=== PATIENT | male | born 1955 | race Caucasian/White ===

== ENCOUNTER 2020-03-01 23:56 | Inpatient (IN) | payer OTHER, SELFPAY ==
[2020-03-02] VITALS (9 sets, daily range): BP systolic 125–138; BP diastolic 86–91; PULSE 80–114; RESP 18–20; TEMP 36.4–36.9; O2SAT 95–97; BMI 25.9
--- NOTE | 2020-03-02 00:17 | ED.PSYCH ---
HPI - Psych General Chief Complaint: Psychiatric Symptoms <Kade Shultz MD - Last Filed: 03/02/20 01:37> Stated Complaint: HALLUCINATIONS <Kade Shultz MD - Last Filed: 03/02/20 01:37> Time Seen by Provider: 03/02/20 00:17 <Kade Shultz MD - Last Filed: 03/02/20 01:37> Source: patient <Kade Shultz MD - Last Filed: 03/02/20 01:37> Mode of arrival: other (Brought in by INSURANCE LOSS ASSESSOR) <Kade Shultz MD - Last Filed: 03/02/20 01:37> Limitations: no limitations <Kade Shultz MD - Last Filed: 03/02/20 01:37> History of Present Illness HPI Narrative: Patient has been reporting to the INSURANCE LOSS ASSESSOR that he feels he is being followed. Some times he sees the person. Worsening memory. He feels that his hallucinations are getting worse. <Kade Shultz MD - Last Filed: 03/02/20 01:37> MD complaint: altered mental status and hallucinations <Kade Shultz MD - Last Filed: 03/02/20 01:37> Onset (ago): week(s) <Kade Shultz MD - Last Filed: 03/02/20 01:37> Duration: constant <Kade Shultz MD - Last Filed: 03/02/20 01:37> Associated psychiatric symptoms: visual hallucinations <Kade Shultz MD - Last Filed: 03/02/20 01:37> Related Data Home Medications: Home Medications Medication Instructions Recorded Confirmed atorvastatin 1 tab PO BEDTIME 03/02/20 03/02/20 carbidopa-levodopa 1 tab PO QID 03/02/20 03/02/20 cholecalciferol (vitamin D3) 1 tab PO QAM 03/02/20 03/02/20 cyanocobalamin (vitamin B-12) 1 tab PO QAM 03/02/20 03/02/20 docusate sodium [DOK] 100 mg PO BID 03/02/20 03/02/20 mirtazapine 1 tab PO BEDTIME 03/02/20 03/02/20 khemqxjlartf-nhcc-lfppd acid 1 tab PO QNOON 03/02/20 03/02/20 [Certavite-Antioxidant] pantoprazole 1 tab PO QAM 03/02/20 03/02/20 quetiapine 25 mg PO BID@0630,1630 03/02/20 03/02/20 quetiapine 75 mg PO BEDTIME 03/02/20 03/02/20 sertraline 2 tab PO QAM 03/02/20 03/02/20 <Kade Shultz MD - Last Filed: 03/02/20 01:37> Allergies/Adverse Reactions: Allergies Allergy/AdvReac Type Severity Reaction Status Date / Time No Known Allergies Allergy Unverified 10/27/19 16:18 [No Known Allergies*] <Kade Shultz MD - Last Filed: 03/02/20 01:37> Review of Systems Constitutional: Constitutional: Reports no additional constitutional complaints <Kade Shultz MD - Last Filed: 03/02/20 01:37> Eyes: Eyes: Reports no additional eye complaints <Kade Shultz MD - Last Filed: 03/02/20 01:37> ENT: Denies dizziness <Kade Shultz MD - Last Filed: 03/02/20 01:37> Cardiovascular: Cardiovascular: Reports no additional cardiovascular complaints <Kade Shultz MD - Last Filed: 03/02/20 01:37> Respiratory: Respiratory: Reports as per HPI <Kade Shultz MD - Last Filed: 03/02/20 01:37> Gastrointestinal: Gastrointestinal: Reports no additional gastrointestinal complaints <Kade Shultz MD - Last Filed: 03/02/20 01:37> Musculoskeletal: Musculoskeletal: Reports no additional musculoskeletal complaints <Kade Shultz MD - Last Filed: 03/02/20 01:37> Integumentary/Breasts: Skin/Breast: Denies rash <Kade Shultz MD - Last Filed: 03/02/20 01:37> Neurologic: Reports system reviewed and no additional complaints, except as documented, Denies dizziness and Denies Sensory deficit (Neuro) <Kade Shultz MD - Last Filed: 03/02/20 01:37> Psychiatric: Psychiatric: Denies anxiety <Kade Shultz MD - Last Filed: 03/02/20 01:37> [facility] Social History Social History: Social History Advance Directives: No Advance Directives Information Provided: No <Kade Shultz MD - Last Filed: 03/02/20 01:37> Physical Exam Vital Signs: Vital Signs: Last Vital Signs Temp 98.5 F 03/02/20 00:48 Pulse 114 H 03/02/20 00:48 Resp 18 03/02/20 08:00 BP 125/88 03/02/20 00:48 Pulse Ox 96 03/02/20 00:48 Body Mass Index 25.9 <Kade Shultz MD - Last Filed: 03/02/20 01:37> Vital Signs: Last Vital Signs Temp 98.5 F 03/02/20 00:48 Pulse 114 H 03/02/20 00:48 Resp 18 03/02/20 08:00 BP 125/88 03/02/20 00:48 Pulse Ox 96 03/02/20 00:48 Body Mass Index 25.9 <JOHN Nieves - Last Filed: 03/02/20 08:58> Const: Other: Male looking older than stated age, tremulous <Kade Shultz MD - Last Filed: 03/02/20 01:37> Nutritional Appearance: average body habitus <Kade Shultz MD - Last Filed: 03/02/20 01:37> Limitations: no limitations <Kade Shultz MD - Last Filed: 03/02/20 01:37> HENMT: Head: Yes normal to inspection <Kade Shultz MD - Last Filed: 03/02/20 01:37> Ears: external ears normal <Kade Shultz MD - Last Filed: 03/02/20 01:37> General nose exam: Normal external nose present <Kade Shultz MD - Last Filed: 03/02/20 01:37> Mouth: Normal oral and palatal mucosa present and oropharynx normal <Kade Shultz MD - Last Filed: 03/02/20 01:37> Throat: Yes posterior oropharynx normal <Kade Shultz MD - Last Filed: 03/02/20 01:37> Eyes: General: appearance normal, both eyes and all related structures <Kade Shultz MD - Last Filed: 03/02/20 01:37> Neck: Other: supple <Kade Shultz MD - Last Filed: 03/02/20 01:37> Neck: Yes normal visual inspection <Kade Shultz MD - Last Filed: 03/02/20 01:37> Chest: Chest palpation & inspection: normal inspection of the chest <Kade Shultz MD - Last Filed: 03/02/20 01:37> Resp: Auscultation: clear to auscultation bilaterally <Kade Shultz MD - Last Filed: 03/02/20 01:37> Cardio: Jugular venous distension: no JVD <Kade Shultz MD - Last Filed: 03/02/20 01:37> Rate: regular rate <Kade Shultz MD - Last Filed: 03/02/20 01:37> Rhythm: regular rhythm <Kade Shultz MD - Last Filed: 03/02/20 01:37> Heart sounds: S1 normal heart sound present and S2 normal heart sound present <Kade Shultz MD - Last Filed: 03/02/20 01:37> GI: Inspection: Yes normal to inspection <Kade Shultz MD - Last Filed: 03/02/20 01:37> Palpation (GI): Soft to palpation, nontender and No hepatosplenomegaly present <Kade Shultz MD - Last Filed: 03/02/20 01:37> Auscultation: normal bowel sounds <Kade Shultz MD - Last Filed: 03/02/20 01:37> : General: Yes no CVA tenderness <Kade Shultz MD - Last Filed: 03/02/20 01:37> Back/Spine/Pelvis: Back: no CVA tenderness <Kade Shultz MD - Last Filed: 03/02/20 01:37> Skin: General skin exam: no rashes or lesions noted <Kade Shultz MD - Last Filed: 03/02/20 01:37> Neuro: Other: parkinsonian tremor <Kade Shultz MD - Last Filed: 03/02/20 01:37> Cranial nerves: Yes CN's II-XII intact bilaterally <Kade Shultz MD - Last Filed: 03/02/20 01:37> Motor exam (neuro): 5/5 motor strength present throughout <Kade Shultz MD - Last Filed: 03/02/20 01:37> Sensory Exam: No Sensory deficit (Neuro) <Kade Shultz MD - Last Filed: 03/02/20 01:37> Extrem: General: Yes normal to inspection <Kade Shultz MD - Last Filed: 03/02/20 01:37> Psych: Appearance: grossly normal <Kade Shultz MD - Last Filed: 03/02/20 01:37> Course Course Course Narrative: patient with increasing forgetfulness with hallucinations, work up in progress, signed out to Dr. Calvert <Kade Shultz MD - Last Filed: 03/02/20 01:37> 03/02/20 08:56--patient was tachycardic last night. Lab/imaging reviewed. Is pending evaluation by N. No complaints overnight <JOHN Nieves - Last Filed: 03/02/20 08:58> MDM - Psych Restraints Face to Face Assessment: Face to Face Assessment: Current Situation: After assessment of the patient, a review of the pertinent medical record and a discussion with nursing staff, I feel the patient requires a restrain intervention. Reaction To: [] Medical Condition: [] Behavioral State: [] Continued Need: [] <Kade Shultz MD - Last Filed: 03/02/20 01:37> Lab Data Result diagrams: : 03/02/20 01:26 03/02/20 01:26 <Kade Shultz MD - Last Filed: 03/02/20 01:37> Labs: Lab Results 03/02/20 03/02/20 03/02/20 Range/Units 00:59 01:26 01:26 WBC 10.0 (4.8-10.8) X10*3/uL RBC 4.58 L (4.60-5.80) X10*6/uL Hgb 13.3 L (14.0-18.0) g/dl Hct 40.9 L (42-52) % MCV 89.3 (80-98) fL MCH 29.0 (27.0-33.0) pg MCHC 32.5 (31.0-36.0) g/dl RDW 13.7 (11.0-16.0) % Plt Count 287 (160-400) X10*3/uL MPV 9.9 (9.4-12.4) fL Immature Gran % (Auto) 0.2 (0.0-0.4) % Neut % (Auto) 77.6 H (45-73) % Lymph % (Auto) 16.6 L (20-40) % [place] % (Auto) 4.9 (2-11) % Eos % (Auto) 0.3 (0-4) % Baso % (Auto) 0.4 (0-2) % Lymph # (Auto) 1.7 (1.2-4.9) X10*3/uL [place] # (Auto) 0.5 (0.1-1.2) X10*3/uL Eos # (Auto) 0.0 (0.0-0.4) X10*3/uL Baso # (Auto) 0.0 (0.0-0.2) X10*3/uL Abs Immat Gran (auto) 0.02 (0.00-0.03) X10*3/uL Absolute Neuts (auto) 7.8 (2.0-8.3) X10*3/uL Absolute Nucleated RBC 0.000 (0.0-0.012) X10*3/uL Nucleated RBC % (auto) 0.0 (0.0-0.2) /100WBC Sodium 138 (135-145) mmol/L Potassium 4.0 (3.3-5.1) mmol/l Chloride 103 (96-108) mmol/L Carbon Dioxide 24 (22-29) mmol/L Anion Gap 15 (12-20) BUN 18 H (9-16) mg/dL Creatinine 0.82 (0.5-1.4) mg/dL Estim Creat Clear Calc 79.1 Estimated GFR > 60 Random Glucose 106 (60-115) mg/dL Calcium 9.5 (8.4-10.2) mg/dL Total Bilirubin 0.5 (0.0-1.0) mg/dL Direct Bilirubin 0.3 (0.0-0.5) mg/dL AST 18 (5-37) U/L ALT < 6 (0-40) U/L Alkaline Phosphatase 75 (39-117) U/L Total Protein 7.8 (6.5-8.0) g/dL Albumin 4.8 (3.5-5.0) g/dL Specimen Comment Urine Color Urine Appearance Urine pH (5.0-8.0) Ur Specific [place] (1.005-1.025) Urine Protein (NEG-TRACE) MG/DL Urine Glucose (UA) (NEG) MG/DL Urine Ketones (NEG) MG/DL Urine Blood (NEG) Urine Nitrite (NEG) Ur Leukocyte Esterase (NEG) Salicylates (15-30) mg/dL Urine Opiates Screen (Not Detect) Acetaminophen (<30) mcg/mL Ur Barbiturates Screen (Not Detect) Ur Phencyclidine Scrn (Not Detect) Ur Amphetamines Screen (Not Detect) U Benzodiazepines Scrn (Not Detect) Urine Cocaine Screen (Not Detect) U Marijuana (THC) Screen (Not Detect) Ethyl Alcohol mg/dL COVID-19 ([facility]) Negative (Negative) COVID-19 Clin Com See Note 03/02/20 03/02/20 03/02/20 Range/Units 01:26 01:26 01:36 WBC (4.8-10.8) X10*3/uL RBC (4.60-5.80) X10*6/uL Hgb (14.0-18.0) g/dl Hct (42-52) % MCV (80-98) fL MCH (27.0-33.0) pg MCHC (31.0-36.0) g/dl RDW (11.0-16.0) % Plt Count (160-400) X10*3/uL MPV (9.4-12.4) fL Immature Gran % (Auto) (0.0-0.4) % Neut % (Auto) (45-73) % Lymph % (Auto) (20-40) % [place] % (Auto) (2-11) % Eos % (Auto) (0-4) % Baso % (Auto) (0-2) % Lymph # (Auto) (1.2-4.9) X10*3/uL [place] # (Auto) (0.1-1.2) X10*3/uL Eos # (Auto) (0.0-0.4) X10*3/uL Baso # (Auto) (0.0-0.2) X10*3/uL Abs Immat Gran (auto) (0.00-0.03) X10*3/uL Absolute Neuts (auto) (2.0-8.3) X10*3/uL Absolute Nucleated RBC (0.0-0.012) X10*3/uL Nucleated RBC % (auto) (0.0-0.2) /100WBC Sodium (135-145) mmol/L Potassium (3.3-5.1) mmol/l Chloride (96-108) mmol/L Carbon Dioxide (22-29) mmol/L Anion Gap (12-20) BUN (9-16) mg/dL Creatinine (0.5-1.4) mg/dL Estim Creat Clear Calc Estimated GFR Random Glucose (60-115) mg/dL Calcium (8.4-10.2) mg/dL Total Bilirubin (0.0-1.0) mg/dL Direct Bilirubin (0.0-0.5) mg/dL AST (5-37) U/L ALT (0-40) U/L Alkaline Phosphatase (39-117) U/L Total Protein (6.5-8.0) g/dL Albumin (3.5-5.0) g/dL Specimen Comment Urine Color Urine Appearance Urine pH (5.0-8.0) Ur Specific [place] (1.005-1.025) Urine Protein (NEG-TRACE) MG/DL Urine Glucose (UA) (NEG) MG/DL Urine Ketones (NEG) MG/DL Urine Blood (NEG) Urine Nitrite (NEG) Ur Leukocyte Esterase (NEG) Salicylates < 5.0 L (15-30) mg/dL Urine Opiates Screen Not Detected (Not Detect) Acetaminophen < 1 (<30) mcg/mL Ur Barbiturates Screen Not Detected (Not Detect) Ur Phencyclidine Scrn Not Detected (Not Detect) Ur Amphetamines Screen Not Detected (Not Detect) U Benzodiazepines Scrn Not Detected (Not Detect) Urine Cocaine Screen Not Detected (Not Detect) U Marijuana (THC) Screen Not Detected (Not Detect) Ethyl Alcohol < 10 mg/dL COVID-19 ([facility]) (Negative) COVID-19 Clin Com 03/02/20 03/02/20 Range/Units 01:36 01:57 WBC (4.8-10.8) X10*3/uL RBC (4.60-5.80) X10*6/uL Hgb (14.0-18.0) g/dl Hct (42-52) % MCV (80-98) fL MCH (27.0-33.0) pg MCHC (31.0-36.0) g/dl RDW (11.0-16.0) % Plt Count (160-400) X10*3/uL MPV (9.4-12.4) fL Immature Gran % (Auto) (0.0-0.4) % Neut % (Auto) (45-73) % Lymph % (Auto) (20-40) % [place] % (Auto) (2-11) % Eos % (Auto) (0-4) % Baso % (Auto) (0-2) % Lymph # (Auto) (1.2-4.9) X10*3/uL [place] # (Auto) (0.1-1.2) X10*3/uL Eos # (Auto) (0.0-0.4) X10*3/uL Baso # (Auto) (0.0-0.2) X10*3/uL Abs Immat Gran (auto) (0.00-0.03) X10*3/uL Absolute Neuts (auto) (2.0-8.3) X10*3/uL Absolute Nucleated RBC (0.0-0.012) X10*3/uL Nucleated RBC % (auto) (0.0-0.2) /100WBC Sodium (135-145) mmol/L Potassium (3.3-5.1) mmol/l Chloride (96-108) mmol/L Carbon Dioxide (22-29) mmol/L Anion Gap (12-20) BUN (9-16) mg/dL Creatinine (0.5-1.4) mg/dL Estim Creat Clear Calc Estimated GFR Random Glucose (60-115) mg/dL Calcium (8.4-10.2) mg/dL Total Bilirubin (0.0-1.0) mg/dL Direct Bilirubin (0.0-0.5) mg/dL AST (5-37) U/L ALT (0-40) U/L Alkaline Phosphatase (39-117) U/L Total Protein (6.5-8.0) g/dL Albumin (3.5-5.0) g/dL Specimen Comment DELAY Urine Color YELLOW Urine Appearance CLEAR Urine pH 6.0 (5.0-8.0) Ur Specific [place] >= 1.030 H (1.005-1.025) Urine Protein NEG (NEG-TRACE) MG/DL Urine Glucose (UA) NEG (NEG) MG/DL Urine Ketones NEG (NEG) MG/DL Urine Blood NEG (NEG) Urine Nitrite NEG (NEG) Ur Leukocyte Esterase NEG (NEG) Salicylates (15-30) mg/dL Urine Opiates Screen (Not Detect) Acetaminophen (<30) mcg/mL Ur Barbiturates Screen (Not Detect) Ur Phencyclidine Scrn (Not Detect) Ur Amphetamines Screen (Not Detect) U Benzodiazepines Scrn (Not Detect) Urine Cocaine Screen (Not Detect) U Marijuana (THC) Screen (Not Detect) Ethyl Alcohol mg/dL COVID-19 ([facility]) (Negative) COVID-19 Clin Com <Kade Shultz MD - Last Filed: 03/02/20 01:37> Lab Results 03/02/20 03/02/20 03/02/20 Range/Units 00:59 01:26 01:26 WBC 10.0 (4.8-10.8) X10*3/uL RBC 4.58 L (4.60-5.80) X10*6/uL Hgb 13.3 L (14.0-18.0) g/dl Hct 40.9 L (42-52) % MCV 89.3 (80-98) fL MCH 29.0 (27.0-33.0) pg MCHC 32.5 (31.0-36.0) g/dl RDW 13.7 (11.0-16.0) % Plt Count 287 (160-400) X10*3/uL MPV 9.9 (9.4-12.4) fL Immature Gran % (Auto) 0.2 (0.0-0.4) % Neut % (Auto) 77.6 H (45-73) % Lymph % (Auto) 16.6 L (20-40) % [place] % (Auto) 4.9 (2-11) % Eos % (Auto) 0.3 (0-4) % Baso % (Auto) 0.4 (0-2) % Lymph # (Auto) 1.7 (1.2-4.9) X10*3/uL [place] # (Auto) 0.5 (0.1-1.2) X10*3/uL Eos # (Auto) 0.0 (0.0-0.4) X10*3/uL Baso # (Auto) 0.0 (0.0-0.2) X10*3/uL Abs Immat Gran (auto) 0.02 (0.00-0.03) X10*3/uL Absolute Neuts (auto) 7.8 (2.0-8.3) X10*3/uL Absolute Nucleated RBC 0.000 (0.0-0.012) X10*3/uL Nucleated RBC % (auto) 0.0 (0.0-0.2) /100WBC Sodium 138 (135-145) mmol/L Potassium 4.0 (3.3-5.1) mmol/l Chloride 103 (96-108) mmol/L Carbon Dioxide 24 (22-29) mmol/L Anion Gap 15 (12-20) BUN 18 H (9-16) mg/dL Creatinine 0.82 (0.5-1.4) mg/dL Estim Creat Clear Calc 79.1 Estimated GFR > 60 Random Glucose 106 (60-115) mg/dL Calcium 9.5 (8.4-10.2) mg/dL Total Bilirubin 0.5 (0.0-1.0) mg/dL Direct Bilirubin 0.3 (0.0-0.5) mg/dL AST 18 (5-37) U/L ALT < 6 (0-40) U/L Alkaline Phosphatase 75 (39-117) U/L Total Protein 7.8 (6.5-8.0) g/dL Albumin 4.8 (3.5-5.0) g/dL Specimen Comment Urine Color Urine Appearance Urine pH (5.0-8.0) Ur Specific [place] (1.005-1.025) Urine Protein (NEG-TRACE) MG/DL Urine Glucose (UA) (NEG) MG/DL Urine Ketones (NEG) MG/DL Urine Blood (NEG) Urine Nitrite (NEG) Ur Leukocyte Esterase (NEG) Salicylates (15-30) mg/dL Urine Opiates Screen (Not Detect) Acetaminophen (<30) mcg/mL Ur Barbiturates Screen (Not Detect) Ur Phencyclidine Scrn (Not Detect) Ur Amphetamines Screen (Not Detect) U Benzodiazepines Scrn (Not Detect) Urine Cocaine Screen (Not Detect) U Marijuana (THC) Screen (Not Detect) Ethyl Alcohol mg/dL COVID-19 ([facility]) Negative (Negative) COVID-19 Clin Com See Note 03/02/20 03/02/20 03/02/20 Range/Units 01:26 01:26 01:36 WBC (4.8-10.8) X10*3/uL RBC (4.60-5.80) X10*6/uL Hgb (14.0-18.0) g/dl Hct (42-52) % MCV (80-98) fL MCH (27.0-33.0) pg MCHC (31.0-36.0) g/dl RDW (11.0-16.0) % Plt Count (160-400) X10*3/uL MPV (9.4-12.4) fL Immature Gran % (Auto) (0.0-0.4) % Neut % (Auto) (45-73) % Lymph % (Auto) (20-40) % [place] % (Auto) (2-11) % Eos % (Auto) (0-4) % Baso % (Auto) (0-2) % Lymph # (Auto) (1.2-4.9) X10*3/uL [place] # (Auto) (0.1-1.2) X10*3/uL Eos # (Auto) (0.0-0.4) X10*3/uL Baso # (Auto) (0.0-0.2) X10*3/uL Abs Immat Gran (auto) (0.00-0.03) X10*3/uL Absolute Neuts (auto) (2.0-8.3) X10*3/uL Absolute Nucleated RBC (0.0-0.012) X10*3/uL Nucleated RBC % (auto) (0.0-0.2) /100WBC Sodium (135-145) mmol/L Potassium (3.3-5.1) mmol/l Chloride (96-108) mmol/L Carbon Dioxide (22-29) mmol/L Anion Gap (12-20) BUN (9-16) mg/dL Creatinine (0.5-1.4) mg/dL Estim Creat Clear Calc Estimated GFR Random Glucose (60-115) mg/dL Calcium (8.4-10.2) mg/dL Total Bilirubin (0.0-1.0) mg/dL Direct Bilirubin (0.0-0.5) mg/dL AST (5-37) U/L ALT (0-40) U/L Alkaline Phosphatase (39-117) U/L Total Protein (6.5-8.0) g/dL Albumin (3.5-5.0) g/dL Specimen Comment Urine Color Urine Appearance Urine pH (5.0-8.0) Ur Specific [place] (1.005-1.025) Urine Protein (NEG-TRACE) MG/DL Urine Glucose (UA) (NEG) MG/DL Urine Ketones (NEG) MG/DL Urine Blood (NEG) Urine Nitrite (NEG) Ur Leukocyte Esterase (NEG) Salicylates < 5.0 L (15-30) mg/dL Urine Opiates Screen Not Detected (Not Detect) Acetaminophen < 1 (<30) mcg/mL Ur Barbiturates Screen Not Detected (Not Detect) Ur Phencyclidine Scrn Not Detected (Not Detect) Ur Amphetamines Screen Not Detected (Not Detect) U Benzodiazepines Scrn Not Detected (Not Detect) Urine Cocaine Screen Not Detected (Not Detect) U Marijuana (THC) Screen Not Detected (Not Detect) Ethyl Alcohol < 10 mg/dL COVID-19 ([facility]) (Negative) COVID-19 Clin Com 03/02/20 03/02/20 Range/Units 01:36 01:57 WBC (4.8-10.8) X10*3/uL RBC (4.60-5.80) X10*6/uL Hgb (14.0-18.0) g/dl Hct (42-52) % MCV (80-98) fL MCH (27.0-33.0) pg MCHC (31.0-36.0) g/dl RDW (11.0-16.0) % Plt Count (160-400) X10*3/uL MPV (9.4-12.4) fL Immature Gran % (Auto) (0.0-0.4) % Neut % (Auto) (45-73) % Lymph % (Auto) (20-40) % [place] % (Auto) (2-11) % Eos % (Auto) (0-4) % Baso % (Auto) (0-2) % Lymph # (Auto) (1.2-4.9) X10*3/uL [place] # (Auto) (0.1-1.2) X10*3/uL Eos # (Auto) (0.0-0.4) X10*3/uL Baso # (Auto) (0.0-0.2) X10*3/uL Abs Immat Gran (auto) (0.00-0.03) X10*3/uL Absolute Neuts (auto) (2.0-8.3) X10*3/uL Absolute Nucleated RBC (0.0-0.012) X10*3/uL Nucleated RBC % (auto) (0.0-0.2) /100WBC Sodium (135-145) mmol/L Potassium (3.3-5.1) mmol/l Chloride (96-108) mmol/L Carbon Dioxide (22-29) mmol/L Anion Gap (12-20) BUN (9-16) mg/dL Creatinine (0.5-1.4) mg/dL Estim Creat Clear Calc Estimated GFR Random Glucose (60-115) mg/dL Calcium (8.4-10.2) mg/dL Total Bilirubin (0.0-1.0) mg/dL Direct Bilirubin (0.0-0.5) mg/dL AST (5-37) U/L ALT (0-40) U/L Alkaline Phosphatase (39-117) U/L Total Protein (6.5-8.0) g/dL Albumin (3.5-5.0) g/dL Specimen Comment DELAY Urine Color YELLOW Urine Appearance CLEAR Urine pH 6.0 (5.0-8.0) Ur Specific [place] >= 1.030 H (1.005-1.025) Urine Protein NEG (NEG-TRACE) MG/DL Urine Glucose (UA) NEG (NEG) MG/DL Urine Ketones NEG (NEG) MG/DL Urine Blood NEG (NEG) Urine Nitrite NEG (NEG) Ur Leukocyte Esterase NEG (NEG) Salicylates (15-30) mg/dL Urine Opiates Screen (Not Detect) Acetaminophen (<30) mcg/mL Ur Barbiturates Screen (Not Detect) Ur Phencyclidine Scrn (Not Detect) Ur Amphetamines Screen (Not Detect) U Benzodiazepines Scrn (Not Detect) Urine Cocaine Screen (Not Detect) U Marijuana (THC) Screen (Not Detect) Ethyl Alcohol mg/dL COVID-19 ([facility]) (Negative) COVID-19 Clin Com <JOHN Nieves - Last Filed: 03/02/20 08:58> Discharge Plan Discharge Prescriptions: No Action quetiapine 25 mg tablet 25 mg PO BID@0630,1630 RF: 0 atorvastatin 10 mg tablet 1 tab PO BEDTIME RF: 0 sertraline 100 mg tablet 2 tab PO QAM RF: 0 cyanocobalamin (vitamin B-12) 1,000 mcg tablet 1 tab PO QAM RF: 0 pantoprazole 40 mg tablet,delayed release (DR/EC) 1 tab PO QAM RF: 0 carbidopa-levodopa 25-100 mg tablet 1 tab PO QID RF: 0 mirtazapine 7.5 mg tablet 1 tab PO BEDTIME RF: 0 cholecalciferol (vitamin D3) 25 mcg (1,000 unit) tablet 1 tab PO QAM RF: 0 Certavite-Antioxidant 18-400 mg-mcg tablet 1 tab PO QNOON RF: 0 quetiapine 25 mg Tablet 75 mg PO BEDTIME RF: 0 docusate sodium [DOK] 100 mg Tablet 100 mg PO BID RF: 0 <Kade Shultz MD - Last Filed: 03/02/20 01:37>
--- NOTE | 2020-03-02 00:28 | CT_ITS ---
EXAMINATION: CT HEAD WITHOUT CONTRAST CLINICAL INFORMATION: Hallucinations COMPARISON: 01/11/2017 TECHNIQUE: Contiguous axial imaging was performed from the skull base to vertex without intravenous administration of contrast. This CT examination was performed using dose optimization techniques as appropriate, variously including the following: *Automated exposure control *Adjustment of mA and/or kV according to patient size (this includes techniques or standardized protocols for targeted exams where dose is matched to indication/reason for exam; i.e. extremities or head) *Use of iterative reconstruction technique DLP: 723 mGy-cm FINDINGS: There is no evidence of acute intracranial hemorrhage or territorial infarction. No abnormal mass effect or midline shift is seen. Broussard to white matter differentiation is well preserved. No extra-axial fluid collections are identified. The ventricles are normal in size. There is no abnormal attenuation within the brain parenchyma. The osseous structures and soft tissues are normal. The mastoid air cells and visualized portions of the paranasal sinuses are well aerated. CT/CT head/brain wo con IMPRESSION: No acute intracranial pathology.
[2020-03-02 01:32] LABS: Basophils Percent Auto 0.4 % (0-2); Eosinophils Percent Auto 0.3 % (0-4); Hematocrit 40.9 % (42-52); Hemoglobin 13.3 g/dl (14.0-18.0); Imm Gran Abs Auto 0.02 X10*3/uL (0.00-0.03); Imm Gran Pct Auto 0.2 % (0.0-0.4); Lymphocytes Absolute Auto 1.7 X10*3/uL (1.2-4.9); Lymphocytes Percent Auto 16.6 % (20-40); MANUAL DIFF FLAG NO; Mean Corpuscular HGB Conc 32.5 g/dl (31.0-36.0); Mean Corpuscular Volume 89.3 fL (80-98); Mean Platelet Volume 9.9 fL (9.4-12.4); Monocytes Absolute Auto 0.5 X10*3/uL (0.1-1.2); Monocytes Percent Auto 4.9 % (2-11); Neutrophils Absolute Auto 7.8 X10*3/uL (2.0-8.3); Neutrophils Percent Auto 77.6 % (45-73); Platelet Count 287 X10*3/uL (160-400); Red Blood Count 4.58 X10*6/uL (4.60-5.80); Red Cell Distribution Width 13.7 % (11.0-16.0)
[2020-03-02 01:32] LABS: COVID-19 Test Negative (Negative); IDNOW Serial# 9DD0AD1C
[2020-03-02 01:46] LABS: Glucose Urine UA NEG (NEG); Leukocyte Esterase Urine NEG (NEG); Nitrite Urine NEG (NEG); Specific Gravity - Urine >= 1.030 (1.005-1.025); Urine Blood NEG (NEG); Urine Ketones NEG (NEG); Urine Protein NEG (NEG-TRACE)
[2020-03-02 01:50] LABS: Appearance Urine CLEAR; Color Urine YELLOW
[2020-03-02 01:59] LABS: Delay - Chemistry DELAY
[2020-03-02 02:06] LABS: Ethanol < 10 mg/dL
[2020-03-02 02:12] LABS: Alanine Aminotransferase < 6 U/L (0-40); Albumin Level 4.8 g/dL (3.5-5.0); Alkaline Phosphatase 75 U/L (39-117); Anion Gap 15 (12-20); Aspartate Amino Transferase 18 U/L (5-37); Bilirubin Direct 0.3 mg/dL (0.0-0.5); Bilirubin Total 0.5 mg/dL (0.0-1.0); Blood Urea Nitrogen 18 mg/dL (9-16); Calcium 9.5 mg/dL (8.4-10.2); Carbon Dioxide 24 mmol/L (22-29); Chloride 103 mmol/L (96-108); Creatinine Clr Calc Pharmacy 79.1; Estimated Glomerular Filt Rate > 60; Glucose Random 106 mg/dL (60-115); Sodium 138 mmol/L (135-145); Total Protein 7.8 g/dL (6.5-8.0)
[2020-03-02 02:24] LABS: Amphetamine Screen Urine Not Detected (Not Detect); Barbiturates, Urine Not Detected (Not Detect); Benzodiazepines Screen Urine Not Detected (Not Detect); Cannabinoid Screen Urine Not Detected (Not Detect); Cocaine Screen Urine Not Detected (Not Detect); Opiate Screen Urine Not Detected (Not Detect); Phencyclidine Screen Urine Not Detected (Not Detect)
--- NOTE | 2020-03-02 03:06 | PC.NURSE ---
LEONELA faxed/called/spoke with Bhargavi/confirmed receipt of referral, patient in bed appears sleeping, no distress reported, will continue to monitor.
[2020-03-02 04:12] LABS: Acetaminophen LAB < 1 mcg/mL (<30); Salicylate < 5.0 mg/dL (15-30)
--- NOTE | 2020-03-02 07:10 | PC.NURSE ---
Report received from FANNIE Barajas. Pt resting, resp unlabored.
--- NOTE | 2020-03-02 10:51 | PC.NURSE ---
[facility] in to evaluate felt cutter called.
--- NOTE | 2020-03-02 11:11 | PC.NURSE ---
Pt evaluated w/ money room supervisor present. Pt alert, oriented to person but not year. Aware that he is 'in the hospital.' States that emotionally he is not doing so well but denies SI. Pt denies AH/VH at this time. Pt reports some left flank pain that began yesterday. Jonathan Chandra notified.
[2020-03-02] MEDS: Lidocaine 4 % Patch ADH..PATCH 1 PATCH TRANSDERMA (11:25)
[2020-03-02] MEDS: Ibuprofen 400 MG TABLET PO (11:26)
--- NOTE | 2020-03-02 11:52 | PC.NURSE ---
Pt awake, affect even, awaiting dispo.
[2020-03-02] MEDS: Cyanocobalamin (Vitamin B-12) 1,000 MCG TABLET 1000 MCG PO (12:43)
[2020-03-02] MEDS: Carbidopa/Levodopa 25/100 TABLET 1 TAB PO ×3 (12:43→21:52)
[2020-03-02] MEDS: Cholecalciferol (Vitamin D3) 25 MCG TABLET PO (12:43)
[2020-03-02] MEDS: Sertraline HCL 100 MG TABLET 200 MG PO (12:46)
[2020-03-02] MEDS: Omeprazole 20 MG CAPSULE.DR PO (12:46)
--- NOTE | 2020-03-02 13:29 | PC.NURSE ---
Pt resting, resp unlabored
--- NOTE | 2020-03-02 14:30 | PC.NURSE ---
Pt assessed w/ hand grinder present. Pt aware that he will be remaining in the hospital to wait for inpatient bed. States that pain left flank is a little better. Denies any other concerns at this time.
[2020-03-02] MEDS: QUEtiapine Fumarate 25 MG TABLET PO (15:57)
--- NOTE | 2020-03-02 16:05 | PC.NURSE ---
Pt pleasant, cooperative w/ care, no concerns reported at this time.
--- NOTE | 2020-03-02 18:58 | ECG_ITS ---
Test Reason : baseline Blood Pressure : / mmHG Vent. Rate : 079 BPM Atrial Rate : 079 BPM P-R Int : 154 ms QRS Dur : 078 ms QT Int : 374 ms P-R-T Axes : 056 -04 033 degrees QTc Int : 428 ms Artifact in tracing Normal sinus rhythm Cannot exclude old Inferior infarct , age undetermined Abnormal ECG No significant changes when compared with the previous EKG of jan 10 2017 Referred By: Mildred Galarza Electronically Signed By:IGNACIO SALDAÑA
--- NOTE | 2020-03-02 19:16 | PC.NURSE ---
Report received. PT is laying in bed quietly. Calm and cooperative. Waiting to be transferred to .
[2020-03-02] MEDS: QUEtiapine Fumarate 25 MG TABLET 75 MG PO (21:52)
[2020-03-02] MEDS: Docusate Sodium 100 MG CAPSULE PO (21:52)
[2020-03-02] MEDS: Mirtazapine 7.5 MG TABLET PO (21:52)
[2020-03-02] MEDS: Atorvastatin Calcium 10 MG TABLET PO (21:52)
--- NOTE | 2020-03-02 22:05 | PC.NURSE ---
Nurse to nurse completed with Dominic on M5.
[2020-03-02] MEDS: Acetaminophen 325 MG TABLET 650 MG PO (23:26)
[2020-03-03] MEDS: traZODone HCL 50 MG TABLET PO ×2 (00:17→02:11)
[2020-03-03] MEDS: hydrOXYzine HCL 25 MG TABLET PO (02:12)
--- NOTE | 2020-03-03 03:39 | PC.ADMIT ---
Patient is a 64 yo Indonesian speaking only male admitted on a CV at 22:30 on 03/02/20 to [facility]. Pt initially presented to ED after being transported by his HSPT TUTOR to [facility] due to worsening memory loss and audio/visual hallucination. Per crisis assessment, pt believes he is seeing his . Pt endorsed vague SI and was referred to IPLOC. architecture department chair assisted with admission assessment and frequently stated that pt was illogical and not responding appropriately to questions. Pt disoriented to time, date, location, and reason for admission. Endorsed vague SI with no plan and intends to seek out staff if thoughts arise. Denied HI. When asked about plan for SI pt stated three voices are telling me to make holes. Stated that when supine the wooden knots of the door approach him and that under the door, shadows walk around. Per [facility] assessment, pt has PMH of dementia, parkinson's disease, chronic pain, and arthritis. Pt ambulates with a cane. Had difficulty signing admission forms due to tremor. Has prior [facility] for AUD but has not drank in 15 years. Reported pain in right shoulder and back and received medication. VSS upon admission with exception of elevated heart rate. Received medication for sleep upon completion of admission. Medications to be confirmed during business hours. On-call provider notified and orders submitted. Placed on 15 min safety checks.
[2020-03-03 06:25] VITALS: BP 153/93; PULSE 76; RESP 16; TEMP 36.6; O2SAT 98
[2020-03-03 08:02] LABS: Cholesterol 138 mg/dL; HDL Cholesterol 48 mg/dL; LDL Cholesterol Calculated 71 mg/dl; Triglycerides 96 mg/dL
[2020-03-03 08:23] LABS: Thyroid Stimulating Hormone 3.01 uIU/mL (0.32-4.0)
[2020-03-03] MEDS: Omeprazole 20 MG CAPSULE.DR PO (08:30)
[2020-03-03] MEDS: QUEtiapine Fumarate 25 MG TABLET PO (08:30)
[2020-03-03] MEDS: Cholecalciferol (Vitamin D3) 25 MCG TABLET PO (08:30)
[2020-03-03] MEDS: Docusate Sodium 100 MG CAPSULE PO ×2 (08:30→20:10)
[2020-03-03] MEDS: Sertraline HCL 100 MG TABLET PO (08:30)
[2020-03-03] MEDS: Carbidopa/Levodopa 25/100 TABLET 1 TAB PO ×4 (08:30→20:10)
[2020-03-03 08:52] LABS: Estimated Average Glucose 111 mg/dL; Hemoglobin A1C 135.5828 umol/L; Hemoglobin A1c % 5.5 %
--- NOTE | 2020-03-03 14:11 | HO.PSYADMNOT ---
HPI Chief Complaint: Paranoia/ Hallucinations Sources of Information: patient interviewed, chart reviewed and crisis/core team assessment reviewed HPI Narrative: Mr. Nicole is a 64 year-old male with hx of Parkinson's and secondary psychosis and memory/cognitive impairment. He was brought by his JAPANESE TUTOR Evita Moralez ([phone]) due to concerns of persecutory delusions (thinking someone had dig a hole and planning to burry him alive), hallucinations (mostly visual of bugs), trying to leave the house late at night. Most information is gathered from his PCP and step daughter as patient's cognition/memory is significantly impaired. On the unit, pt presents as pleasant. He denies suicidal or homicidal ideation. He does report seeing bugs and points to the wall where he states he sees multiple bugs crawling. He does not report any paranoid delusions. He is aware this is a hospital but he states he is here because he had surgery. He also reports that at times he sees his but not recently (he is aware she is ). Overall he describes his mood as good, does complaint on some back pain, but thinks this is due to surgery he just had here in hospital. He does not know the year or month. Collateral information from JONATHAN Jama, who has been working with [facility] for past 4 years, reports that on the day she brought him to the ED, he went to his house at around 11pm, during her regular scheduled to check on him and he was getting ready to get out of his apartment, stating he was leaving as someone had dig a hole with a plan to burry him alive. JAPANESE TUTOR was concern about his safety. She reports that he did not report suicidal ideation but she worried that psychosis have increased and he can't care for himself. Past Psychiatric History: Inpatient admission: [facility] 2017 psychosis in setting of Parkinson's OP: Dr. Ban Spencer ([phone]) @ [facility]. Therapist Roseline ([phone]) Suicide attempts: none per family and pt. Past medication trials: clozaril (no improvement, plus difficult to get weekly labs), seroquel (partial response), Nuplazid (hallucinations worsen) Medical Evaluation Reviewed: Yes [facility] Medical History (Updated 03/04/20 @ 12:29 by Regina La) Arthritis Chronic pain Dementia Parkinson disease Family History: none Social History: Pt . He has a step daughter. Originally from [place]. Substance History: Alcohol: hx of alcohol, no current use for several years. Trauma History: Pt denies. Diagnostics Vital Signs (24Hr): Vital Signs - 24 hr 03/02/20 16:00 03/02/20 18:00 03/02/20 22:08 Temperature 98.4 F Pulse Rate 83 Respiratory Rate 18 18 18 Blood Pressure 137/91 H Pulse Oximetry 95 03/03/20 06:25 Temperature 97.9 F Pulse Rate 76 Respiratory Rate 16 Blood Pressure 153/93 H Pulse Oximetry 98 Body Mass Index 25.9 Labs Results: 03/02/20 01:26 03/02/20 01:26 Labs: Laboratory Results - last 48 hr 03/02/20 03/02/20 03/02/20 00:59 01:26 01:26 WBC 10.0 RBC 4.58 L Hgb 13.3 L Hct 40.9 L MCV 89.3 MCH 29.0 MCHC 32.5 RDW 13.7 Plt Count 287 MPV 9.9 Immature Gran % (Auto) 0.2 Neut % (Auto) 77.6 H Lymph % (Auto) 16.6 L [facility] % (Auto) 4.9 Eos % (Auto) 0.3 Baso % (Auto) 0.4 Lymph # (Auto) 1.7 [facility] # (Auto) 0.5 Eos # (Auto) 0.0 Baso # (Auto) 0.0 Abs Immat Gran (auto) 0.02 Absolute Neuts (auto) 7.8 Absolute Nucleated RBC 0.000 Nucleated RBC % (auto) 0.0 Sodium 138 Potassium 4.0 Chloride 103 Carbon Dioxide 24 Anion Gap 15 BUN 18 H Creatinine 0.82 Estim Creat Clear Calc 79.1 Estimated GFR > 60 Random Glucose 106 Estimat Average Glucose Hemoglobin A1c % Calcium 9.5 Total Bilirubin 0.5 Direct Bilirubin 0.3 AST 18 ALT < 6 Alkaline Phosphatase 75 Total Protein 7.8 Albumin 4.8 Triglycerides Cholesterol LDL Cholesterol, Calc HDL Cholesterol TSH Specimen Comment Urine Color Urine Appearance Urine pH Ur Specific [place] Urine Protein Urine Glucose (UA) Urine Ketones Urine Blood Urine Nitrite Ur Leukocyte Esterase Salicylates Urine Opiates Screen Acetaminophen Ur Barbiturates Screen Ur Phencyclidine Scrn Ur Amphetamines Screen U Benzodiazepines Scrn Urine Cocaine Screen U Marijuana (THC) Screen Ethyl Alcohol COVID-19 ([facility]) Negative COVID-19 CMP.LY Com See Note 03/02/20 03/02/20 03/02/20 01:26 01:26 01:36 WBC RBC Hgb Hct MCV MCH MCHC RDW Plt Count MPV Immature Gran % (Auto) Neut % (Auto) Lymph % (Auto) [facility] % (Auto) Eos % (Auto) Baso % (Auto) Lymph # (Auto) [facility] # (Auto) Eos # (Auto) Baso # (Auto) Abs Immat Gran (auto) Absolute Neuts (auto) Absolute Nucleated RBC Nucleated RBC % (auto) Sodium Potassium Chloride Carbon Dioxide Anion Gap BUN Creatinine Estim Creat Clear Calc Estimated GFR Random Glucose Estimat Average Glucose Hemoglobin A1c % Calcium Total Bilirubin Direct Bilirubin AST ALT Alkaline Phosphatase Total Protein Albumin Triglycerides Cholesterol LDL Cholesterol, Calc HDL Cholesterol TSH Specimen Comment Urine Color Urine Appearance Urine pH Ur Specific Ten[place] Urine Protein Urine Glucose (UA) Urine Ketones Urine Blood Urine Nitrite Ur Leukocyte Esterase Salicylates < 5.0 L Urine Opiates Screen Not Detected Acetaminophen < 1 Ur Barbiturates Screen Not Detected Ur Phencyclidine Scrn Not Detected Ur Amphetamines Screen Not Detected U Benzodiazepines Scrn Not Detected Urine Cocaine Screen Not Detected U Marijuana (THC) Screen Not Detected Ethyl Alcohol < 10 COVID-19 ([facility]) COVID-[address] 03/02/20 03/02/20 03/03/20 01:36 01:57 07:29 WBC RBC Hgb Hct MCV MCH MCHC RDW Plt Count MPV Immature Gran % (Auto) Neut % (Auto) Lymph % (Auto) [facility] % (Auto) Eos % (Auto) Baso % (Auto) Lymph # (Auto) [facility] # (Auto) Eos # (Auto) Baso # (Auto) Abs Immat Gran (auto) Absolute Neuts (auto) Absolute Nucleated RBC Nucleated RBC % (auto) Sodium Potassium Chloride Carbon Dioxide Anion Gap BUN Creatinine Estim Creat Clear Calc Estimated GFR Random Glucose Estimat Average Glucose 111 Hemoglobin A1c % 5.5 Calcium Total Bilirubin Direct Bilirubin AST ALT Alkaline Phosphatase Total Protein Albumin Triglycerides Cholesterol LDL Cholesterol, Calc HDL Cholesterol TSH Specimen Comment DELAY Urine Color YELLOW Urine Appearance CLEAR Urine pH 6.0 Ur Specific Ten[place] >= 1.030 H Urine Protein NEG Urine Glucose (UA) NEG Urine Ketones NEG Urine Blood NEG Urine Nitrite NEG Ur Leukocyte Esterase NEG Salicylates Urine Opiates Screen Acetaminophen Ur Barbiturates Screen Ur Phencyclidine Scrn Ur Amphetamines Screen U Benzodiazepines Scrn Urine Cocaine Screen U Marijuana (THC) Screen Ethyl Alcohol COVID-19 ([facility]) COVID-19 Clin Com 03/03/20 07:29 WBC RBC Hgb Hct MCV MCH MCHC RDW Plt Count MPV Immature Gran % (Auto) Neut % (Auto) Lymph % (Auto) [facility] % (Auto) Eos % (Auto) Baso % (Auto) Lymph # (Auto) [facility] # (Auto) Eos # (Auto) Baso # (Auto) Abs Immat Gran (auto) Absolute Neuts (auto) Absolute Nucleated RBC Nucleated RBC % (auto) Sodium Potassium Chloride Carbon Dioxide Anion Gap BUN Creatinine Estim Creat Clear Calc Estimated GFR Random Glucose Estimat Average Glucose Hemoglobin A1c % Calcium Total Bilirubin Direct Bilirubin AST ALT Alkaline Phosphatase Total Protein Albumin Triglycerides 96 Cholesterol 138 LDL Cholesterol, Calc 71 HDL Cholesterol 48 TSH 3.01 Specimen Comment Urine Color Urine Appearance Urine pH Ur Specific Ten[place] Urine Protein Urine Glucose (UA) Urine Ketones Urine Blood Urine Nitrite Ur Leukocyte Esterase Salicylates Urine Opiates Screen Acetaminophen Ur Barbiturates Screen Ur Phencyclidine Scrn Ur Amphetamines Screen U Benzodiazepines Scrn Urine Cocaine Screen U Marijuana (THC) Screen Ethyl Alcohol COVID-19 ([facility]) COVID-19 Clin Com Imaging Radiology Impressions: ITS Impressions Head CT 03/02/20 00:28 IMPRESSION: No acute intracranial pathology. Meds/Allergies Meds Home Medications Acetaminophen (Acetaminophen 325 Mg Tablet) 650 mg PO Q6H PRN PRN Reason: Headache/Pain Mild Scale (1-3) Last Admin: 03/04/20 08:43 Dose: 650 mg Documented by: Al Hydroxide/Mg Hydroxide (Magnesium Hydrox/Alum Hydrox 30 Ml Oral.Susp) 30 ml PO Q6H PRN PRN Reason: Heartburn/Nausea Atorvastatin Calcium (Atorvastatin Calcium 10 Mg Tablet) 10 mg PO BEDTIME [facility] Last Admin: 03/03/20 20:10 Dose: 10 mg Documented by: Carbidopa/Levodopa (Carbidopa/Levodopa 25/100 Tablet) 1 tab PO QID [facility] Last Admin: 03/04/20 08:41 Dose: 1 tab Documented by: Docusate Sodium (Docusate Sodium 100 Mg Capsule) 100 mg PO BID [facility] Last Admin: 03/04/20 08:41 Dose: 100 mg Documented by: Hydroxyzine HCl (Hydroxyzine Hcl 25 Mg Tablet) 25 mg PO Q6H PRN PRN Reason: Anxiety Last Admin: 03/04/20 02:03 Dose: 25 mg Documented by: Magnesium Hydroxide (Milk Of Magnesia 30 Ml Oral.Susp) 30 ml PO DAILY PRN PRN Reason: Constipation Mirtazapine (Mirtazapine 7.5 Mg Tablet) 7.5 mg PO BEDTIME [facility] Last Admin: 03/03/20 20:10 Dose: 7.5 mg Documented by: Multivitamins/Minerals (Multivitamin With Minerals Tablet) 1 tab PO DAILY@1200 [facility] Last Admin: 03/03/20 12:07 Dose: 1 tab Documented by: Olanzapine (Olanzapine 2.5 Mg Tablet) 2.5 mg PO BID [facility] Last Admin: 03/04/20 08:41 Dose: 2.5 mg Documented by: Omeprazole (Omeprazole 20 Mg Capsule.Dr) 20 mg PO DAILY [facility] Last Admin: 03/04/20 08:41 Dose: 20 mg Documented by: Trazodone HCl (Trazodone Hcl 50 Mg Tablet) 50 mg PO BEDTIME PRN PRN Reason: Insomnia Last Admin: 03/04/20 02:02 Dose: 50 mg Documented by: Vitamin D (Cholecalciferol (Vitamin D3) 25 Mcg Tablet) 25 mcg PO DAILY [facility] Last Admin: 03/04/20 08:41 Dose: 25 mcg Documented by: Allergies Allergies Allergy/AdvReac Type Severity Reaction Status Date / Time No Known Allergies Allergy Unverified 10/27/19 16:18 [No Known Allergies*] Mental Status Exam Mental Status Exam Narrative: Appearance: casually groomed, fair hygiene, in NAD Behavior: cooperative, friendly. Psychomotor: no agitation or retardation noted Speech: clear, normal rate/rhythm/volume, spontaneous TP: linear TC: visual hallucinations, not overly distress by paranoid delusions Mood: good Affect: bright, congruent, non labile AH/VH: AH of bugs, Delusions: persecutory delusions Insight/judgment: impaired x 2. Memory/cog: alert, not oriented to situation, year, month. impaired. Assessment & Plan Assessment & Plan (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 Will taper seroquel and try low dose of olanzapine. 2. Lower and taper off Sertraline as it may be worsening psychosis (2) Parkinson's disease dementia: Status: Acute Code(s): G20 - Parkinson's disease; F02.80 - Dementia in other diseases classified elsewhere without behavioral disturbance Assessment and Plan: 1. safety assessment post discharge 2. OT eval to assess ability to live independently
[2020-03-03 18:00] VITALS: BP 132/83; PULSE 95; TEMP 36.6
[2020-03-03] MEDS: Atorvastatin Calcium 10 MG TABLET PO (20:10)
[2020-03-03] MEDS: OLANZapine 2.5 MG TABLET PO (20:10)
[2020-03-03] MEDS: Mirtazapine 7.5 MG TABLET PO (20:10)
[2020-03-04 00:05] VITALS: BP 117/68; PULSE 93; RESP 16
[2020-03-04] MEDS: traZODone HCL 50 MG TABLET PO ×2 (02:02→23:57)
[2020-03-04] MEDS: hydrOXYzine HCL 25 MG TABLET PO ×2 (02:03→23:57)
[2020-03-04 06:30] VITALS: BP 131/79; PULSE 78; RESP 16; TEMP 35.9; O2SAT 96
[2020-03-04] MEDS: Docusate Sodium 100 MG CAPSULE PO ×2 (08:41→20:23)
[2020-03-04] MEDS: Cholecalciferol (Vitamin D3) 25 MCG TABLET PO (08:41)
[2020-03-04] MEDS: OLANZapine 2.5 MG TABLET PO ×2 (08:41→20:23)
[2020-03-04] MEDS: Omeprazole 20 MG CAPSULE.DR PO (08:41)
[2020-03-04] MEDS: Carbidopa/Levodopa 25/100 TABLET 1 TAB PO ×4 (08:41→20:23)
[2020-03-04] MEDS: Acetaminophen 325 MG TABLET 650 MG PO (08:43)
--- NOTE | 2020-03-04 13:53 | P.PNPSI_ITS ---
Subjective Subjective Date of Service: 03/04/20 Reason For Visit: Paranoia/ Hallucinations Subjective Notes: Conditional Voluntary Interim History: Pt pleasant on approach. He reports sleeping and eating well. He continues to report that he thinks he is here because he had surgery. He is disoriented to year, month and situation. He continues to report AH of bugs c rawling on wall, on his food at times. No paranoid delusions as he was reporting prior to coming to the hospital. No SI/HI. No behavioral concerns. Medication Compliance: Yes Side effects from medications: No Attending Groups: Intermittent Review of Systems Constitutional: Reports no additional constitutional complaints Eyes: Reports no additional eye complaints Denies dizziness Cardiovascular: Reports no additional cardiovascular complaints Respiratory: Reports as per HPI Gastrointestinal: Reports no additional gastrointestinal complaints Musculoskeletal: Reports no additional musculoskeletal complaints Skin/Breast: Denies rash Reports system reviewed and no additional complaints, except as documented, Denies dizziness and Denies Sensory deficit (Neuro) Psychiatric: Denies anxiety Mental Status Exam Mental Status Exam Narrative: Appearance: casually groomed, fair hygiene, in NAD Behavior: cooperative, friendly. Psychomotor: no agitation or retardation noted Speech: clear, normal rate/rhythm/volume, spontaneous TP: linear TC: visual hallucinations, not overly distress by paranoid delusions Mood: good Affect: bright, congruent, non labile AH/VH: AH of bugs, Delusions: persecutory delusions Insight/judgment: impaired x 2. Memory/cog: alert, not oriented to situation, year, month. impaired. Diagnostics Vital Signs (24Hr): Vital Signs - 24 hr 03/03/20 18:00 03/04/20 06:30 Temperature 98 F 96.7 F L Pulse Rate 95 78 Respiratory Rate 16 Blood Pressure 132/83 131/79 Pulse Oximetry 96 Body Mass Index 25.9 Labs Results: 03/02/20 01:26 03/02/20 01:26 Labs: Laboratory Results - last 48 hr 03/03/20 03/03/20 07:29 07:29 Estimat Average Glucose 111 Hemoglobin A1c % 5.5 Triglycerides 96 Cholesterol 138 LDL Cholesterol, Calc 71 HDL Cholesterol 48 TSH 3.01 Imaging Radiology Impressions: ITS Impressions Head CT 03/02/20 00:28 IMPRESSION: No acute intracranial pathology. Medications Medications Current Medications Generic Name Dose Route Start Last Admin Trade Name Freq PRN Reason Stop Dose Admin Acetaminophen 650 mg 03/02/20 21:39 03/04/20 08:43 Acetaminophen 325 Mg Tablet PO 650 mg Q6H PRN Administration Headache/Pain Mild Scale (1-3) Al Hydroxide/Mg Hydroxide 30 ml 03/02/20 21:39 Magnesium Hydrox/Alum Hydrox 30 Ml Oral.Susp PO Q6H PRN Heartburn/Nausea Atorvastatin Calcium 10 mg 03/02/20 21:00 03/03/20 20:10 Atorvastatin Calcium 10 Mg Tablet PO 10 mg BEDTIME [facility] Administration Carbidopa/Levodopa 1 tab 03/02/20 13:00 03/04/20 13:18 Carbidopa/Levodopa 25/100 Tablet PO 1 tab QID [facility] Administration Docusate Sodium 100 mg 03/02/20 21:00 03/04/20 08:41 Docusate Sodium 100 Mg Capsule PO 100 mg BID [facility] Administration Hydroxyzine HCl 25 mg 03/02/20 21:39 03/04/20 02:03 Hydroxyzine Hcl 25 Mg Tablet PO 25 mg Q6H PRN Administration Anxiety Magnesium Hydroxide 30 ml 03/02/20 21:39 Milk Of Magnesia 30 Ml Oral.Susp PO DAILY PRN Constipation Mirtazapine 7.5 mg 03/02/20 21:00 03/03/20 20:10 Mirtazapine 7.5 Mg Tablet PO 7.5 mg BEDTIME [facility] Administration Multivitamins/Minerals 1 tab 03/02/20 12:30 03/04/20 13:18 Multivitamin With Minerals Tablet PO 1 tab DAILY@1200 [facility] Administration Olanzapine 2.5 mg 03/03/20 21:00 03/04/20 08:41 Olanzapine 2.5 Mg Tablet PO 2.5 mg BID [facility] Administration Omeprazole 20 mg 03/02/20 12:30 03/04/20 08:41 Omeprazole 20 Mg Capsule.Dr PO 20 mg DAILY [facility] Administration Trazodone HCl 50 mg 03/02/20 21:39 03/04/20 02:02 Trazodone Hcl 50 Mg Tablet PO 50 mg BEDTIME PRN Administration Insomnia Vitamin D 25 mcg 03/02/20 12:30 03/04/20 08:41 Cholecalciferol (Vitamin D3) 25 Mcg Tablet PO 25 mcg DAILY [facility] Administration Allergies Allergies Allergy/AdvReac Type Severity Reaction Status Date / Time No Known Allergies Allergy Unverified 10/27/19 16:18 [No Known Allergies*] Assessment & Plan Assessment & Plan (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 Will taper seroquel and try low dose of olanzapine. 2. Lower and taper off Sertraline as it may be worsening psychosis (2) Parkinson's disease dementia: Status: Acute Code(s): G20 - Parkinson's disease; F02.80 - Dementia in other diseases classified elsewhere without behavioral disturbance Assessment and Plan: 1. safety assessment post discharge 2. OT eval to assess ability to live independently Greater than 50% of the session was spent on counseling and/or coordination of care
[2020-03-04 18:00] VITALS: BP 160/94; PULSE 79; TEMP 36.8
[2020-03-04] MEDS: Atorvastatin Calcium 10 MG TABLET PO (20:23)
[2020-03-04] MEDS: Mirtazapine 7.5 MG TABLET PO (20:23)
[2020-03-05 04:42] LABS: Folate > 20.0 ng/mL (> or = 4.0); Vitamin B12 1597 pg/mL (200-900)
[2020-03-05 06:00] VITALS: BP 141/88; PULSE 78; RESP 16; TEMP 36.3; O2SAT 98
[2020-03-05 08:31] VITALS: BP 141/88; PULSE 78; RESP 16; TEMP 36.3; O2SAT 98
[2020-03-05] MEDS: Docusate Sodium 100 MG CAPSULE PO ×2 (09:01→20:19)
[2020-03-05] MEDS: Carbidopa/Levodopa 25/100 TABLET 1 TAB PO ×4 (09:01→20:19)
[2020-03-05] MEDS: Cholecalciferol (Vitamin D3) 25 MCG TABLET PO (09:02)
[2020-03-05] MEDS: Omeprazole 20 MG CAPSULE.DR PO (09:02)
[2020-03-05] MEDS: OLANZapine 2.5 MG TABLET PO ×2 (09:02→20:19)
--- NOTE | 2020-03-05 10:55 | PC.NURSE ---
PT REPORTS THAT HE IS NOT A SMOKER. 03/05/2020
--- NOTE | 2020-03-05 14:23 | P.PNPSI_ITS ---
Subjective Subjective Date of Service: 03/05/20 Reason For Visit: Paranoia/ Hallucinations Interim History: Pt pleasant on approach. Pt seen with clinician Lluvia. Pt reports that he is doing okay. Pt reports that he is getting ready to go to [place] as he goes often to visit family. Pt reports that hospital is in fact an apartment complex where he used to live a long time ago. He states that he has been waiting for ER MEDICAL TECHNICIAN to come but does not understand why she is not here as he states she told him she was coming, which is not the case. He reports it is April. Pt continues to report seeing animals, some suspiciousness towards some people in unit, but he states he is safer here than at his house. Review of Systems Constitutional: Reports no additional constitutional complaints Eyes: Reports no additional eye complaints Denies dizziness Cardiovascular: Reports no additional cardiovascular complaints Respiratory: Reports as per HPI Gastrointestinal: Reports no additional gastrointestinal complaints Musculoskeletal: Reports no additional musculoskeletal complaints Skin/Breast: Denies rash Reports system reviewed and no additional complaints, except as documented, Denies dizziness and Denies Sensory deficit (Neuro) Psychiatric: Denies anxiety Mental Status Exam Mental Status Exam Narrative: Appearance: casually groomed, fair hygiene, in NAD Behavior: cooperative, friendly. Psychomotor: no agitation or retardation noted Speech: clear, normal rate/rhythm/volume, spontaneous TP: linear TC: visual hallucinations, not overly distress by paranoid delusions Mood: good Affect: bright, congruent, non labile AH/VH: AH of bugs, Delusions: persecutory delusions Insight/judgment: impaired x 2. Memory/cog: alert, not oriented to situation, year, month. impaired. Diagnostics Vital Signs (24Hr): Vital Signs - 24 hr 03/04/20 18:00 03/05/20 06:00 03/05/20 08:31 Temperature 98.2 F 97.4 F 97.4 F Pulse Rate 79 78 78 Respiratory Rate 16 16 Blood Pressure 160/94 H 141/88 H 141/88 H Pulse Oximetry 98 98 Body Mass Index 25.9 Labs Results: 03/02/20 01:26 03/02/20 01:26 Labs: Laboratory Results - last 48 hr 03/03/20 07:29 Vitamin B12 1597 H Folate > 20.0 Imaging Radiology Impressions: ITS Impressions Head CT 03/02/20 00:28 IMPRESSION: No acute intracranial pathology. Medications Medications Current Medications Generic Name Dose Route Start Last Admin Trade Name Freq PRN Reason Stop Dose Admin Acetaminophen 650 mg 03/02/20 21:39 03/04/20 08:43 Acetaminophen 325 Mg Tablet PO 650 mg Q6H PRN Administration Headache/Pain Mild Scale (1-3) Al Hydroxide/Mg Hydroxide 30 ml 03/02/20 21:39 Magnesium Hydrox/Alum Hydrox 30 Ml Oral.Susp PO Q6H PRN Heartburn/Nausea Atorvastatin Calcium 10 mg 03/02/20 21:00 03/04/20 20:23 Atorvastatin Calcium 10 Mg Tablet PO 10 mg BEDTIME [facility] Administration Carbidopa/Levodopa 1 tab 03/02/20 13:00 03/05/20 12:39 Carbidopa/Levodopa 25/100 Tablet PO 1 tab QID [facility] Administration Docusate Sodium 100 mg 03/02/20 21:00 03/05/20 09:01 Docusate Sodium 100 Mg Capsule PO 100 mg BID [facility] Administration Donepezil HCl 5 mg 03/05/20 21:00 Donepezil Hcl 5 Mg Tablet PO BEDTIME [facility] Magnesium Hydroxide 30 ml 03/02/20 21:39 Milk Of Magnesia 30 Ml Oral.Susp PO DAILY PRN Constipation Mirtazapine 7.5 mg 03/02/20 21:00 03/04/20 20:23 Mirtazapine 7.5 Mg Tablet PO 7.5 mg BEDTIME [facility] Administration Multivitamins/Minerals 1 tab 03/02/20 12:30 03/05/20 12:39 Multivitamin With Minerals Tablet PO 1 tab DAILY@1200 [facility] Administration Olanzapine 2.5 mg 03/03/20 21:00 03/05/20 09:02 Olanzapine 2.5 Mg Tablet PO 2.5 mg BID [facility] Administration Omeprazole 20 mg 03/02/20 12:30 03/05/20 09:02 Omeprazole 20 Mg Capsule.Dr PO 20 mg DAILY [facility] Administration Trazodone HCl 50 mg 03/02/20 21:39 03/04/20 23:57 Trazodone Hcl 50 Mg Tablet PO 50 mg BEDTIME PRN Administration Insomnia Vitamin D 25 mcg 03/02/20 12:30 03/05/20 09:02 Cholecalciferol (Vitamin D3) 25 Mcg Tablet PO 25 mcg DAILY [facility] Administration Allergies Allergies Allergy/AdvReac Type Severity Reaction Status Date / Time No Known Allergies Allergy Unverified 10/27/19 16:18 [No Known Allergies*] Assessment & Plan Assessment & Plan (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 Continue olanzapine 2.5mg po BID. 2. Start aricept as it may have benefit in Parkinson's dementia and psychosis. Also ? of LBD per new neurologist. (2) Parkinson's disease dementia: Status: Acute Code(s): G20 - Parkinson's disease; F02.80 - Dementia in other diseases classified elsewhere without behavioral disturbance Assessment and Plan: 1. safety assessment post discharge 2. OT eval to assess ability to live independently Greater than 50% of the session was spent on counseling and/or coordination of care
--- NOTE | 2020-03-05 14:30 | PC.NURSE ---
Pt participated in [facility] screen 8.1 bel[place]ian version, scored 6/30, indicating cognition is way below normal limits. One (+1) point was added to final score as pt did not finish high school. GLASS BELT SANDER aware of results.
[2020-03-05] MEDS: Acetaminophen 325 MG TABLET 650 MG PO (15:56)
[2020-03-05 18:00] VITALS: BP 132/79; PULSE 87; TEMP 36.5
[2020-03-05] MEDS: Mirtazapine 7.5 MG TABLET PO (20:19)
[2020-03-05] MEDS: Donepezil HCl 5 MG TABLET PO (20:19)
[2020-03-05] MEDS: Atorvastatin Calcium 10 MG TABLET PO (20:19)
[2020-03-06] MEDS: traZODone HCL 50 MG TABLET PO (01:35)
[2020-03-06 06:00] VITALS: BP 131/79; PULSE 62; RESP 16; TEMP 36.1; O2SAT 98
[2020-03-06] MEDS: Omeprazole 20 MG CAPSULE.DR PO (08:47)
[2020-03-06] MEDS: Docusate Sodium 100 MG CAPSULE PO ×2 (08:47→20:25)
[2020-03-06] MEDS: Cholecalciferol (Vitamin D3) 25 MCG TABLET PO (08:47)
[2020-03-06] MEDS: Carbidopa/Levodopa 25/100 TABLET 1 TAB PO ×4 (08:47→20:25)
[2020-03-06] MEDS: OLANZapine 2.5 MG TABLET PO (08:47)
--- NOTE | 2020-03-06 16:31 | HO.PSYCHPN ---
Subjective Subjective Date of Service: 03/08/20 Reason For Visit: Paranoia/ Hallucinations Interim History: Pt pleasant on approach. Pt visible in the unit. He continues to present as confused, thinking he is here because this is an apartment complex. He reports sleeping and eating well. He continues to see bugs and other animals in the unit. He at times appears gets very fearful of VH. He reports less paranoid delusions related to thinking that someone is trying to bury him alive. He denies SI/HI. No aggression towards self or others. Review of Systems Constitutional: Reports no additional constitutional complaints Eyes: Reports no additional eye complaints Denies dizziness Cardiovascular: Reports no additional cardiovascular complaints Respiratory: Reports as per HPI Gastrointestinal: Reports no additional gastrointestinal complaints Musculoskeletal: Reports no additional musculoskeletal complaints Skin/Breast: Denies rash Reports system reviewed and no additional complaints, except as documented, Denies dizziness and Denies Sensory deficit (Neuro) Psychiatric: Denies anxiety Mental Status Exam Mental Status Exam Narrative: Appearance: casually groomed, fair hygiene, in NAD Behavior: cooperative, friendly. Psychomotor: no agitation or retardation noted Speech: clear, normal rate/rhythm/volume, spontaneous TP: linear TC: visual hallucinations, not overly distress by paranoid delusions Mood: good Affect: bright, congruent, non labile AH/VH: AH of bugs, Delusions: persecutory delusions Insight/judgment: impaired x 2. Memory/cog: alert, not oriented to situation, year, month. impaired. Diagnostics Vital Signs (24Hr): Vital Signs - 24 hr 03/05/20 18:00 03/06/20 06:00 Temperature 97.7 F 97.0 F Pulse Rate 87 62 Respiratory Rate 16 Blood Pressure 132/79 131/79 Pulse Oximetry 98 Body Mass Index 25.9 Labs Results: 03/02/20 01:26 03/02/20 01:26 Labs: Laboratory Results - last 48 hr 03/03/20 07:29 Vitamin B12 1597 H Folate > 20.0 Imaging Radiology Impressions: ITS Impressions Head CT 03/02/20 00:28 IMPRESSION: No acute intracranial pathology. Medications Medications Current Medications Generic Name Dose Route Start Last Admin Trade Name Freq PRN Reason Stop Dose Admin Acetaminophen 650 mg 03/02/20 21:39 03/05/20 15:56 Acetaminophen 325 Mg Tablet PO 650 mg Q6H PRN Administration Headache/Pain Mild Scale (1-3) Al Hydroxide/Mg Hydroxide 30 ml 03/02/20 21:39 Magnesium Hydrox/Alum Hydrox 30 Ml Oral.Susp PO Q6H PRN Heartburn/Nausea Atorvastatin Calcium 10 mg 03/02/20 21:00 03/05/20 20:19 Atorvastatin Calcium 10 Mg Tablet PO 10 mg BEDTIME ILDEFONSO Administration Carbidopa/Levodopa 1 tab 03/02/20 13:00 03/06/20 16:00 Carbidopa/Levodopa 25/100 Tablet PO 1 tab QID ILDEFONSO Administration Docusate Sodium 100 mg 03/02/20 21:00 03/06/20 08:47 Docusate Sodium 100 Mg Capsule PO 100 mg BID ILDEFONSO Administration Donepezil HCl 5 mg 03/05/20 21:00 03/05/20 20:19 Donepezil Hcl 5 Mg Tablet PO 5 mg BEDTIME ILDEFONSO Administration Magnesium Hydroxide 30 ml 03/02/20 21:39 Milk Of Magnesia 30 Ml Oral.Susp PO DAILY PRN Constipation Mirtazapine 7.5 mg 03/02/20 21:00 03/05/20 20:19 Mirtazapine 7.5 Mg Tablet PO 7.5 mg BEDTIME ILDEFONSO Administration Multivitamins/Minerals 1 tab 03/02/20 12:30 03/06/20 12:37 Multivitamin With Minerals Tablet PO 1 tab DAILY@1200 ILDEFONSO Administration Olanzapine 2.5 mg 03/03/20 21:00 03/06/20 08:47 Olanzapine 2.5 Mg Tablet PO 2.5 mg BID ILDEFONSO Administration Omeprazole 20 mg 03/02/20 12:30 03/06/20 08:47 Omeprazole 20 Mg Capsule.Dr PO 20 mg DAILY ILDEFONSO Administration Trazodone HCl 50 mg 03/02/20 21:39 03/06/20 01:35 Trazodone Hcl 50 Mg Tablet PO 50 mg BEDTIME PRN Administration Insomnia Vitamin D 25 mcg 03/02/20 12:30 03/06/20 08:47 Cholecalciferol (Vitamin D3) 25 Mcg Tablet PO 25 mcg DAILY ILDEFONSO Administration Allergies Allergies Allergy/AdvReac Type Severity Reaction Status Date / Time No Known Allergies Allergy Unverified 10/27/19 16:18 [No Known Allergies*] Assessment & Plan Assessment & Plan (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 Continue olanzapine 2.5mg po BID. 2. Start aricept as it may have benefit in Parkinson's dementia and psychosis. Also ? of LBD per new neurologist. (2) Parkinson's disease dementia: Status: Acute Code(s): G20 - Parkinson's disease; F02.80 - Dementia in other diseases classified elsewhere without behavioral disturbance Assessment and Plan: 1. safety assessment post discharge 2. OT eval to assess ability to live independently Greater than 50% of the session was spent on counseling and/or coordination of care
[2020-03-06 18:00] VITALS: BP 143/85; PULSE 110; TEMP 36.6
[2020-03-06] MEDS: Atorvastatin Calcium 10 MG TABLET PO (20:25)
[2020-03-06] MEDS: Donepezil HCl 5 MG TABLET PO (20:25)
[2020-03-06] MEDS: Mirtazapine 7.5 MG TABLET PO (20:26)
[2020-03-07] MEDS: traZODone HCL 50 MG TABLET PO (01:38)
[2020-03-07] MEDS: Acetaminophen 325 MG TABLET 650 MG PO (01:38)
[2020-03-07 06:35] VITALS: BP 138/85; PULSE 88; RESP 16; TEMP 36.1; O2SAT 96
[2020-03-07] MEDS: Docusate Sodium 100 MG CAPSULE PO ×2 (08:35→21:11)
[2020-03-07] MEDS: Carbidopa/Levodopa 25/100 TABLET 1 TAB PO ×4 (08:35→21:11)
[2020-03-07] MEDS: Cholecalciferol (Vitamin D3) 25 MCG TABLET PO (08:35)
[2020-03-07] MEDS: Omeprazole 20 MG CAPSULE.DR PO (08:35)
[2020-03-07 18:00] VITALS: BP 139/91; PULSE 97; TEMP 36.5
[2020-03-07] MEDS: Mirtazapine 7.5 MG TABLET PO (21:11)
[2020-03-07] MEDS: Donepezil HCl 5 MG TABLET PO (21:11)
[2020-03-07] MEDS: Atorvastatin Calcium 10 MG TABLET PO (21:11)
[2020-03-08 06:15] VITALS: BP 131/77; PULSE 19; RESP 16; TEMP 36.1; O2SAT 96
[2020-03-08 07:00] VITALS: BMI 30.3
[2020-03-08] MEDS: Docusate Sodium 100 MG CAPSULE PO ×2 (08:41→20:27)
[2020-03-08] MEDS: Carbidopa/Levodopa 25/100 TABLET 1 TAB PO ×4 (08:41→20:27)
[2020-03-08] MEDS: Cholecalciferol (Vitamin D3) 25 MCG TABLET PO (08:41)
[2020-03-08] MEDS: Omeprazole 20 MG CAPSULE.DR PO (08:41)
--- NOTE | 2020-03-08 09:45 | HO.PSYCHPN ---
Subjective Subjective Date of Service: 03/07/20 Reason For Visit: Paranoia/ Hallucinations Subjective Notes: Conditional Voluntary Interim History: Pt continues to see VH. He continues to see animals and bugs, at times trying to take them off his clothes. He is sleeping and eating well. He continues to present as confused about where he is and why- but this is signs of his dementia. He denies SI/HI. At times coming, out of his room, fearful of VH. Medication Compliance: Yes Side effects from medications: No Attending Groups: No Review of Systems Constitutional: Reports no additional constitutional complaints Eyes: Reports no additional eye complaints Denies dizziness Cardiovascular: Reports no additional cardiovascular complaints Respiratory: Reports as per HPI Gastrointestinal: Reports no additional gastrointestinal complaints Musculoskeletal: Reports no additional musculoskeletal complaints Skin/Breast: Denies rash Reports system reviewed and no additional complaints, except as documented, Denies dizziness and Denies Sensory deficit (Neuro) Psychiatric: Denies anxiety Mental Status Exam Mental Status Exam Narrative: Appearance: casually groomed, fair hygiene, in NAD Behavior: cooperative, friendly. Psychomotor: no agitation or retardation noted Speech: clear, normal rate/rhythm/volume, spontaneous TP: linear TC: visual hallucinations, not overly distress by paranoid delusions Mood: good Affect: bright, congruent, non labile AH/VH: AH of bugs, Delusions: persecutory delusions Insight/judgment: impaired x 2. Memory/cog: alert, not oriented to situation, year, month. impaired. Diagnostics Vital Signs (24Hr): Vital Signs - 24 hr 03/07/20 18:00 03/08/20 06:15 Temperature 97.7 F 97 F Pulse Rate 97 19 L Respiratory Rate 16 Blood Pressure 139/91 H 131/77 Pulse Oximetry 96 Body Mass Index 25.9 Labs Results: 03/02/20 01:26 03/02/20 01:26 Imaging Radiology Impressions: ITS Impressions Head CT 03/02/20 00:28 IMPRESSION: No acute intracranial pathology. Medications Medications Current Medications Generic Name Dose Route Start Last Admin Trade Name Freq PRN Reason Stop Dose Admin Acetaminophen 650 mg 03/02/20 21:39 03/07/20 01:38 Acetaminophen 325 Mg Tablet PO 650 mg Q6H PRN Administration Headache/Pain Mild Scale (1-3) Al Hydroxide/Mg Hydroxide 30 ml 03/02/20 21:39 Magnesium Hydrox/Alum Hydrox 30 Ml Oral.Susp PO Q6H PRN Heartburn/Nausea Atorvastatin Calcium 10 mg 03/02/20 21:00 03/07/20 21:11 Atorvastatin Calcium 10 Mg Tablet PO 10 mg BEDTIME ILDEFONSO Administration Carbidopa/Levodopa 1 tab 03/02/20 13:00 03/08/20 08:41 Carbidopa/Levodopa 25/100 Tablet PO 1 tab QID ILDEFONSO Administration Docusate Sodium 100 mg 03/02/20 21:00 03/08/20 08:41 Docusate Sodium 100 Mg Capsule PO 100 mg BID ILDEFONSO Administration Donepezil HCl 5 mg 03/05/20 21:00 03/07/20 21:11 Donepezil Hcl 5 Mg Tablet PO 5 mg BEDTIME ILDEFONSO Administration Magnesium Hydroxide 30 ml 03/02/20 21:39 Milk Of Magnesia 30 Ml Oral.Susp PO DAILY PRN Constipation Mirtazapine 7.5 mg 03/02/20 21:00 03/07/20 21:11 Mirtazapine 7.5 Mg Tablet PO 7.5 mg BEDTIME ILDEFONSO Administration Multivitamins/Minerals 1 tab 03/02/20 12:30 03/07/20 13:34 Multivitamin With Minerals Tablet PO 1 tab DAILY@1200 ILDEFONSO Administration Omeprazole 20 mg 03/02/20 12:30 03/08/20 08:41 Omeprazole 20 Mg Capsule.Dr PO 20 mg DAILY ILDEFONSO Administration Trazodone HCl 50 mg 03/02/20 21:39 03/07/20 01:38 Trazodone Hcl 50 Mg Tablet PO 50 mg BEDTIME PRN Administration Insomnia Vitamin D 25 mcg 03/02/20 12:30 03/08/20 08:41 Cholecalciferol (Vitamin D3) 25 Mcg Tablet PO 25 mcg DAILY ILDEFONSO Administration Allergies Allergies Allergy/AdvReac Type Severity Reaction Status Date / Time No Known Allergies Allergy Unverified 10/27/19 16:18 [No Known Allergies*] Assessment & Plan Assessment & Plan (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 hold olanzapine 2.5mg po BID- question if worsening VH 2. Continue Aricept as it may have benefit in Parkinson's dementia and psychosis. Also ? of LBD per new neurologist. (2) Parkinson's disease dementia: Status: Acute Code(s): G20 - Parkinson's disease; F02.80 - Dementia in other diseases classified elsewhere without behavioral disturbance Assessment and Plan: 1. safety assessment post discharge 2. OT eval to assess ability to live independently Greater than 50% of the session was spent on counseling and/or coordination of care Guardian/Caregiver educated on: diagnosis and medication risk/benefits Informed Consent: does not understand
--- NOTE | 2020-03-08 13:11 | HO.PSYCHPN ---
Subjective Subjective Date of Service: 03/08/20 Reason For Visit: Paranoia/ Hallucinations Interim History: Pt continues to see VH. He continues to see animals and bugs, at times trying to take them off his clothes. He is sleeping and eating well. He continues to present as confused about where he is and why- but this is signs of his dementia. He denies SI/HI. At times coming, out of his room, fearful of VH. Left VM to neurologist to discuss possibly lowering levodopa as it may increase psychosis. Review of Systems Constitutional: Reports no additional constitutional complaints Eyes: Reports no additional eye complaints Denies dizziness Cardiovascular: Reports no additional cardiovascular complaints Respiratory: Reports as per HPI Gastrointestinal: Reports no additional gastrointestinal complaints Musculoskeletal: Reports no additional musculoskeletal complaints Skin/Breast: Denies rash Reports system reviewed and no additional complaints, except as documented, Denies dizziness and Denies Sensory deficit (Neuro) Psychiatric: Denies anxiety Mental Status Exam Mental Status Exam Narrative: Appearance: casually groomed, fair hygiene, in NAD Behavior: cooperative, friendly. Psychomotor: no agitation or retardation noted Speech: clear, normal rate/rhythm/volume, spontaneous TP: linear TC: visual hallucinations, not overly distress by paranoid delusions Mood: good Affect: bright, congruent, non labile AH/VH: AH of bugs, Delusions: persecutory delusions Insight/judgment: impaired x 2. Memory/cog: alert, not oriented to situation, year, month. impaired. Diagnostics Vital Signs (24Hr): Vital Signs - 24 hr 03/07/20 18:00 03/08/20 06:15 Temperature 97.7 F 97 F Pulse Rate 97 19 L Respiratory Rate 16 Blood Pressure 139/91 H 131/77 Pulse Oximetry 96 Body Mass Index 30.3 Labs Results: 03/02/20 01:26 03/02/20 01:26 Imaging Radiology Impressions: ITS Impressions Head CT 03/02/20 00:28 IMPRESSION: No acute intracranial pathology. Medications Medications Current Medications Generic Name Dose Route Start Last Admin Trade Name Freq PRN Reason Stop Dose Admin Acetaminophen 650 mg 03/02/20 21:39 03/07/20 01:38 Acetaminophen 325 Mg Tablet PO 650 mg Q6H PRN Administration Headache/Pain Mild Scale (1-3) Al Hydroxide/Mg Hydroxide 30 ml 03/02/20 21:39 Magnesium Hydrox/Alum Hydrox 30 Ml Oral.Susp PO Q6H PRN Heartburn/Nausea Atorvastatin Calcium 10 mg 03/02/20 21:00 03/07/20 21:11 Atorvastatin Calcium 10 Mg Tablet PO 10 mg BEDTIME ILDEFONSO Administration Carbidopa/Levodopa 1 tab 03/02/20 13:00 03/08/20 08:41 Carbidopa/Levodopa 25/100 Tablet PO 1 tab QID ILDEFONSO Administration Docusate Sodium 100 mg 03/02/20 21:00 03/08/20 08:41 Docusate Sodium 100 Mg Capsule PO 100 mg BID ILDEFONSO Administration Donepezil HCl 5 mg 03/05/20 21:00 03/07/20 21:11 Donepezil Hcl 5 Mg Tablet PO 5 mg BEDTIME ILDEFONSO Administration Magnesium Hydroxide 30 ml 03/02/20 21:39 Milk Of Magnesia 30 Ml Oral.Susp PO DAILY PRN Constipation Mirtazapine 7.5 mg 03/02/20 21:00 03/07/20 21:11 Mirtazapine 7.5 Mg Tablet PO 7.5 mg BEDTIME ILDEFONSO Administration Multivitamins/Minerals 1 tab 03/02/20 12:30 03/07/20 13:34 Multivitamin With Minerals Tablet PO 1 tab DAILY@1200 ILDEFONSO Administration Omeprazole 20 mg 03/02/20 12:30 03/08/20 08:41 Omeprazole 20 Mg Capsule.Dr PO 20 mg DAILY ILDEFONSO Administration Trazodone HCl 50 mg 03/02/20 21:39 03/07/20 01:38 Trazodone Hcl 50 Mg Tablet PO 50 mg BEDTIME PRN Administration Insomnia Vitamin D 25 mcg 03/02/20 12:30 03/08/20 08:41 Cholecalciferol (Vitamin D3) 25 Mcg Tablet PO 25 mcg DAILY ILDEFONSO Administration Allergies Allergies Allergy/AdvReac Type Severity Reaction Status Date / Time No Known Allergies Allergy Unverified 10/27/19 16:18 [No Known Allergies*] Assessment & Plan Assessment & Plan (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 hold olanzapine 2.5mg po BID- question if worsening VH 2. Continue Aricept as it may have benefit in Parkinson's dementia and psychosis. Also ? of LBD per new neurologist. (2) Parkinson's disease dementia: Status: Acute Code(s): G20 - Parkinson's disease; F02.80 - Dementia in other diseases classified elsewhere without behavioral disturbance Assessment and Plan: 1. safety assessment post discharge 2. OT eval to assess ability to live independently Greater than 50% of the session was spent on counseling and/or coordination of care
[2020-03-08] MEDS: Acetaminophen 325 MG TABLET 650 MG PO (13:45)
[2020-03-08 18:00] VITALS: BP 141/88; PULSE 126; TEMP 35.3
[2020-03-08] MEDS: Mirtazapine 7.5 MG TABLET PO (20:27)
[2020-03-08] MEDS: Atorvastatin Calcium 10 MG TABLET PO (20:27)
[2020-03-08] MEDS: Donepezil HCl 5 MG TABLET PO (20:27)
[2020-03-09] MEDS: Acetaminophen 325 MG TABLET 650 MG PO (02:06)
[2020-03-09] MEDS: traZODone HCL 50 MG TABLET PO (02:06)
[2020-03-09 06:30] VITALS: BP 127/69; PULSE 68; RESP 16; TEMP 36.6; O2SAT 97
[2020-03-09] MEDS: Docusate Sodium 100 MG CAPSULE PO ×2 (08:39→21:16)
[2020-03-09] MEDS: Carbidopa/Levodopa 25/100 TABLET 1 TAB PO ×4 (08:39→21:16)
[2020-03-09] MEDS: Cholecalciferol (Vitamin D3) 25 MCG TABLET PO (08:39)
[2020-03-09] MEDS: Omeprazole 20 MG CAPSULE.DR PO (08:39)
[2020-03-09 10:00] VITALS: BP 108/72; BP 118/79; PULSE 115; PULSE 98
--- NOTE | 2020-03-09 14:33 | P.PNPSI_ITS ---
Subjective Subjective Date of Service: 03/09/20 Reason For Visit: Paranoia/ Hallucinations Interim History: Pt appears more aware of surrounding in that he is remembering other patients and some staff. He is confused about why he is here. He reports seeing less animals/bugs on the floor. He states he is seeing them mostly at night. He reports wanting to go back home to his apartment. He is not oriented to year, month, date or situation. He is sleeping well. No behavioral concerns. We spoke with his [facility] family independence case manager to discuss aftercare plans and concern that pt can't live on his own, [facility] reports concern about current HCP- step daughter who they report in past got car loan under pt name knowing pt is demented. Review of Systems Constitutional: Reports no additional constitutional complaints Eyes: Reports no additional eye complaints Denies dizziness Cardiovascular: Reports no additional cardiovascular complaints Respiratory: Reports as per HPI Gastrointestinal: Reports no additional gastrointestinal complaints Musculoskeletal: Reports no additional musculoskeletal complaints Skin/Breast: Denies rash Reports system reviewed and no additional complaints, except as documented, Denies dizziness and Denies Sensory deficit (Neuro) Psychiatric: Denies anxiety Mental Status Exam Mental Status Exam Narrative: Appearance: casually groomed, fair hygiene, in NAD Behavior: cooperative, friendly. Psychomotor: no agitation or retardation noted Speech: clear, normal rate/rhythm/volume, spontaneous TP: linear TC: visual hallucinations, not overly distress by paranoid delusions Mood: good Affect: bright, congruent, non labile AH/VH: AH of bugs, Delusions: persecutory delusions Insight/judgment: impaired x 2. Memory/cog: alert, not oriented to situation, year, month. impaired. Diagnostics Vital Signs (24Hr): Vital Signs - 24 hr 03/08/20 18:00 03/09/20 06:30 03/09/20 10:00 Temperature 95.6 F L 97.8 F Pulse Rate 126 H 68 115 H Respiratory Rate 16 Blood Pressure 141/88 H 127/69 108/72 Pulse Oximetry 97 Body Mass Index 30.3 Labs Results: 03/02/20 01:26 03/02/20 01:26 Imaging Radiology Impressions: ITS Impressions Head CT 03/02/20 00:28 IMPRESSION: No acute intracranial pathology. Medications Medications Current Medications Generic Name Dose Route Start Last Admin Trade Name Freq PRN Reason Stop Dose Admin Acetaminophen 650 mg 03/02/20 21:39 03/09/20 02:06 Acetaminophen 325 Mg Tablet PO 650 mg Q6H PRN Administration Headache/Pain Mild Scale (1-3) Al Hydroxide/Mg Hydroxide 30 ml 03/02/20 21:39 Magnesium Hydrox/Alum Hydrox 30 Ml Oral.Susp PO Q6H PRN Heartburn/Nausea Atorvastatin Calcium 10 mg 03/02/20 21:00 03/08/20 20:27 Atorvastatin Calcium 10 Mg Tablet PO 10 mg BEDTIME ILDEFONSO Administration Carbidopa/Levodopa 1 tab 03/02/20 13:00 03/09/20 12:39 Carbidopa/Levodopa 25/100 Tablet PO 1 tab QID ILDEFONSO Administration Docusate Sodium 100 mg 03/02/20 21:00 03/09/20 08:39 Docusate Sodium 100 Mg Capsule PO 100 mg BID ILDEFONSO Administration Donepezil HCl 5 mg 03/05/20 21:00 03/08/20 20:27 Donepezil Hcl 5 Mg Tablet PO 5 mg BEDTIME ILDEFONSO Administration Magnesium Hydroxide 30 ml 03/02/20 21:39 Milk Of Magnesia 30 Ml Oral.Susp PO DAILY PRN Constipation Mirtazapine 7.5 mg 03/02/20 21:00 03/08/20 20:27 Mirtazapine 7.5 Mg Tablet PO 7.5 mg BEDTIME ILDEFONSO Administration Multivitamins/Minerals 1 tab 03/02/20 12:30 03/09/20 12:39 Multivitamin With Minerals Tablet PO 1 tab DAILY@1200 ILDEFONSO Administration Omeprazole 20 mg 03/02/20 12:30 03/09/20 08:39 Omeprazole 20 Mg Capsule.Dr PO 20 mg DAILY ILDEFONSO Administration Trazodone HCl 50 mg 03/02/20 21:39 03/09/20 02:06 Trazodone Hcl 50 Mg Tablet PO 50 mg BEDTIME PRN Administration Insomnia Vitamin D 25 mcg 03/02/20 12:30 03/09/20 08:39 Cholecalciferol (Vitamin D3) 25 Mcg Tablet PO 25 mcg DAILY ILDEFONSO Administration Allergies Allergies Allergy/AdvReac Type Severity Reaction Status Date / Time No Known Allergies Allergy Unverified 10/27/19 16:18 [No Known Allergies*] Assessment & Plan Assessment & Plan (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 Continue Aricept as it may have benefit in Parkinson's dementia and psychosis. (2) Parkinson's disease dementia: Status: Acute Code(s): G20 - Parkinson's disease; F02.80 - Dementia in other diseases classified els ewhere without behavioral disturbance Assessment and Plan: 1. safety assessment post discharge 2. OT eval to assess ability to live independently Greater than 50% of the session was spent on counseling and/or coordination of care
[2020-03-09 18:00] VITALS: BP 119/80; PULSE 104; TEMP 36.4
[2020-03-09] MEDS: Donepezil HCl 5 MG TABLET PO (21:16)
[2020-03-09] MEDS: Mirtazapine 7.5 MG TABLET PO (21:16)
[2020-03-09] MEDS: Atorvastatin Calcium 10 MG TABLET PO (21:16)
[2020-03-10 06:25] VITALS: BP 90/57; PULSE 74; RESP 16; TEMP 36.6; O2SAT 96
[2020-03-10] MEDS: Carbidopa/Levodopa 25/100 TABLET 1 TAB PO ×4 (09:04→22:15)
[2020-03-10] MEDS: Omeprazole 20 MG CAPSULE.DR PO (09:04)
[2020-03-10] MEDS: Cholecalciferol (Vitamin D3) 25 MCG TABLET PO (09:04)
[2020-03-10] MEDS: Docusate Sodium 100 MG CAPSULE PO ×2 (09:05→22:14)
--- NOTE | 2020-03-10 09:27 | HO.PSYCHPN ---
Subjective Subjective Date of Service: 03/10/20 Reason For Visit: Paranoia/ Hallucinations Interim History: 03/10/20: Remains floridly symptomatic w well formed VH and AH of insects and bugs in his feet and food. Ct meds 03/09/20:Pt appears more aware of surrounding in that he is remembering other patients and some staff. He is confused about why he is here. He reports seeing less animals/bugs on the floor. He states he is seeing them mostly at night. He reports wanting to go back home to his apartment. He is not oriented to year, month, date or situation. He is sleeping well. No behavioral concerns. We spoke with his [facility] family service caseworker to discuss aftercare plans and concern that pt can't live on his own, [facility] reports concern about current HCP- step daughter who they report in past got car loan under pt name knowing pt is demented. Review of Systems Constitutional: Reports no additional constitutional complaints Eyes: Reports no additional eye complaints Denies dizziness Cardiovascular: Reports no additional cardiovascular complaints Respiratory: Reports as per HPI Gastrointestinal: Reports no additional gastrointestinal complaints Musculoskeletal: Reports no additional musculoskeletal complaints Skin/Breast: Denies rash Reports system reviewed and no additional complaints, except as documented, Denies dizziness and Denies Sensory deficit (Neuro) Psychiatric: Denies anxiety Mental Status Exam Mental Status Exam Narrative: Appearance: casually groomed, fair hygiene, in NAD Behavior: cooperative, friendly. Psychomotor: no agitation or retardation noted Speech: clear, normal rate/rhythm/volume, spontaneous TP: linear TC: visual hallucinations, not overly distress by paranoid delusions Mood: good Affect: bright, congruent, non labile AH/VH: AH of bugs, Delusions: persecutory delusions Insight/judgment: impaired x 2. Memory/cog: alert, not oriented to situation, year, month. impaired. Diagnostics Vital Signs (24Hr): Vital Signs - 24 hr 03/09/20 10:00 03/09/20 18:00 03/10/20 06:25 Temperature 97.6 F 97.8 F Pulse Rate 115 H 104 H 74 Respiratory Rate 16 Blood Pressure 108/72 119/80 90/57 L Pulse Oximetry 96 Body Mass Index 30.3 Labs Results: 03/02/20 01:26 03/02/20 01:26 Imaging Radiology Impressions: ITS Impressions Head CT 03/02/20 00:28 IMPRESSION: No acute intracranial pathology. Medications Medications Current Medications Generic Name Dose Route Start Last Admin Trade Name Freq PRN Reason Stop Dose Admin Acetaminophen 650 mg 03/02/20 21:39 03/09/20 02:06 Acetaminophen 325 Mg Tablet PO 650 mg Q6H PRN Administration Headache/Pain Mild Scale (1-3) Al Hydroxide/Mg Hydroxide 30 ml 03/02/20 21:39 Magnesium Hydrox/Alum Hydrox 30 Ml Oral.Susp PO Q6H PRN Heartburn/Nausea Atorvastatin Calcium 10 mg 03/02/20 21:00 03/09/20 21:16 Atorvastatin Calcium 10 Mg Tablet PO 10 mg BEDTIME ILDEFONSO Administration Carbidopa/Levodopa 1 tab 03/02/20 13:00 03/10/20 09:04 Carbidopa/Levodopa 25/100 Tablet PO 1 tab QID ILDEFONSO Administration Docusate Sodium 100 mg 03/02/20 21:00 03/10/20 09:05 Docusate Sodium 100 Mg Capsule PO 100 mg BID ILDEFONSO Administration Donepezil HCl 5 mg 03/05/20 21:00 03/09/20 21:16 Donepezil Hcl 5 Mg Tablet PO 5 mg BEDTIME ILDEFONSO Administration Magnesium Hydroxide 30 ml 03/02/20 21:39 Milk Of Magnesia 30 Ml Oral.Susp PO DAILY PRN Constipation Mirtazapine 7.5 mg 03/02/20 21:00 03/09/20 21:16 Mirtazapine 7.5 Mg Tablet PO 7.5 mg BEDTIME ILDEFONSO Administration Multivitamins/Minerals 1 tab 03/02/20 12:30 03/09/20 12:39 Multivitamin With Minerals Tablet PO 1 tab DAILY@1200 ILDEFONSO Administration Omeprazole 20 mg 03/02/20 12:30 03/10/20 09:04 Omeprazole 20 Mg Capsule. 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 Continue Aricept as it may have benefit in Parkinson's dementia and psychosis. (2) Parkinson's disease dementia: Status: Acute Code(s): G20 - Parkinson's disease; F02.80 - Dementia in other diseases classified elsewhere without behavioral disturbance Assessment and Plan: 1. safety assessment post discharge 2. OT eval to assess ability to live independently Greater than 50% of the session was spent on counseling and/or coordination of care Reason for contiued inpatient stay Substantial Risk for: med/psych decompensation
[2020-03-10 15:40] VITALS: BP 110/72; PULSE 93
[2020-03-10 18:00] VITALS: TEMP 37
[2020-03-10] MEDS: Atorvastatin Calcium 10 MG TABLET PO (22:14)
[2020-03-10] MEDS: Donepezil HCl 5 MG TABLET PO (22:15)
[2020-03-10] MEDS: Mirtazapine 7.5 MG TABLET PO (22:15)
[2020-03-10] MEDS: Acetaminophen 325 MG TABLET 650 MG PO (22:17)
[2020-03-11] MEDS: Acetaminophen 325 MG TABLET 650 MG PO ×3 (04:53→20:41)
[2020-03-11] MEDS: Magnesium Hydrox/Alum Hydrox 30 ML ORAL.SUSP PO (04:54)
--- NOTE | 2020-03-11 08:10 | P.PNPSI_ITS ---
Subjective Subjective Date of Service: 03/11/20 Reason For Visit: Paranoia/ Hallucinations Interim History: Remains floridly symptomatic w well formed VH and AH of insects and bugs in his feet and food. Ct meds. More pleasant demeanor. Removes his socks bc of the insects Review of Systems Constitutional: Reports no additional constitutional complaints Eyes: Reports no additional eye complaints Denies dizziness Cardiovascular: Reports no additional cardiovascular complaints Respiratory: Reports as per HPI Gastrointestinal: Reports no additional gastrointestinal complaints Musculoskeletal: Reports no additional musculoskeletal complaints Skin/Breast: Denies rash Reports system reviewed and no additional complaints, except as documented, Denies dizziness and Denies Sensory deficit (Neuro) Psychiatric: Denies anxiety Mental Status Exam Mental Status Exam Narrative: Appearance: casually groomed, fair hygiene, in NAD Behavior: cooperative, friendly. Psychomotor: no agitation or retardation noted Speech: clear, normal rate/rhythm/volume, spontaneous TP: linear TC: visual hallucinations, not overly distress by paranoid delusions Mood: good Affect: bright, congruent, non labile AH/VH: AH of bugs, Delusions: persecutory delusions Insight/judgment: impaired x 2. Memory/cog: alert, not oriented to situation, year, month. impaired. Diagnostics Vital Signs (24Hr): Vital Signs - 24 hr 03/10/20 15:40 03/10/20 18:00 Temperature 98.6 F Pulse Rate 93 Blood Pressure 110/72 Body Mass Index 30.3 Labs Results: 03/02/20 01:26 03/02/20 01:26 Imaging Radiology Impressions: ITS Impressions Head CT 03/02/20 00:28 IMPRESSION: No acute intracranial pathology. Medications Medications Current Medications Generic Name Dose Route Start Last Admin Trade Name Freq PRN Reason Stop Dose Admin Acetaminophen 650 mg 03/02/20 21:39 03/11/20 04:53 Acetaminophen 325 Mg Tablet PO 650 mg Q6H PRN Administration Headache/Pain Mild Scale (1-3) Al Hydroxide/Mg Hydroxide 30 ml 03/02/20 21:39 03/11/20 04:54 Magnesium Hydrox/Alum Hydrox 30 Ml Oral.Susp PO 30 ml Q6H PRN Administration Heartburn/Nausea Atorvastatin Calcium 10 mg 03/02/20 21:00 03/10/20 22:14 Atorvastatin Calcium 10 Mg Tablet PO 10 mg BEDTIME ILDEFONSO Administration Carbidopa/Levodopa 1 tab 03/02/20 13:00 03/10/20 22:15 Carbidopa/Levodopa 25/100 Tablet PO 1 tab QID ILDEFONSO Administration Docusate Sodium 100 mg 03/02/20 21:00 03/10/20 22:14 Docusate Sodium 100 Mg Capsule PO 100 mg BID ILDEFONSO Administration Donepezil HCl 5 mg 03/05/20 21:00 03/10/20 22:15 Donepezil Hcl 5 Mg Tablet PO 5 mg BEDTIME ILDEFONSO Administration Magnesium Hydroxide 30 ml 03/02/20 21:39 Milk Of Magnesia 30 Ml Oral.Susp PO DAILY PRN Constipation Mirtazapine 7.5 mg 03/02/20 21:00 03/10/20 22:15 Mirtazapine 7.5 Mg Tablet PO 7.5 mg BEDTIME ILDEFONSO Administration Multivitamins/Minerals 1 tab 03/02/20 12:30 03/10/20 13:26 Multivitamin With Minerals Tablet PO 1 tab DAILY@1200 ILDEFONSO Administration Omeprazole 20 mg 03/02/20 12:30 03/10/20 09:04 Omeprazole 20 Mg Capsule.Dr PO 20 mg DAILY ILDEFONSO Administration Trazodone HCl 50 mg 03/02/20 21:39 03/09/20 02:06 Trazodone Hcl 50 Mg Tablet PO 50 mg BEDTIME PRN Administration Insomnia Vitamin D 25 mcg 03/02/20 12:30 03/10/20 09:04 Cholecalciferol (Vitamin D3) 25 Mcg Tablet PO 25 mcg DAILY ILDEFONSO Administration Allergies Allergies Allergy/AdvReac Type Severity Reaction Status Date / Time No Known Allergies Allergy Unverified 10/27/19 16:18 [No Known Allergies*] Assessment & Plan Assessment & Plan (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 Continue Aricept as it may have benefit in Parkinson's dementia and psychosis. (2) Parkinson's disease dementia: Status: Acute Code(s): G20 - Parkinson's disease; F02.80 - Dementia in other diseases classified elsewhere without behavioral disturbance Assessment and Plan: 1. safety assessment post discharge 2. OT eval to assess ability to live independently Greater than 50% of the session was spent on counseling and/or coordination of c are Reason for contiued inpatient stay Substantial Risk for: med/psych decompensation
[2020-03-11] MEDS: Cholecalciferol (Vitamin D3) 25 MCG TABLET PO (08:49)
[2020-03-11] MEDS: Omeprazole 20 MG CAPSULE.DR PO (08:50)
[2020-03-11] MEDS: Docusate Sodium 100 MG CAPSULE PO ×2 (08:50→20:39)
[2020-03-11] MEDS: Carbidopa/Levodopa 25/100 TABLET 1 TAB PO ×4 (08:50→20:39)
[2020-03-11 12:25] VITALS: BP 118/67; PULSE 80
[2020-03-11 12:26] VITALS: BP 118/67; PULSE 80; TEMP 36.5; O2SAT 95
[2020-03-11 19:07] VITALS: TEMP 36.2
--- NOTE | 2020-03-11 19:18 | PC.NURSE ---
oRTHO VITALS DONE: lying 130'65lm
--- NOTE | 2020-03-11 19:19 | PC.NURSE ---
ORTHO VITAL SIGNS DONE: LYIN/65, HR 88 \ SITTIN/58, HR 106 STANDIN/59, 118 PATIENT DENIES ANY DIZZINESS. ENCOURAGED TO DRINK FLUIDS, PARTICULARLY WATER.
[2020-03-11] MEDS: Atorvastatin Calcium 10 MG TABLET PO (20:39)
[2020-03-11] MEDS: Mirtazapine 7.5 MG TABLET PO (20:39)
[2020-03-11] MEDS: Donepezil HCl 5 MG TABLET PO (20:39)
[2020-03-12 06:20] VITALS: BP 116/64; PULSE 69; RESP 16; TEMP 36.3; O2SAT 97
[2020-03-12] MEDS: Cholecalciferol (Vitamin D3) 25 MCG TABLET PO (08:57)
[2020-03-12] MEDS: Carbidopa/Levodopa 25/100 TABLET 1 TAB PO ×4 (08:57→21:27)
[2020-03-12] MEDS: Docusate Sodium 100 MG CAPSULE PO ×2 (08:57→21:28)
[2020-03-12] MEDS: Omeprazole 20 MG CAPSULE.DR PO (08:57)
[2020-03-12] MEDS: Acetaminophen 325 MG TABLET 650 MG PO (16:01)
[2020-03-12 16:45] VITALS: BP 130/86; PULSE 110; TEMP 37.1
--- NOTE | 2020-03-12 16:56 | HO.PSYCHPN ---
Subjective Subjective Date of Service: 03/12/20 Reason For Visit: Paranoia/ Hallucinations Interim History: Pt continues to intermittently see bugs during day and night. Pt is pleasant, reports feeling okay. He has been visible in the unit. He denies SI/HI. No behavioral concerns. Will add seroquel. Review of Systems Constitutional: Reports no additional constitutional complaints Eyes: Reports no additional eye complaints Denies dizziness Cardiovascular: Reports no additional cardiovascular complaints Respiratory: Reports as per HPI Gastrointestinal: Reports no additional gastrointestinal complaints Musculoskeletal: Reports no additional musculoskeletal complaints Skin/Breast: Denies rash Reports system reviewed and no additional complaints, except as documented, Denies dizziness and Denies Sensory deficit (Neuro) Psychiatric: Denies anxiety Mental Status Exam Mental Status Exam Narrative: Appearance: casually groomed, fair hygiene, in NAD Behavior: cooperative, friendly. Psychomotor: no agitation or retardation noted Speech: clear, normal rate/rhythm/volume, spontaneous TP: linear TC: visual hallucinations, not overly distress by paranoid delusions Mood: good Affect: bright, congruent, non labile AH/VH: AH of bugs, Delusions: persecutory delusions Insight/judgment: impaired x 2. Memory/cog: alert, not oriented to situation, year, month. impaired. Diagnostics Vital Signs (24Hr): Vital Signs - 24 hr 03/11/20 19:07 03/12/20 06:20 Temperature 97.2 F 97.4 F Pulse Rate 69 Respiratory Rate 16 Blood Pressure 116/64 Pulse Oximetry 97 Body Mass Index 30.3 Labs Results: 03/02/20 01:26 03/02/20 01:26 Imaging Radiology Impressions: ITS Impressions Head CT 03/02/20 00:28 IMPRESSION: No acute intracranial pathology. Medications Medications Current Medications Generic Name Dose Route Start Last Admin Trade Name Freq PRN Reason Stop Dose Admin Acetaminophen 650 mg 03/02/20 21:39 03/12/20 16:01 Acetaminophen 325 Mg Tablet PO 650 mg Q6H PRN Administration Headache/Pain Mild Scale (1-3) Al Hydroxide/Mg Hydroxide 30 ml 03/02/20 21:39 03/11/20 04:54 Magnesium Hydrox/Alum Hydrox 30 Ml Oral.Susp PO 30 ml Q6H PRN Administration Heartburn/Nausea Atorvastatin Calcium 10 mg 03/02/20 21:00 03/11/20 20:39 Atorvastatin Calcium 10 Mg Tablet PO 10 mg BEDTIME ILDEFONSO Administration Carbidopa/Levodopa 1 tab 03/02/20 13:00 03/12/20 12:16 Carbidopa/Levodopa 25/100 Tablet PO 1 tab QID ILDEFONSO Administration Docusate Sodium 100 mg 03/02/20 21:00 03/12/20 08:57 Docusate Sodium 100 Mg Capsule PO 100 mg BID ILDEFONSO Administration Donepezil HCl 5 mg 03/05/20 21:00 03/11/20 20:39 Donepezil Hcl 5 Mg Tablet PO 5 mg BEDTIME ILDEFONSO Administration Magnesium Hydroxide 30 ml 03/02/20 21:39 Milk Of Magnesia 30 Ml Oral.Susp PO DAILY PRN Constipation Mirtazapine 7.5 mg 03/02/20 21:00 03/11/20 20:39 Mirtazapine 7.5 Mg Tablet PO 7.5 mg BEDTIME ILDEFONSO Administration Multivitamins/Minerals 1 tab 03/02/20 12:30 03/12/20 12:16 Multivitamin With Minerals Tablet PO 1 tab DAILY@1200 ILDEFONSO Administration Omeprazole 20 mg 03/02/20 12:30 03/12/20 08:57 Omeprazole 20 Mg Capsule.Dr PO 20 mg DAILY ILDEFONSO Administration Quetiapine Fumarate 50 mg 03/12/20 21:00 Quetiapine Fumarate 50 Mg Tablet PO BEDTIME ILDEFONSO Trazodone HCl 50 mg 03/02/20 21:39 03/09/20 02:06 Trazodone Hcl 50 Mg Tablet PO 50 mg BEDTIME PRN Administration Insomnia Vitamin D 25 mcg 03/02/20 12:30 03/12/20 08:57 Cholecalciferol (Vitamin D3) 25 Mcg Tablet PO 25 mcg DAILY ILDEFONSO Administration Allergies Allergies Allergy/AdvReac Type Severity Reaction Status Date / Time No Known Allergies Allergy Unverified 10/27/19 16:18 [No Known Allergies*] Assessment & Plan Assessment & Plan (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 Continue Aricept as it may have benefit in Parkinson's dementia and psychosis. 2. Start Seroquel 50mg po qhs (2) Parkinson's disease dementia: Status: Acute Code(s): G20 - Parkinson's disease; F02.80 - Dementia in other diseases classified elsewhere without behavioral disturbance Assessment and Plan: 1. safety assessment post discharge 2. OT eval to assess ability to live independently Greater than 50% of the session was spent on counseling and/or coordination of care Reason for contiued inpatient stay Substantial Risk for: inability to function
[2020-03-12] MEDS: Donepezil HCl 5 MG TABLET PO (21:27)
[2020-03-12] MEDS: Mirtazapine 7.5 MG TABLET PO (21:27)
[2020-03-12] MEDS: QUEtiapine Fumarate 50 MG TABLET PO (21:28)
[2020-03-12] MEDS: Atorvastatin Calcium 10 MG TABLET PO (21:28)
[2020-03-13 06:35] VITALS: BP 114/68; PULSE 74; RESP 16; TEMP 36.7; O2SAT 97
[2020-03-13] MEDS: Cholecalciferol (Vitamin D3) 25 MCG TABLET PO (08:55)
[2020-03-13] MEDS: Carbidopa/Levodopa 25/100 TABLET 1 TAB PO ×4 (08:55→20:25)
[2020-03-13] MEDS: Omeprazole 20 MG CAPSULE.DR PO (08:55)
[2020-03-13] MEDS: Docusate Sodium 100 MG CAPSULE PO ×2 (08:55→20:25)
--- NOTE | 2020-03-13 17:20 | HO.PSYCHPN ---
Subjective Subjective Date of Service: 03/13/20 Reason For Visit: Paranoia/ Hallucinations Interim History: Pt reports some difficulty sleeping last night. He is somewhat suspicious about peers who he thinks may be watching him while he is in the room. He continues to report VH but no overt paranoid delusions. He is less fearful, less anxious. Review of Systems Constitutional: Reports no additional constitutional complaints Eyes: Reports no additional eye complaints Denies dizziness Cardiovascular: Reports no additional cardiovascular complaints Respiratory: Reports as per HPI Gastrointestinal: Reports no additional gastrointestinal complaints Musculoskeletal: Reports no additional musculoskeletal complaints Skin/Breast: Denies rash Reports system reviewed and no additional complaints, except as documented, Denies dizziness and Denies Sensory deficit (Neuro) Psychiatric: Denies anxiety Mental Status Exam Mental Status Exam Narrative: Appearance: casually groomed, fair hygiene, in NAD Behavior: cooperative, friendly. Psychomotor: no agitation or retardation noted Speech: clear, normal rate/rhythm/volume, spontaneous TP: linear TC: visual hallucinations, not overly distress by paranoid delusions Mood: good Affect: bright, congruent, non labile AH/VH: AH of bugs, Delusions: persecutory delusions Insight/judgment: impaired x 2. Memory/cog: alert, not oriented to situation, year, month. impaired. Diagnostics Vital Signs (24Hr): Vital Signs - 24 hr 03/13/20 06:35 Temperature 98.1 F Pulse Rate 74 Respiratory Rate 16 Blood Pressure 114/68 Pulse Oximetry 97 Body Mass Index 30.3 Labs Results: 03/02/20 01:26 03/02/20 01:26 Imaging Radiology Impressions: ITS Impressions Head CT 03/02/20 00:28 IMPRESSION: No acute intracranial pathology. Medications Medications Current Medications Generic Name Dose Route Start Last Admin Trade Name Freq PRN Reason Stop Dose Admin Acetaminophen 650 mg 03/02/20 21:39 03/12/20 16:01 Acetaminophen 325 Mg Tablet PO 650 mg Q6H PRN Administration Headache/Pain Mild Scale (1-3) Al Hydroxide/Mg Hydroxide 30 ml 03/02/20 21:39 03/11/20 04:54 Magnesium Hydrox/Alum Hydrox 30 Ml Oral.Susp PO 30 ml Q6H PRN Administration Heartburn/Nausea Atorvastatin Calcium 10 mg 03/02/20 21:00 03/12/20 21:28 Atorvastatin Calcium 10 Mg Tablet PO 10 mg BEDTIME ILDEFONSO Administration Carbidopa/Levodopa 1 tab 03/02/20 13:00 03/13/20 16:23 Carbidopa/Levodopa 25/100 Tablet PO 1 tab QID ILDEFONSO Administration Docusate Sodium 100 mg 03/02/20 21:00 03/13/20 08:55 Docusate Sodium 100 Mg Capsule PO 100 mg BID ILDEFONSO Administration Donepezil HCl 5 mg 03/05/20 21:00 03/12/20 21:27 Donepezil Hcl 5 Mg Tablet PO 5 mg BEDTIME ILDEFONSO Administration Magnesium Hydroxide 30 ml 03/02/20 21:39 Milk Of Magnesia 30 Ml Oral.Susp PO DAILY PRN Constipation Mirtazapine 7.5 mg 03/02/20 21:00 03/12/20 21:27 Mirtazapine 7.5 Mg Tablet PO 7.5 mg BEDTIME ILDEFONSO Administration Multivitamins/Minerals 1 tab 03/02/20 12:30 03/13/20 12:05 Multivitamin With Minerals Tablet PO 1 tab DAILY@1200 ILDEFONSO Administration Omeprazole 20 mg 03/02/20 12:30 03/13/20 08:55 Omeprazole 20 Mg Capsule.Dr PO 20 mg DAILY ILDEFONSO Administration Quetiapine Fumarate 50 mg 03/12/20 21:00 03/12/20 21:28 Quetiapine Fumarate 50 Mg Tablet PO 50 mg BEDTIME ILDEFONSO Administration Trazodone HCl 50 mg 03/02/20 21:39 03/09/20 02:06 Trazodone Hcl 50 Mg Tablet PO 50 mg BEDTIME PRN Administration Insomnia Vitamin D 25 mcg 03/02/20 12:30 03/13/20 08:55 Cholecalciferol (Vitamin D3) 25 Mcg Tablet PO 25 mcg DAILY ILDEFONSO Administration Allergies Allergies Allergy/AdvReac Type Severity Reaction Status Date / Time No Known Allergies Allergy Unverified 10/27/19 16:18 [No Known Allergies*] Assessment & Plan Assessment & Plan (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 Continue Aricept as it may have benefit in Parkinson's dementia and psychosis. 2. Start Seroquel 50mg po qhs (2) Parkinson's disease dementia: Status: Acute Code(s): G20 - Parkinson's disease; F02.80 - Dementia in other diseases classified elsewhere without behavioral disturbance Assessment and Plan: 1. safety assessment post discharge 2. OT eval to assess ability to live independently Greater than 50% of the session was spent on counseling and/or coordination of care Reason for contiued inpatient stay Substantial Risk for: inability to function
[2020-03-13 18:00] VITALS: BP 124/68; PULSE 97; TEMP 36.2
[2020-03-13] MEDS: Atorvastatin Calcium 10 MG TABLET PO (20:25)
[2020-03-13] MEDS: Donepezil HCl 5 MG TABLET PO (20:25)
[2020-03-13] MEDS: Mirtazapine 7.5 MG TABLET PO (20:25)
[2020-03-13] MEDS: QUEtiapine Fumarate 50 MG TABLET PO (20:25)
[2020-03-13] MEDS: traZODone HCL 50 MG TABLET PO (23:07)
[2020-03-14 06:55] VITALS: BP 124/80; PULSE 86; RESP 16; TEMP 37.2; O2SAT 98
[2020-03-14] MEDS: Docusate Sodium 100 MG CAPSULE PO ×2 (08:05→20:21)
[2020-03-14] MEDS: Omeprazole 20 MG CAPSULE.DR PO (08:05)
[2020-03-14] MEDS: Cholecalciferol (Vitamin D3) 25 MCG TABLET PO (08:05)
[2020-03-14] MEDS: Carbidopa/Levodopa 25/100 TABLET 1 TAB PO ×4 (08:06→20:21)
[2020-03-14 16:42] VITALS: BP 132/79; PULSE 106; TEMP 36.6
[2020-03-14] MEDS: Mirtazapine 7.5 MG TABLET PO (20:21)
[2020-03-14] MEDS: Donepezil HCl 5 MG TABLET PO (20:21)
[2020-03-14] MEDS: Atorvastatin Calcium 10 MG TABLET PO (20:21)
[2020-03-14] MEDS: QUEtiapine Fumarate 50 MG TABLET PO (20:21)
[2020-03-15] MEDS: traZODone HCL 50 MG TABLET PO (01:59)
[2020-03-15 06:20] VITALS: BP 137/81; PULSE 71; RESP 16; TEMP 36.6; O2SAT 97
[2020-03-15 07:00] VITALS: BMI 31.1
[2020-03-15] MEDS: Omeprazole 20 MG CAPSULE.DR PO (08:44)
[2020-03-15] MEDS: Carbidopa/Levodopa 25/100 TABLET 1 TAB PO ×4 (08:44→19:59)
[2020-03-15] MEDS: Cholecalciferol (Vitamin D3) 25 MCG TABLET PO (08:44)
[2020-03-15] MEDS: Docusate Sodium 100 MG CAPSULE PO ×2 (08:44→19:59)
--- NOTE | 2020-03-15 08:47 | HO.PSYCHPN ---
Subjective Subjective Date of Service: 03/16/20 Reason For Visit: Paranoia/ Hallucinations Interim History: Pt has been visible in the unit. He is social with select peers. Pt continues to be pleasant on approach. No signs of aggression towards self or others. He continues to report seeing visual hallucinations of animals. He denies SI/HI. He presents as much less paranoid. Not reporting that peers are watching him. Discussed with pt's HCP aftercare plan and need for 24 hr supervision. HCP in agreement. Review of Systems Constitutional: Reports no additional constitutional complaints Eyes: Reports no additional eye complaints Denies dizziness Cardiovascular: Reports no additional cardiovascular complaints Respiratory: Reports as per HPI Gastrointestinal: Reports no additional gastrointestinal complaints Musculoskeletal: Reports no additional musculoskeletal complaints Skin/Breast: Denies rash Reports system reviewed and no additional complaints, except as documented, Denies dizziness and Denies Sensory deficit (Neuro) Psychiatric: Denies anxiety Mental Status Exam Mental Status Exam Narrative: Appearance: casually groomed, fair hygiene, in NAD Behavior: cooperative, friendly. Psychomotor: no agitation or retardation noted Speech: clear, normal rate/rhythm/volume, spontaneous TP: linear TC: visual hallucinations, not overly distress by paranoid delusions Mood: good Affect: bright, congruent, non labile AH/VH: AH of bugs, Delusions: persecutory delusions Insight/judgment: impaired x 2. Memory/cog: alert, not oriented to situation, year, month. impaired. Diagnostics Vital Signs (24Hr): Vital Signs - 24 hr 03/15/20 16:36 03/16/20 06:20 Temperature 97.2 F 96.8 F Pulse Rate 103 H 74 Respiratory Rate 20 16 Blood Pressure 119/80 129/75 Pulse Oximetry 98 97 Body Mass Index 31.1 Labs Results: 03/02/20 01:26 03/02/20 01:26 Labs: Laboratory Results - last 48 hr 03/15/20 13:41 Coronavirus (PCR) NEGATIVE Influenza Type A (PCR) NEGATIVE Influenza Type B (PCR) NEGATIVE RSV RNA Qual (PCR) NEGATIVE Imaging Radiology Impressions: ITS Impressions Head CT 03/02/20 00:28 IMPRESSION: No acute intracranial pathology. Medications Medications Current Medications Generic Name Dose Route Start Last Admin Trade Name Freq PRN Reason Stop Dose Admin Acetaminophen 650 mg 03/02/20 21:39 03/16/20 01:08 Acetaminophen 325 Mg Tablet PO 650 mg Q6H PRN Administration Headache/Pain Mild Scale (1-3) Al Hydroxide/Mg Hydroxide 30 ml 03/02/20 21:39 03/11/20 04:54 Magnesium Hydrox/Alum Hydrox 30 Ml Oral.Susp PO 30 ml Q6H PRN Administration Heartburn/Nausea Atorvastatin Calcium 10 mg 03/02/20 21:00 03/15/20 19:59 Atorvastatin Calcium 10 Mg Tablet PO 10 mg BEDTIME ILDEFONSO Administration Carbidopa/Levodopa 1 tab 03/02/20 13:00 03/15/20 19:59 Carbidopa/Levodopa 25/100 Tablet PO 1 tab QID ILDEFONSO Administration Docusate Sodium 100 mg 03/02/20 21:00 03/15/20 19:59 Docusate Sodium 100 Mg Capsule PO 100 mg BID ILDEFONSO Administration Donepezil HCl 5 mg 03/05/20 21:00 03/15/20 19:59 Donepezil Hcl 5 Mg Tablet PO 5 mg BEDTIME ILDEFONSO Administration Magnesium Hydroxide 30 ml 03/02/20 21:39 03/15/20 16:09 Milk Of Magnesia 30 Ml Oral.Susp PO 30 ml DAILY PRN Administration Constipation Mirtazapine 7.5 mg 03/02/20 21:00 03/15/20 19:59 Mirtazapine 7.5 Mg Tablet PO 7.5 mg BEDTIME ILDEFONSO Administration Multivitamins/Minerals 1 tab 03/02/20 12:30 03/15/20 13:15 Multivitamin With Minerals Tablet PO 1 tab DAILY@1200 ILDEFONSO Administration Omeprazole 20 mg 03/02/20 12:30 03/15/20 08:44 Omeprazole 20 Mg Capsule.Dr PO 20 mg DAILY ILDEFONSO Administration Quetiapine Fumarate 50 mg 03/12/20 21:00 03/15/20 19:59 Quetiapine Fumarate 50 Mg Tablet PO 50 mg BEDTIME ILDEFONSO Administration Trazodone HCl 50 mg 03/02/20 21:39 03/16/20 01:08 Trazodone Hcl 50 Mg Tablet PO 50 mg BEDTIME PRN Administration Insomnia Vitamin D 25 mcg 03/02/20 12:30 03/15/20 08:44 Cholecalciferol (Vitamin D3) 25 Mcg Tablet PO 25 mcg DAILY ILDEFONSO Administration Allergies Allergies Allergy/AdvReac Type Severity Reaction Status Date / Time No Known Allergies Allergy Unverified 10/27/19 16:18 [No Known Allergies*] Assessment & Plan Assessment & Plan (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 Continue Aricept as it may have benefit in Parkinson's dementia and psychosis. 2. Start Seroquel 50mg po qhs (2) Parkinson's disease dementia: Status: Acute Code(s): G20 - Parkinson's disease; F02.80 - Dementia in other diseases classified elsewhere without behavioral disturbance Assessment and Plan: 1. safety assessment post discharge 2. OT eval to assess ability to live independently Greater than 50% of the session was spent on counseling and/or coordination of care Reason for contiued inpatient stay Substantial Risk for: harm to self and inability to function
[2020-03-15 15:03] LABS: Influenza A PCR NEGATIVE (Negative); Influenza B PCR NEGATIVE (Negative); Resp Syncy Virus RNA Qual PCR NEGATIVE (Negative); SARS COV2 PCR INHOUSE NEGATIVE (Negative)
[2020-03-15] MEDS: Milk of Magnesia 30 ML ORAL.SUSP PO (16:09)
[2020-03-15 16:36] VITALS: BP 119/80; PULSE 103; RESP 20; TEMP 36.2; O2SAT 98
[2020-03-15] MEDS: Donepezil HCl 5 MG TABLET PO (19:59)
[2020-03-15] MEDS: Atorvastatin Calcium 10 MG TABLET PO (19:59)
[2020-03-15] MEDS: Mirtazapine 7.5 MG TABLET PO (19:59)
[2020-03-15] MEDS: QUEtiapine Fumarate 50 MG TABLET PO (19:59)
[2020-03-16] MEDS: traZODone HCL 50 MG TABLET PO (01:08)
[2020-03-16] MEDS: Acetaminophen 325 MG TABLET 650 MG PO (01:08)
[2020-03-16 06:20] VITALS: BP 129/75; PULSE 74; RESP 16; TEMP 36; O2SAT 97
--- NOTE | 2020-03-16 08:50 | PM.PSYDC ---
DS: Providers Provider Date of Service: 04/03/20 Date of admission: 03/02/20 21:39 Primary care physician: Nicolasa Cristobal MD DS: Diagnosis Discharge Diagnosis (1) Psychosis due to Parkinson's disease: Status: Acute (2) Parkinson's disease dementia: Status: Acute DS: Medications Discharge Medications Home Medications: Home Medications Medication Instructions Recorded Confirmed carbidopa-levodopa 1 tab PO QID 03/02/20 03/02/20 Previous Rx's Medication Instructions Recorded atorvastatin 10 mg PO BEDTIME 30 Days #30 tab 03/16/20 cholecalciferol (vitamin D3) 1 tab PO QAM 30 Days #30 tab 03/16/20 donepezil 5 mg PO BEDTIME 30 Days #30 tab 03/16/20 mirtazapine 7.5 mg PO BEDTIME 30 Days #30 tab 03/16/20 pantoprazole 1 tab PO QAM 30 Days #0 tab 03/16/20 quetiapine [Seroquel] 100 mg PO BEDTIME 30 Days #30 tab 03/16/20 Discharge Plan Discharge Patient Disposition: Home, Self-Care Referrals: Ban Spencer (psychiatrist) [Other] - 05/29/20 12:20 pm (Telehealth appointment) Roseline Mckeon (therapist) [Other] - 03/20/20 9:45 am (Telehealth appointment) Ban Spencer (psychiatrist) [Other] - 04/09/20 10:40 am (Telehealth appointment) Julio Farmer MD [Physician] - 03/27/20 10:00 am Consuelo Cramer MD [Physician] - 03/29/20 9:30 am (via phone) Discharge Medications: New donepezil 5 mg Tablet 5 mg PO BEDTIME 30 Days Qty: 30 RF: 0 atorvastatin 10 mg Tablet 10 mg PO BEDTIME 30 Days Qty: 30 RF: 0 mirtazapine 7.5 mg Tablet 7.5 mg PO BEDTIME 30 Days Qty: 30 RF: 0 quetiapine [Seroquel] 100 mg tablet 100 mg PO BEDTIME 30 Days Qty: 30 RF: 0 Continued carbidopa-levodopa 25-100 mg tablet 1 tab PO QID RF: 0 pantoprazole 40 mg tablet,delayed release (DR/EC) 1 tab PO QAM 30 Days Qty: 0 RF: 0 cholecalciferol (vitamin D3) 25 mcg (1,000 unit) tablet 1 tab PO QAM 30 Days Qty: 30 RF: 0 Discontinued quetiapine 25 mg tablet 25 mg PO BID@0630,1630 RF: 0 atorvastatin 10 mg tablet 1 tab PO BEDTIME RF: 0 sertraline 100 mg tablet 2 tab PO QAM RF: 0 cyanocobalamin (vitamin B-12) 1,000 mcg tablet 1 tab PO QAM RF: 0 mirtazapine 7.5 mg tablet 1 tab PO BEDTIME RF: 0 Certavite-Antioxidant 18-400 mg-mcg tablet 1 tab PO QNOON RF: 0 quetiapine 25 mg Tablet 75 mg PO BEDTIME RF: 0 docusate sodium [DOK] 100 mg Tablet 100 mg PO BID RF: 0 Discharge Orders: Discharge Order (Routine); Ordered 03/16/20 Ordered By: Regina La Diet: advance to usual diet Activity on Discharge: As tolerated Stand Alone Forms: Patient Portal Discharge page, Community Support Visit Report Forms: Patient Portal Discharge page Care Plan Goals: 1. Follow up with referrals 2. Take medications as prescribed. Health Concerns: 1. Follow up with PCP Plan of Treatment: 1. Follow up with referrals 2. Take medications as prescribed. Discharge Date/Time: 03/16/20 12:05 Mental Status Exam Mental Status Exam Narrative: Appearance: casually groomed, fair hygiene, in NAD Behavior: cooperative, friendly. Psychomotor: no agitation or retardation noted Speech: clear, normal rate/rhythm/volume, spontaneous TP: linear TC: visual hallucinations, not overly distress by paranoid delusions Mood: good Affect: bright, congruent, non labile AH/VH: AH of bugs, Delusions: persecutory delusions Insight/judgment: impaired x 2. Memory/cog: alert, not oriented to situation, year, month. impaired. Data Data Completed and Pending Completed studies during hospitalization [Text1]: 03/15/20 13:41 Coronavirus (PCR) NEGATIVE Influenza Type A (PCR) NEGATIVE Influenza Type B (PCR) NEGATIVE RSV RNA Qual (PCR) NEGATIVE Imaging Diagnostic Imaging Impressions Head CT 03/02/20 00:28 IMPRESSION: No acute intracranial pathology. DS: Summary Hospital Course Hospital Course: HPI: Mr. Nicole is a 64 year-old male with hx of Parkinsons, Parkinson's Dementia and psychosis who was brought to [facility] by his [employer]ECUTIVE as pt was trying to leave his home in middle of night, reporting paranoid delusions of people trying to hurt him. She has been seeing animals on floor, even with medications. However, [employer] EXEC[employer]IVE reports increase agitation and distress due to paranoid delusion. After reviewing medications, pt has been on nuplazid which worsened psychosis. He had been on clozaril but weekly labs were not possible. He has been on seroquel, which appears to be medication that has been most effective. On the unit, Mr. Nicole initially presented as very confused and disorganized. He reported paranoid delusions of people in unit trying to hurt him. However, he did not display any aggressive behaviors towards self or others. He was not oriented to place nor situation. He was not oriented to year, months, day. He initially was started on olanzapine, which was eventually discontinued as it cause significant orthostatic HOTN. He was restarted on Seroquel which was titrated. He had been on sertraline for several years. This medications was discontinued as it was thought to in part worsened psychosis through seronergic pathway. He was started on aricept. Mr. Nicole gradually presented as slightly less disoriented in that he was able to identify that he was in a hospital, although did not remember why he was brought there. He was able to at least identify some basic self care objects such as towel, shampoo and change of cloths that he would ask to his nurse. However, the recommendation was that patient is not safe to live by himself and does require 24 hours care. He continued to report seeing animal, but to a lesser extend. He was not as paranoid as when he was admitted. He was sleeping fairly well although did have episodes of waking up, reenacting dreams (REM sleep behavior disorder), which is typical in synouclein pathologies such as Parkinson. There were no incidents of disruptive behaviors nor use of restraints. Collateral information was gathered from his step daughter, who is also his HCP and [employer] EXEC[employer]IVE. Family informed of concern about pt wondering or leaving stove on and reason for requiring 24 hrs care, which HCP agreed to have pt with her 24 hrs/7days a week. Status at Discharge Functional status at discharge: independent ambulation Overall status at discharge: patient is back to baseline Time Spent with Patient Time attestation: Total time spent providing and/or coordinating discharge services: Time spent: Less than 30 minutes
[2020-03-16] MEDS: Carbidopa/Levodopa 25/100 TABLET 1 TAB PO ×2 (08:51→11:30)
[2020-03-16] MEDS: Docusate Sodium 100 MG CAPSULE PO (08:51)
[2020-03-16] MEDS: Cholecalciferol (Vitamin D3) 25 MCG TABLET PO (08:51)
[2020-03-16] MEDS: Omeprazole 20 MG CAPSULE.DR PO (08:51)
== END 2020-03-16 12:05 | disposition home or self-care (01) | DRG 884 ==
LOC: HO.ED 03-02 00:53 → HO.PM5 03-02 21:43
PROVIDERS: Admitting Provider Social Worker; Emergency Provider Emergency Medicine; PCP Internal Medicine Transplant Hepatology; Visit Provider Social Worker
DX: F06.0 Psychotic disorder with hallucinations due to known physiological condition (principal); G20 Parkinson's disease; F02.80 Dementia in other diseases classified elsewhere, unspecified severity, without behavioral disturbance, psychotic disturbance, mood disturbance, and anxiety; Z20.822 Contact with and (suspected) exposure to COVID-19; Z79.899 Other long term (current) drug therapy
CPT/HCPCS: 0241U; 36415; 70450; 80048; 80061; 80076; 80307; 80320; 81003; 82607; 82746; 83036; 84443; 85025; 87635; 93005; 99223; 99232; 99285; G0480

== ENCOUNTER 2020-10-30 06:43 | Day surgery (SDC) | payer OTHER, SELFPAY ==
[2020-10-25 12:50] VITALS: BMI 32.4
[2020-10-30 07:04] VITALS: BP 132/88; PULSE 85; RESP 16; TEMP 36.8; O2SAT 97
--- NOTE | 2020-10-30 07:14 | P.CONAN_ITS ---
[facility] Active Problems Active Problems: All Active Problems (Updated 10/24/20 @ 16:31 by Rhonda russell RN) Psychosis due to Parkinson's disease (Acute) Parkinson's disease dementia (Acute) Past Medical History Medical History Arthritis Chronic pain Dementia Depression Elevated cholesterol GERD (gastroesophageal reflux disease) Osteoarthritis Parkinson disease Surgical History Surgical History Hx of colonoscopy Hx of hand surgery History of Problems with Anesthesia: No Social History Social History Household Members: None Household Members Other:: per [facility] assessment, lives independently Housing: Apartment Do you presently have visiting nurse or other home services: Yes ([employer]) Patient Tobacco Use Status: Former Tobacco user Second Hand Smoke Exposure: No Use of substances other than those prescribed or required for medical reasons: No Are you DNR?: No Advance Directives: No Advance Directives Information Provided: Yes service: No Sexual orientation: Straight/Heterosexual Meds Allergies Allergy/AdvReac Type Severity Reaction Status Date / Time No Known Allergies Allergy Verified 10/30/20 06:52 [No Known Allergies*] Home Medications Medication Instructions Recorded Confirmed Last Taken Type carbidopa 25 mg-levodopa 100 mg 1 tab PO QID 03/02/20 10/24/20 03/01/20 20:00 History tablet cyanocobalamin (vitamin B-12) 1 tab PO QAM 10/24/20 10/24/20 Unknown History 1,000 mcg tablet multivitamin-ferrous 1 tab PO DAILY 10/24/20 10/24/20 Unknown History fumarate-folic acid 18 mg-400 mcg tablet (Certavite-Antioxidant) sertraline 100 mg tablet 2 tab PO QAM 10/24/20 10/24/20 Unknown History Exam Exam Date and Time: October 30, 2020 0714 Height,Weight and Vital Signs: Height 5 ft 5 in Weight 88.451 kg Last Vital Signs Temp 98.3 F 10/30/20 07:04 Pulse 85 10/30/20 07:04 Resp 16 10/30/20 07:04 BP 132/88 10/30/20 07:04 Pulse Ox 97 10/30/20 07:04 Airway Mallampati Class: III TM Dist: >3cm Neck ROM: Limited Heart: RRR Lungs: CTA Assessment and Plan Assessment Anesthesia Assessment: Anesthesia Plan Discussed and Chart Reviewed Final Anesthetic Review History of Problems with Anesthesia: No NPO: Yes ASA Class: III Final Preanesthetic Review: Meds/Allgs Chart Reviewed, Consent Obtained/Reviewed and Anes Risks/Benef Reviewed Patient Risk: Intermediate Procedure Risk: Low Anesthetic Plan Anesthetic Plan: MAC: Disposition: Standard PACU
--- NOTE | 2020-10-30 07:23 | MHC.SHP ---
Pre-Procedural Eval Section A Date of Service: 10/30/20 The patient is an INPATIENT: No Changes since office visit: No Cold of Flu in the past 2 weeks, No New Medical Problems, No Changes in Medication and No Patient answered all questions The History & Physical has been completed within 30 days and I have reviewed it.: Yes Section B Chief Complaint: screening Allergies: Allergies Allergy/AdvReac Type Severity Reaction Status Date / Time No Known Allergies Allergy Verified 10/30/20 06:52 [No Known Allergies*] Plan I have reviewed the history and physical and performed a pertinent physical examination on my patient. No changes have occurred unless specified.
[2020-10-30] MEDS: Lactated Ringers 1,000 ML 50 ML IVCONT (07:32)
--- NOTE | 2020-10-30 08:07 | PM.OP ---
Brief Operative Note Date of Service: 10/30/20 Pre-op diagnosis: screening Post-op diagnosis: same (colon polyps) Surgeon: Arsh Medina Anesthesia: MAC Was an Secured Entrance Monitor used for this Procedure?: No Estimated blood loss (mL): 5 Pathology: other (polyps x3) Condition: stable Disposition: PACU
[2020-10-30 08:08] VITALS: BP 118/73; PULSE 65; RESP 18; TEMP 36.3; O2SAT 100
[2020-10-30 08:23] VITALS: BP 119/87; PULSE 71; RESP 18; TEMP 36.3; O2SAT 100
--- NOTE | 2020-10-30 09:44 | OP_ITS ---
SURGEON: Arsh Medina MD INDICATIONS: Colon cancer screening and prior history of adenomatous colon polyps. PREOPERATIVE DIAGNOSIS: POSTOPERATIVE DIAGNOSIS: PROCEDURE PERFORMED: Colonoscopy to the terminal ileum with biopsy and snare polypectomy. ESTIMATED BLOOD LOSS: COMPLICATIONS: ANESTHESIA: ASSISTANTS: SPECIMENS: MEDICATIONS: Monitored anesthesia care. DESCRIPTION OF PROCEDURE: History and physical performed. The risks and benefits of the procedure were explained to the patient. Informed consent was obtained. The patient was placed in the left lateral decubitus position. A digital rectal exam was performed and was found to be normal. The Olympus pediatric video colonoscope was introduced into the rectum and advanced to the cecum without difficulty. The cecum was identified by transillumination, palpation, and identification of ileocecal valve. Examination was performed and the scope was removed. He tolerated this procedure well and was taken to recovery area in stable condition. FINDINGS: The terminal ileum was briefly examined and appeared normal. The visualized colonic mucosa was within normal limits without evidence of masses or ulcers. A total of 3 polyps were identified and removed with a combination of biopsy forceps and snare, these were located at 90 cm, 70 cm, and 50 cm, all polyps were less than 10 mm. There was some liquid stool coating the mucosa limiting the sensitivity examination for detection of small polyps, this was washed and suctioned as best possible. Retroflexed examination showed moderate-sized internal hemorrhoids. IMPRESSION: Colon polyps. RECOMMENDATION: Follow up the biopsy results. MD MARITZA Alonso/TRACEE / [id number]
== END 2020-10-30 09:25 | disposition home or self-care (01) ==
PROVIDERS: PCP Family Medicine; Visit Provider Internal Medicine Gastroenterology
PROC: 0DJD8ZZ Inspection of Lower Intestinal Tract, Via Natural or Artificial Opening Endoscopic (ICD-10-PCS; CPT 45378; principal; 2020-10-30 07:30)
DX: Z12.11 Encounter for screening for malignant neoplasm of colon (principal); D12.6 Benign neoplasm of colon, unspecified; K64.8 Other hemorrhoids; Z86.010 Personal history of colon polyps; G20 Parkinson's disease; Z79.899 Other long term (current) drug therapy
CPT/HCPCS: 45385; 88305

== ENCOUNTER 2020-11-01 08:21 | Outpatient (REF) | payer OTHER, SELFPAY ==
--- NOTE | ~2020-11-01 | US_ITS ---
EXAMINATION: US ABDOMEN COMPLETE CLINICAL INFORMATION: Epigastric pain. COMPARISON: Ultrasound abdomen complete 12/06/2018. CT abdomen and pelvis 08/15/2016. TECHNIQUE: Real-time imaging of the abdominal viscera. FINDINGS: PANCREAS: Visualized portions of the pancreas are unremarkable. Portions are obscured by overlying bowel gas. ABDOMINAL AORTA: The proximal, mid, and distal segments are normal in caliber. INFERIOR VENA CAVA: Visualized portions are normal. LIVER: The liver is normal in size. The liver contour is normal. Increased echogenicity suggesting hepatic steatosis. Simple appearing cyst noted in the right hepatic lobe measuring 2.7 x 2.0 x 2.6 cm. There is no intrahepatic biliary duct dilatation seen. GALLBLADDER: Normal. The gallbladder is physiologically distended without evidence of stones, sludge, polyps, wall thickening or pericholecystic fluid. Sonographic [place] sign is negative. COMMON BILE DUCT: Normal in caliber measuring 0.3 cm in diameter. RIGHT KIDNEY: Normal. No hydronephrosis. No renal calculi or focal parenchymal lesions. The kidney measures 11.7 cm in maximum dimension. LEFT KIDNEY: Normal. No hydronephrosis. No renal calculi or focal parenchymal lesions. The kidney measures 10.9 cm in maximum dimension. SPLEEN: Normal. The spleen measures 11.2 cm in maximum dimension. FREE FLUID: None. US/US abdomen complete IMPRESSION: 1. Increased hepatic echogenicity suggesting hepatic steatosis. 2. Simple appearing cyst noted in the right hepatic lobe measuring up to 2.7 cm.
[2020-11-01 10:12] LABS: MANUAL DIFF FLAG NO
[2020-11-01 10:34] LABS: Basophils Percent Auto 0.7 % (0-2); Eosinophils Absolute Auto 0.1 X10*3/uL (0.0-0.4); Eosinophils Percent Auto 1.7 % (0-4); Hematocrit 40.5 % (42-52); Hemoglobin 13.1 g/dl (14.0-18.0); Imm Gran Abs Auto 0.02 X10*3/uL (0.00-0.03); Imm Gran Pct Auto 0.3 % (0.0-0.4); Lymphocytes Absolute Auto 1.9 X10*3/uL (1.2-4.9); Lymphocytes Percent Auto 30.7 % (20-40); Mean Corpuscular HGB Conc 32.3 g/dl (31.0-36.0); Mean Corpuscular Hemoglobin 29.6 pg (27.0-33.0); Mean Corpuscular Volume 91.6 fL (80-98); Mean Platelet Volume 10.2 fL (9.4-12.4); Monocytes Absolute Auto 0.4 X10*3/uL (0.1-1.2); Monocytes Percent Auto 6.9 % (2-11); Neutrophils Absolute Auto 3.6 X10*3/uL (2.0-8.3); Neutrophils Percent Auto 59.7 % (45-73); Platelet Count 227 X10*3/uL (160-400); Red Blood Count 4.42 X10*6/uL (4.60-5.80); Red Cell Distribution Width 13.2 % (11.0-16.0); White Blood Count 6.1 X10*3/uL (4.8-10.8)
[2020-11-01 10:40] LABS: Alanine Aminotransferase 15 U/L (0-40); Albumin Level 4.4 g/dL (3.5-5.0); Alkaline Phosphatase 71 U/L (39-117); Aspartate Amino Transferase 14 U/L (5-37); Bilirubin Direct 0.2 mg/dL (0.0-0.5); Bilirubin Total 0.4 mg/dL (0.0-1.0); Lipase 34 U/L (8-78); Total Protein 7.2 g/dL (6.5-8.0)
== END 2020-11-01 08:22 | disposition home or self-care (01) ==
LOC: HO.US 08:21
PROVIDERS: PCP Family Medicine; Visit Provider Internal Medicine Gastroenterology
DX: R10.13 Epigastric pain (principal)
CPT/HCPCS: 36415; 76700; 80076; 83690; 85025

== ENCOUNTER 2021-09-25 21:03 | Emergency (ER) | payer OTHER, SELFPAY ==
--- NOTE | ~2021-09-25 | CT_ITS ---
EXAMINATION: CT HEAD WITHOUT CONTRAST CLINICAL INFORMATION: Altered mental status COMPARISON: 03/02/2020 TECHNIQUE: Contiguous axial imaging was performed from the skull base to vertex without intravenous contrast. This CT examination was performed using dose optimization techniques as appropriate, variously including the following: * Automated exposure control * Adjustment of mA and/or kV according to patient size (this includes techniques or standardized protocols for targeted exams where dose is matched to indication/reason for exam; i.e. extremities or head) Use of iterative reconstruction technique DLP: 671 mGy-cm. FINDINGS: There is no evidence of acute intracranial hemorrhage or territorial infarction. No abnormal mass effect or midline shift is seen. Broussard to white matter differentiation is well preserved. No extra-axial fluid collections are identified. No hydrocephalus. No significant volume loss. There is no abnormal attenuation within the brain parenchyma. The osseous structures and soft tissues are normal. The mastoid air cells and visualized portions of the paranasal sinuses are well aerated. CT/CT head/brain wo con IMPRESSION: No acute intracranial pathology.
[2021-09-25 21:19] VITALS: BP 135/83; PULSE 88; RESP 15; TEMP 37.2; O2SAT 96
[2021-09-25 21:25] VITALS: BP 128/75; PULSE 99; O2SAT 97
[2021-09-25 21:27] VITALS: BP 131/84; PULSE 94; RESP 16; TEMP 36.4; O2SAT 97; BMI 41.1
--- NOTE | 2021-09-25 21:33 | ECG_ITS ---
Test Reason : AMS Blood Pressure : / mmHG Vent. Rate : 087 BPM Atrial Rate : 087 BPM P-R Int : 140 ms QRS Dur : 072 ms QT Int : 362 ms P-R-T Axes : 023 -13 009 degrees QTc Int : 435 ms Normal sinus rhythm Inferior infarct (cited on or before 10-JAN-2017) Abnormal ECG When compared with ECG of 02-MAR-2020 20:09, No significant change was found Referred By: Saira Arredondo Electronically Signed By:SRAVANTHI DUNN
--- NOTE | 2021-09-25 21:36 | PC.NURSE ---
Patient believes he is here because he has lost his airplane.
--- NOTE | 2021-09-25 21:41 | ED.AMS ---
HPI - Altered Mental Status General Chief Complaint: Altered Mental Status Stated Complaint: altered mental status Time Seen by Provider: 09/25/21 21:32 Source: patient, EMS and busboy Mode of arrival: EMS History of Present Illness HPI narrative: 66-year-old male with psychiatric history, Parkinson's and was brought in today by EMS when they were called by his neighbor who states that the patient was wandering around in the apartment complex and was unable to find his apartment. The neighbor states that this is not his normal baseline. Patient did make some comment about ?that he is here because he lost his airplane?, patient also states that the president is ?[place]?. Currently, patient has no complaints and denies any fever, chills, shortness of breath, feeling chest pain or racing heart, he denies any urinary problems and states that the mild pain that he feels and is abdomen is the same he has had for a long time. Patient is telling us that he lives with his brother. Related Data Home Medications Medication Instructions Recorded Confirmed carbidopa 25 mg-levodopa 100 mg 1 tab PO QID 03/02/20 10/24/20 tablet cyanocobalamin (vitamin B-12) 1 tab PO QAM 10/24/20 10/24/20 1,000 mcg tablet multivitamin-ferrous 1 tab PO DAILY 10/24/20 10/24/20 fumarate-folic acid 18 mg-400 mcg tablet (Certavite-Antioxidant) sertraline 100 mg tablet 2 tab PO QAM 10/24/20 10/24/20 Previous Rx's Medication Instructions Recorded atorvastatin 10 mg tablet 10 mg PO BEDTIME 30 days #30 tabs 03/16/20 cholecalciferol (vitamin D3) 25 1 tab PO QAM 30 days #30 tabs 03/16/20 mcg (1,000 unit) tablet donepezil 5 mg tablet 5 mg PO BEDTIME 30 days #30 tabs 03/16/20 mirtazapine 7.5 mg tablet 7.5 mg PO BEDTIME 30 days #30 tabs 03/16/20 pantoprazole 40 mg tablet,delayed 1 tab PO QAM 30 days #0 tabs 03/16/20 release quetiapine 100 mg tablet (Seroquel) 100 mg PO BEDTIME 30 days #30 tabs 03/16/20 Allergies Allergy/AdvReac Type Severity Reaction Status Date / Time No Known Allergies Allergy Verified 10/30/20 06:52 [No Known Allergies*] Review of Systems Review of Systems: Pertinent positives and negatives as stated in HPI 10 point review of systems is otherwise negative. [facility] Past Medical History Source: nursing notes reviewed Medical History Arthritis Chronic pain Dementia Depression Elevated cholesterol GERD (gastroesophageal reflux disease) Osteoarthritis Parkinson disease Surgical History Hx of colonoscopy Hx of hand surgery Social History Social History Household Members: None Household Members Other:: per [facility] assessment, lives independently Housing: Apartment Do you presently have visiting nurse or other home services: Yes (NURSE INTERN) Patient Tobacco Use Status: Former Tobacco user Second Hand Smoke Exposure: No Advance Directives: No Advance Directives Information Provided: No service: No Sexual orientation: Straight/Heterosexual Physical Exam ED Vital Signs: Vital Signs - 24 hr 09/25/21 21:19 09/25/21 21:27 Temperature 99.0 F 97.5 F Pulse Rate 88 94 Respiratory Rate 15 16 Blood Pressure 135/83 131/84 Pulse Oximetry 96 97 Oxygen Delivery Method Room Air Room Air BMI result Body Mass Index 41.1 VITAL SIGNS: Reviewed. GENERAL: Well developed, well nourished, in no acute distress. HEAD: Normocephalic/atraumatic EYES: PERRLA, EOMI EARS: Ext canals without abnormality OROPHARYNX: no oral lesions noted, posterior pharynx clear NECK: Supple, no adenopathy LUNGS: Normal breath sounds. No adventitious sounds or accessory muscle use. SpO2<96> CARDIOVASCULAR: Regular rate and rhythm without noted murmurs, no JVD or lower extremity edema. ABDOMEN: Soft, non-tender, non-distended with bowel sounds. MUSCULOSKELETAL: No tenderness, deformities, or effusions noted on gross inspection. EXTREMITIES: No cyanosis, clubbing or edema; RIGHT LOWER EXTREMITY: Mildly increase in size when compared to left, skin appears shiny in nature without pitting edema, bilateral lower extremities with symmetrical pulses at DP/PT SKIN: Inspection of the skin reveals no rashes NEUROLOGIC: Alert and oriented x 1. Strength and sensation to light touch were grossly intact x 4, patient has baseline tremulousness consistent with Parkinson's diagnosis. Course Course Course Narrative: 66-year-old male with history and clinical presentation consistent with possible altered mental status when neighbors statement is taken into account. Will evaluate patient for evidence of infection, anemia electrolyte derangements. On review patient's chart we will be taking into consideration patient's psychiatric component as well. Currently, patient appears well and in no distress. Review of all investigations without acute findings to better explain patient's presentation. There is a possibility of medication interactions, although unclear at this time due to inaccurate baseline. I did attempt to reach out to the contact listed and patient's documents, but there was no answer. 0228: I ambulated with the patient myself, and although he did not walk with a straight and steady gait I suspect that this is his baseline process. Patient is currently medically cleared and will ask the behavioral team to see the patient as they are familiar with him and can instruct us as to whether not there is a behavioral component. It is not clear to me whom this patient lives with currently. Reevaluation(s) Reevaluation #1: Patient placed in physician observation because the patient needed more time for evaluation by the behavioral team to status baseline mental status. At the time observation was started the patient's vital signs were stable, patient is alert, neuro: Nonfocal, CV RRR, lungs clear Time: 02:32 MDM - Altered Mental Status Lab Data Result diagrams: 09/25/21 22:16 09/26/21 01:25 Labs: Lab Results 09/25/21 09/25/21 09/25/21 Range/Units 22:16 22:16 22:16 WBC 7.9 (4.8-10.8) X10*3/uL RBC 4.34 L (4.60-5.80) X10*6/uL Hgb 12.6 L (14.0-18.0) g/dl Hct 39.2 L (42.0-52.0) % MCV 90.3 (80.0-98.0) fL MCH 29.0 (27.0-33.0) pg MCHC 32.1 (31.0-36.0) g/dl RDW 12.9 (11.0-16.0) % Plt Count 278 (160-400) X10*3/uL MPV 10.0 (9.4-12.4) fL Immature Gran % (Auto) 0.4 (0.0-0.4) % Neut % (Auto) 70.5 (45-73) % Lymph % (Auto) 21.3 (20-40) % [place] % (Auto) 6.8 (2-11) % Eos % (Auto) 0.5 (0-4) % Baso % (Auto) 0.5 (0-2) % Lymph # (Auto) 1.7 (1.2-4.9) X10*3/uL [place] # (Auto) 0.5 (0.1-1.2) X10*3/uL Eos # (Auto) 0.0 (0.0-0.4) X10*3/uL Baso # (Auto) 0.0 (0.0-0.2) X10*3/uL Abs Immat Gran (auto) 0.03 (0.00-0.03) X10*3/uL Absolute Neuts (auto) 5.6 (2.0-8.3) x10*3/uL Absolute Nucleated RBC 0.000 (0.0-0.012) X10*3/uL Nucleated RBC % (auto) 0.0 (0.0-0.2) /100WBC D-Dimer High Sensitivty 177 NG/ML Sodium (135-145) mmol/L Potassium (3.3-5.1) mmol/L Chloride (96-108) mmol/L Carbon Dioxide (22-29) mmol/L Anion Gap (12-20) BUN (9-16) mg/dL Creatinine (0.5-1.4) mg/dL Estim Creat Clear Calc Estimated GFR Random Glucose (60-115) mg/dL Calcium (8.4-10.2) mg/dL Total Bilirubin (0.0-1.0) mg/dL AST (5-37) U/L ALT (0-40) U/L Alkaline Phosphatase (39-117) U/L Troponin I High Sens < 3.5 (<3.5-35.0) ng/L B-Natriuretic Peptide 14 (<100) pg/mL Total Protein (6.5-8.0) g/dL Albumin (3.5-5.0) g/dL Urine Color Urine Appearance Urine pH (5.0-8.0) Ur Specific [place] (1.005-1.025) Urine Protein (Neg-Trace) mg/dL Urine Glucose (UA) (Negative) mg/dL Urine Ketones (Negative) mg/dL Urine Blood (Negative) Urine Nitrite (Negative) Ur Leukocyte Esterase (Negative) COVID-19 ([facility]) (Negative) COVID-19 Clin Com 09/25/21 09/26/21 09/26/21 Range/Units 22:17 00:55 01:25 WBC (4.8-10.8) X10*3/uL RBC (4.60-5.80) X10*6/uL Hgb (14.0-18.0) g/dl Hct (42.0-52.0) % MCV (80.0-98.0) fL MCH (27.0-33.0) pg MCHC (31.0-36.0) g/dl RDW (11.0-16.0) % Plt Count (160-400) X10*3/uL MPV (9.4-12.4) fL Immature Gran % (Auto) (0.0-0.4) % Neut % (Auto) (45-73) % Lymph % (Auto) (20-40) % [place] % (Auto) (2-11) % Eos % (Auto) (0-4) % Baso % (Auto) (0-2) % Lymph # (Auto) (1.2-4.9) X10*3/uL [place] # (Auto) (0.1-1.2) X10*3/uL Eos # (Auto) (0.0-0.4) X10*3/uL Baso # (Auto) (0.0-0.2) X10*3/uL Abs Immat Gran (auto) (0.00-0.03) X10*3/uL Absolute Neuts (auto) (2.0-8.3) x10*3/uL Absolute Nucleated RBC (0.0-0.012) X10*3/uL Nucleated RBC % (auto) (0.0-0.2) /100WBC D-Dimer High Sensitivty NG/ML Sodium 142 (135-145) mmol/L Potassium 3.8 (3.3-5.1) mmol/L Chloride 105 (96-108) mmol/L Carbon Dioxide 26 (22-29) mmol/L Anion Gap 15 (12-20) BUN 21 H (9-16) mg/dL Creatinine 0.89 (0.5-1.4) mg/dL Estim Creat Clear Calc 91.3 Estimated GFR > 60 Random Glucose 103 (60-115) mg/dL Calcium 9.1 (8.4-10.2) mg/dL Total Bilirubin 0.3 (0.0-1.0) mg/dL AST 31 D (5-37) U/L ALT 18 (0-40) U/L Alkaline Phosphatase 71 (39-117) U/L Troponin I High Sens (<3.5-35.0) ng/L B-Natriuretic Peptide (<100) pg/mL Total Protein 6.9 (6.5-8.0) g/dL Albumin 4.2 (3.5-5.0) g/dL Urine Color Dark Yellow Urine Appearance Cloudy Urine pH 5.5 (5.0-8.0) Ur Specific [place] >= 1.030 H (1.005-1.025) Urine Protein Trace (Neg-Trace) mg/dL Urine Glucose (UA) Negative (Negative) mg/dL Urine Ketones Trace (Negative) mg/dL Urine Blood Negative (Negative) Urine Nitrite Negative (Negative) Ur Leukocyte Esterase Negative (Negative) COVID-19 ([facility]) Negative (Negative) COVID-19 Clin Com See Note ECG Data ECG #1: Attestation: I personally reviewed and interpreted this ECG as follows: Prior ECG tracings: available for review Interpretation: Normal sinus rhythm, HR-87, no STEMI, NH/QRS/QTC is within normal limits. Discharge Plan Discharge Clinical Impression: Altered behavior, Parkinson's disease dementia Patient Disposition: Still a Patient Prescriptions: No Action sertraline 100 mg tablet 2 tab PO QAM cyanocobalamin (vitamin B-12) 1,000 mcg tablet 1 tab PO QAM Certavite-Antioxidant 18-400 mg-mcg tablet 1 tab PO DAILY carbidopa-levodopa 25-100 mg tablet 1 tab PO QID donepezil 5 mg Tablet 5 mg PO BEDTIME 30 Days Qty: 30 0RF atorvastatin 10 mg Tablet 10 mg PO BEDTIME 30 Days Qty: 30 0RF mirtazapine 7.5 mg Tablet 7.5 mg PO BEDTIME 30 Days Qty: 30 0RF quetiapine [Seroquel] 100 mg tablet 100 mg PO BEDTIME 30 Days Qty: 30 0RF pantoprazole 40 mg tablet,delayed release (DR/EC) 1 tab PO QAM 30 Days Qty: 0 0RF cholecalciferol (vitamin D3) 25 mcg (1,000 unit) tablet 1 tab PO QAM 30 Days Qty: 30 0RF
[2021-09-25 22:31] LABS: MANUAL DIFF FLAG NO
[2021-09-25 22:43] LABS: Basophils Percent Auto 0.5 % (0-2); Eosinophils Percent Auto 0.5 % (0-4); Hematocrit 39.2 % (42.0-52.0); Hemoglobin 12.6 g/dl (14.0-18.0); Imm Gran Abs Auto 0.03 X10*3/uL (0.00-0.03); Imm Gran Pct Auto 0.4 % (0.0-0.4); Lymphocytes Absolute Auto 1.7 X10*3/uL (1.2-4.9); Lymphocytes Percent Auto 21.3 % (20-40); Mean Corpuscular HGB Conc 32.1 g/dl (31.0-36.0); Mean Corpuscular Volume 90.3 fL (80.0-98.0); Monocytes Absolute Auto 0.5 X10*3/uL (0.1-1.2); Monocytes Percent Auto 6.8 % (2-11); Neutrophils Absolute Auto 5.6 x10*3/uL (2.0-8.3); Neutrophils Percent Auto 70.5 % (45-73); Platelet Count 278 X10*3/uL (160-400); Red Blood Count 4.34 X10*6/uL (4.60-5.80); Red Cell Distribution Width 12.9 % (11.0-16.0); White Blood Count 7.9 X10*3/uL (4.8-10.8)
[2021-09-25 22:51] LABS: D Dimer High Sensitivity 177 NG/ML
[2021-09-25 22:55] LABS: Troponin-I High Sensitivity < 3.5 ng/L (<3.5-35.0)
[2021-09-25 23:02] LABS: COVID-19 Test Negative (Negative); IDNOW Serial# 08D9AD1C
[2021-09-25 23:25] LABS: B Type Natriuretic Peptide 14 pg/mL (<100)
[2021-09-26 01:03] LABS: Appearance Urine Cloudy; Color Urine Dark Yellow; Glucose Urine UA Negative (Negative); Leukocyte Esterase Urine Negative (Negative); Nitrite Urine Negative (Negative); PH 5.5 (5.0-8.0); Specific Gravity - Urine >= 1.030 (1.005-1.025); Urine Blood Negative (Negative); Urine Ketones Trace mg/dL (Negative); Urine Protein Trace mg/dL (Neg-Trace)
[2021-09-26 01:53] LABS: Alanine Aminotransferase 18 U/L (0-40); Albumin Level 4.2 g/dL (3.5-5.0); Alkaline Phosphatase 71 U/L (39-117); Anion Gap 15 (12-20); Aspartate Amino Transferase 31 U/L (5-37); Bilirubin Total 0.3 mg/dL (0.0-1.0); Blood Urea Nitrogen 21 mg/dL (9-16); Calcium 9.1 mg/dL (8.4-10.2); Carbon Dioxide 26 mmol/L (22-29); Chloride 105 mmol/L (96-108); Creatinine Clr Calc Pharmacy 91.3; Estimated Glomerular Filt Rate > 60; Glucose Random 103 mg/dL (60-115); Potassium 3.8 mmol/L (3.3-5.1); Sodium 142 mmol/L (135-145); Total Protein 6.9 g/dL (6.5-8.0)
--- NOTE | 2021-09-26 04:33 | PC.NURSE ---
[facility] referral form competed and transmitted on 09/26/2021 at 04:34 am.
[2021-09-26 07:26] VITALS: BP 131/80; PULSE 88; RESP 18; O2SAT 97
--- NOTE | 2021-09-26 09:29 | PC.NURSE ---
Pt is Alert, oriented to person, continues to attempt to wander but is redirectable. Awaiting [facility] consult. Call miller within reach, will continue to monitor.
--- NOTE | 2021-09-26 10:34 | PC.NURSE ---
CONTROLS DESIGNER (and HCP??) Evita barber came in and found patient didnt know where he'd gone leaves phone number [phone] states recent med change isnt helpful to him, old meds were better will share this info with care team and BHN upon their arrival.
--- NOTE | 2021-09-26 10:41 | PC.NURSE ---
carlos greer reports better symptom coverage with seroquel and destabilized with risperdal
--- NOTE | 2021-09-26 13:01 | PHA.MEDREC ---
Pharmacy Consult ? Medication Reconciliation Pharmacy has completed the medication reconciliation. Verified meds from pharmacy claims, pharmacy, and patient's RUG CUTTER HELPER. Patient's RUG CUTTER HELPER states that the patient was put on a risperidone trial, but ultimately failed with altered mental status. RUG CUTTER HELPER was in the process of switching patient back to Seroquel, but patient was not confirmed to have started it back up again.
[2021-09-26 14:02] VITALS: BP 145/90; PULSE 99; RESP 16; TEMP 37.1; O2SAT 95
--- NOTE | 2021-09-26 14:02 | MHC.CARE ---
Spoke at length to patient?s GRAPHIC DESIGN INTERN, Oneyda ([phone]) via [employer] hourly sign language interpreter. She explained that on September 11 patient?s neurologist switched prescriptions from Seroquel to Risperidone which made patient, ?100% changed, horrible.? Yesterday she called the neurologist who called in a new prescription but patient had already been brought to the hospital before she could fruit or nut picker the new medication. GRAPHIC DESIGN INTERN said she works with GRAPHIC DESIGN INTERN 43hrs per week 28 day and 14 at night, she believes him to be maintaining ok living alone with support. She goes to his home in the morning to get him ready for the day and makes breakfast, leaves lunch prepared, calls him at 5:30 and then returns until bedtime. [facility] is going to ask insurance to add afternoon hours for another caregiver to also help. Oneyda has been the Health Care Proxy since last year, the neurologist determined that patient had the capacity to sign the paperwork. The stepdaughter is not involved. Patient is not having a psychiatric crisis and not in need of an inpatient psychiatric admission. [facility] plans to fruit or nut picker the new prescription and then come to get patient from the ED and will bring the new [facility] form for his chart. She is not concerned about his mental health and does not think he needs a hospitalization. ED provider, Dr. Pagan and supervisor powder and primer canning, Oneyda Canales, [facility] consulted and in agreement with plan of care.
--- NOTE | 2021-09-26 15:34 | MHC.CARE ---
FINANCIAL INSTITUTION TREASURER is picking up patient at 5:00pm. If there was any issues when she picked up the prescription for Seroquel today, please reach out Regina La.
== END 2021-09-26 16:44 | disposition home or self-care (01) ==
PROVIDERS: Student in an Organized Health Care Education/Training Program; Emergency Provider Emergency Medicine Emergency Medical Services
DX: R41.82 Altered mental status, unspecified (principal); G20 Parkinson's disease; F02.80 Dementia in other diseases classified elsewhere, unspecified severity, without behavioral disturbance, psychotic disturbance, mood disturbance, and anxiety; Z20.822 Contact with and (suspected) exposure to COVID-19; E78.5 Hyperlipidemia, unspecified; Z79.899 Other long term (current) drug therapy; Z79.02 Long term (current) use of antithrombotics/antiplatelets
CPT/HCPCS: 36415; 51798; 70450; 80053; 81003; 83880; 84484; 85025; 85379; 87635; 93005; 99285

== ENCOUNTER 2021-11-09 13:02 | Emergency (ER) | payer OTHER, SELFPAY ==
--- NOTE | ~2021-11-09 | CT_ITS ---
EXAMINATION: CT ABDOMEN AND PELVIS WITH CONTRAST CLINICAL INFORMATION: Left lower quadrant abdominal pain for 2 to 3 days. COMPARISON: Ultrasound of the abdomen dated 11/01/2020. CT scan of the abdomen and pelvis dated 08/25/2016. TECHNIQUE: Multidetector CT volumetric acquisition of the abdomen and pelvis was performed after the administration of 85 mL of intravenous Omnipaque 350. The data set was reformatted in the sagittal and coronal planes and reviewed on an independent workstation. This CT examination was performed using dose optimization techniques as appropriate, variously including the following: *Automated exposure control *Adjustment of mA and/or kV according to patient size (this includes techniques or standardized protocols for targeted exams where dose is matched to indication/reason for exam; i.e. extremities or head) *Use of iterative reconstruction technique DLP: 642 mGy-cm. FINDINGS: LOWER CHEST: Lung bases suboptimally assessed due to motion artifact. Linear atelectatic changes are seen in the lung bases bilaterally. LIVER, GALLBLADDER, BILIARY TREE: Liver normal size and attenuation. There is a subtle 1.4 x 1.1 cm peripherally rim-enhancing mass in hepatic segment 6 of the liver (series 3, image 16), incompletely characterized. On previous CT scan from 08/15/2016, a larger 2.4 x 1.8 cm hypoenhancing low-attenuation mass was seen in this region. There is also a benign 2.7 x 2 cm fluid attenuation mass in segment 5/6 of the liver (series 3, image 21), consistent with a benign cyst, similar to the prior ultrasound and larger compared to the 2017 CT scan, where measurements of 1.8 x 1.3 cm were obtained. No intra-or extrahepatic ductal dilatation. Hepatic and portal veins patent. Gallbladder partially distended and within normal limits. PANCREAS: Normal. No ductal dilatation, mass, or surrounding stranding. SPLEEN: Normal size and appearance. 1 cm accessory splenule is seen in the splenic hilar region. Splenic vein patent. ADRENAL GLANDS AND KIDNEYS: Adrenal glands normal. Kidneys bilaterally symmetric in size and function. No focal mass, hydronephrosis, nephrolithiasis or perinephric stranding. URETERS AND BLADDER: Ureters decompressed and within normal limits. Bladder well distended and within normal limits. PELVIC ORGANS: The prostate gland is enlarged and heterogeneous with impression of the enlarged median lobe of the prostate gland into the bladder base. Coarse calcifications in the transitional zone of the prostate gland noted. Seminal vesicles bilaterally symmetric and unremarkable. GASTROINTESTINAL TRACT: There is a large amount of fecal material seen within the rectosigmoid colon and in the descending colon. A few scattered colonic diverticula are seen with no evidence of acute diverticulitis. Small and large bowel loops decompressed. Appendix in right lower quadrant normal. ABDOMINAL WALL: There is a small fat-containing direct left inguinal hernia. There is also a small umbilical hernia, with herniation of fat and a small anterior portion of a small bowel loop. LYMPHOVASCULAR STRUCTURES: Abdominal aorta normal in caliber. No periaortic collections. No abdominal or pelvic adenopathy or free fluid collection. BONES: S-shaped thoracolumbar scoliosis is seen with multilevel mild vertebral spondylosis in the lumbar spine and moderate vertebral spondylosis in lower thoracic spine. CT/CT abdomen pelvis w IV con IMPRESSION: 1. No acute intra-abdominal or pelvic process. 2. Moderate amount of stool throughout the left colon down to the rectosigmoid colon, consistent with constipation. 3. Solid appearing peripherally enhancing mass in the right lobe of the liver, segment 6, indeterminate in etiology. The prior ultrasounds of the abdomen have not revealed a focal finding correlating to this CT finding. The mass does, however, appear smaller than on prior CT scan from 08/15/2016, favoring a benign etiology. Finding could be further characterized with dedicated MRI scan of the abdomen. 4. Benign right hepatic cyst. 5. Enlarged heterogeneous prostate gland.
--- NOTE | ~2021-11-09 | XR_ITS ---
EXAMINATION: XR CHEST CLINICAL INFORMATION: Left-sided abdominal pain. COMPARISON: Previous chest x-ray most recent April 2017 TECHNIQUE: Frontal view of the chest was obtained. FINDINGS: The lung volumes are low. The cardiac and mediastinal contours are unremarkable. The lungs are clear. There is no pleural effusion or pneumothorax. No evidence of free air is appreciated. No acute bone abnormality. XR/XR chest 1V IMPRESSION: Low lung volumes. No evidence for acute disease in the chest.
[2021-11-09 13:09] VITALS: BP 112/78; BP 114/71; PULSE 112; PULSE 99; RESP 18; TEMP 36.9; O2SAT 95; O2SAT 96; BMI 31.9
--- NOTE | 2021-11-09 13:33 | ECG_ITS ---
Test Reason : LEFT ABD PAIN Blood Pressure : / mmHG Vent. 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
[2021-11-09] MEDS: Cholecalciferol (Vitamin D3) 25 MCG TABLET PO (14:11)
[2021-11-09] MEDS: risperiDONE 0.5 MG TABLET PO (14:12)
[2021-11-09] MEDS: Cyanocobalamin (Vitamin B-12) 1,000 MCG TABLET 1000 MCG PO (14:12)
[2021-11-09] MEDS: Sertraline HCL 100 MG TABLET PO ×2 (14:12→14:18)
[2021-11-09] MEDS: Docusate Sodium 100 MG CAPSULE PO (14:12)
[2021-11-09] MEDS: Carbidopa/Levodopa 25/100 TABLET 1 TAB PO (14:12)
[2021-11-09] MEDS: QUEtiapine Fumarate 25 MG TABLET PO (14:13)
[2021-11-09] MEDS: Memantine HCl 5 MG TABLET PO (14:13)
[2021-11-09 14:16] VITALS: BP 108/68; PULSE 103; RESP 20; O2SAT 97
[2021-11-09 14:52] LABS: Prothrombin Time 11.4 SEC (10.0-13.1)
--- NOTE | 2021-11-09 15:49 | ED.ABDPAIN ---
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 When EMS arrived they noted that the patient was incontinence of urine. He also appeared very tremulous. Therefore they placed a 20 gauge in his left hand. They performed a 12 lead EKG which was unremarkable no signs of STEMI. Apparently the DIKE SUPERVISOR has been looking for him all morning and he was not home and when she just recently went back the neighbor told her that he went by ambulance to the hospital because he was wandering without a sure and the neighbor was concerned. Patient reports that he he is having left lower quadrant/left upper quadrant abdominal pain. Although DIKE SUPERVISOR worker at bedside at this time reports that he has chronic left lower quadrant/left upper quadrant abdominal pain. DIKE SUPERVISOR worker also reports that he has not taken any his morning medications or his noontime medications because he was not home and he was wandering in the streets. Patient reports he does not recall where he was in the streets. He denies any fevers, chills, dizziness, headaches, neck pain/stiffness, trouble swallowing or breathing, sore throat, ear pain, cough, nausea/vomiting, back pain, dysuria, flank pain, dysuria, hematuria, abnormal penile discharge, black or bloody stools, recent travel or sick contacts, rashes or any other symptoms complaints or concerns at this time. MD elicited complaint: abdominal pain Pertinent past history: other (See above) Onset (ago): hour(s) (Prior to arrival) Pain Consistency: constant Location: LUQ and LLQ Severity: mild Quality: aching Radiation: none Migration to: no migration Exacerbating factors: nothing Relieving factors: nothing Associated symptoms: denies other symptoms Related Data Home Medications Medication Instructions Recorded Confirmed carbidopa 25 mg-levodopa 100 mg 1 tab PO QID 03/02/20 09/26/21 tablet cyanocobalamin (vitamin B-12) 1 tab PO DAILY 10/24/20 09/26/21 1,000 mcg tablet multivitamin-ferrous 1 tab PO DAILY 10/24/20 09/26/21 fumarate-folic acid 18 mg-400 mcg tablet (Certavite-Antioxidant) sertraline 100 mg tablet 2 tab PO DAILY 10/24/20 09/26/21 cholecalciferol (vitamin D3) 25 1 tab PO DAILY 09/26/21 09/26/21 mcg (1,000 unit) tablet docusate sodium 100 mg capsule 1 cap PO BID 09/26/21 09/26/21 donepezil 10 mg tablet 1 tab PO BEDTIME 09/26/21 09/26/21 memantine 5 mg tablet 1 tab PO BID 09/26/21 09/26/21 pantoprazole 40 mg tablet,delayed 1 tab PO DAILY@0630 09/26/21 09/26/21 release sennosides 8.6 mg tablet (senna) 2 tab PO DAILY PRN constipation 09/26/21 09/26/21 Previous Rx's Medication Instructions Recorded atorvastatin 10 mg tablet 10 mg PO BEDTIME 30 days #30 tabs 03/16/20 mirtazapine 7.5 mg tablet 7.5 mg PO BEDTIME 30 days #30 tabs 03/16/20 Allergies Allergy/AdvReac Type Severity Reaction Status Date / Time No Known Allergies Allergy Verified 10/30/20 06:52 [No Known Allergies*] Review of Systems Review of Systems Constitutional : No Weight loss, No Fever, No Chills, No Night Sweats, No Fatigue, No Malaise ENT/Mouth : No Hearing loss, No Ear Pain, No Nasal Congestion, No Sinus Pain, No Hoarseness, No sore throat, No Rhinorrhea, No Swallowing Difficulty Eyes: No Eye Pain, No Swelling, No Redness, No Foreign Body, No Discharge, No Vision Changes Cardiovascular : No Chest Pain, No SOB, No Dyspnea on Exertion, No Orthopnea, No Edema, No Palpitations Respiratory : No Cough, No Sputum, No Wheezing, No Smoke Exposure, No Dyspnea Gastrointestinal : +LUQ/LLQ abd pain, No Nausea, No Vomiting, No Diarrhea, No Constipation, No Hematochezia, No Melena Genitourinary : + urinary incontinence, no irregular bleeding, No Dysuria, No Urinary Frequency, No Hematuria, No Urgency, No Flank Pain, No Urinary Flow Changes, No Hesitancy Musculoskeletal : No joint pain, No Myalgias, No Joint Swelling Skin : No Skin Lesions, No rash Neuro : No Weakness, No Numbness, No Paresthesias, No Loss of Consciousness, No Dizziness, No Headache Psych : No Anxiety/Panic, No Depression, No SI/HI/AH/VH, No Social Issues, Heme/Lymph: No Bruising, No Bleeding,No Lymphadenopathy Endocrine : No Polyuria, No Polydipsia, No Temperature Intolerance Yes all other systems are reviewed and are negative COUNT INCLUDES THE [facility] Past Medical History Attestation statement: The following information was validated with the patient. Source: old records reviewed and nursing notes reviewed Medical History Arthritis Chronic pain Dementia Depression Elevated cholesterol GERD (gastroesophageal reflux disease) Osteoarthritis Parkinson disease Surgical History Hx of colonoscopy Hx of hand surgery Social History Social History Household Members: None Household Members Other:: per [facility] assessment, lives independently Housing: Apartment Do you presently have visiting nurse or other home services: Yes ([employer]) Patient Tobacco Use Status: Former Tobacco user Second Hand Smoke Exposure: No Advance Directives: Yes Advance Directives on File: Yes Advance Directives Date on File: 09/26/21 service: No Sexual orientation: Straight/Heterosexual Physical Exam ED Vital Signs: Vital Signs - 24 hr 11/09/21 13:09 11/09/21 14:16 Temperature 98.5 F Pulse Rate 99 103 H Respiratory Rate 18 20 Blood Pressure 114/71 108/68 Pulse Oximetry 95 97 Oxygen Delivery Method Room Air Room Air BMI result Body Mass Index 31.9 vital signs have been reviewed as normal and appeared to be correct. Blood pressure normal. Heart rate normal. Respiration rate normal. Temperature normal. Oxygen saturation normal. Appearance: Alert. Oriented to self. No acute distress. Head: Normal external exam. Normocephalic. Atraumatic. No Oseguera signs noted. No raccoon eyes noted Eyes: PERRLA. EOMI. Conjunctiva and sclera normal. Eyelids normal. ENT: Pharynx normal. Uvula midline. Moist mucous membranes. No lesions/ulcerations or masses noted on the tongue. Normal voice. No trismus noted. No drooling noted. No muffled voice noted. Neck: Normal inspection. Neck supple. FROM. No adenopathy. Thyroid Normal. No tracheal deviation noted. No crepitus is noted. No meningeal signs. No neck mass noted. No signs of trauma noted. CVS: Normal heart rate and rhythm. Heart sound normal. Pulses normal throughout. No murmurs/rales/gallops. Respiratory: No respiratory distress. Painless inspiration. Breath sounds normal. No wheezes/rales/rhonchi noted. Chest nontender. No crepitus is noted. No signs of trauma noted. No accessory muscle usage noted or decreased air movement noted. No signs of trauma. Abdomen: Soft and mild TTP to LUQ/LLQ. Bowel sounds normal in all 4 quadrants. No distention noted. No organomegaly noted. No visible injury noted. Back: No CVA tenderness. Full range of motion noted. Nontender. No signs of trauma. Patient neuro intact bilaterally and distally on all 4 extremities. Patient's reflexes intact bilaterally and distally on all 4 extremities. No rashes/lesion/induration/fluctuance or signs of infection noted. Skin: Skin warm and dry. Normal skin color. Normal skin turgor. No rashes/lesions/lacerations noted. Extremities: No lower extremity edema. No calf tenderness is noted. Extremities exhibit normal range of motion and nontender. Neuro: Oriented to self.. No motor deficit. No sensory deficit. Reflexes normal. Normal steady gait. No focal neuro deficits noted. CN's II-XII intact bilaterally? Vascular: + radial pulses/+ 2 distal pedal pulses/+2 dorsalis pedis b/l. Normal cap refill. No cyanosis noted to upper extremity nails and lower extremity toes nails. 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 When EMS arrived they noted that the patient was incontinence of urine. He also appeared very tremulous. Therefore they placed a 20 gauge in his left hand. They performed a 12 lead EKG which was unremarkable no signs of STEMI. Apparently the DIKE SUPERVISOR has been looking for him all morning and he was not home and when she just recently went back the neighbor told her that he went by ambulance to the hospital because he was wandering without a sure and the neighbor was concerned. Patient reports that he he is having left lower quadrant/left upper quadrant abdominal pain. Although DIKE SUPERVISOR worker at bedside at this time reports that he has chronic left lower quadrant/left upper quadrant abdominal pain. DIKE SUPERVISOR worker also reports that he has not taken any his morning medications or his noontime medications because he was not home and he was wandering in the streets. Patient reports he does not recall where he was in the streets. Plan: Labs, blood cultures, lactic acid, CT scan of abdomen pelvis with IV contrast, EKG, UA. Provide the patient his morning and afternoon meds as the DIKE SUPERVISOR workers very concerned about this and re-evaluate Reevaluation(s) Reevaluation #1: - it appears that the patient's labs have hemolyzed will attempt to redraw. Time: 16:04 Reevaluation #2: - labs return at this time patient with mild baseline anemia which is similar compared to prior with an H&H of 12.4/38.9. BUN 23 which is chronic. Otherwise all other labs are within normal limits. - chest x-ray within normal limits no acute processes only chronic changes noted. - awaiting CT scan abdomen pelvis with IV contrast. Time: 17:11 Reevaluation #3: - CT scan of abdomen and pelvis with IV contrast revealed constipation. Solid mass in the right lobe of the liver although it appears that the patient had this on CT scan on 08/25/2016. Although they did not see this on ultrasound that he had recently they report that most likely is a benign etiology. They are recommending outpatient MRI. Otherwise other chronic changes no other acute processes. - therefore at this time will DC home with caregiver and instructions return if any new or worsening symptoms to follow up with primary care provider. Patient understands agrees with this plan. Time: 18:47 [facility] - Abdominal Pain Medical Records Attestation: I reviewed the patient's medical records. Lab Data Attestation: I reviewed the patient's lab results. Result diagrams: 11/09/21 16:34 11/09/21 16:34 Labs: Lab Results 11/09/21 11/09/21 11/09/21 Range/Units 14:37 16:33 16:33 WBC (4.8-10.8) X10*3/uL RBC (4.60-5.80) X10*6/uL Hgb (14.0-18.0) g/dl Hct (42.0-52.0) % MCV (80.0-98.0) fL MCH (27.0-33.0) pg MCHC (31.0-36.0) g/dl RDW (11.0-16.0) % Plt Count (160-400) X10*3/uL MPV (9.4-12.4) fL Immature Gran % (Auto) (0.0-0.4) % Neut % (Auto) (45-73) % Lymph % (Auto) (20-40) % Elk % (Auto) (2-11) % Eos % (Auto) (0-4) % Baso % (Auto) (0-2) % Lymph # (Auto) (1.2-4.9) X10*3/uL Elk # (Auto) (0.1-1.2) X10*3/uL Eos # (Auto) (0.0-0.4) X10*3/uL Baso # (Auto) (0.0-0.2) X10*3/uL Abs Immat Gran (auto) (0.00-0.03) X10*3/uL Absolute Neuts (auto) (2.0-8.3) x10*3/uL Absolute Nucleated RBC (0.0-0.012) X10*3/uL Nucleated RBC % (auto) (0.0-0.2) /100WBC PT 11.4 (10.0-13.1) SEC INR 1.0 (0.9-1.1) Sodium (135-145) mmol/L Potassium (3.3-5.1) mmol/L Chloride (96-108) mmol/L Carbon Dioxide (22-29) mmol/L Anion Gap (12-20) BUN (9-16) mg/dL Creatinine (0.5-1.4) mg/dL Estim Creat Clear Calc Estimated GFR Random Glucose (60-115) mg/dL Lactic Acid 1.1 (0.5-2.0) mmol/L Calcium (8.4-10.2) mg/dL Magnesium (1.6-2.6) mg/dL Total Bilirubin (0.0-1.0) mg/dL AST (5-37) U/L ALT (0-40) U/L Alkaline Phosphatase (39-117) U/L Lactate Dehydrogenase (118-273) U/L Troponin I High Sens < 3.5 (<3.5-35.0) ng/L B-Natriuretic Peptide (<100) pg/mL Total Protein (6.5-8.0) g/dL Albumin (3.5-5.0) g/dL Amylase (28-100) U/L Lipase (8-78) U/L 11/09/21 11/09/21 11/09/21 Range/Units 16:34 16:34 16:34 WBC 8.1 (4.8-10.8) X10*3/uL RBC 4.25 L (4.60-5.80) X10*6/uL Hgb 12.4 L (14.0-18.0) g/dl Hct 38.9 L (42.0-52.0) % MCV 91.5 (80.0-98.0) fL MCH 29.2 (27.0-33.0) pg MCHC 31.9 (31.0-36.0) g/dl RDW 13.4 (11.0-16.0) % Plt Count 260 (160-400) X10*3/uL MPV 9.9 (9.4-12.4) fL Immature Gran % (Auto) 0.2 (0.0-0.4) % Neut % (Auto) 70.8 (45-73) % Lymph % (Auto) 22.0 (20-40) % Elk % (Auto) 6.4 (2-11) % Eos % (Auto) 0.2 (0-4) % Baso % (Auto) 0.4 (0-2) % Lymph # (Auto) 1.8 (1.2-4.9) X10*3/uL Elk # (Auto) 0.5 (0.1-1.2) X10*3/uL Eos # (Auto) 0.0 (0.0-0.4) X10*3/uL Baso # (Auto) 0.0 (0.0-0.2) X10*3/uL Abs Immat Gran (auto) 0.02 (0.00-0.03) X10*3/uL Absolute Neuts (auto) 5.7 (2.0-8.3) x10*3/uL Absolute Nucleated RBC 0.000 (0.0-0.012) X10*3/uL Nucleated RBC % (auto) 0.0 (0.0-0.2) /100WBC PT (10.0-13.1) SEC INR (0.9-1.1) Sodium 143 (135-145) mmol/L Potassium 4.5 (3.3-5.1) mmol/L Chloride 103 (96-108) mmol/L Carbon Dioxide 29 (22-29) mmol/L Anion Gap 16 (12-20) BUN 23 H (9-16) mg/dL Creatinine 0.85 (0.5-1.4) mg/dL Estim Creat Clear Calc 83.7 Estimated GFR > 60 Random Glucose 90 (60-115) mg/dL Lactic Acid (0.5-2.0) mmol/L Calcium 10.0 D (8.4-10.2) mg/dL Magnesium 2.4 (1.6-2.6) mg/dL Total Bilirubin 0.8 (0.0-1.0) mg/dL AST 17 D (5-37) U/L ALT < 6 (0-40) U/L Alkaline Phosphatase 83 (39-117) U/L Lactate Dehydrogenase 132 (118-273) U/L Troponin I High Sens (<3.5-35.0) ng/L B-Natriuretic Peptide 16 (<100) pg/mL Total Protein 7.4 (6.5-8.0) g/dL Albumin 4.6 (3.5-5.0) g/dL Amylase (28-100) U/L Lipase 42 (8-78) U/L 11/09/21 Range/Units 16:34 WBC (4.8-10.8) X10*3/uL RBC (4.60-5.80) X10*6/uL Hgb (14.0-18.0) g/dl Hct (42.0-52.0) % MCV (80.0-98.0) fL MCH (27.0-33.0) pg MCHC (31.0-36.0) g/dl RDW (11.0-16.0) % Plt Count (160-400) X10*3/uL MPV (9.4-12.4) fL Immature Gran % (Auto) (0.0-0.4) % Neut % (Auto) (45-73) % Lymph % (Auto) (20-40) % Elk % (Auto) (2-11) % Eos % (Auto) (0-4) % Baso % (Auto) (0-2) % Lymph # (Auto) (1.2-4.9) X10*3/uL Elk # (Auto) (0.1-1.2) X10*3/uL Eos # (Auto) (0.0-0.4) X10*3/uL Baso # (Auto) (0.0-0.2) X10*3/uL Abs Immat Gran (auto) (0.00-0.03) X10*3/uL Absolute Neuts (auto) (2.0-8.3) x10*3/uL Absolute Nucleated RBC (0.0-0.012) X10*3/uL Nucleated RBC % (auto) (0.0-0.2) /100WBC PT (10.0-13.1) SEC INR (0.9-1.1) Sodium (135-145) mmol/L Potassium (3.3-5.1) mmol/L Chloride (96-108) mmol/L Carbon Dioxide (22-29) mmol/L Anion Gap (12-20) BUN (9-16) mg/dL Creatinine (0.5-1.4) mg/dL Estim Creat Clear Calc Estimated GFR Random Glucose (60-115) mg/dL Lactic Acid (0.5-2.0) mmol/L Calcium (8.4-10.2) mg/dL Magnesium (1.6-2.6) mg/dL Total Bilirubin (0.0-1.0) mg/dL AST (5-37) U/L ALT (0-40) U/L Alkaline Phosphatase (39-117) U/L Lactate Dehydrogenase (118-273) U/L Troponin I High Sens (<3.5-35.0) ng/L B-Natriuretic Peptide (<100) pg/mL Total Protein (6.5-8.0) g/dL Albumin (3.5-5.0) g/dL Amylase 56 (28-100) U/L Lipase (8-78) U/L Imaging Data Chest x-ray: Attestation: I personally reviewed and interpreted this imaging study as follows: Radiologist's impression: FINDINGS: The lung volumes are low. The cardiac and mediastinal contours are unremarkable. The lungs are clear. There is no pleural effusion or pneumothorax. No evidence of free air is appreciated. No acute bone abnormality. XR/XR chest 1V IMPRESSION: Low lung volumes. No evidence for acute disease in the chest. CT scan abdomen pelvis with IV contrast: Attestation: I personally reviewed and interpreted this imaging study as follows: Radiologist's impression: FINDINGS: LOWER CHEST: Lung bases suboptimally assessed due to motion artifact. Linear atelectatic changes are seen in the lung bases bilaterally. LIVER, GALLBLADDER, BILIARY TREE: Liver normal size and attenuation. There is a subtle 1.4 x 1.1 cm peripherally rim-enhancing mass in hepatic segment 6 of the liver (series 3, image 16), incompletely characterized. On previous CT scan from 08/15/2016, a larger 2.4 x 1.8 cm hypoenhancing low-attenuation mass was seen in this region. There is also a benign 2.7 x 2 cm fluid attenuation mass in segment 5/6 of the liver (series 3, image 21), consistent with a benign cyst, similar to the prior ultrasound and larger compared to the 2017 CT scan, where measurements of 1.8 x 1.3 cm were obtained. No intra-or extrahepatic ductal dilatation. Hepatic and portal veins patent. Gallbladder partially distended and within normal limits. PANCREAS: Normal. No ductal dilatation, mass, or surrounding stranding. SPLEEN: Normal size and appearance. 1 cm accessory splenule is seen in the splenic hilar region. Splenic vein patent. ADRENAL GLANDS AND KIDNEYS: Adrenal glands normal. Kidneys bilaterally symmetric in size and function. No focal mass, hydronephrosis, nephrolithiasis or perinephric stranding. URETERS AND BLADDER: Ureters decompressed and within normal limits. Bladder well distended and within normal limits. PELVIC ORGANS: The prostate gland is enlarged and heterogeneous with impression of the enlarged median lobe of the prostate gland into the bladder base. Coarse calcifications in the transitional zone of the prostate gland noted. Seminal vesicles bilaterally symmetric and unremarkable. GASTROINTESTINAL TRACT: There is a large amount of fecal material seen within the rectosigmoid colon and in the descending colon. A few scattered colonic diverticula are seen with no evidence of acute diverticulitis. Small and large bowel loops decompressed. Appendix in right lower quadrant normal. ABDOMINAL WALL: There is a small fat-containing direct left inguinal hernia. There is also a small umbilical hernia, with herniation of fat and a small anterior portion of a small bowel loop. LYMPHOVASCULAR STRUCTURES: Abdominal aorta normal in caliber. No periaortic collections. No abdominal or pelvic adenopathy or free fluid collection. BONES: S-shaped thoracolumbar scoliosis is seen with multilevel mild vertebral spondylosis in the lumbar spine and moderate vertebral spondylosis in lower thoracic spine. CT/CT abdomen pelvis w IV con IMPRESSION: ? 1. No acute intra-abdominal or pelvic process. 2. Moderate amount of stool throughout the left colon down to the rectosigmoid colon, consistent with constipation. 3. Solid appearing peripherally enhancing mass in the right lobe of the liver, segment 6, indeterminate in etiology. The prior ultrasounds of the abdomen have not revealed a focal finding correlating to this CT finding. The mass does, however, appear smaller than on prior CT scan from 08/15/2016, favoring a benign etiology. Finding could be further characterized with dedicated MRI scan of the abdomen. 4. Benign right hepatic cyst. 5. Enlarged heterogeneous prostate gland. ? ECG Data Attestation: I personally reviewed and interpreted this ECG as follows: ECG interpretation date: 11/09/21 ECG interpretation time: 14:58 Interpretation: Sinus tachycardia with ventricular rate of [address] abnormalities similar compared to prior EKG 09/25/2021 Critical Care Time Critical Care Time Critical Care Time: Yes Total Critical Care Time: 60 Attestation: I personally attest to this time spent taking care of the patient Discharge Plan Discharge Clinical Impression: Constipation, Liver mass, Benign liver cyst, Enlarged prostate Patient Disposition: Home, Self-Care Instructions: Constipation (ED) Prescriptions: No Action sertraline 100 mg tablet 2 tab PO DAILY cyanocobalamin (vitamin B-12) 1,000 mcg tablet 1 tab PO DAILY Certavite-Antioxidant 18-400 mg-mcg tablet 1 tab PO DAILY carbidopa-levodopa 25-100 mg tablet 1 tab PO QID atorvastatin 10 mg Tablet 10 mg PO BEDTIME 30 Days Qty: 30 0RF mirtazapine 7.5 mg Tablet 7.5 mg PO BEDTIME 30 Days Qty: 30 0RF sennosides [senna] 8.6 mg tablet 2 tab PO DAILY PRN (Reason: constipation) donepezil 10 mg tablet 1 tab PO BEDTIME docusate sodium 100 mg capsule 1 cap PO BID memantine 5 mg tablet 1 tab PO BID pantoprazole 40 mg tablet,delayed release (DR/EC) 1 tab PO DAILY@0630 cholecalciferol (vitamin D3) 25 mcg (1,000 unit) tablet 1 tab PO DAILY Referrals: [facility] [Primary Care Provider] - 2 days Print Language: Bangladeshi
[2021-11-09 16:44] LABS: Basophils Percent Auto 0.4 % (0-2); Eosinophils Percent Auto 0.2 % (0-4); Hematocrit 38.9 % (42.0-52.0); Hemoglobin 12.4 g/dl (14.0-18.0); Imm Gran Abs Auto 0.02 X10*3/uL (0.00-0.03); Imm Gran Pct Auto 0.2 % (0.0-0.4); Lymphocytes Absolute Auto 1.8 X10*3/uL (1.2-4.9); MANUAL DIFF FLAG NO; Mean Corpuscular HGB Conc 31.9 g/dl (31.0-36.0); Mean Corpuscular Hemoglobin 29.2 pg (27.0-33.0); Mean Corpuscular Volume 91.5 fL (80.0-98.0); Mean Platelet Volume 9.9 fL (9.4-12.4); Monocytes Absolute Auto 0.5 X10*3/uL (0.1-1.2); Monocytes Percent Auto 6.4 % (2-11); Neutrophils Absolute Auto 5.7 x10*3/uL (2.0-8.3); Neutrophils Percent Auto 70.8 % (45-73); Platelet Count 260 X10*3/uL (160-400); Red Blood Count 4.25 X10*6/uL (4.60-5.80); Red Cell Distribution Width 13.4 % (11.0-16.0); White Blood Count 8.1 X10*3/uL (4.8-10.8)
[2021-11-09 16:55] LABS: Lactic Acid 1.1 mmol/L (0.5-2.0)
[2021-11-09 16:58] LABS: Amylase 56 U/L (28-100)
[2021-11-09 17:02] LABS: Alanine Aminotransferase < 6 U/L (0-40); Albumin Level 4.6 g/dL (3.5-5.0); Alkaline Phosphatase 83 U/L (39-117); Anion Gap 16 (12-20); Aspartate Amino Transferase 17 U/L (5-37); Bilirubin Total 0.8 mg/dL (0.0-1.0); Blood Urea Nitrogen 23 mg/dL (9-16); Carbon Dioxide 29 mmol/L (22-29); Chloride 103 mmol/L (96-108); Creatinine Clr Calc Pharmacy 83.7; Estimated Glomerular Filt Rate > 60; Glucose Random 90 mg/dL (60-115); Lipase 42 U/L (8-78); Magnesium 2.4 mg/dL (1.6-2.6); Potassium 4.5 mmol/L (3.3-5.1); Sodium 143 mmol/L (135-145); Total Protein 7.4 g/dL (6.5-8.0)
[2021-11-09 17:04] LABS: B Type Natriuretic Peptide 16 pg/mL (<100)
[2021-11-09 17:04] LABS: Troponin-I High Sensitivity < 3.5 ng/L (<3.5-35.0)
[2021-11-09 17:12] LABS: Lactate Dehydrogenase 132 U/L (118-273)
[2021-11-09] MEDS: iohexoL 350 MG/ML 100 ML INFUS..BTL IV (17:48)
== END 2021-11-09 19:49 | disposition home or self-care (01) ==
PROVIDERS: Physician Assistant Medical; Emergency Provider Emergency Medicine
DX: K59.00 Constipation, unspecified (principal); R16.0 Hepatomegaly, not elsewhere classified; K76.89 Other specified diseases of liver; N40.0 Benign prostatic hyperplasia without lower urinary tract symptoms; G20 Parkinson's disease; F02.80 Dementia in other diseases classified elsewhere, unspecified severity, without behavioral disturbance, psychotic disturbance, mood disturbance, and anxiety; E78.00 Pure hypercholesterolemia, unspecified
CPT/HCPCS: 36415; 71045; 74177; 80053; 82150; 83605; 83615; 83690; 83735; 83880; 84484; 85025; 85610; 87040; 93005; 99284; Q9967

== ENCOUNTER 2022-01-31 10:24 | Outpatient (REF) | payer OTHER, SELFPAY ==
--- NOTE | ~2022-01-31 | US_ITS ---
EXAMINATION: RIGHT AND LEFT LOWER EXTREMITY VENOUS ULTRASOUND (REFLUX EXAM) CLINICAL INDICATION: Right leg edema COMPARISON: None. TECHNIQUE: Color flow triplex imaging and compression Doppler was performed to evaluate both the deep and the superficial systems bilaterally. To evaluate the superficial system, the examination was performed in the upright position. Color-flow Doppler ultrasound and compression ultrasound were utilized. In addition, maneuvers were utilized to demonstrate reflux. FINDINGS: 1. DEEP VENOUS ULTRASOUND OF THE RIGHT LOWER EXTREMITY: Respiratory variation, normal compression and augmented flow are noted in the right common femoral vein as well as the right popliteal vein and there is no evidence of deep venous thrombosis at these locations. There is no evidence of reflux in the deep system in either the common femoral vein or the popliteal vein. There is no evidence of a Atkinson's cyst. 2. SUPERFICIAL ULTRASOUND WITH DOPPLER OF RIGHT LOWER EXTREMITY: The right great saphenous vein at the saphenofemoral junction measures 6 mm, at the midthigh 3 mm, dwzfu-yea-gskn 4 mm, fwpur-ias-wlmi 3 mm, at midcalf 3 mm and at the ankle measures 3 mm. There is no reflux demonstrated in the right great saphenous vein. The right small saphenous vein measures 4 mm and shows no reflux. 3. DEEP VENOUS ULTRASOUND OF THE LEFT LOWER EXTREMITY: Respiratory variation, normal compression and augmented flow are noted in the left common femoral vein as well as the left popliteal vein and there is no evidence of deep venous thrombosis at these locations. There is no evidence of reflux in the deep system in either the common femoral vein or the popliteal vein. There is no evidence of a Atkinson's cyst. 4. SUPERFICIAL ULTRASOUND WITH DOPPLER OF LEFT LOWER EXTREMITY: Left great saphenous vein at the saphenofemoral junction measures 7 mm, at the midthigh 3 mm, zmrgz-jnj-hwnw 3 mm, whbnm-ugg-vkhx 4 mm, at midcalf 2 mm and at the ankle measures 2 mm. There is no reflux demonstrated in the left great saphenous vein. The left small saphenous vein measures 2 mm and shows no reflux. US/US venous duplex LE BI IMPRESSION: 1. No evidence of reflux or thrombus in the common femoral veins or popliteal veins bilaterally. 2. The saphenous systems are competent bilaterally.
== END 2022-01-31 10:25 | disposition home or self-care (01) ==
LOC: HO.US 10:24
PROVIDERS: PCP Family Medicine; Visit Provider Family Medicine
DX: R60.0 Localized edema (principal); M79.89 Other specified soft tissue disorders
CPT/HCPCS: 93970

== ENCOUNTER 2022-09-23 18:52 | Emergency (ER) | payer OTHER, SELFPAY ==
--- NOTE | ~2022-09-23 | XR_ITS ---
EXAMINATION: XR CHEST CLINICAL INFORMATION: Cough. COMPARISON: None available. TECHNIQUE: Frontal view of the chest was obtained. FINDINGS: No significant abnormality is noted involving the heart, lungs, mediastinum, bony thorax or soft tissues. XR/XR chest 1V IMPRESSION: Unremarkable chest examination.
[2022-09-23 18:55] VITALS: BP 133/86; BP 138/90; PULSE 105; PULSE 98; RESP 18; TEMP 36.7; O2SAT 98
[2022-09-23 20:13] LABS: MANUAL DIFF FLAG NO
[2022-09-23 20:15] LABS: Basophils Percent Auto 0.5 % (0-2); Eosinophils Absolute Auto 0.2 X10*3/uL (0.0-0.4); Eosinophils Percent Auto 2.3 % (0-4); Hematocrit 41.8 % (42.0-52.0); Hemoglobin 13.4 g/dl (14.0-18.0); Imm Gran Abs Auto 0.03 X10*3/uL (0.00-0.03); Imm Gran Pct Auto 0.4 % (0.0-0.4); Lymphocytes Absolute Auto 1.7 X10*3/uL (1.2-4.9); Mean Corpuscular HGB Conc 32.1 g/dl (31.0-36.0); Mean Corpuscular Hemoglobin 29.5 pg (27.0-33.0); Mean Corpuscular Volume 91.9 fL (80.0-98.0); Mean Platelet Volume 9.8 fL (9.4-12.4); Monocytes Absolute Auto 0.5 X10*3/uL (0.1-1.2); Neutrophils Absolute Auto 5.1 x10*3/uL (2.0-8.3); Neutrophils Percent Auto 67.8 % (45-73); Platelet Count 269 X10*3/uL (160-400); Red Blood Count 4.55 X10*6/uL (4.60-5.80); Red Cell Distribution Width 13.4 % (11.0-16.0); White Blood Count 7.5 X10*3/uL (4.8-10.8)
--- NOTE | 2022-09-23 20:47 | ED.GENADULT ---
HPI - General Adult General Chief complaint: Altered Mental Status Stated complaint: ams Time Seen by Provider: 09/23/22 19:22 Source: EMS and old records reviewed Mode of arrival: EMS History of Present Illness HPI narrative: 67-year-old male who is brought in by EMS after he was found wandering and has known psychiatric history, Parkinson's. 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 Related Data Home Medications Medication Instructions Recorded Confirmed carbidopa 25 mg-levodopa 100 mg 1 tab PO QID 03/02/20 09/26/21 tablet cyanocobalamin (vitamin B-12) 1 tab PO DAILY 10/24/20 09/26/21 1,000 mcg tablet multivitamin-ferrous 1 tab PO DAILY 10/24/20 09/26/21 fumarate-folic acid 18 mg-400 mcg tablet (Certavite-Antioxidant) sertraline 100 mg tablet 2 tab PO DAILY 10/24/20 09/26/21 cholecalciferol (vitamin D3) 25 1 tab PO DAILY 09/26/21 09/26/21 mcg (1,000 unit) tablet docusate sodium 100 mg capsule 1 cap PO BID 09/26/21 09/26/21 donepezil 10 mg tablet 1 tab PO BEDTIME 09/26/21 09/26/21 memantine 5 mg tablet 1 tab PO BID 09/26/21 09/26/21 pantoprazole 40 mg tablet,delayed 1 tab PO DAILY@0630 09/26/21 09/26/21 release sennosides 8.6 mg tablet (senna) 2 tab PO DAILY PRN constipation 09/26/21 09/26/21 Previous Rx's Medication Instructions Recorded atorvastatin 10 mg tablet 10 mg PO BEDTIME 30 days #30 tabs 03/16/20 mirtazapine 7.5 mg tablet 7.5 mg PO BEDTIME 30 days #30 tabs 03/16/20 Allergies Allergy/AdvReac Type Severity Reaction Status Date / Time No Known Allergies Allergy Verified 10/30/20 06:52 [No Known Allergies*] Review of Systems Review of Systems: Yes Unobtainable due to mental condition PMFSH Past Medical History Source: nursing notes reviewed Medical History Arthritis Chronic pain Dementia Depression Elevated cholesterol GERD (gastroesophageal reflux disease) Osteoarthritis Parkinson disease Surgical History Hx of colonoscopy Hx of hand surgery Social History Social History Household Members: None Household Members Other:: per [facility] assessment, lives independently Housing: Apartment Do you presently have visiting nurse or other home services: 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 GENERAL: Well developed, well nourished, in no acute distress. HEAD: Normocephalic/atraumatic EYES: PERRLA, EOMI EARS: Ext canals without abnormality NOSE: Nares patent bilateral OROPHARYNX: no oral lesions noted, posterior pharynx clear NECK: Supple, no adenopathy LUNGS: Normal breath sounds. No adventitious sounds or accessory muscle use. SpO2<98> CARDIOVASCULAR: Regular rate and rhythm without noted murmurs ABDOMEN: Soft, non-tender, non-distended with bowel sounds. MUSCULOSKELETAL: No tenderness, deformities, or effusions noted on gross inspection. EXTREMITIES: No cyanosis, clubbing or edema. SKIN: Inspection of the skin reveals no rashes NEUROLOGIC: Alert and oriented x 2. Strength and sensation to light touch were grossly intact x 4, cranial nerves 2-12 are grossly intact, benign tremor at baseline. Medical Decision Making Medical Decision Making MDM Narrative: 67-year-old male with history and clinical presentation very similar to prior evaluation last September. I suspect that patient would significantly benefit from a more closely monitored setting. Will evaluate for any evidence to suggest any infection or metabolic etiology for his wandering but doubt that this is the case. I reviewed all investigations and hematologic indices are negative for evidence to suggest an infection as there is no leukocytosis/left shift and patient is afebrile. Patient has a chronically stable normocytic anemia and no thrombocytopenia. Chemistry indices are grossly within normal limits and there is no noted electrolyte or liver enzyme abnormalities and there is no JENNY. Chest x-ray does not demonstrated any infiltrate and otherwise my interpretation is in agreement with radiology's impression. My interpretation is this is patient's baseline and will attempts to involve Case Management in establishing more secure environment for the patient that results in him being safe and taking his medications. He is otherwise medically cleared for this evaluation. Patient placed in physician observation because the patient needed more time for evaluation by case management. At the time observation was started the patient's vital signs were stable, patient is alert but not entirely oriented, neuro: Nonfocal, CV RRR, lungs clear Differential Diagnosis Differential Diagnoses: The differential diagnosis associated with the presentation includes Please see the discussion above Admission/Observation Consideration of admission/observation: Escalation of care including admission/observation considered Please see the discussion above Consult Healthcare Provider Management of the patient was discussed with: Steward/Stewardess Second Please see the discussion above Lab Data MDM Lab Attestation statement: I reviewed the patient's lab results. Please see the discussion above 09/23/22 19:59 09/23/22 20:00 Labs: Lab Results 09/23/22 09/23/22 09/23/22 Range/Units 19:59 19:59 21:06 WBC 7.5 (4.8-10.8) X10*3/uL RBC 4.55 L (4.60-5.80) X10*6/uL Hgb 13.4 L (14.0-18.0) g/dl Hct 41.8 L (42.0-52.0) % MCV 91.9 (80.0-98.0) fL MCH 29.5 (27.0-33.0) pg MCHC 32.1 (31.0-36.0) g/dl RDW 13.4 (11.0-16.0) % Plt Count 269 (160-400) X10*3/uL MPV 9.8 (9.4-12.4) fL Immature Gran % (Auto) 0.4 (0.0-0.4) % Neut % (Auto) 67.8 (45-73) % Lymph % (Auto) 23.0 (20-40) % [place] % (Auto) 6.0 (2-11) % Eos % (Auto) 2.3 (0-4) % Baso % (Auto) 0.5 (0-2) % Lymph # (Auto) 1.7 (1.2-4.9) X10*3/uL [place] # (Auto) 0.5 (0.1-1.2) X10*3/uL Eos # (Auto) 0.2 (0.0-0.4) X10*3/uL Baso # (Auto) 0.0 (0.0-0.2) X10*3/uL Abs Immat Gran (auto) 0.03 (0.00-0.03) X10*3/uL Absolute Neuts (auto) 5.1 (2.0-8.3) x10*3/uL Absolute Nucleated RBC 0.000 (0.0-0.012) X10*3/uL Nucleated RBC % (auto) 0.0 (0.0-0.2) /100WBC Sodium 143 (135-145) mmol/L Potassium 4.1 (3.3-5.1) mmol/L Chloride 106 (96-108) mmol/L Carbon Dioxide 28 (22-29) mmol/L Anion Gap 13 (12-20) BUN 17 H (9-16) mg/dL Creatinine 0.84 (0.5-1.4) mg/dL Estim Creat Clear Calc 81.1 Estimated GFR > 60 Random Glucose 102 (60-115) mg/dL Lactic Acid 2.0 (0.5-2.0) mmol/L Calcium 9.8 (8.4-10.2) mg/dL Total Bilirubin 0.3 (0.0-1.0) mg/dL AST 13 (5-37) U/L ALT 7 (0-40) U/L Alkaline Phosphatase 86 (39-117) U/L Total Protein 7.4 (6.5-8.0) g/dL Albumin 4.2 (3.5-5.0) g/dL Radiology Impression Discussion of test interpretation with radiology: I have reviewed the radiologist's reading. Radiologist Impression: Please see the discussion above External Record Review External record reviewed: Outpatient record, Prior outpatient labs and Prior outpatient radiology Chronic Conditions Patient?s care impacted by: Other Parkinson's Discharge Plan Discharge Clinical Impression: Parkinson's disease dementia Patient Disposition: Still a Patient Prescriptions: No Action sertraline 100 mg tablet 2 tab PO DAILY cyanocobalamin (vitamin B-12) 1,000 mcg tablet 1 tab PO DAILY Certavite-Antioxidant 18-400 mg-mcg tablet 1 tab PO DAILY carbidopa-levodopa 25-100 mg tablet 1 tab PO QID atorvastatin 10 mg Tablet 10 mg PO BEDTIME 30 Days Qty: 30 0RF mirtazapine 7.5 mg Tablet 7.5 mg PO BEDTIME 30 Days Qty: 30 0RF sennosides [senna] 8.6 mg tablet 2 tab PO DAILY PRN (Reason: constipation) donepezil 10 mg tablet 1 tab PO BEDTIME docusate sodium 100 mg capsule 1 cap PO BID memantine 5 mg tablet 1 tab PO BID pantoprazole 40 mg tablet,delayed release (DR/EC) 1 tab PO DAILY@0630 cholecalciferol (vitamin D3) 25 mcg (1,000 unit) tablet 1 tab PO DAILY
[2022-09-23 21:28] LABS: Alanine Aminotransferase 7 U/L (0-40); Albumin Level 4.2 g/dL (3.5-5.0); Alkaline Phosphatase 86 U/L (39-117); Anion Gap 13 (12-20); Aspartate Amino Transferase 13 U/L (5-37); Bilirubin Total 0.3 mg/dL (0.0-1.0); Blood Urea Nitrogen 17 mg/dL (9-16); Calcium 9.8 mg/dL (8.4-10.2); Carbon Dioxide 28 mmol/L (22-29); Chloride 106 mmol/L (96-108); Creatinine Clr Calc Pharmacy 81.1; Estimated Glomerular Filt Rate > 60; Glucose Random 102 mg/dL (60-115); Potassium 4.1 mmol/L (3.3-5.1); Sodium 143 mmol/L (135-145); Total Protein 7.4 g/dL (6.5-8.0)
--- NOTE | 2022-09-23 22:09 | PHA.MEDREC ---
Pharmacy Consult ? Medication Reconciliation Pharmacy has completed the medication reconciliation. Patient has AMS. Medication list done by claim history. Patient does use medboxes from [facility]. Erich RodasD
[2022-09-23 23:12] LABS: Appearance Urine Clear; Color Urine Yellow; Glucose Urine UA Negative (Negative); Leukocyte Esterase Urine Negative (Negative); Nitrite Urine Negative (Negative); PH 7.5 (5.0-9.0); Specific Gravity - Urine 1.015 (1.005-1.025); Urine Blood Negative (Negative); Urine Ketones Negative (Negative); Urine Protein Negative (Neg-Trace)
[2022-09-24] VITALS (10 sets, daily range): BP systolic 92–138; BP diastolic 50–82; PULSE 82–106; RESP 16–20; TEMP 36.4–36.9; O2SAT 95–98
--- NOTE | 2022-09-24 01:51 | PC.NURSE ---
Assumed care of pt at 2330. pt lying on stretcher, no acute medical or behavioral concerns. Plan to transfer pt to overflow, pending room availability.
--- NOTE | 2022-09-24 01:57 | PC.NURSE ---
On reassessment, pt asnwering questions, confused with current events and reasons for bein in hospital. VSS, plan for xfer to overflow.
--- NOTE | 2022-09-24 02:01 | PC.NURSE ---
Report to FANNIE Clark, overflow
--- NOTE | 2022-09-24 07:23 | PC.NURSE ---
PT here to evaluate patient
[2022-09-24] MEDS: Cyanocobalamin (Vitamin B-12) 1,000 MCG TABLET 1000 MCG PO (08:20)
[2022-09-24] MEDS: Memantine HCl 5 MG TABLET PO ×2 (08:20→20:09)
[2022-09-24] MEDS: Carbidopa/Levodopa 25/100 TABLET 1 TAB PO ×4 (08:20→20:09)
[2022-09-24] MEDS: Docusate Sodium 100 MG CAPSULE PO ×2 (08:20→20:09)
[2022-09-24] MEDS: QUEtiapine Fumarate 25 MG TABLET PO ×2 (08:21→17:40)
[2022-09-24] MEDS: Cholecalciferol (Vitamin D3) 25 MCG TABLET PO (08:21)
--- NOTE | 2022-09-24 08:23 | PC.NURSE ---
with [facility] mixed signal design engineer - pt very confused, not making sense for general questions. when asked what year it is, pt reported seven , aware that he is in [place] and his name but that is it.
[2022-09-24] MEDS: Sertraline HCL 100 MG TABLET 200 MG PO (08:42)
--- NOTE | 2022-09-24 09:47 | MHC.CM.PN ---
CM CALLED PTS HCP, YASMIN, TO DISCUSS DISPO WITH [place] SOCK BOARDER (#[id number]) SHE REPORTS THE PT DOES WELL AT TIMES, BUT WILL CHANGE WITHOUT WARNING AND WHEN HE DOES, HE SOMETIMES WANDERS. 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 SHE AGREES PT IS NOT SAFE TO LIVE ALONE AND WILL NEED SNF PLACEMENT SHE IS AWARE A BROAD REFERRAL WILL BE MADE AND HE MAY BE PLACED OUT OF THE AREA LTC BEDS ON LOCKED UNITS ARE SPARSE. SHE ASKS TO BE UPDATED WHEN A BED IS SECURED, SHE WILL BRING IN CLOTHES FOR PT THEN. YASMIN [phone]
[2022-09-24] MEDS: Multivitamin TABLET 1 TAB PO (11:54)
[2022-09-24] MEDS: QUEtiapine Fumarate 50 MG TABLET PO (11:54)
--- NOTE | 2022-09-24 15:05 | PC.NURSE ---
pt had large BM
[2022-09-24] MEDS: Donepezil HCl 10 MG TABLET PO (20:09)
[2022-09-24] MEDS: Atorvastatin Calcium 10 MG TABLET PO (20:09)
[2022-09-24] MEDS: Mirtazapine 7.5 MG TABLET PO (20:09)
[2022-09-24] MEDS: QUEtiapine Fumarate 100 MG TABLET PO (20:25)
[2022-09-25 06:00] VITALS: BP 102/62; PULSE 58; RESP 18; TEMP 36.4; O2SAT 96
[2022-09-25] MEDS: Omeprazole 20 MG CAPSULE.DR PO (06:03)
--- NOTE | 2022-09-25 08:03 | PC.NURSE ---
kitchen called for applesauce to administer patients medications
[2022-09-25] MEDS: Cyanocobalamin (Vitamin B-12) 1,000 MCG TABLET 1000 MCG PO (08:45)
[2022-09-25] MEDS: QUEtiapine Fumarate 25 MG TABLET PO ×2 (08:45→16:19)
[2022-09-25] MEDS: Docusate Sodium 100 MG CAPSULE PO ×2 (08:45→21:38)
[2022-09-25] MEDS: Carbidopa/Levodopa 25/100 TABLET 1 TAB PO ×4 (08:46→21:38)
[2022-09-25] MEDS: Cholecalciferol (Vitamin D3) 25 MCG TABLET PO (08:46)
[2022-09-25] MEDS: Sertraline HCL 100 MG TABLET 200 MG PO (08:46)
[2022-09-25] MEDS: Memantine HCl 5 MG TABLET PO ×2 (08:46→21:38)
--- NOTE | 2022-09-25 08:48 | PC.NURSE ---
pt sleeping, woke to verbal stimulus, pt alert to person at this time, pt refusing breakfast, took pills whole in applesauce, fall precautions intact, lungs clear/diminished, no edema noted to extremities, pt denying pain/discomfort, call miller within reach, will continue to monitor
--- NOTE | 2022-09-25 09:38 | MHC.CM.PN ---
EMR REVIEWED, PT HAS RECEIVED NO BED OFFERS FOR LTC, REFERRAL EXPANDED TO [facility], CM WILL CONT TO FOLLOW D/C NEEDS.
[2022-09-25] MEDS: Multivitamin TABLET 1 TAB PO (12:42)
[2022-09-25] MEDS: QUEtiapine Fumarate 50 MG TABLET PO (12:42)
[2022-09-25] MEDS: Acetaminophen 325 MG TABLET 650 MG PO (12:43)
--- NOTE | 2022-09-25 12:50 | PC.NURSE ---
patient awake/alert, pt c/o generalized pain as well as abd pain- although pt stating hes hungry wanting his lunch, this nurse contacted the provider obtained po order for tylenol which was given with his other meds, pt was set up for lunch and he wishes to attempt to eat on his own per his request. will continue to monitor patients pain.
[2022-09-25 14:58] VITALS: BP 102/64; PULSE 91; RESP 18; TEMP 36.8; O2SAT 95
--- NOTE | 2022-09-25 16:21 | PC.NURSE ---
pt medicated per order
--- NOTE | 2022-09-25 17:54 | PC.NURSE ---
patient sat up was given his dinner as he wished to attempt to eat on his own, patient ate about 75% of his dinner independently. pt currently denying pain/discomfort, will continue to monitor
--- NOTE | 2022-09-25 19:45 | PC.NURSE ---
Assumed care of patient at 1900. Patient alert and oriented to self. Patient resting in bed. This RN assisted DEVELOPMENTAL PSYCHOLOGIST in changing depends and bedding that were soiled. Patient denies pain, requested water.
[2022-09-25 20:27] VITALS: BP 107/73; PULSE 89; RESP 22; TEMP 36.8; O2SAT 97
[2022-09-25] MEDS: Donepezil HCl 10 MG TABLET PO (21:38)
[2022-09-25] MEDS: QUEtiapine Fumarate 100 MG TABLET PO (21:38)
[2022-09-25] MEDS: Atorvastatin Calcium 10 MG TABLET PO (21:38)
[2022-09-25] MEDS: Mirtazapine 7.5 MG TABLET PO (21:41)
[2022-09-25 22:00] VITALS: BP 108/75; PULSE 82; RESP 19; TEMP 36.9; O2SAT 95
--- NOTE | 2022-09-25 22:04 | PC.NURSE ---
Patient provided dessert. This RN and MOBILE MARKETING MANAGER fed to PT as he was struggling to feed himself. Moved PT to bed 9 as the ghanaian channel was not working in bed 2.
--- NOTE | 2022-09-25 22:07 | PC.NURSE ---
Medications administered as per mar. Patient took pill whole in applesauce with no issues. Plan of care ongoing
--- NOTE | 2022-09-25 22:50 | MHC.EDTECH ---
changed brief x6. total care provided.
[2022-09-26] MEDS: Omeprazole 20 MG CAPSULE.DR PO (06:00)
[2022-09-26 06:22] VITALS: BP 129/71; PULSE 62; RESP 17; TEMP 36.5; O2SAT 97
[2022-09-26] MEDS: Docusate Sodium 100 MG CAPSULE PO ×2 (09:32→20:07)
[2022-09-26] MEDS: Cyanocobalamin (Vitamin B-12) 1,000 MCG TABLET 1000 MCG PO (09:32)
[2022-09-26] MEDS: Sertraline HCL 100 MG TABLET 200 MG PO (09:32)
[2022-09-26] MEDS: Carbidopa/Levodopa 25/100 TABLET 1 TAB PO ×4 (09:32→20:08)
[2022-09-26] MEDS: Cholecalciferol (Vitamin D3) 25 MCG TABLET PO (09:32)
[2022-09-26] MEDS: Memantine HCl 5 MG TABLET PO ×2 (09:32→20:08)
[2022-09-26] MEDS: QUEtiapine Fumarate 25 MG TABLET PO ×2 (09:32→16:32)
[2022-09-26] MEDS: Acetaminophen 325 MG TABLET 650 MG PO ×2 (09:36→20:07)
[2022-09-26] MEDS: Multivitamin TABLET 1 TAB PO (11:47)
[2022-09-26] MEDS: QUEtiapine Fumarate 50 MG TABLET PO (11:48)
--- NOTE | 2022-09-26 14:19 | MHC.CM.PN ---
NO LTC BED OFFERS AT THIS TIME, MESSAGE SENT TO [facility] TO INQUIRE IF THEY MAY HAVE AN APPROPRIATE BED TO OFFER, AWAITING RESPONSE.
--- NOTE | 2022-09-26 14:31 | MHC.EDTECH ---
Patient is Brazilian speaking and attempted to get up from the bed. staff used the equipment installer to talk to the patient and patient was not making sense. staff noticed patient was soiled and cleaned and freshened up patient. patient was assisted back to bed and positioned comfortably.
--- NOTE | 2022-09-26 14:36 | MHC.EDTECH ---
Patient attempted to get out of bed. Staff assisted and redirected patient back into bed.
--- NOTE | 2022-09-26 16:15 | MHC.EDTECH ---
patient continued to pee off the side of the bed when he needed to urinate. staff placed a [place] catheter in agreement of the nurse.
[2022-09-26 19:32] VITALS: BP 113/66; PULSE 83; RESP 18; O2SAT 98
--- NOTE | 2022-09-26 19:37 | MHC.EDTECH ---
patient continues to tollerate the [place] catheter.
--- NOTE | 2022-09-26 19:49 | PC.NURSE ---
Pharmacy contact to request pt's scheduled seroquel, not currently in stock in ED overflow pyxis. Awaiting meds arrival at this time.
[2022-09-26] MEDS: Mirtazapine 7.5 MG TABLET PO (20:07)
[2022-09-26] MEDS: Atorvastatin Calcium 10 MG TABLET PO (20:08)
[2022-09-26] MEDS: QUEtiapine Fumarate 100 MG TABLET PO (20:08)
[2022-09-26] MEDS: Donepezil HCl 10 MG TABLET PO (20:08)
--- NOTE | 2022-09-27 04:59 | PC.NURSE ---
Assumed care at 19:00 09/26. Patient continues in ED overflow pending PT/CM. Pt has hx Parkinsons and dementia. Resting tremor noted to RUE. Faroese speaking only, language interpreter used. A&Ox1 to self only. Pt believes we are in [place]. Unable to state year or season. Attempts made frequently to reorient. On Ceftin for +UTI. Tolerates meds whole one to two at a time with water without issue. VSS. +pp/cms. Breathing is even and unlabored without distress. [place] cath in place and patent for incontinence. Assisted with q2h T+R. Bed alarm on and safety measures in place. Pt resting quietly in bed for majority of shift.
[2022-09-27 06:00] VITALS: BP 129/69; PULSE 61; RESP 18; TEMP 36.4; O2SAT 98
[2022-09-27] MEDS: Omeprazole 20 MG CAPSULE.DR PO (06:11)
[2022-09-27] MEDS: QUEtiapine Fumarate 25 MG TABLET PO ×2 (09:15→16:04)
[2022-09-27] MEDS: Memantine HCl 5 MG TABLET PO ×2 (09:15→20:51)
[2022-09-27] MEDS: Sertraline HCL 100 MG TABLET 200 MG PO (09:15)
[2022-09-27] MEDS: Docusate Sodium 100 MG CAPSULE PO ×2 (09:15→20:51)
[2022-09-27] MEDS: Carbidopa/Levodopa 25/100 TABLET 1 TAB PO ×4 (09:15→20:51)
[2022-09-27] MEDS: Cholecalciferol (Vitamin D3) 25 MCG TABLET PO (09:15)
[2022-09-27] MEDS: Cyanocobalamin (Vitamin B-12) 1,000 MCG TABLET 1000 MCG PO (09:15)
[2022-09-27 10:00] VITALS: BP 100/65; PULSE 92; RESP 18; TEMP 36.8; O2SAT 94
[2022-09-27] MEDS: Multivitamin TABLET 1 TAB PO (12:01)
[2022-09-27] MEDS: QUEtiapine Fumarate 50 MG TABLET PO (12:01)
--- NOTE | 2022-09-27 15:39 | MHC.EDTECH ---
pt ambulated to bathroom w/ 1x assist of this pct. pt was washed on toilet. clothes changed. brief applied. pt had xlarge loose bm. pt ambulated back to bed w/ assist. pt positioned in bed w/ geovani mazariegos. pt provided drink, sandwich, and blanket.
[2022-09-27 16:10] VITALS: BP 103/66; PULSE 99; RESP 16; O2SAT 96
[2022-09-27] MEDS: Mirtazapine 7.5 MG TABLET PO (20:50)
[2022-09-27] MEDS: Atorvastatin Calcium 10 MG TABLET PO (20:51)
[2022-09-27] MEDS: Donepezil HCl 10 MG TABLET PO (20:51)
--- NOTE | 2022-09-27 21:01 | PC.NURSE ---
Requesting from Pharmacy for 100mg of Seroquel. compliant with meds.
[2022-09-27] MEDS: QUEtiapine Fumarate 100 MG TABLET PO (21:09)
--- NOTE | 2022-09-28 01:56 | MHC.AU.PEC ---
Pediatric Audiological Evaluation: Pre-Central Auditory Processing Date of Visit: Machine Shop Repair Technician Used: Reason for Appointment: Previous Hearing Test?: Results of Previous Hearing Test: Recent Hearing Screening: / History: History: History (Other): Medications Taken During : Place of : /Delivery History: /Delivery History (Other): [facility] Hearing Screening: Patient History: Health History: Health History (Other): Patient's Medications: Allergies: Family History of Childhood-Onset Hearing Loss: Developmental History: Academic History: Name of School: Current Grade: Educational Services: Otoscopy: Right Ear: Left Ear: Tympanometry: Tympanometry performed due to: Right Ear: Left Ear: Acoustic Reflexes: Ipsilateral Probe Right: 500 Hz: 1000 Hz: 2000 Hz: 4000 Hz: Probe Left: 500 Hz: 1000 Hz: 2000 Hz: 4000 Hz: Contralateral Probe Right: 500 Hz: 1000 Hz: 2000 Hz: 4000 Hz: Probe Left: 500 Hz: 1000 Hz: 2000 Hz: 4000 Hz: Screening Ipsilateral Reflex Probe Right Ear: Probe Left Ear: Otoacoustic Emissions Frequency Range Used: Right Ear Results: Analysis: Left Ear Results: Analysis: Hearing Evaluation: Method: Transducer(s) Used: Stimuli Used: Right Ear Description of Hearing: Left Ear Description of Hearing: Speech Recognition Threshold (SRT): Method Used: Stimuli Used: Right Ear: Left Ear: Word Discrimination: Method: Word Lists Used: Right Ear: Left Ear: (Central) Auditory Processing Screening: Auditory Continuous Performance Test (ACPT): The ACPT provides information regarding auditory attention. This screening test evaluates an individual's ability to listen to auditory stimuli over a prolonged period of time. The score is based on the number of times the child does not respond to the target stimuli and/or responds to stimuli other than the target stimuli. A score outside normative levels indicates possible attention difficulties. SCAN-3 for Children (SCAN-3:C): This is a screening test to determine if a individual is at risk for an Auditory Processing Disorder. The screening evaluates three areas of auditory processing skills and is scored by an age-appropriate Pass/Fail criterion. It is comprised of three parts: Gap Detection, Auditory Figure-Ground, and Competing Words-Free Recall. Gap Detection: Auditory Figure-Ground +8dB: Competing Words- Free Recall: Overall: Compared to the most recent evaluation: Compared to the most recent evaluation: Interpretation of Results: Recommendations: Diagnosis Code(s): Primary Diagnosis: Secondary Diagnosis: Services Performed: Signature: Student/Clinical Fellow: I have reviewed/agreed with student/fellow documentation: Provider:
[2022-09-28 05:32] VITALS: BP 137/84; PULSE 77; RESP 18; TEMP 36.4; O2SAT 99
[2022-09-28] MEDS: Omeprazole 20 MG CAPSULE.DR PO (05:39)
[2022-09-28 07:07] VITALS: BP 115/78; PULSE 76; RESP 18; TEMP 36.8; O2SAT 97
--- NOTE | 2022-09-28 08:56 | MHC.EDTECH ---
patient washed, total bed change, clare mejia. patient tolerated well.
[2022-09-28] MEDS: Sertraline HCL 100 MG TABLET 200 MG PO (10:26)
[2022-09-28] MEDS: Acetaminophen 325 MG TABLET 650 MG PO (10:26)
[2022-09-28] MEDS: Sennosides 8.6 MG TABLET 17.2 MG PO (10:26)
[2022-09-28] MEDS: Memantine HCl 5 MG TABLET PO ×2 (10:26→21:05)
[2022-09-28] MEDS: Docusate Sodium 100 MG CAPSULE PO ×2 (10:27→21:05)
[2022-09-28] MEDS: QUEtiapine Fumarate 25 MG TABLET PO ×2 (10:27→17:56)
[2022-09-28] MEDS: Cyanocobalamin (Vitamin B-12) 1,000 MCG TABLET 1000 MCG PO (10:27)
[2022-09-28] MEDS: Carbidopa/Levodopa 25/100 TABLET 1 TAB PO ×4 (10:27→21:05)
[2022-09-28] MEDS: Cholecalciferol (Vitamin D3) 25 MCG TABLET PO (10:27)
[2022-09-28] MEDS: QUEtiapine Fumarate 50 MG TABLET PO (13:44)
[2022-09-28] MEDS: Multivitamin TABLET 1 TAB PO (13:44)
[2022-09-28 14:19] VITALS: BP 89/56; PULSE 89; RESP 19; TEMP 37.1; O2SAT 93
[2022-09-28 14:37] VITALS: BP 112/66; PULSE 87; RESP 19; TEMP 36.8; O2SAT 95
[2022-09-28 19:36] VITALS: BP 112/57; PULSE 90; RESP 18; TEMP 36.8; O2SAT 98
[2022-09-28] MEDS: Donepezil HCl 10 MG TABLET PO (21:05)
[2022-09-28] MEDS: Atorvastatin Calcium 10 MG TABLET PO (21:05)
[2022-09-28] MEDS: Mirtazapine 7.5 MG TABLET PO (21:05)
[2022-09-28] MEDS: QUEtiapine Fumarate 100 MG TABLET PO (21:05)
[2022-09-28 23:37] VITALS: BP 99/64; PULSE 96; RESP 16; TEMP 36.6; O2SAT 96
--- NOTE | 2022-09-29 02:42 | PC.NURSE ---
Patient is resting on bed with eyes closed. Patient breathing evenly with no s/s of distress noted at this time.
--- NOTE | 2022-09-29 03:33 | PC.NURSE ---
Assumed care of pt. Pt sleeping, no acute distress at this time. Continuing plan of care.
[2022-09-29 06:00] VITALS: BP 125/76; PULSE 65; RESP 13; TEMP 36.4; O2SAT 97
[2022-09-29] MEDS: Omeprazole 20 MG CAPSULE.DR PO (06:28)
[2022-09-29] MEDS: QUEtiapine Fumarate 25 MG TABLET PO ×2 (10:01→17:39)
[2022-09-29] MEDS: Memantine HCl 5 MG TABLET PO ×2 (10:01→21:54)
[2022-09-29] MEDS: Sertraline HCL 100 MG TABLET 200 MG PO (10:01)
[2022-09-29] MEDS: Cyanocobalamin (Vitamin B-12) 1,000 MCG TABLET 1000 MCG PO (10:01)
[2022-09-29] MEDS: Carbidopa/Levodopa 25/100 TABLET 1 TAB PO ×4 (10:02→21:54)
[2022-09-29] MEDS: Docusate Sodium 100 MG CAPSULE PO ×2 (10:02→21:54)
[2022-09-29] MEDS: Cholecalciferol (Vitamin D3) 25 MCG TABLET PO (10:02)
[2022-09-29] MEDS: Acetaminophen 325 MG TABLET 650 MG PO ×2 (10:06→17:37)
--- NOTE | 2022-09-29 12:03 | MHC.CM.ED ---
Review of pt expanded 09/25 referrals : no offers extended: pt requires LTC on a locked unit. Will expand search once more using 100 mile [place] radius. ED CM to follow.
[2022-09-29] MEDS: Multivitamin TABLET 1 TAB PO (12:35)
[2022-09-29] MEDS: QUEtiapine Fumarate 50 MG TABLET PO (12:36)
[2022-09-29 15:03] VITALS: PULSE 103; RESP 18; TEMP 36.6; O2SAT 95
[2022-09-29 15:17] VITALS: BP 120/73; PULSE 103; RESP 18; TEMP 36.7; O2SAT 95
--- NOTE | 2022-09-29 16:23 | MHC.EDTECH ---
THIS PCT ASSUMED CARE OF PT AT 1500 ,PT WAS INCONTINENT OF URINE ,CARE GIVEN AND BEDDING CHANCE ,PT WAS REPOSITION AND BOOSTED UP IN BED .
--- NOTE | 2022-09-29 18:07 | MHC.EDTECH ---
PT WAS SET UP FOR DINNER ATE 100 % OF MEAL DRANK 240 ML FLUIDS .
--- NOTE | 2022-09-29 20:15 | MHC.EDTECH ---
patient was incontinent of urine ,care given and bedding change ,warm blanket given ,vitals sign taken ,pt watching television in bed .
[2022-09-29 20:21] VITALS: BP 105/62; PULSE 100; RESP 16; TEMP 36.7; O2SAT 98
--- NOTE | 2022-09-29 20:23 | PC.NURSE ---
Assumed care at 07:00. Patient oriented to self only, garbled speech at times, Lithuanian speaking only, communicated with in Lithuanian and interpretters utilized to clarify when garbled speech occurs and at those times, speech was nonsensical. Patient with spastic activity of the bilateral upper extremities, on carvidopa/levodopa. Pills whole with thin liquids, is set-up for meals. Patient incontinent of B&B. Patient reported pain to left side of neck repeatedly, where he appears to have limited ROM, and has very tense muscles. Heat pack applied and tylenol with effect.
[2022-09-29] MEDS: QUEtiapine Fumarate 100 MG TABLET PO (21:54)
[2022-09-29] MEDS: Donepezil HCl 10 MG TABLET PO (21:54)
[2022-09-29] MEDS: Atorvastatin Calcium 10 MG TABLET PO (21:54)
[2022-09-29] MEDS: Mirtazapine 7.5 MG TABLET PO (21:54)
--- NOTE | 2022-09-30 00:19 | MHC.EDTECH ---
0000 ROUNDING DONE ,PT DRY AND IS AWAKE IN BED .
[2022-09-30 03:43] VITALS: BP 120/82; PULSE 61; RESP 18; TEMP 36.4; O2SAT 98
--- NOTE | 2022-09-30 03:44 | MHC.EDTECH ---
0400 ROUNDING DONE ,VITALS SIGN TAKEN ,PT WAS INCONTINENT OF URINE ,CARE GIVEN AND WARM BLANKET .
--- NOTE | 2022-09-30 04:32 | PC.NURSE ---
Assumed care at 1900. Pt A&Ox1. No c/o pain on this shift. Medicated per APR, tolerated PO intake with no issues. Pt able to sleep for most of the night. VSS. Care ongoing.
--- NOTE | 2022-09-30 06:03 | MHC.EDTECH ---
0600 rounding done pt dry and is sleeping .
[2022-09-30] MEDS: Memantine HCl 5 MG TABLET PO ×2 (08:02→20:41)
[2022-09-30] MEDS: Cholecalciferol (Vitamin D3) 25 MCG TABLET PO (08:02)
[2022-09-30] MEDS: Docusate Sodium 100 MG CAPSULE PO ×2 (08:02→20:41)
[2022-09-30] MEDS: Sertraline HCL 100 MG TABLET 200 MG PO (08:02)
[2022-09-30] MEDS: QUEtiapine Fumarate 25 MG TABLET PO ×2 (08:02→17:12)
[2022-09-30] MEDS: Cyanocobalamin (Vitamin B-12) 1,000 MCG TABLET 1000 MCG PO (08:02)
[2022-09-30] MEDS: Carbidopa/Levodopa 25/100 TABLET 1 TAB PO ×4 (08:02→20:41)
--- NOTE | 2022-09-30 10:21 | MHC.CM.ED ---
Addendum entered by Elana Alcala 09/30/22 14:53: [facility] is only facility willing to offer a bed at this time. Spoke with step daughter/HCP, Evita, with the help of the vineyard tender. Evita was hoping for a facility that was closer to patient's home but understands there is no other availability locally. Evita accepts bed. [facility] aware and will go for ins auth. Patient will need [facility] Level 2. T/W has submitted for this. Original Note: Patient remains in ER overflow. No bed offers at this time. Patient will essentially need cryptologic supervisor care in a locked facility due to wandering. Referrals made to all facilities within the [facility] that are contracted with [facility] and have locked dementia units. 112 referrals made. Received telephone call from Sandy of [facility]. She can be reached via telephone at [phone] if there is anything she can do to assist with placement. Continue to monitor for d/c needs.
[2022-09-30] MEDS: Multivitamin TABLET 1 TAB PO (12:09)
[2022-09-30] MEDS: QUEtiapine Fumarate 50 MG TABLET PO (12:09)
[2022-09-30 14:24] VITALS: BP 105/74; PULSE 94; RESP 16; TEMP 36.8; O2SAT 94
--- NOTE | 2022-09-30 17:21 | PC.NURSE ---
RN attempted to feed pt, pt took medication but refused all food and fluids. requested light off and bed repositioned.
[2022-09-30] MEDS: Mirtazapine 7.5 MG TABLET PO (20:41)
[2022-09-30] MEDS: Atorvastatin Calcium 10 MG TABLET PO (20:41)
[2022-09-30] MEDS: QUEtiapine Fumarate 100 MG TABLET PO (20:41)
[2022-09-30] MEDS: Donepezil HCl 10 MG TABLET PO (20:41)
[2022-09-30 22:11] VITALS: BP 105/68; PULSE 90; RESP 16; TEMP 36.7; O2SAT 95
[2022-10-01] MEDS: Omeprazole 20 MG CAPSULE.DR PO (05:31)
[2022-10-01 07:45] VITALS: BP 136/80; PULSE 85; RESP 18; O2SAT 92
[2022-10-01] MEDS: Cyanocobalamin (Vitamin B-12) 1,000 MCG TABLET 1000 MCG PO (08:36)
[2022-10-01] MEDS: Sertraline HCL 100 MG TABLET 200 MG PO (08:36)
[2022-10-01] MEDS: Memantine HCl 5 MG TABLET PO ×2 (08:36→20:03)
[2022-10-01] MEDS: Docusate Sodium 100 MG CAPSULE PO ×2 (08:36→20:03)
[2022-10-01] MEDS: Carbidopa/Levodopa 25/100 TABLET 1 TAB PO ×4 (08:36→20:03)
[2022-10-01] MEDS: QUEtiapine Fumarate 25 MG TABLET PO ×2 (08:36→16:13)
[2022-10-01] MEDS: Cholecalciferol (Vitamin D3) 25 MCG TABLET PO (08:36)
[2022-10-01] MEDS: Multivitamin TABLET 1 TAB PO (11:46)
[2022-10-01] MEDS: QUEtiapine Fumarate 50 MG TABLET PO (11:46)
--- NOTE | 2022-10-01 15:39 | MHC.CM.ED ---
Patient remains in ER overflow. Insurance auth has been obtained from [facility]. [facility] PASRR Level 2 obtained. SNF consent will have to be signed by ROBERTA Jama. She will be at the [facility] around 5pm to sign the necessary paperwork. Clarice MARTINI booked for 10/02 at 10am. [facility] with chart. Patient, Wilmar Jama RN and Lolis LOPEZ aware. Continue to monitor for d/c needs.
[2022-10-01 15:53] VITALS: BP 140/77; PULSE 86; RESP 18; O2SAT 96
--- NOTE | 2022-10-01 17:10 | MHC.EDTECH ---
Patient given dinner but the family brought in dinner
--- NOTE | 2022-10-01 20:02 | MHC.EDTECH ---
Patient walked to BR and repostioned in the bed
[2022-10-01] MEDS: QUEtiapine Fumarate 100 MG TABLET PO (20:03)
[2022-10-01] MEDS: Atorvastatin Calcium 10 MG TABLET PO (20:03)
[2022-10-01] MEDS: Mirtazapine 7.5 MG TABLET PO (20:03)
[2022-10-01] MEDS: Donepezil HCl 10 MG TABLET PO (20:03)
[2022-10-01 23:30] VITALS: BP 108/72; PULSE 77; RESP 16; TEMP 36.6; O2SAT 97
[2022-10-02 06:00] VITALS: BP 127/83; PULSE 58; RESP 18; TEMP 36.4; O2SAT 98
[2022-10-02] MEDS: Omeprazole 20 MG CAPSULE.DR PO (06:37)
[2022-10-02 07:43] VITALS: BP 118/78; PULSE 64; RESP 18; TEMP 36.3; O2SAT 97
[2022-10-02] MEDS: Cyanocobalamin (Vitamin B-12) 1,000 MCG TABLET 1000 MCG PO (08:57)
[2022-10-02] MEDS: Docusate Sodium 100 MG CAPSULE PO (08:57)
[2022-10-02] MEDS: Memantine HCl 5 MG TABLET PO (08:57)
[2022-10-02] MEDS: QUEtiapine Fumarate 25 MG TABLET PO (08:57)
[2022-10-02] MEDS: Carbidopa/Levodopa 25/100 TABLET 1 TAB PO (08:57)
[2022-10-02] MEDS: Sertraline HCL 100 MG TABLET 200 MG PO (08:57)
[2022-10-02] MEDS: Cholecalciferol (Vitamin D3) 25 MCG TABLET PO (08:57)
--- NOTE | 2022-10-02 09:13 | PC.NURSE ---
family at bedside requesting pt take a shower before leaving this facility, the shower was set up- family assisting patient in taking a shower at this time.
[2022-10-02 09:21] LABS: COVID-19 Test Negative (Negative); IDNOW Serial# BCCEAD1C
== END 2022-10-02 10:07 ==
PROVIDERS: Physician Assistant; Emergency Provider Student in an Organized Health Care Education/Training Program; PCP Family Medicine
DX: G20 Parkinson's disease (principal); F02.80 Dementia in other diseases classified elsewhere, unspecified severity, without behavioral disturbance, psychotic disturbance, mood disturbance, and anxiety; N39.0 Urinary tract infection, site not specified; B96.4 Proteus (mirabilis) (morganii) as the cause of diseases classified elsewhere; Z87.891 Personal history of nicotine dependence
CPT/HCPCS: 36415; 71045; 80053; 81003; 83605; 85025; 87040; 87635; 97161; 99285

== ENCOUNTER 2023-06-19 15:25 | Outpatient (AMB) | payer OTHER, SELFPAY ==
--- NOTE | 2023-06-19 15:36 | A.OFFVIS_ITS ---
Intake Visit Reasons: elevated psa/ Urinary incontinence Intake Note: New patient is present for Elevated PSA and Urinary Incontinence Antibiotic Allergies: None PVR: 163 Allergies No Known Allergies [No Known Allergies*] Allergy (Verified 10/30/20 06:52) HPI Comments Details: Kingston is a pleasant Central African-speaking male. He is a patient of . He is seen for the following urologic conditions - elevated PSA - lower urinary tract symptoms Central African translation provided by qualified medical file clerk using device. General Assistant [id number] Background Parkinson's dementia Incomplete bladder emptying with lack of ability to hold urine Discussed impact of Parkinson's dementia Trial tamsulosin with daily finasteride Repeat PSA in 4 months with PVR Lower urinary tract symptoms With diapers, has urgency PVR 160 cc PSA 08/01 9.5 PFSH Medical History Arthritis Chronic pain Dementia Depression Elevated cholesterol GERD (gastroesophageal reflux disease) Osteoarthritis Parkinson disease Surgical History Hx of colonoscopy Hx of hand surgery Social History Household Members: None Household Members Other:: per [facility] assessment, lives independently Housing: Apartment Do you presently have visiting nurse or 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 home services: 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) Alcohol intake: unknown Comment: PATIENT ASLEEP Patient Tobacco Use Status: Former Tobacco user Second Hand Smoke Exposure: No Advance Directives Date on File: 12/13/21 service: No Sexual orientation: Straight/Heterosexual Review of Systems Const Denies chills and Denies fever(s) Card Reports no additional complaints and Denies syncope Resp Denies cough GI Denies abdominal pain and Denies heartburn Reports as per HPI and Denies change in libido Neuro Denies syncope Psych Denies change in libido Endo Denies change in libido Physical Exam Const General: cooperative, healthy appearing, comfortable and no acute distress Orientation/consciousness: patient oriented x3 HEENT Face and sinus: Yes normal facial exam Mouth: moist mucous membranes Neck Neck: Yes normal visual inspection, Yes full ROM and Yes trachea midline Chest Chest palpation & inspection: normal inspection of the chest Resp Effort & Inspection: normal respiratory effort, able to speak in complete sentences and no respiratory distress GI Inspection: Yes normal to inspection Back/Spine/Pelvis Cervical Spine: normal cervical lordosis Thoracic/Lumbar Spine: thoracic and lumbar spine normal to inspection Skin General skin exam: no rashes or lesions noted Neuro General: patient oriented x3, gait normal, tone normal and moves all extremities Extrem General: Yes normal to inspection and Yes capillary refill normal Office Procedures Post Void Residual Post Residual Void Post Void Residual (PVR): 163 [id number] Void Residual by ultrasound Assessment & Plan Assessment & Plan (1) Incomplete emptying of bladder due to benign prostatic hyperplasia: Code(s): N40.1 - Benign prostatic hyperplasia with lower urinary tract symptoms; R33.9 - Retention of urine, unspecified Category: Medical (2) Urinary frequency: Code(s): R35.0 - Frequency of micturition Category: Medical (3) Elevated PSA: Code(s): R97.20 - Elevated prostate specific antigen [PSA] Category: Medical Plan Trial finasteride with tamsulosin Orders: Orders AMB Post Void Residual by ultrasound Today Z13.9 - Encounter for screening, unspecified Medications: New finasteride 5 mg PO DAILY 90 days 90 tabs 1RF N40.1 - Benign prostatic hyperplasia with lower urinary tract symptoms, R33.9 - Retention of urine, unspecified tamsulosin 0.4 mg PO BEDTIME 90 days 90 caps 1RF N13.8 - Other obstructive and reflux uropathy, N40.1 - Benign prostatic hyperplasia with lower urinary tract symptoms, R33.9 - Retention of urine, unspecified Patient Instructions: Imaging studies, laboratory and physical exam results were discussed and reviewed in detail. No major barriers to patient understanding were identified. An opportunity to ask questions regarding the treatment plan was provided. All questions were answered. The patient expressed understanding and agreement with the above treatment plan. The patient is aware they should contact our office by phone for worsening of their current condition or the appearance of new urologic symptoms. Compliance is encouraged with any medications and followup testing that is ordered. It is a privilege to participate in the urologic care of your patient. If you have any questions or concerns regarding treatment for the above conditions, or other urologic issues, please do not hesitate to contact me. The office telephone contact is [phone]. This note is constructed using voice recognition software. While every effort has been made to ensure accuracy pole peeling machine operator errors may have been included. Yours sincerely, Dr Corey Clement MD, [facility] - Urology Providers of Expert, Compassionate Care for the Genitourinary System Coding Level of Care Code New Pt Level 4 (06634) Diagnoses Incomplete emptying of bladder due to benign prostatic hyperplasia N40.1; R33.9 Urinary frequency R35.0 Elevated PSA R97.20 CPT Codes Post Residual Void - PVR CPT Code: 27603-Mabu Void Residual by ultrasound ([id number])
== END 2023-06-19 15:59 | disposition home or self-care (01) ==
PROVIDERS: PCP Family Medicine; Visit Provider Urology
DX: N40.1 Benign prostatic hyperplasia with lower urinary tract symptoms (principal); R33.9 Retention of urine, unspecified; R35.0 Frequency of micturition; R97.20 Elevated prostate specific antigen [PSA]
CPT/HCPCS: 99204

== ENCOUNTER → 2023-06-19 15:25 | Outpatient (BNVA) | payer OTHER, SELFPAY | PROVIDERS: PCP Family Medicine; Visit Provider Urology | DX: R97.20 Elevated prostate specific antigen [PSA] (principal); N40.1 Benign prostatic hyperplasia with lower urinary tract symptoms; N13.8 Other obstructive and reflux uropathy; R33.8 Other retention of urine; R35.0 Frequency of micturition | CPT/HCPCS: 51798; 99202 ==

== ENCOUNTER 2023-08-26 12:37 | Outpatient (REF) | payer OTHER, SELFPAY ==
[2023-08-26 14:36] LABS: Alanine Aminotransferase < 5 U/L (0-40); Albumin Level 4.2 g/dL (3.5-5.0); Alkaline Phosphatase 78 U/L (39-117); Aspartate Amino Transferase 15 U/L (5-37); Bilirubin Direct 0.2 mg/dL (0.0-0.5); Bilirubin Total 0.4 mg/dL (0.0-1.0)
[2023-08-26 15:04] LABS: Vitamin B12 898 pg/mL (200-900)
== END 2023-08-26 12:38 | disposition home or self-care (01) ==
LOC: HO.LAB 12:37
PROVIDERS: PCP Family Medicine; Visit Provider Psychiatry & Neurology Neurology
DX: G31.83 Neurocognitive disorder with Lewy bodies (principal)
CPT/HCPCS: 36415; 80076; 82607

== ENCOUNTER 2023-09-15 10:34 | Outpatient (REF) | payer OTHER, SELFPAY | END 2023-09-15 10:35 | disposition home or self-care (01) | LOC: HO.HHCL 10:34 | PROVIDERS: Visit Provider Family Medicine | DX: Z13.89 Encounter for screening for other disorder (principal) ==

== ENCOUNTER 2023-12-18 15:24 | Outpatient (REF) | payer OTHER, SELFPAY | END 2023-12-18 15:25 | disposition home or self-care (01) | LOC: HO.HHCL 15:24 | PROVIDERS: Visit Provider Family Medicine | DX: Z13.89 Encounter for screening for other disorder (principal) ==

== ENCOUNTER 2024-04-18 14:54 | Outpatient (REF) | payer OTHER, SELFPAY ==
[2024-04-18 16:58] LABS: Alanine Aminotransferase 11 U/L (0-40); Albumin Level 4.1 g/dL (3.5-5.0); Alkaline Phosphatase 97 U/L (39-117); Aspartate Amino Transferase 18 U/L (5-37); Bilirubin Direct 0.1 mg/dL (0.0-0.5); Bilirubin Total 0.5 mg/dL (0.0-1.0); Total Protein 7.3 g/dL (6.5-8.0)
--- OUTSIDE RECORDS SUMMARY | 2024-04-18 17:04 | XMS_ITS | Encounter Summary ---
Author Organization [facility] Address [address] [place] [address] Care Team Providers Care Floriculture Teacher Name Role Phone Consuelo Cramer MD Primary Care Provider [phone] Encounter Details Date Type Department Care Team (Late st Contact Info) Description 03/17/2022 Orders Only [facility] MEDICINE [address] [place], [place] [phone] Ban Bedolla LPN Social History Tobacco Use Types Packs/Day Years Used Date Smoking Tobacco: Never Assessed Depression Answer Date Recorded Patient Health Questionnaire-2 Score 0 03/20/2022 Sex and Gender Information Value Date Recorded Sex Assigned at Male 12/09/2021 10:14 AM EDT Legal Sex Male 10:14 AM EDT Gender Identity Male 12/09/2021 10:14 AM EDT Sexual Orientation Straight 12/09/2021 10 :14 AM EDT COVID-19 Exposure Response Date Recorded In the last 10 days, have yo u been in contact with someone who was confirmed or suspected to have Coronavirus/COVID-19? No / Unsure 03/20/2022 9:20 AM EST documented as of this encounter Plan of Treatment Upcoming Encounters Date Type Department Care Team (Late st Contact Info) Description 06/20/2024 2:00 PM EDT Clinical Support [facility] [address] [place], [place] [phone] 07/15/2024 2:00 PM EDT Office Visit [facility] [address] [place], [place] [phone] Ben, Gris, OD [address] [place], [place] [phone] documented as of this encounter Visit Diagnoses Not on filedocumented in this encounter Care Teams Floriculture Teacher Relationship Specialty Start Date End Date Consuelo Cramer MD [address] [place] [address] PCP - General Family Medicine 12/10/11 documented as of this encounter
--- OUTSIDE RECORDS SUMMARY | 2024-04-18 17:04 | XMS_ITS | Encounter Summary ---
Author Organization [employer] [facility] Address [address] [place] [address] Care Team Providers Care Carton And Can Supply Supervisor Name Role Phone Consuelo Cramer MD Primary Care Provider [phone] Reason for Visit * Reason Onset Date Comments Letter for School/Work 01/20/2023 Encounter Details Date Type Department Care Team ([facility] Contact Info) Description 01/20/2023 Telephone [facility]INE [address] [place], [place] [phone] Consuelo Cramer MD [address] [place], [place] [phone] Letter for School/Work Social History Tobacco Use Types Packs/Day Years Used Date Smoking Tobacco: Never Passive Smoke Exposure: Never Smokeless Tobacco: Never Alcohol Use Standard Drinks/Week Comments Never 0 (1 standard drink = 0.6 oz pur e alcohol) Housing Stability Answer Date Recorded What is your housing situation today? I have yennifer victoria 11/24/[address] you li ve. Do you have problems with any of the following? None of the above 11/24/2022 Food Insecurity Answer Date Recorded Within the past 12 months, y ou worried that your food would run out before you got money to buy more: Never True 11/24/2022 Within the past 12 months,th e food you bought just didn't last and you didn't have enough money to get more: Never True Transportation Answer Date Recorded In the past 12 months, has l ack of transportation kept you from medical appts, meetings, work or from getting things needed for daily living? No 11/24/2022 Utilities Answer Date Recorded In the past 12 months, has t he electric, gas, oil or water company threatened to shut off services in your home? No 11/24/2022 Depression Answer Date Recorded Patient Health Questionnaire-2 Score 0 03/20/2022 Sex and Gender Information Value Date Recorded Sex Assigned at Male 12/09/2021 10:14 AM EDT Legal Sex Male 10:14 AM EDT Gender Identity Male 12/09/2021 10:14 AM EDT Sexual Orientation Straight 12/09/2021 10 :14 AM EDT documented as of this encounter Miscellaneous Notes * Telephone Encounter - Elza Martinez RN - 01/27/2023 10:20 AM EST Leesa from [facility] stated that the issue is the housing. Patient can have living aid but the question is if housing will allow a person to move in until they can get him a 2 bed room apartment. Health care proxy is trying to move in to start adult foster care. But health care proxy needs to speak with housing first to become a living aid first. Health care proxy has tried to discharge patient before have was able to talk with housing. [facility] is advocating for patient to stay at [facility] until HCP is able to talk with housing to be able to move in to take care of patient. Patient has invoked power of insurance collector and HCP. Leesa stated that patient can have 3 pharmacist per diem to stay most of the day and only 2 hours at night in a rotating schedule. [facility] wants PCP to be aware of situation. * Telephone Encounter - Denise Hodgson - 01/21/2023 9:41 AM EST Tc from [facility] requesting a letter with PCP recommendation/approval stating if pt is eligible tohave 24 hour care due to pt currently being admitted at [facility], [facility] pt health care proxy has been trying to discharge pt from facility however due to safety concerns they are having difficulty with discharging pt. Please contact at [phone] [phone] * Telephone Encounter - Elda Cardenas - 01/20/2023 1:07 PM EST Tc from [employer] requesting a letter for pt stating provider recommends someone can stay with pt at night at his apartment for care. Please clarify. Please contact zoey at [phone] documented in this encounter Plan of Treatment Upcoming Encounters Date Type Department Care Team (Late st Contact Info) Description 06/20/2024 2:00 PM EDT Clinical Support [facility] MEDICINE [address] [place] [address] 07/15/2024 2:00 PM EDT Office Visit [facility] OPTOMETRY [address] [place], [place] [phone] Gris Contreras, OD [address] [place] [address] documented as of this encounter Visit Diagnoses Not on filedocumented in this encounter Care Teams Carton And Can Supply Supervisor Relationship Specialty Start Date End Date Consuelo Cramer MD [address] [place] [address] PCP - General Family Medicine 12/10/11 documented as of this encounter
--- OUTSIDE RECORDS SUMMARY | 2024-04-18 17:05 | XMS_ITS | Encounter Summary ---
Author Organization [employer] [facility] Address [address] [place] [address] Care Team Providers Care Sports Statistician Name Role Phone Consuelo Cramer MD Primary Care Provider [phone] Encounter Details Date Type Department Care Team (Latest Contact Info) Description 04/18/2024 Travel Social History Tobacco Use Types Packs/Day Years Used Date Smoking Tobacco: Never Passive Smoke Exposure: Never Smokeless Tobacco: Never Alcohol Use Standard Drinks/Week Comments Never 0 (1 standard drink = 0.6 oz pur e alcohol) Housing Stability Answer Date Recorded What is your housing situation today? I have yennifer victoria 09/15/[address] you li ve. Do you have problems with any of the following? None of the above 09/15/2023 Food Insecurity Answer Date Recorded Within the past 12 months, y ou worried that your food would run out before you got money to buy more: Never True 09/15/2023 Within the past 12 months,th e food you bought just didn't last and you didn't have enough money to get more: Never True 07/2023 Transportation Answer Date Recorded In the past 12 months, has l ack of transportation kept you from medical appts, meetings, work or from getting things needed for daily living? No 09/15/2023 Utilities Answer Date Recorded In the past 12 months, has t he electric, gas, oil or water company threatened to shut off services in your home? No 09/15/2023 Depression Answer Date Recorded Patient Health Questionnaire-2 Score 0 09/15/2023 Internet Access Answer Date Recorded Internet Access Q1 Yes 10/12/2023 Internet Access Q2 Not on file 10/12/2023 Sex and Gender Information Value Date Recorded Sex Assigned at Male 12/09/2021 10:14 AM EDT Legal Sex Male 10:14 AM EDT Gender Identity Male 12/09/2021 10:14 AM EDT Sexual Orientation Straight 12/09/2021 10 :14 AM EDT documented as of this encounter Plan of Treatment Upcoming Encounters Date Type Department Care Team (Late st Contact Info) Description 06/20/2024 2:00 PM EDT Clinical Support [facility] [address] [place] [address] 07/15/2024 2:00 PM EDT Office Visit [facility] OPTOMETRY [address] [place] [address] Ben, Gris, OD [address] [place] [address] documented as of this encounter Visit Diagnoses Not on filedocumented in this encounter Care Teams Sports Statistician Relationship Specialty Start Date End Date Consuelo Cramer MD [address] [place] [address] PCP - General Family Medicine 12/10/11 documented as of this encounter
--- OUTSIDE RECORDS SUMMARY | 2024-04-18 17:05 | XMS_ITS | Encounter Summary ---
Author Organization [employer] Address [address] [place] [address] Care Team Providers Care Sort Manager Name Role Phone Consuelo Cramer MD Primary Care Provider [phone] Encounter Details Date Type Department Care Team ([facility] st Contact Info) Description 04/18/2024 Orders Only [facility]IC[facility] [address] [place], [place] [phone] Consuelo Cramer MD [address] [place], [place] [phone] Social History Tobacco Use Types Packs/Day Years [...] Description 06/20/2024 2:00 PM EDT Clinical Support [facility] [address] [place] [address] 07/15/2024 2:00 PM EDT Office Visit [facility] OPTOMET[facility] [address] [place] [address] Ben, Gris, OD [address] [place] [address] documented as of this encounter Procedures Procedure Name Priority Date/Time Associated Diagnosis Comments HEPATIC FUNCTION PANEL Routine 04/18/2024 2:56 PM EDT documented in this encounter Results * Hepatic Function Panel (04/18/2024 2:56 PM EDT) Bilirubin, Total 0.5 0.0 - 1.0 mg/dL [facility] Bilirubin, Direct 0.1 0.0 - 0.5 mg/dL [facility] Aspartate Amino Transferase 18 5 - 37 U/L [facility] Alanine Aminotransferase 11 0 - 40 U/L [facility] Total Protein 7.3 6.5 - 8.0 g/dL [facility] Albumin Level 4.1 3.5 - 5.0 g/dL [facility] Alkaline Phosphatase 97 39 - 117 U/L [facility] 04/18/2024 2:56 PM EDT 04/18/2024 4:07 PM EDT us Consuelo Sakurai MD LAB BLOOD ORDERABLES Final Resul t [facility] [address] [place] [address] [phone] documented in this encounter Visit Diagnoses Not on filedocumented in this encounter Care Teams Sort Manager Relationship Specialty Start Date End Date Consuelo Cramer MD [address] [place] [phone] PCP - General Family Medicine 12/10/11 documented as of this encounter
--- OUTSIDE RECORDS SUMMARY | 2024-04-18 17:05 | XMS_ITS | Clinical Summary ---
Author Organization [employer] Address [address] [place] [address] [address] [place] [address] Care Team Providers Care System Dispatcher Name Role Phone Consuelo Cramer MD Primary Care Provider [phone] Allergies Active Allergy Reactions Criticality Noted Date Comments Trihexyphenidyl Hallucinations High 10/14/2017 Medications * This document contains information received from the source organization and may not represent a complete record from that organization. carbidopa-levodo pa (Sinemet) 25-100 MG tablet Take 1 tablet by mouth 4 times daily. 3 Active donepezil (Aricept) 10 MG tablet Take 10 mg by mouth at bedtime. 3 Active memantine (Namenda) 5 MG tablet TAKE 1 TABLET BY MOUTH TWICE DAILY IN THE MORNING AND AT BEDTIME 3 Active mirtazapine (Remeron) 7.5 MG tablet TAKE 1 TABLET BY MOUTH AT BEDTIME DIRECTED 3 Active QUEtiapine (SEROquel) 25 MG tablet TAKE 1 TABLET BY MOUTH TWICE DAILY IN THE MORNING AND IN THE EVENING and TAKE 2 TABLETS BY MOUTH ONCE DAILY AT NOON 3 Active QUEtiapine (SEROquel) 100 MG tablet Take 100 mg by mouth at bedtime. 3 Active albuterol 108 (90 Base) MCG/ACT inhaler Inhale 2 puffs every 4 (four) hours if needed for wheezing or shortness of breath. Maximum 8 puffs per day 18 g 3 3 Active Multiple Vitamins-Mineral s (CertaVite/Antio xidants) tabletIndication s:Vitamin deficiency TAKE 1 TABLET BY MOUTH EVERYDAY AT NOON WITH FOOD 90 tablet 3 3 Active sertraline (Zoloft) 100 MG tablet TAKE 1.5 TABLETS BY MOUTH ONCE DAILY IN THE MORNING 135 tablet 3 4 Active finasteride (Proscar) 5 MG tablet Take 5 mg by mouth Once per day. 4 Active tamsulosin (Flomax) 0.4 MG 24 hr capsule Take 0.4 mg by mouth Once per day. 4 Active cyanocobalamin (Vitamin B-12) 1000 MCG tabletIndication s:Vitamin deficiency TAKE 1 TABLET BY MOUTH EVERY MORNING 90 tablet 3 4 Active pantoprazole (ProtoNix) 40 MG EC tablet TAKE 1 TABLET BY MOUTH EVERY MORNING 90 tablet 3 4 Active cholecalciferol (Vitamin D-3) 25 MCG tabletIndication s:Vitamin deficiency TAKE 1 TABLET BY MOUTH EVERY MORNING 90 tablet 3 4 Active atorvastatin (Lipitor) 10 MG tablet Take 1 tablet (10 mg) by mouth at bedtime. 90 tablet 3 4 Active docusate sodium (Colace) 100 MG capsuleIndicatio ns:Constipation, unspecified constipation type Take 1 capsule (100 mg) by mouth 2 times daily. 180 capsule 3 4 Active senna (Senokot) 8.6 MG tabletIndication s:Constipation, unspecified constipation type TAKE 2 TABLETS BY MOUTH ONCE DAILY NEEDED FOR CONSTIPATION 180 tablet 3 4 Active polyethylene glycol, PEG, 3350 (HealthyLax) 17 g packetIndication s:Constipation, unspecified constipation type Mix 1 packet in 8 ounces of water, juice, coffee or tea and drink once a day NEEDED FOR CONSTIPATION 30 packet 2 5 Active Active Problems Problem Noted Date Diagnosed Date Failure to thrive in adult 04/18/2024 Elevated PSA 05/19/2023 Weight loss 07/21/2022 Assessment & Plan (01/19/2024 11:20 AM EST): -lost > 30 lb in last 1 year -difficulty getting his lab done -evaluate with CT scan given his abdominal pain (mild and vague) -will refer to GI -will prescribe nutritional supplementation with Ensure Assessment & Plan (09/16/2023 7:21 PM EDT): -Will check labs -Consider nutritional supplement Assessment & Plan (05/26/2023 11:27 AM EDT): Will check labs Assessment & Plan (07/21/2022 10:29 AM EDT): Will check labs Urinary incontinence 03/21/2022 Assessment & Plan (09/15/2023 10:10 AM EDT): - multifactorial - Parkinson's disease and BPH - evaluated by urologist in June 2023, prescribed tamsulosin and finasteride - pt is using briefs / pull-ups / diapers Assessment & Plan (05/26/2023 11:23 AM EDT): - multifactorial - Parkinson's disease and BPH - referred to urologist; they could not keep appointment; will re-refer - pt is using briefs / pull-ups Assessment & Plan (07/28/2022 5:51 PM EDT): - multifactorial - Parkinson's disease and BPH - referred to urologist; they have not received an appt date yet; will re-refer - pt is using briefs / pull-ups Assessment & Plan (03/21/2022 4:43 PM EST): - multifactorial - Parkinson's disease and BPH - referred to urologist; OXYGRAPH OPERATOR will reschedule appt - pt is using briefs Lewy body dementia 03/20/2022 Assessment & Plan (04/18/2024 2:46 PM EDT): Neurologist: [facility] (Dr. Farmer) last seen June 2022, per caregiver August 2023 -Because he presented much younger and started with motor symptoms, it is likely Parkinson's -Brain MRI in Dec 2013 showed moderate atrophy, white matter disease -Brain MRI in 2019 Scattered supratentorial white matter signal abnormality is nonspecific, but compatible with chronic microangiopathic/small vessel ischemic change -Current medications: Carbidopa-Levodopa 25-100 mg 1 tab 4 times daily (Sinemet) for tremor; Seroquel 100mg at bedtime for psychosis; and Donepezil 10 mg qhs for dementia. -Treatment Hx: trihexyphenidyl was discontinued due to GI side effect; Donepezil was discontinued, but recently started; Ropinirole was discontinued due to worsening tremor -Continue current medications -Continue current OXYGRAPH OPERATOR service, he has a very supportive OXYGRAPH OPERATOR who ensures pt is safe and healthy. -Discussed about a long-term plan. [place]. Assessment & Plan (01/18/2024 4:05 PM EST): Neurologist: [facility] (Dr. Farmer) last seen June 2022, per caregiver August 2023 -Because he presented much younger and started with motor symptoms, it is likely Parkinson's -Brain MRI in Dec 2013 showed moderate atrophy, white matter disease -Brain MRI in 2019 Scattered supratentorial white matter signal abnormality is nonspecific, but compatible with chronic microangiopathic/small vessel ischemic change -Current medications: Carbidopa-Levodopa 25-100 mg 1 tab 4 times daily (Sinemet) for tremor; Seroquel 100mg at bedtime for psychosis; and Donepezil 10 mg qhs for dementia. -Treatment Hx: trihexyphenidyl was discontinued due to GI side effect; Donepezil was discontinued, but recently started; Ropinirole was discontinued due to worsening tremor -Continue current medications -Continue current OXYGRAPH OPERATOR service, he has a very supportive OXYGRAPH OPERATOR who ensures pt is safe and healthy. -Discussed about a long-term plan. [place]. Assessment & Plan (09/16/2023 7:20 PM EDT): Neurologist: [facility] (Dr. Farmer) last seen June 2022, per caregiver August 2023 -Because he presented much younger and started with motor symptoms, it is likely Parkinson's -Brain MRI in Dec 2013 showed moderate atrophy, white matter disease -Brain MRI in 2019 Scattered supratentorial white matter signal abnormality is nonspecific, but compatible with chronic microangiopathic/small vessel ischemic change -Current medications: Carbidopa-Levodopa 25-100 mg 1 tab 4 times daily (Sinemet) for tremor; Seroquel 100mg at bedtime for psychosis; and Donepezil 10 mg qhs for dementia. -Treatment Hx: trihexyphenidyl was discontinued due to GI side effect; Donepezil was discontinued, but recently started; Ropinirole was discontinued due to worsening tremor -Continue current medications -Continue current OXYGRAPH OPERATOR service, he has a very supportive OXYGRAPH OPERATOR who ensures pt is safe and healthy. -Discussed about a long-term plan. [place]. Assessment & Plan (07/28/2022 5:47 PM EDT): Neurologist: [facility] (Dr. Farmer) last seen June 2022 -Because he presented much younger and started with motor symptoms, it is likely Parkinson's -Brain MRI in Dec 2013 showed moderate atrophy, white matter disease -Brain MRI in 2019 Scattered supratentorial white matter signal abnormality is nonspecific, but compatible with chronic microangiopathic/small vessel ischemic change -Current medications: Carbidopa-Levodopa 25-100 mg 1 tab 4 times daily (Sinemet) for tremor; Seroquel 100mg at bedtime for psychosis; and Donepezil 10 mg qhs for dementia. -Treatment Hx: trihexyphenidyl was discontinued due to GI side effect; Donepezil was discontinued, but recently started; Ropinirole was discontinued due to worsening tremor -Continue current medications -Continue current OXYGRAPH OPERATOR service, she has a very supportive OXYGRAPH OPERATOR who ensures pt is safe and healthy. -Discussed about a long-term plan. Likely need 24/7 care and need [place]. Both Pt and CG understood and agreed with the plan, but would like to remain in the community. -Pt is capable of understanding his medical conditions at this time and some limitation and risks from his medical conditions. Discussed safety issues and the importance of asking for assistance/help. -Follow-up in 4 months. Assessment & Plan (03/21/2022 12:01 PM EST): Neurologist: [facility] (Dr. Farmer) last seen 03/13/21; Telephone visit on 01/01/22. -Brain MRI in Dec 2013 showed moderate atrophy, white matter disease -Brain MRI in 2019 Scattered supratentorial white matter signal abnormality is nonspecific, but compatible with chronic microangiopathic/small vessel ischemic change -Current medications: Carbidopa-Levodopa 25-100 mg 1 tab 4 times daily (Sinemet) for tremor; Seroquel 100mg at bedtime for psychosis; and Donepezil 10 mg qhs for dementia. -Treatment Hx: trihexyphenidyl was discontinued due to GI side effect; Donepezil was discontinued, but recently started; Ropinirole was discontinued due to worsening tremor -Continue current medications -Continue current OXYGRAPH OPERATOR service, she has a very supportive OXYGRAPH OPERATOR who ensures pt is safe and healthy. -Discussed about a long-term plan. Likely need 24/7 care and [place]. Both Pt and CG understood and agreed with the plan, but would like to remain in the community. -Will request more OXYGRAPH OPERATOR hrs to support pt's wish. -Pt will need care in which he can receive care punctually, the original arrangement seems to be difficult to arrange on-time. -Pt might be safer with more OXYGRAPH OPERATOR hrs than [facility] -Field Tech, Leesa Arriaza from [facility] and Dr Farmer recommended [place] placement since pt was found wandering around and appeared confused recently. However, there is no documentation of harm to himself or others. -Pt is capable of understanding his medical conditions at this time and some limitation and risks from his medical conditions. Discussed safety issues and the importance of asking for assistance/help. -Follow-up in 4 months. Benign prostate hyperplasia 03/20/2022 Assessment & Plan (09/15/2023 10:11 AM EDT): -CT Scan showed enlarged prostate -Evaluated by urologist in June 2023, prescribed tamsulosin and finasteride Assessment & Plan (05/26/2023 11:22 AM EDT): -CT Scan showed enlarged prostate -Referred pt to Urologist for BPH -Patient [place] appointment [place]; refer again Assessment & Plan (07/21/2022 9:49 AM EDT): -CT Scan showed enlarged prostate -Referred pt to Urologist for BPH -OXYGRAPH OPERATOR will reschedule Assessment & Plan (03/21/2022 12:20 PM EST): -CT Scan showed enlarged prostate -Referred pt to Urologist for BPH -OXYGRAPH OPERATOR will reschedule Constipation 03/20/2022 Assessment & Plan (04/18/2024 2:47 PM EDT): -Previously followed by GI, Rx Linzess -Continue Miralax prn -Increase fiber in diet Assessment & Plan (01/18/2024 4:06 PM EST): -Previously followed by GI, Rx Linzess -Continue Miralax prn -Increase fiber in diet Assessment & Plan (05/26/2023 11:21 AM EDT): -Previously followed by GI, Rx Linzess -Continue Miralax prn -Increase fiber in diet Assessment & Plan (07/21/2022 9:48 AM EDT): -Previously followed by GI, Rx Linzess -Increase fiber in diet Assessment & Plan (03/20/2022 9:53 AM EST): Previously followed by [facility] receiving Linzess, will restart medication, however may require Prior Authorization -Inc fiber in diet Mild intermittent asthma 03/20/2022 Assessment & Plan (04/18/2024 2:46 PM EDT): -PFT was completed on 04/23/17 which showed mild restrictive and obstructive airway disease -Last exacerbation on 05/01/2017 and was Tx with prednisone and albuterol at [facility] -Continue albuterol HFA and neb prn Assessment & Plan (05/26/2023 11:20 AM EDT): -PFT was completed on 04/23/17 which showed mild restrictive and obstructive airway disease -Last exacerbation on 05/01/2017 and was Tx with prednisone and albuterol at [facility] -Continue albuterol HFA and neb prn Assessment & Plan (07/28/2022 5:50 PM EDT): -PFT was completed on 04/23/17 which showed mild restrictive and obstructive airway disease -Last exacerbation on 05/01/2017 and was Tx with prednisone and albuterol at [facility] -Continue albuterol HFA and neb prn Assessment & Plan (03/20/2022 10:00 AM EST): -PFT was completed on 04/23/17 which showed mild restrictive and obstructive airway disease -Last exacerbation on 05/01/2017 and was Tx with prednisone and albuterol at [facility] -Continue albuterol HFA and neb prn Chronic headache disorder 05/09/2015 Assessment & Plan (07/28/2022 5:43 PM EDT): - he has not complained about headache very much - continue APAP prn Chronic depression 03/05/2015 Assessment & Plan (05/26/2023 11:30 AM EDT): -[facility] provider: Dr. Spencer -Previous [facility] providers: Dr. Reji Morrison at [facility] He was discharged from [facility] due to multiple no-shows. -Medications: mirtazepine 7.5 mg; quetiapine 100 mg at nighttime and 25 mg daily; donepezil 10 mg at bedtime; memantine 5 mg bid; sertraline 150 mg daily -Previously on clozapine and sertraline, which were discontinued during hospitalization, sertraline was restarted by last psychiatrist and was 200 mg - agreed to keep sertraline at 150 mg daily Assessment & Plan (07/21/2022 9:51 AM EDT): -S provider: Dr. Spencer -Previous [facility] providers: Dr. Reji Morrison at [facility] / [facility] He was discharged from [facility] due to multiple no-shows. -Medications: mirtazepine 7.5 mg; quetiapine 100 mg at nighttime; donepezil 5 mg qhs -Previously on clozapine and sertraline, which were discontinued during recent admission Assessment & Plan (03/21/2022 12:04 PM EST): -S provider: Dr. Spencer -Previous [facility] providers: Dr. Reji Morrison at [facility] / [facility] He was discharged from [facility] due to multiple no-shows. 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 Bermudez, last seen on 03/19/20, Dr. Nice prior to 2019 -Current neurologist: [facility] (Dr. Farmer) last seen December 2021, more recent June 2022, per OXYGRAPH OPERATOR and pt -Brain MRI in Dec 2013 showed moderate atrophy, white matter disease -Brain MRI in 2019 - Scattered supratentorial white matter signal abnormality is nonspecific, but compatible with chronic microangiopathic/small vessel ischemic change -Current medications: Carbidopa-Levodopa 25-100 mg 1 tab 4 times daily (Sinemet) for tremor; Seroquel 100mg at bedtime for psychosis; and Donepezil 10 mg qhs for dementia. -Treatment Hx: trihexyphenidyl was discontinued due to GI side effect; Donepezil was discontinued, but recently started; Ropinirole was discontinued due to worsening tremor -Continue current medications at this time -Continue current OXYGRAPH OPERATOR service -Pt is capable of living in a community with OXYGRAPH OPERATOR service. Discussed safety issues and the importance of asking for assistance/help. -Follow-up in 3 months. Assessment & Plan (07/28/2022 5:44 PM EDT): -Previous neurologists: Dr. Bermudez, last seen on 03/19/20, Dr. Nice prior to 2019 -New neurologist: [facility] (Dr. Farmer) last seen December 2021, more recent June 2022, per OXYGRAPH OPERATOR and pt -Brain MRI in Dec 2013 showed moderate atrophy, white matter disease -Brain MRI in 2019 - Scattered supratentorial white matter signal abnormality is nonspecific, but compatible with chronic microangiopathic/small vessel ischemic change -Current medications: Carbidopa-Levodopa 25-100 mg 1 tab 4 times daily (Sinemet) for tremor; Seroquel 100mg at bedtime for psychosis; and Donepezil 10 mg qhs for dementia. -Treatment Hx: trihexyphenidyl was discontinued due to GI side effect; Donepezil was discontinued, but recently started; Ropinirole was discontinued due to worsening tremor -Continue current medications at this time -Continue current OXYGRAPH OPERATOR service -Pt is capable of living in a community with OXYGRAPH OPERATOR service. Discussed safety issues and the importance of asking for assistance/help. -Follow-up in 4 months. Assessment & Plan (03/20/2022 10:13 AM EST): -Previous neurologists: Dr. Bermudez, last seen on 03/19/20, Dr. Nice prior to 2019 -New neurologist: [facility] (Dr. Farmer) last seen December 2021 -Brain MRI in Dec 2013 showed moderate atrophy, white matter disease -Brain MRI in 2019 - Scattered supratentorial white matter signal abnormality is nonspecific, but compatible with chronic microangiopathic/small vessel ischemic change -Current medications: Carbidopa-Levodopa 25-100 mg 1 tab 4 times daily (Sinemet) for tremor; Seroquel 100mg at bedtime for psychosis; and Donepezil 10 mg qhs for dementia. -Treatment Hx: trihexyphenidyl was discontinued due to GI side effect; Donepezil was discontinued, but recently started; Ropinirole was discontinued due to worsening tremor -Continue current medications at this time -Continue current OXYGRAPH OPERATOR service -Pt is capable of living in a community with OXYGRAPH OPERATOR service. Discussed safety issues and the importance of asking for assistance/help. -Follow-up in 4 months. Primary osteoarthritis of both knees 01/08/2015 Assessment & Plan (07/28/2022 5:52 PM EDT): - continue APAP prn Parkinson's disease 12/18/2014 Assessment & Plan (04/18/2024 2:46 PM EDT): -Pt has been treated as Parkinson's disease, and recently given Dx for LBD -Neurologist: [facility] (Dr. Farmer) last seen August 2023. -Brain MRI in Dec 2013 showed moderate atrophy, white matter disease -Brain MRI in 2019 Scattered supratentorial white matter signal abnormality is nonspecific, but compatible with chronic microangiopathic/small vessel ischemic change -Current medications: Carbidopa-Levodopa 25-100 mg 1 tab 4 times daily (Sinemet) for tremor; Seroquel 100 mg at bedtime for psychosis, 25 mg BID; and Donepezil 10 mg qhs for dementia. -Treatment Hx: trihexyphenidyl was discontinued due to GI side effect; Donepezil was discontinued, but recently started; Ropinirole was discontinued due to worsening tremor -Continue current medications -Continue current OXYGRAPH OPERATOR service, she has a very supportive OXYGRAPH OPERATOR who ensures pt is safe and healthy. -Discussed about long-term plan. He may need 24/7 care and need [place] in the future, but currently pt states he would like to remain in the community. -Continue providing adequate OXYGRAPH OPERATOR services to support pt's wish to live in the community. Pt might be safer with more OXYGRAPH OPERATOR hrs than [facility] -Pt is capable of understanding his medical conditions at this time and some limitation and risks from his medical conditions. Discussed safety issues and the importance of asking for assistance/help. Assessment & Plan (01/18/2024 4:06 PM EST): -Pt has been treated as Parkinson's disease, and recently given Dx for LBD -Neurologist: [facility] (Dr. Farmer) last seen August 2023. -Brain MRI in Dec 2013 showed moderate atrophy, white matter disease -Brain MRI in 2019 Scattered supratentorial white matter signal abnormality is nonspecific, but compatible with chronic microangiopathic/small vessel ischemic change -Current medications: Carbidopa-Levodopa 25-100 mg 1 tab 4 times daily (Sinemet) for tremor; Seroquel 100 mg at bedtime for psychosis, 25 mg BID; and Donepezil 10 mg qhs for dementia. -Treatment Hx: trihexyphenidyl was discontinued due to GI side effect; Donepezil was discontinued, but recently started; Ropinirole was discontinued due to worsening tremor -Continue current medications -Continue current OXYGRAPH OPERATOR service, she has a very supportive OXYGRAPH OPERATOR who ensures pt is safe and healthy. -Discussed about long-term plan. He may need 24/7 care and need [place] in the future, but currently pt states he would like to remain in the community. -Continue providing adequate OXYGRAPH OPERATOR services to support pt's wish to live in the community. Pt might be safer with more OXYGRAPH OPERATOR hrs than [facility] -Pt is capable of understanding his medical conditions at this time and some limitation and risks from his medical conditions. Discussed safety issues and the importance of asking for assistance/help. Assessment & Plan (09/15/2023 10:09 AM EDT): -Pt has been treated as Parkinson's disease, and recently given Dx for LBD -Neurologist: [facility] (Dr. Farmer) last seen August 2023. -Brain MRI in Dec 2013 showed moderate atrophy, white matter disease -Brain MRI in 2019 Scattered supratentorial white matter signal abnormality is nonspecific, but compatible with chronic microangiopathic/small vessel ischemic change -Current medications: Carbidopa-Levodopa 25-100 mg 1 tab 4 times daily (Sinemet) for tremor; Seroquel 100 mg at bedtime for psychosis, 25 mg BID; and Donepezil 10 mg qhs for dementia. -Treatment Hx: trihexyphenidyl was discontinued due to GI side effect; Donepezil was discontinued, but recently started; Ropinirole was discontinued due to worsening tremor -Continue current medications -Continue current OXYGRAPH OPERATOR service, she has a very supportive OXYGRAPH OPERATOR who ensures pt is safe and healthy. -Discussed about long-term plan. He may need 24/7 care and [place] in the future, but currently pt states he would like to remain in the community. -Continue providing adequate OXYGRAPH OPERATOR services to support pt's wish to live in the community. Pt might be safer with more OXYGRAPH OPERATOR hrs than [facility] -Pt is capable of understanding his medical conditions at this time and some limitation and risks from his medical conditions. Discussed safety issues and the importance of asking for assistance/help. Assessment & Plan (05/26/2023 11:20 AM EDT): -Pt has been treated as Parkinson's disease, and recently given Dx for LBD -Neurologist: [facility] (Dr. Farmer) last seen June 2022. -Brain MRI in Dec 2013 showed moderate atrophy, white matter disease -Brain MRI in 2019 Scattered supratentorial white matter signal abnormality is nonspecific, but compatible with chronic microangiopathic/small vessel ischemic change -Current medications: Carbidopa-Levodopa 25-100 mg 1 tab 4 times daily (Sinemet) for tremor; Seroquel 100mg at bedtime for psychosis; and Donepezil 10 mg qhs for dementia. -Treatment Hx: trihexyphenidyl was discontinued due to GI side effect; Donepezil was discontinued, but recently started; Ropinirole was discontinued due to worsening tremor -Continue current medications -Continue current OXYGRAPH OPERATOR service, she has a very supportive OXYGRAPH OPERATOR who ensures pt is safe and healthy. -Discussed about long-term plan. He may need 24/7 care and need [place] in the future, but currently pt states he would like to remain in the community. -Continue providing adequate OXYGRAPH OPERATOR services to support pt's wish to live in the community. Pt might be safer with more OXYGRAPH OPERATOR hrs than [facility] -Pt is capable of understanding his medical conditions at this time and some limitation and risks from his medical conditions. Discussed safety issues and the importance of asking for assistance/help. Assessment & Plan (07/28/2022 5:50 PM EDT): -Pt has been treated as Parkinson's disease, and recently given Dx for LBD -Neurologist: [facility] (Dr. Farmer) last seen June 2022. -Brain MRI in Dec 2013 showed moderate atrophy, white matter disease -Brain MRI in 2019 Scattered supratentorial white matter signal abnormality is nonspecific, but compatible with chronic microangiopathic/small vessel ischemic change -Current medications: Carbidopa-Levodopa 25-100 mg 1 tab 4 times daily (Sinemet) for tremor; Seroquel 100mg at bedtime for psychosis; and Donepezil 10 mg qhs for dementia. -Treatment Hx: trihexyphenidyl was discontinued due to GI side effect; Donepezil was discontinued, but recently started; Ropinirole was discontinued due to worsening tremor -Continue current medications -Continue current OXYGRAPH OPERATOR service, she has a very supportive OXYGRAPH OPERATOR who ensures pt is safe and healthy. -Discussed about long-term plan. He may need 24/7 care and need [place] in the future, but currently pt states he would like to remain in the community. -Continue providing adequate OXYGRAPH OPERATOR services to support pt's wish to live in the community. Pt might be safer with more OXYGRAPH OPERATOR hrs than [facility] -Pt is capable of understanding his medical conditions at this time and some limitation and risks from his medical conditions. Discussed safety issues and the importance of asking for assistance/help. Assessment & Plan (03/21/2022 12:01 PM EST): -Pt has been treated as Parkinson's disease, and recently given Dx for LBD -Neurologist: [facility] (Dr. Farmer) last seen 03/13/21. -Brain MRI in Dec 2013 showed moderate atrophy, white matter disease -Brain MRI in 2019 Scattered supratentorial white matter signal abnormality is nonspecific, but compatible with chronic microangiopathic/small vessel ischemic change -Current medications: Carbidopa-Levodopa 25-100 mg 1 tab 4 times daily (Sinemet) for tremor; Seroquel 100mg at bedtime for psychosis; and Donepezil 10 mg qhs for dementia. -Treatment Hx: trihexyphenidyl was discontinued due to GI side effect; Donepezil was discontinued, but recently started; Ropinirole was discontinued due to worsening tremor -Continue current medications -Continue current OXYGRAPH OPERATOR service, she has a very supportive OXYGRAPH OPERATOR who ensures pt is safe and healthy. -Discussed about long-term plan. He may need 24/7 care and [place] in the future, but currently pt states he would like to remain in the community. -At this time, pt appears to be capable of understanding his medical conditions (and some limitations) -Will request more OXYGRAPH OPERATOR hrs to support pt's wish. Pt might be safer with more OXYGRAPH OPERATOR hrs than [facility]. -Pt will need care which he can received care punctually, original arrangement sees to be difficult to arrange on-time. -Field Tech, Leesa Arriaza from [facility] and Dr Farmer recommended a [place] placement since pt was found wandering around and appeared confused recently. However, there is no documentation of harm to himself or others. -Pt is capable of understanding his medical conditions at this time and some limitation and risks from his medical conditions. Discussed safety issues and the importance of asking for assistance/help. Tubular adenoma of colon 12/18/2014 Assessment & Plan (05/26/2023 11:22 AM EDT): -Tubular adenoma found on colonoscopy in April 2010, by Dr. Broussard. -Repeat colonoscopy with Dr. Medina was normal in Nov 2015. -repeat Colonoscopy w/ Dr. Medina on 10/30/20; 3 colonic polyps removed, Dx Tubular Adenoma. -Next colonoscopy is advised to repeat in 3-5 yrs. Assessment & Plan (07/28/2022 5:51 PM EDT): -Tubular adenoma found on colonoscopy in April 2010, by Dr. Broussard. -Repeat colonoscopy with Dr. Medina was normal in Nov 2015. -repeat Colonoscopy w/ Dr. Medina on 10/30/20; 3 colonic polyps removed, Dx Tubular Adenoma. -Next colonoscopy is advised to repeat in 3-5 yrs. Assessment & Plan (03/20/2022 9:56 AM EST): -Tubular adenoma found on colonoscopy in April 2010, by Dr. Broussard. -Repeat colonoscopy with Dr. Medina was normal in Nov 2015. -repeat Colonoscopy w/ Dr. Medina on 10/30/20; 3 chronic polyps removed, Dx Tubular Adenoma. -Next colonoscopy is advised to repeat in 3-5 yrs. Dyslipidemia 07/27/2014 Assessment & Plan (01/18/2024 4:06 PM EST): -Most recent lab: 06/17/21 TC 176; TG 128; HDL 47; LDL 107 -Current medication: atorvastatin 10 mg at QPM -Continue working on lifestyle modification -Continue current medication Assessment & Plan (05/26/2023 11:27 AM EDT): -Most recent lab: 06/17/21 TC 176; TG 128; HDL 47; LDL 107 -Current medication: atorvastatin 10 mg at QPM -Continue working on lifestyle modification -Continue current medication Assessment & Plan (07/21/2022 9:51 AM EDT): -Most recent lab: 06/17/21 TC 176; TG 128; HDL 47; LDL 107 -Current medication: atorvastatin 10 mg at QPM -Continue working on lifestyle modification -Continue current medication Assessment & Plan (03/21/2022 4:40 PM EST): -Most recent lab: 06/17/21 TC 176; TG 128; HDL 47; LDL 107 -Current medication: atorvastatin 10 mg at QPM -Continue working on lifestyle modification -Continue current medication History of alcohol use disorder 06/04/2012 Shoulder pain 06/04/2012 Degeneration of lumbar intervertebral disc 11/11 Assessment & Plan (07/28/2022 5:56 PM EDT): - MRI in 2017 showed mild spondylosis, degenerative changes, mild-moderate foraminal narrowing on the left side at L4-5 - continue APAP prn Gastroesophageal reflux disease 11/12/2011 Assessment & Plan (04/18/2024 2:46 PM EDT): Continue Pantoprazole 40mg qhs Assessment & Plan (05/26/2023 11:21 AM EDT): Continue Pantoprazole 40mg qhs Assessment & Plan (07/21/2022 9:49 AM EDT): Continue Pantoprazole 40mg qhs Assessment & Plan (03/20/2022 10:03 AM EST): Continue Pantoprazole 40mg qhs Resolved Problems Problem Noted Date Diagnosed Date Resolved Date Overweight (BMI 25.0-29.9) 07/28/2022 1 03/21/2023 Assessment & Plan (07/28/2022 5:58 PM EDT): - pt and OXYGRAPH OPERATOR state pt has a good appetite and weight loss is intentional (OXYGRAPH OPERATOR is serving healthier meals) Diarrhea 03/19/2022 03/21/2022 Class 1 obesity due to exces s calories without serious comorbidity with body mass index (BMI) of 30.0 to 30.9 in adult 04/10/2014 Assessment & Plan (07/21/2022 9:51 AM EDT): -Continue working on lifestyle modifications Assessment & Plan (03/21/2022 4:41 PM EST): -Continue working on lifestyle modifications Encounters Date Type Department Care Team Description 04/18/2024 1:45 PM EDT Office Visit [facility] MEDICINE [address] [place] [phone] Consuelo Cramer MD 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) (Primary Dx); Severe Lewy body dementia, unspecified whether behavioral, psychotic, or mood disturbance or anxiety (CMS/HCC); Dementia associated with Parkinson's disease (CMS/HCC); Mild intermittent asthma without complication; Gastroesophageal reflux disease, unspecified whether esophagitis present; Constipation, unspecified constipation type; Weight loss; Failure to thrive in adult 04/18/2024 Orders Only [facility] MEDICINE [address] [place] [phone] Consuelo Cramer MD 04/18/[address] [address] Alla Andres RN [facility] 04/18/2024 Travel 04/14/[address] [address] Consuelo Cramer MD chart prep 02/28/[address] [address] Consuelo Cramer MD Constipation, unspecified constipation type 01/22/[address] [address] Portia Stokes MA Durable Medical Equipment 01/20/[address] [address] Consuelo Cramer MD 01/19/2024 11:30 AM EST Telemedicine [address], [place] Dyslipidemia (Primary Dx); 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); Gastroesophageal reflux disease, unspecified whether esophagitis present from Last 3 Months Immunizations Name Administration Dates Next Due DTaP 10/07/2002 Influenza High-dose Quadriva lent Preservative Free 12/10/2021 Influenza Injectable Quadriv alant Preservative Free IIV4 MDCK 11/21/2022,11/13/2019 Influenza injectable quadriv alent IIV4 with preservative 12/03/2018,01/28/2017,10/24/2014 Influenza injectable quadriv alent preservative free 01/28/2018 Influenza, High Dose Seasona l, Preservative Free 10/20/2023 Influenza, IIV3, injectable 10/11/2019,1 03/23/2017,01/12/2014,10/17,12/25/2005 Influenza, Split (incl. jose francisco fied surface antigen) 11/02/2012,11/12/2011 Pneumococcal Conjugate PCV 20 12/10/2021 Pneumococcal Polysaccharide PPSV23 03/15/2010 RSV Bivalent 01/27/2024 TD (adult), 2 Lf tetanus tox oid, preservative free, adsorbed 10/07/2002 Tdap 03/20/2022,03/08/2012 Zoster, Recombinant 02/07/2019,12/03/2018 Zoster, live 09/12/2016 Social History Tobacco Use Types Packs/Day Years Used Date Smoking Tobacco: Never Passive Smoke Exposure: Never Smokeless Tobacco: Never Tobacco Cessation:Counseling Given: Not Answered Alcohol Use Standard Drinks/Week Comments Never 0 [...] Orientation Straight 12/09/2021 10 :14 AM EDT Last Filed Vital Signs Vital Sign Reading Time Taken Comments Blood Pressure 103/68 04/18/2024 2:13 PM EDT Pulse 94 04/18/2024 2:13 PM EDT Temperature 36.2 ??C (97.1 ??F) 04/18/2024 2:13 PM ED T Respiratory Rate 19 04/18/2024 2:13 PM EDT Oxygen Saturation 99% 04/18/2024 2:13 PM EDT Inhaled Oxygen Concentration - - Weight 60.8 kg (134 lb) 04/18/2024 2:13 PM EDT Height 165.1 cm (5' 5 ) 04/18/2024 2:13 PM EDT Body Mass Index 22.3 04/18/2024 2:13 PM EDT Plan of Treatment Upcoming Encounters Date Type Department Care Team (Late st Contact Info) Description 06/20/2024 2:00 PM EDT Clinical Support [facility] MEDICINE [address] [place] [address] 07/15/2024 2:00 PM EDT Office Visit [facility] OPTOMETRY [address] [place] [address] Ben, Gris, OD [address] [place] [address] Health Maintenance Due Date Last Done Comments CT Colonography 1955 FIT DNA/Cologuard 1955 FIT 1955 FOBT 1955 Sigmoidoscopy 1955 COVID-19 Vaccine ( season) 2023 05/21/2021, 06/11/2020, 05/14/2020 Depression Screening 09/14/2024 09/15/2023, 09/15/19 SDOH Screening 09/14/2024 09/15/2023 Alcohol/Substance Use Screening 01/17/2025 01/18/2024 Tobacco Screening 04/18/2025 04/18/2024 Colonoscopy 10/30/2025 10/30/2020 Colorectal Cancer Screening 10/30/2025 Lipid Panel 07/22/2027 07/21/2022, 05/0 10/2021, 06/29/2020 DTaP/Tdap/Td Vaccines (5 - Td or Tdap) 03/20/2032 03/20/2022, 03/08/2012, 10/07/2002, Additional history exists Hepatitis C Screening Completed 01/31/2019 Zoster Vaccines Completed 02/07/2019, 11/10, 09/12/2016 Pneumococcal Vaccine: 50+ Years Completed 12/10/2021, 03/15/2010 Influenza Vaccine Completed 10/20/2023, , 12/10/2021, Additional history exists RSV Patients and Patients Aged 60 years or older Completed 01/27/2024 HIB Vaccines Aged Out No longer eligi ble based on patient's age to complete this topic HPV Vaccines Aged Out No longer eligi ble based on patient's age to complete this topic Hepatitis A Vaccines Aged Out No long er eligible based on patient's age to complete this topic Hepatitis B Vaccines Aged Out No long er eligible based on patient's age to complete this topic IPV Vaccines Aged Out No longer eligi ble based on patient's age to complete this topic Meningococcal Vaccine Aged Out No laure sunny eligible based on patient's age to complete this topic RSV under 20 months Aged Out No longe r eligible based on patient's age to complete this topic Rotavirus Vaccines Aged Out No longer eligible based on patient's age to complete this topic Procedures Procedure Name Priority Date/Time Associated Diagnosis Comments HEPATIC FUNCTION PANEL Routine 04/18/2024 2:56 PM EDT LIPID PANEL WITH REFLEX TO DIRECT LDL Routine 07/21/2022 10:22 AM EDT Dyslipidemia HM COLONOSCOPY Routine 10/30/2020 ZZZ HISTORICAL HEPATITIS C ANTIBODY RFLX Routine 01/31/2019 11:25 AM EST from Last 3 Months or Most Recently Relevant to Health Maintenance Results * Hepatic Function Panel (04/18/2024 2:56 PM EDT) Bilirubin, Total 0.5 0.0 - 1.0 mg/dL [facility] Bilirubin, Direct 0.1 0.0 - 0.5 mg/dL [facility] Aspartate Amino Transferase 18 5 - 37 U/L [facility] Alanine Aminotransferase 11 0 - 40 U/L [facility] Total Protein 7.3 6.5 - 8.0 g/dL [facility] Albumin Level 4.1 3.5 - 5.0 g/dL [facility] Alkaline Phosphatase 97 39 - 117 U/L [facility] 04/18/2024 2:56 PM EDT 04/18/2024 4:07 PM EDT us Consuelo Cramer MD LAB BLOOD ORDERABLES Final Resul t [facility] [address] [place] [phone] * (ABNORMAL) Lipid Panel with Reflex to Direct LDL (07/21/2022 10:22 AM EDT) Cholesterol, Total 165 <200 mg/dL [facility] HDL Cholesterol 55 > OR = 40 mg/dL [facility] Triglycerides 183(H) <150 mg/dL [facility] LDL Cholesterol 82 mg/dL (calc) [facility] Comment: Reference range: <100 Desirable range <100 mg/dL for primary prevention; ?? <70 mg/dL for patients with CHD or diabetic patients with > or = 2 CHD risk factors. LDL-C is now calculated using the Miki calculation, which is a validated novel method providing better accuracy than the Friedewald equation in the estimation of LDL-C. Vignesh MARTINEZ et al. WILFRID. 2013;310(19): 5999-3654 (http://education.[employer].Walkmore/faq/HMP749) Chol/HDLC Ratio 3.0 <5.0 (calc) [facility] Non-HDL Cholesterol 110 <130 mg/dL (calc) [facility] Comment: For patients with diabetes plus 1 major ASCVD risk factor, treating to a non-HDL-C goal of <100 mg/dL (LDL-C of <70 mg/dL) is considered a therapeutic option. 07/21/2022 10:2 2 AM EDT 07/21/2022 10:22 AM EDT Narrative [facility] - 07/22/2022 7:36 AM EDT FASTING:UNKNOWN FASTING: UNKNOWN Consuelo Cramer MD LAB BLOOD ORDERABLES Final Resul t Performing Organization Address City/[facility] Co de Phone Number [facility] [address], [place] [address] [facility] [address] [place] [address] * (ABNORMAL) Colonoscopy (10/30/2020) Colonoscopy Abnormal( A) Normal Comment:3 polyps, all tubula r adenoma, Dr. Medina 10/30/2020 Marky Provider HEALTH MAINTENANCE Final Result * HEPATITIS C ANTIBODY RFLX (01/31/2019 11:25 AM EST) Pathologist [facility] HEPATITIS C ANTIBODY NONREACTIVE NONREACTIVE [facility] Comment: Antibodies to HCV not detected; does not exclude early acute HCV infection. 01/31/2019 11:2 5 AM EST Consuelo Cramer MD HISTORICAL/NON ORDERABLE LABS Fi nal Result [facility] [address] from Last 3 Months or Most Recently Relevant to Health Maintenance Insurance [facility] Care Teams System Dispatcher Relationship Specialty Start Date End Date Consuelo Cramer MD [address] [place] [phone] PCP - General Family Medicine 12/10/11
--- OUTSIDE RECORDS SUMMARY | 2024-04-18 17:05 | XMS_ITS | Encounter Summary ---
Author Organization [employer] [facility] Address [address] [place] [address] [address] [place] [address] Care Team Providers Care Floriculture Professor Name Role Phone Consuelo Cramer MD Primary Care Provider [phone] Encounter Details Date Type Department Care Team (Late st Contact Info) Description 02/04/2022 Orders Only [facility] MED & PEDS [address] [place], [place] [phone] Shannon Moreno LPN Social History Tobacco Use Types Packs/Day Years Used Date Smoking Tobacco: Never Assessed Sex and Gender Information Value Date Recorded Sex Assigned at Male 12/09/2021 10:14 AM EDT Legal Sex Male 10:14 AM EDT Gender Identity Male 12/09/2021 10:14 AM EDT Sexual Orientation Straight 12/09/2021 10 :14 AM EDT documented as of this encounter Plan of Treatment Upcoming Encounters Date Type Department Care Team (Late st Contact Info) Description 06/20/2024 2:00 PM EDT Clinical Support [facility] MEDICINE [address] [place] [address] 07/15/2024 2:00 PM EDT Office Visit [facility] OPTOMETRY [address] [place] [address] BenGris maldonado, OD [address] [place] [address] documented as of this encounter Visit Diagnoses Not on filedocumented in this encounter Care Teams Floriculture Professor Relationship Specialty Start Date End Date Consuelo Cramer MD [address] [place] [address] PCP - General Family Medicine 12/10/11 documented as of this encounter
--- OUTSIDE RECORDS SUMMARY | 2024-04-18 17:05 | XMS_ITS | Encounter Summary ---
Author Organization [employer] [facility] Address [address] [facility] [address] [place] [address] Care Team Providers Care Liver Trimmer Name Role Phone Consuelo Cramer MD Primary Care Provider Reason for Visit * Reason Onset Date Comments Hospital Follow-up 04/30/2023 Encounter Details Date Type Department Care Team ([facility] st Contact Info) Description 04/30/2023 Telephone [facility] MEDICINE [address] [place], [place] [phone] Consuelo Cramer MD [address] [place], [place] [phone] Hospital Follow-up Social History Tobacco Use Types Packs/Day Years [...] encounter Miscellaneous Notes * Telephone Encounter - Elda Cardenas - 04/30/2023 10:06 AM EDT Tc from pt requesting a HDF appt. Hospital: [facility] Date of admission: 10/2022 Discharge date: 05/05/23 Please contact [facility] at [phone] documented in this encounter Plan of Treatment Upcoming Encounters Date Type Department Care Team (Late st Contact Info) Description 06/20/2024 2:00 PM EDT Clinical Support [facility] MEDICINE [address] [place] [address] 07/15/2024 2:00 PM EDT Office Visit [facility] OPTOMETRY [address] [place] [address] Gris Contreras, OD [address] [place] [address] documented as of this encounter Visit Diagnoses Not on filedocumented in this encounter Care Teams Liver Trimmer Relationship Specialty Start Date End Date Consuelo Cramer MD [address] [place] [address] PCP - General Family Medicine 12/10/11 documented as of this encounter
--- OUTSIDE RECORDS SUMMARY | 2024-04-18 17:05 | XMS_ITS | Patient Health Record ---
Author Organization [facility] Address [address] [place] [address] Care Team Providers Care Supervisor Airplane Flight Attendant Name Role Phone Shoaib CALDERÓN, Consuelo Primary Care Provider Arsh Villarreal Jr Unavailable Reason For Referral No Information Medications Medication SIG (Take, Route, Frequency, Duration) Notes Start Date End Date Status Carbidopa-Levodopa 25-100 MG 1 tablet Orally four times a day Active QUEtiapine Fumarate 100 MG 1 tablet at b edtime Orally Once a day Active CertaVite/Antioxidants - as directed Ora lly once a day Active MiraLax (colon prep) 17 GM/SCOOP mixed with Gatorade or Crystal Light Orally begin at 5:00 p.m. the day before the procedure for 1 day 10/11/2020 Active Vitamin B-12 1000 MCG 1 tablet Orally On ce a day Active Pantoprazole Sodium 40 MG 1 tablet Orall y Once a day for 30 day(s) Active Mirtazapine 7.5 MG 1 tablet at bedtime Orally Once a day Active Atorvastatin Calcium 10 MG 1 tablet Oral ly Once a day for 30 day(s) Active Sertraline HCl 100 MG 2 tablet Orally On ce a day Active Donepezil HCl 10 MG TAKE 1 TABLET BY MOHAMUD TH AT BEDTIME Oral for 30 Active Docusate Sodium Acti ve Vitamin D3 1000 UNIT 1 capsule Orally On ce a day for 30 day(s) Active Immunizations Vaccine Route Administration Date Status Comme nts Influenza Unknown 01/20/2018 Administered Influenza Unknown 10/11/2019 Administered Social History Alcohol Screen Question Answer Notes Did you have a drink containing alcohol in the p ast year? No Points 0 Interpretation Negative Problems Problem Type SNOMED Code ICD Code Onset Dates Problem Status W/U Status Risk Notes Problem 326903452 Colon cancer screening (Z12.11) Active confirmed Problem 80069324 Epigastric pain (R10.13) Active confirmed Problem 57121619 Diarrhea (R19.7) Active confirmed Problem 020919633 Gastroesophageal reflux disease (K21.9) Active confirmed Problem 405305534 Gastroesophageal reflux disease, esophagitis presence not specified (K21.9) Active confirmed Plan Of Treatment Future Test Test Name Order Date COLONOSCOPY 06/06/2015 UPPER GI ENDOSCOPY 04/28/2018 COLONOSCOPY 10/11/2020 Insurance Providers Payer Name Payer Address Payer Phone Subscriber Number Group Number Insured Name Patient Relationship to Insured Coverage Start Date Coverage End Date [facility] [address] [place] [address] [id number] NADER VELASCO Self - patient is the insured Medical (General) History Medical History History ICD Code elevated cholesterol depression esophageal reflux osteoarthritis Parkinson's disease Surgical History Surgery Date(Month/Year) finger surgery
--- OUTSIDE RECORDS SUMMARY | 2024-04-18 17:05 | XMS_ITS | Encounter Summary ---
Author Organization [employer] [facility] Address [address] [place] [address] Care Team Providers Care Auto Technician Name Role Phone Consuelo Cramer MD Primary Care Provider [phone] Reason for Visit * Reason Onset Date Comments [facility] 04/18/2024 Encounter Details Date Type Department Care Team ([facility] st Contact Info) Description 04/18/2024 Telephone [facility] MEDICINE [address] [place], [place] [phone] Alla Andres RN [facility] Social History Tobacco Use Types Packs/Day Years [...] encounter Miscellaneous Notes * Telephone Encounter - Alla Andres RN - 04/18/2024 2:08 PM EDT TC placed to [facility] provider services line and a direct message will be sent to pt care connector Floridalma Mcintosh to assist the pt with having the ordered CT scan and labs done. Floridalma will call back our number as callback number given with any future questions or concerns. ----- Message from Consuelo Cramer MD sent at 04/18/2024 1:53 PM EDT ----- Please contact patient's care connector and inform that patient has not done CT scan yet (patient hasabdominal pain and has lost significant weight). Patient also has not done a lab yet. Please ask CPto assist patient to complete these tests. Thank you documented in this encounter Plan of Treatment Upcoming Encounters Date Type Department Care Team (Late st Contact Info) Description 06/20/2024 2:00 PM EDT Clinical Support [facility] MEDICINE [address] [place] [address] 07/15/2024 2:00 PM EDT Office Visit [facility] OPTOMETRY [address] [place] [address] Gris Contreras, COSTA [address] [place] [address] documented as of this encounter Visit Diagnoses Not on filedocumented in this encounter Care Teams Auto Technician Relationship Specialty Start Date End Date Consuelo Cramer MD [address] [place] [address] PCP - General Family Medicine 12/10/11 documented as of this encounter
--- OUTSIDE RECORDS SUMMARY | 2024-04-18 17:05 | XMS_ITS | Encounter Summary ---
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) (Primary Dx); Severe Lewy body dementia, unspecified whether behavioral, psychotic, or mood disturbance or anxiety (CMS/HCC); Dementia associated with Parkinson's disease (CMS/HCC); Mild intermittent asthma without complication; Gastroesophageal reflux disease, unspecified whether esophagitis present; Constipation, unspecified constipation type; Weight loss; Failure to thrive in adult Social History Tobacco Use Types Packs/Day Years Used Date Smoking Tobacco: Never Passive Smoke Exposure: Never Smokeless Tobacco: Never Alcohol Use Standard Drinks/Week Comments Never 0 (1 standard drink = 0.6 oz pur e alcohol) Housing Stability Answer Date Recorded What is your housing situation today? I have yennifer sing 09/15/[address] you li [...] AM EDT documented as of this encounter Last Filed Vital Signs Vital Sign Reading [...] Mass Index 22.3 04/18/2024 2:13 PM EDT documented in this encounter Miscellaneous Notes * Assessment & Plan Note - Shannon Varma MA - 04/18/2024 2:47 PM EDTAssociated Problem(s): Constipation -Previously followed by GI, Rx Linzess -Continue Miralax prn -Increase fiber in diet * Assessment & Plan Note - Shannon Varma MA - 04/18/2024 2:46 PM EDTAssociated Problem(s): Gastroesophageal reflux disease Continue Pantoprazole 40mg qhs * Assessment & Plan Note - Shannon Varma MA - 04/18/2024 2:46 PM EDTAssociated Problem(s): Mild intermittent asthma -PFT was completed on 04/23/17 which showed mild restrictive and obstructive airway disease -Last exacerbation on 05/01/2017 and was Tx with prednisone and albuterol [place] [facility] -Continue albuterol HFA and neb prn * Assessment & Plan Note - Shannon Varma MA - 04/18/2024 2:46 PM EDTAssociated Problem(s): Lewy body dementia (CMS/HCC) Neurologist: [facility] (Dr. Farmer) last seen June 2022, per [...] worsening tremor -Continue current medications -Continue current SPEECH THERAPIST service, he has a very supportive SPEECH THERAPIST who ensures pt is safe and healthy. -Discussed about a long-term plan. He was in a care home in 2022. * Assessment & Plan Note - Shannon Varma MA - 04/18/2024 2:46 PM EDTAssociated Problem(s): Parkinson's disease (CMS/HCC) -Pt has been treated as Parkinson's disease, and recently given Dx for LBD -Neurologist: [facility] (Dr. Farmer) last seen August 2023. -Brain [...] worsening tremor -Continue current medications -Continue current SPEECH THERAPIST service, she has a very supportive SPEECH THERAPIST who ensures pt is safe and healthy. -Discussed about long-term plan. He may need 24/7 care and need care home placement in the future, but currently pt states he would like to remain in the community. -Continue providing adequate SPEECH THERAPIST services to support pt's wish to live in the community. Pt might be safer with more SPEECH THERAPIST hrs than VNA -Pt is capable of understanding his medical conditions at this time and some limitation and risks from his medical conditions. Discussed safety issues and the importance of asking for assistance/help. documented in this encounter Plan of Treatment Upcoming Encounters Date Type Department Care Team (Late st Contact Info) Description 06/20/2024 2:00 PM EDT Clinical Support [facility] [address] [place] [address] 07/15/2024 2:00 PM EDT Office Visit [facility] [address] [place] [address] Gris Contreras, OD 230 [place] [address] documented as of this encounter Visit Diagnoses Diagnosis 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)- Primary Severe Lewy body dementia, unspecified whether behavioral, psychotic, or mood disturbance or anxiety (CMS/HCC) Dementia associated with Parkinson's disease (CMS/HCC) Mild intermittent asthma without complication Gastroesophageal reflux disease, unspecified whether esophagitis present Constipation, unspecified constipation type Weight loss Loss of weight Failure to thrive in adult Adult failure to thrive documented in this encounter Care Teams Communications Scientist Relationship Specialty Start Date End Date Consuelo Cramer MD [address] [place] [address] PCP - General Family Medicine 12/10/11 documented as of this encounter
--- OUTSIDE RECORDS SUMMARY | 2024-04-18 17:05 | XMS_ITS | Encounter Summary ---
Author Organization [facility] [facility] Address [address] [place] [address] 7t [place] [address] Care Team Providers Care Film Numberer Name Role Phone Consuelo Cramer MD Primary Care Provider [phone] Reason for Visit * Reason Comments Med Refill Encounter Details Date Type Department Care Team (Late st Contact Info) Description 04/21/2022 Refill [facility] [address] [place], [place] [phone] Consuelo Cramer MD [address] [place], [place] [phone] Social History Tobacco Use Types Packs/Day Years Used Date Smoking Tobacco: Never Smokeless Tobacco: Never Alcohol Use Standard Drinks/Week Comments Never 0 (1 standard drink = 0.6 oz pur e alcohol) Depression Answer Date Recorded Patient Health Questionnaire-2 [...] Description 06/20/2024 2:00 PM EDT Clinical Support [facility] [address] [place], [place] [phone] 07/15/2024 2:00 PM EDT Office Visit [facility] [address] [place], [place] [phone] Gris Contreras, OD [address] [place], [place] [phone] documented as of this encounter Visit Diagnoses Not on filedocumented in this encounter Care Teams Film Numberer Relationship Specialty Start Date End Date Consuelo Cramer MD [address] [place] [address] PCP - General Family Medicine 12/10/11 documented as of this encounter
--- OUTSIDE RECORDS SUMMARY | 2024-04-18 17:05 | XMS_ITS | Encounter Summary ---
Author Organization [employer] [facility] Address [address] [place] [address] 7[address] [place] [address] Care Team Providers Care Stapler Coil Unit Name Role Phone Consuelo Cramer MD Primary Care Provider [phone] Encounter Details Date Type Department Care Team (Late st Contact Info) Description 02/20/2022 Orders Only [facility] [address] [place] [address] Ban Bedolla LPN Social History Tobacco Use [...] Description 06/20/2024 2:00 PM EDT Clinical Support [facility] [address] [place] [address] 07/15/2024 2:00 PM EDT Office Visit [facility] [address] [place] [address] Ben, Gris, OD 230 [place] [address] documented as of this encounter Visit Diagnoses Not on filedocumented in this encounter Care Teams Stapler Coil Unit Relationship Specialty Start Date End Date Consuelo Cramer MD 230 [place] [address] PCP - General Family Medicine 12/10/11 documented as of this encounter
--- OUTSIDE RECORDS SUMMARY | 2024-04-18 17:05 | XMS_ITS | Encounter Summary ---
Author Organization [employer] [facility] Address [address] [facility] 7t [place] [address] Care Team Providers Care Avian Keeper Name Role Phone Consuelo Cramer MD Primary Care Provider [phone] Reason for Visit * Reason Onset Date Comments chart prep 04/14/2024 Encounter Details Date Type Department Care Team ([facility] st Contact Info) Description 04/14/2024 Telephone [facility] [address] [place], [place] [phone] Consuelo Cramer MD [address] [place], [place] [phone] chart prep Social History Tobacco Use Types Packs/Day Years Used Date Smoking Tobacco: Never Passive Smoke Exposure: Never Smokeless Tobacco: Never Alcohol Use Standard Drinks/Week Comments Never 0 (1 standard drink = 0.6 oz pur e alcohol) Housing Stability Answer Date Recorded What is your housing situation today? I have yennifermarj victoria 09/15/[address] you [...] encounter Miscellaneous Notes * Telephone Encounter - Yanet Cardenas MA - 04/14/2024 2:13 PM EST ..chart Prep Labs: not done 10/20/23 Images: not done ct no show Vaccines due: Covid Due Referrals: Completed Screenings: Not Applicable Overdue care gaps: None prep documented in this encounter Plan of Treatment Upcoming Encounters Date Type Department Care Team (Late st Contact Info) Description 06/20/2024 2:00 PM EDT Clinical Support [facility] [address] [place] [address] 07/15/2024 2:00 PM EDT Office Visit [facility] [address] [place] [address] Ben, Gris, OD 230 [place] [address] documented as of this encounter Visit Diagnoses Not on filedocumented in this encounter Care Teams Avian Keeper Relationship Specialty Start Date End Date Consuelo Cramer MD 230 [place] [address] PCP - General Family Medicine 12/10/11 documented as of this encounter
--- OUTSIDE RECORDS SUMMARY | 2024-04-18 17:05 | XMS_ITS | Encounter Summary ---
Author Organization [employer] [facility] Address [address] [place] [address] 7t [place] [address] Care Team Providers Care Proj Mgr Name Role Phone Consuelo Cramer MD Primary Care Provider [phone] Reason for Referral * Consultation (Routine) - Authorized Specialty Diagnoses / Procedures Referred By Fitz t Referred To Contact Pharmacy Diagnoses 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) Gastroesophageal reflux disease, unspecified whether esophagitis present Dyslipidemia Consuelo Cramer MD [address] [place] [address] Phone: tel: fax: Referral ID Status Reason Start Date Expiration Date Visits Requested Visits Authorized [id number] Authorized Continuity of Care 12/22/2023 12/21/2024 6 6 Encounter Details Date Type Department Care Team (Late st Contact Info) Description 12/22/2023 Orders Only [facility] [address] [place] [phone] Consuelo Cramer MD [address] [place], [place] [phone] 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) (Primary Dx); Gastroesophageal reflux disease, unspecified whether esophagitis present; Dyslipidemia Social History Tobacco Use Types Packs/Day Years [...] Description 06/20/2024 2:00 PM EDT Clinical Support [facility] [address] [place] [address] 07/15/2024 2:00 PM EDT Office Visit [facility] [address] [place] [address] Ben, Gris, OD [address] [place] [address] Scheduled Referrals Name Type Priority Associated Diagnoses Orde r Schedule Referral to Pharmacy [place] Outpatient Referral Routine 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) Gastroesophageal reflux disease, unspecified whether esophagitis present Dyslipidemia Ordered: 12/22/2023 documented as of this encounter Visit Diagnoses Diagnosis 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
[2024-04-18 17:17] LABS: PSA,Total (Free>4and<10) 4.35 ng/mL (0.00-4.00)
[2024-04-20 12:55] LABS: Free Prostate Spec Ag 0.8 ng/mL; Percent Free Prostate Spec Ag 20 % (calc) (>25); Prostate Specific Ag Total 4.1 ng/mL (< OR = 4.0)
== END 2024-04-18 14:55 | disposition home or self-care (01) ==
LOC: HO.HHCL 14:54
PROVIDERS: Family Medicine; Visit Provider Nurse Practitioner Family
DX: E78.5 Hyperlipidemia, unspecified (principal); R97.20 Elevated prostate specific antigen [PSA]; Z12.5 Encounter for screening for malignant neoplasm of prostate
CPT/HCPCS: 36415; 80076; 84153; 84154

== ENCOUNTER 2024-04-25 12:04 | Outpatient (AMB) | payer OTHER, SELFPAY ==
--- NOTE | 2024-04-25 12:04 | MHC.OFFVIS ---
Intake Visit Reasons: PSA Results Intake Note: Patient is present for tele visit follow up on:Elevated PSA and Urinary Incontinence PSA: 4.35 Urology medications: finasteride and tamsulosin Blood thinner: Antibiotic Allergies: None Lead Section Supervisor Required: Yes Lead Section Supervisor Services: Lead Section Supervisor Present Lead Section Supervisor Name: [phone] Allergies No Known Allergies [No Known Allergies*] Allergy (Verified 04/25/24 12:07) Medication List - Last Reconciled 04/25/24 by EMMY MerinoP- albuterol sulfate 90 mcg/actuation (Ventolin HFA) 2 puffs inhalation Q4H PRN atorvastatin 10 mg PO BEDTIME 30 days carbidopa-levodopa 25-100 mg 1 tab PO QID cholecalciferol (vitamin D3) 1 tab PO DAILY cyanocobalamin (vitamin B-12) 1 tab PO DAILY docusate sodium 1 cap PO BID donepezil 1 tab PO BEDTIME finasteride 5 mg PO DAILY 90 days memantine 1 tab PO BID mirtazapine 7.5 mg PO BEDTIME 30 days wiltiptklajl-xaiy-qrnmn acid 18-400 mg-mcg (Certavite-Antioxidant) 1 tab PO DAILY@1200 pantoprazole 1 tab PO DAILY@0630 polyethylene glycol 3350 17 grams PO DAILY PRN quetiapine 25 mg PO BID@0800,1700 quetiapine 50 mg PO DAILY@1200 quetiapine 100 mg PO BEDTIME sennosides (senna) 2 tabs PO DAILY PRN sertraline 2 tabs PO DAILY tamsulosin 0.4 mg PO BEDTIME 90 days HPI Comments Details: Kingston is a pleasant 68 year old Uzbek-speaking male patient of . He has a PMH of osteoarthritis, depression, hypercholesteremia, GERD, arthritis, chronic pain, dementia, and Parkinson's disease. He is being followed up on today via telehealth for history of an elevated PSA and lower urinary tract symptoms. In discussion with patient's CUTTING AND CREASING PRESS OPERATOR worker who provides much of today's history given patient was a poor historian due to Parkinson's dementia. She reports patient had been compliance with Flomax and finasteride as prescribed however over the last 4 months has not been taking the medication as he did not have any refills and missed his last appointment. She reports she had been trying to have PSA drawn however patient had a difficult time at lab due to him being a hard stick with phlebotomy. She denies patient to have any bothersome urinary issues or concerns. He continues with adult diapers and feels this has been manageable. Recent PSA results reviewed today. 05/03 4.4 % free PSA 20%. According to previous office noted appears PSA 08/01 9.5. We discussed PSA decreased when compared to previous however still remains slightly elevated. We discussed potential causes of elevated PSA as well as further treatment options and risks and benefits of these treatment options. They deny hematuria, dysuria, foul smelling urine, flank pain, fever, and or chills. PREVIOUS OFFICE NOTE: Background Parkinson's dementia Incomplete bladder emptying with lack of ability to hold urine Discussed impact of Parkinson's dementia Trial tamsulosin with daily finasteride Repeat PSA in 4 months with PVR Lower urinary tract symptoms With diapers, has urgency PVR 160 cc PSA 08/01 9.5 PFSH Medical History Osteoarthritis Depression Elevated cholesterol GERD (gastroesophageal reflux disease) Arthritis Chronic pain Dementia Parkinson disease Surgical History Hx of colonoscopy Hx of hand surgery Social History Household Members: None Household Members Other:: per [facility] assessment, lives independently Housing: Apartment Do you presently have visiting nurse or other home services: Yes (CUTTING AND CREASING PRESS OPERATOR) Alcohol intake: unknown Comment: PATIENT ASLEEP Patient Tobacco Use Status: Former Tobacco user Second Hand Smoke Exposure: No Advance Directives Date on File: 12/13/21 service: No Sexual orientation: Straight/Heterosexual Review of Systems Const Unobtainable due to mental condition Physical Exam Const General: cooperative Orientation/consciousness: oriented to person Neuro General: oriented to person Psych Insight: Limited insight present (Psych) Judgement: Limited judgement present (Psych) Telehealth Telehealth Telehealth Platform: [facility] Location of provider rendering services: practice address Location of patient: address on file Patient Identification confirmed using: Name, : Yes Telehealth method: voice only Patient verbally consented to treatment: Yes Patient verbally consented to billing insurance company: Yes Patient informed of any privacy concerns related to visit: Yes Minutes spent on Phone/Video with Pt.: 15 Assessment & Plan Assessment & Plan (1) Elevated PSA: Code(s): R97.20 - Elevated prostate specific antigen [PSA] Category: Medical Plan Recent PSA results reviewed with the patient and his PSA worker today; as noted above. Refills provided on finasteride and Flomax. We discussed potential causes of elevated PSA as well as further treatment options and risks and benefits of these treatment options. Will obtain PSA in 4 months. Follow-up in 4 months with PSA and PVR; or sooner with any issues, concerns, and or questions. Orders: Orders PSA,Total (Free>4and<10) 4 Months R97.20 - Elevated prostate specific antigen [PSA] Medications: Refilled finasteride 5 mg PO DAILY 90 days 90 tabs 3RF N40.1 - Benign prostatic hyperplasia with lower urinary tract symptoms, R33.9 - Retention of urine, unspecified tamsulosin 0.4 mg PO BEDTIME 90 days 90 caps 3RF N13.8 - Other obstructive and reflux uropathy, N40.1 - Benign prostatic hyperplasia with lower urinary tract symptoms, R33.9 - Retention of urine, unspecified Patient Instructions: The patient had an opportunity to ask questions regarding the treatment plan. All questions were answered. Physical exam, labs, and imaging were discussed and reviewed in detail. As well as risks, benefits, and discussion of treatment choices. No major barriers to understanding were identified. The patient expressed understanding and agreement with the above treatment plan. The patient was made aware they should contact our office by phone for worsening of their current condition, the appearance of new symptoms, or with any questions or concerns. Compliance is encouraged with any medications and follow up testing that is ordered. It is a privilege to be allowed the opportunity to participate in? your urological care.? Again, if you have any questions or concerns If you have any questions or concerns please do not hesitate to contact me. The office is [phone]. This note is constructed using voice recognition software. While every effort has been made to ensure accuracy reimbursement consultant errors may have been included. Yours sincerely, JASMINE Merino Coding Level of Care Code Tele Est Pt Level 3 (31399) Complex EM visit Add On G2211 Diagnoses Elevated PSA R97.20
--- OUTSIDE RECORDS SUMMARY | 2024-04-25 14:18 | XMS_ITS | Encounter Summary ---
Author Organization [employer] [facility] Address [address] [place] [address] 7t [place] [address] Care Team Providers Care Team Assistant Name Role Phone Consuelo Cramer MD Primary Care Provider [phone] Encounter Details Date Type Department Care Team (Late st Contact Info) Description 03/17/2022 Orders Only [facility] [address] [place], [place] [phone] Ban Bedolla LPN Social History Tobacco Use [...] Description 06/20/2024 2:00 PM EDT Clinical Support [facility] [address] [place], [place] [phone] 07/15/2024 2:00 PM EDT Office Visit [facility] [address] [place], [place] [phone] Ben, Gris, OD 230 [place], [place] [phone] documented as of this encounter Visit Diagnoses Not on filedocumented in this encounter Care Teams Team Assistant Relationship Specialty Start Date End Date Consuelo Cramer MD [address] [place] [address] PCP - General Family Medicine 12/10/11 documented as of this encounter
--- OUTSIDE RECORDS SUMMARY | 2024-04-25 14:18 | XMS_ITS | Patient Health Record ---
Author Organization [facility] Address [address] [place] [address] Care Team Providers Care Slot Floorman Name Role Phone Shoaib CALDERÓN, Consuelo Primary [...] Problem Status W/U Status Risk Notes Problem 346117106 Colon cancer screening (Z12.11) Active confirmed Problem [id number] Epigastric pain (R10.13) Active confirmed Problem 86931049 Diarrhea (R19.7) Active confirmed Problem 131798299 Gastroesophageal reflux disease (K21.9) Active confirmed Problem 097599321 Gastroesophageal reflux disease, esophagitis presence not specified (K21.9) Active confirmed Plan Of Treatment Future Test Test Name Order Date COLONOSCOPY 06/06/2015 UPPER GI ENDOSCOPY 04/28/2018 COLONOSCOPY 10/11/2020 Next Appt Details Provider Name:Arsh fuller , 08/01/2024 09:40:00 AM, [address] [place] [address], [address], [place], [address], Insurance Providers Payer Name Payer Address Payer Phone Subscriber Number Group Number Insured Name Patient Relationship to Insured Coverage Start Date Coverage End Date [facility] [address] [place] [phone] [id number] NADER VELASCO Self - patient is the insured Medical (General) History Medical History History ICD Code elevated cholesterol depression esophageal reflux osteoarthritis Parkinson's disease Surgical History Surgery Date(Month/Year) finger surgery
--- OUTSIDE RECORDS SUMMARY | 2024-04-25 14:18 | XMS_ITS | Encounter Summary ---
Author Organization [employer] [facility] Address [address] [facility] 7t [place] [address] Care Team Providers Care Patternator Name Role Phone Consuelo Cramer MD Primary Care Provider [phone] Reason for Visit * Reason Onset Date Comments Hospital Follow-up 04/30/2023 Encounter Details Date Type Department Care Team ([facility] st Contact Info) Description 04/30/2023 Telephone [facility] [address] [place], [place] [phone] Consuelo Cramer MD [address] [place], [place] [phone] Hospital Follow-up Social History Tobacco Use Types [...] from pt requesting a HDF appt. Hospital: [facility] Date of admission: 10/2022 Discharge date: 05/05/23 Please contact APPLICATION SPEC at [phone] documented in this encounter Plan of Treatment Upcoming Encounters Date Type Department Care Team (Late st Contact Info) Description 06/20/2024 2:00 PM EDT Clinical Support [facility] [address] [place] [address] 07/15/2024 2:00 PM EDT Office Visit [facility] [address] [place] [address] Gris Contreras, OD [address] [place] [address] documented as of this encounter Visit Diagnoses Not on filedocumented in this encounter Care Teams Patternator Relationship Specialty Start Date End Date Consuelo Cramer MD [address] [place] [address] PCP - General Family Medicine 12/10/11 documented as of this encounter
--- OUTSIDE RECORDS SUMMARY | 2024-04-25 14:18 | XMS_ITS | Encounter Summary ---
Author Organization [employer] [facility] Address [address] [place] [address] 7t [place] [address] Care Team Providers Care Extension Forester Name Role Phone Consuelo Cramer MD Primary Care Provider [phone] Encounter Details Date Type Department Care Team (Late st Contact Info) Description 02/20/2022 Orders Only [facility] [address] [place] [address] Ban Bedolla LPN Social History Tobacco Use [...] 2:00 PM EDT Clinical Support [facility] [address] [place] [address] 07/15/2024 2:00 PM EDT Office Visit [facility] [address] [place] [address] Ben, Gris, OD [address] [place] [address] documented as of this encounter Visit Diagnoses Not on filedocumented in this encounter Care Teams Extension Forester Relationship Specialty Start Date End Date Consuelo Cramer MD [address] [place] [address] PCP - General Family Medicine 12/10/11 documented as of this encounter
--- OUTSIDE RECORDS SUMMARY | 2024-04-25 14:18 | XMS_ITS | Encounter Summary ---
Author Organization [employer] [facility] Address [address] [place] [address] [address] [place] [address] Care Team Providers Care Wire Saw Operator Name Role Phone Consuelo Cramer MD Primary Care Provider [phone] Reason for Visit * Reason Comments Med Refill Encounter Details Date Type Department Care Team (Late st Contact Info) Description 04/21/2022 Refill [facility] MEDICINE [address] [place], [place] [phone] Consuelo Cramer MD [address] [place], [place] [phone] Social History Tobacco Use Types Packs/Day Years [...] Description 06/20/2024 2:00 PM EDT Clinical Support [facility] MEDICINE [address] [place], [place] [phone] 07/15/2024 2:00 PM EDT Office Visit [facility] OPTOMETRY [address] [place], [place] [phone] Gris Contreras, OD [address] [place], [place] [phone] documented as of this encounter Visit Diagnoses Not on filedocumented in this encounter Care Teams Wire Saw Operator Relationship Specialty Start Date End Date Consuelo Cramer MD [address] [place] [id number] PCP - General Family Medicine 12/10/11 documented as of this encounter
--- OUTSIDE RECORDS SUMMARY | 2024-04-25 14:18 | XMS_ITS | Encounter Summary ---
Author Organization [employer] [facility] Address [address] [address]t [place] [address] Care Team Providers Care Aco Coordinator Name Role Phone Consuelo Cramer MD Primary Care Provider [phone] Reason for Visit * Reason Onset Date Comments Letter for School/Work 01/20/2023 Encounter Details Date Type Department Care Team ([facility] Contact Info) Description 01/20/2023 Telephone [facility] MEDICINE [address] [place], [place] [phone] Consuelo Cramer MD [address] [place], [place] [phone] Letter for School/Work Social History Tobacco Use [...] - 01/27/2023 10:20 AM EST Leesa from [facility] stated that the issue is [...] have was able to talk with housing. [facility] is advocating for patient to stay at [facility] until HCP is able to talk with housing to be able to move in to take care of patient. Patient has invoked power of stem sizer and HCP. Leesa stated that patient can have 3 registered diet technician to stay most of the day and only 2 hours at night in a rotating schedule. [facility] wants PCP to be aware of situation. * Telephone Encounter - Denise Hodgson - 01/21/2023 9:41 AM EST Tc from [facility] requesting a letter with PCP recommendation/approval stating if pt is eligible tohave 24 hour care due to pt currently being admitted at [facility] pt health care proxy has been trying to discharge pt from facility however due to safety concerns they are having difficulty with discharging pt. Please contact at [phone] * Telephone Encounter - Elda Cardenas - 01/20/2023 1:07 PM EST Tc from [employer] requesting a letter for pt stating provider recommends someone can stay with pt at night at his apartment for care. Please clarify. Please contact zoey at [phone] documented in this encounter Plan of Treatment Upcoming Encounters Date Type Department Care Team (Late st Contact Info) Description 06/20/2024 2:00 PM EDT Clinical Support [facility] MEDICINE [address] [place] [address] 07/15/2024 2:00 PM EDT Office Visit [facility] OPTOMETRY [address] [place], [place] [phone] Gris Contreras, OD [address] [place] [address] documented as of this encounter Visit Diagnoses Not on filedocumented in this encounter Care Teams Aco Coordinator Relationship Specialty Start Date End Date Consuelo Cramer MD [address] [place] [address] PCP - General Family Medicine 12/10/11 documented as of this encounter
--- OUTSIDE RECORDS SUMMARY | 2024-04-25 14:19 | XMS_ITS | Encounter Summary ---
Author Organization [employer] Address [address] [facility] [address] [place] [address] Care Team Providers Care Production Manufacturing Worker Name Role Phone Consuelo Cramer MD Primary Care Provider [phone] Encounter Details Date Type Department Care Team ([facility] st Contact Info) Description 04/18/2024 Orders Only [facility] MEDICINE [address] [place], [place] [phone] Consuelo Cramer MD [address] [place], [place] [phone] Social History Tobacco Use Types Packs/Day Years [...] Description 06/20/2024 2:00 PM EDT Clinical Support [facility] MEDICINE [address] [place] [address] 07/15/2024 2:00 PM EDT Office Visit [facility] OPTOMETRY [address] [place] [address] Ben, Gris, OD [address] [place] [address] documented as of this encounter Procedures Procedure Name Priority Date/Time Associated Diagnosis Comments HEPATIC FUNCTION PANEL Routine 04/18/2024 2:56 PM EDT documented in this encounter Results * Hepatic Function Panel (04/18/2024 2:56 PM EDT) Bilirubin, Total 0.5 0.0 - 1.0 mg/dL [facility] Bilirubin, Direct 0.1 0.0 - 0.5 mg/dL [facility] Aspartate Amino Transferase 18 5 - 37 U/L [facility] Alanine Aminotransferase 11 0 - 40 U/L [facility] Total Protein 7.3 6.5 - 8.0 g/dL [facility] Albumin Level 4.1 3.5 - 5.0 g/dL [facility] Alkaline Phosphatase 97 39 - 117 U/L [facility] 04/18/2024 2:56 PM EDT 04/18/2024 4:07 PM EDT us Consuelo Sakurai MD LAB BLOOD ORDERABLES Final Resul t [facility] [address] [place] [phone] documented in this encounter Visit Diagnoses Not on filedocumented in this encounter Care Teams Production Manufacturing Worker Relationship Specialty Start Date End Date Consuelo Cramer MD [address] [place] [phone] PCP - General Family Medicine 12/10/11 documented as of this encounter
--- OUTSIDE RECORDS SUMMARY | 2024-04-25 14:19 | XMS_ITS | Encounter Summary ---
Author Organization [facility] Address [address] [facility] 7[address] [place] [address] Care Team Providers Care Boiler Erector Name Role Phone Consuelo Cramer MD Primary Care Provider [phone] Reason for Visit * Reason Onset Date Comments Results 04/20/2024 Encounter Details Date Type Department Care Team ([facility] st Contact Info) Description 04/20/2024 Telephone [facility] MEDICINE [address] [place], [place] [phone] Alla Andres RN Results Social History Tobacco Use Types Packs/Day Years [...] Telephone Encounter - Alla Andres RN - 04/22/2024 9:33 AM EDT TC placed to pt with [employer] interpreter #[id number] and spoke to pt JONATHAN Jama, who is on HIPAA. Evita was informed that the pt needs to have additional labs drawn at the lab per PCP request. Evita advised that the pt will need all labs done from 05/19/2023 onward. (7 labs total). Evita reports that the pt has presented to the lab before and they were unable to locate these in their system. Evita advised that she can come to the [facility] desktop support specialist to request these before bringing the pt in for the blood draw. Evita agreeable to this plan and stated understanding. * Telephone Encounter - Alla Andres RN - 04/20/2024 11:56 AM EDT TC placed to pt and LVM to call back the office in regards to having labs done as ordered by PCP on05/19/2023, 09/15/2023 and 10/20/2023 ----- Message from Consuelo Cramer MD sent at 04/20/2024 11:53 AM EDT ----- Please check with [facility] lab about the rest of the lab that have been ordered. If not done, please askpatient / caregiver to complete. Thank you documented in this encounter Plan of Treatment Upcoming Encounters Date Type Department Care Team (Late st Contact Info) Description 06/20/2024 2:00 PM EDT Clinical Support [facility] MEDICINE [address] [place], [place] [phone] 07/15/2024 2:00 PM EDT Office Visit [facility] OPTOMETRY [address] [place] [address] Gris Contreras, OD [address] [place] [address] documented as of this encounter Visit Diagnoses Not on filedocumented in this encounter Care Teams Boiler Erector Relationship Specialty Start Date End Date Consuelo Cramer MD [address] [place] [address] PCP - General Family Medicine 12/10/11 documented as of this encounter
--- OUTSIDE RECORDS SUMMARY | 2024-04-25 14:19 | XMS_ITS | Clinical Summary ---
Author Organization [facility] Address [address] [place] [address] 7[address] [place] [address] Care Team Providers Care Solar Field Installation Crew Member Name Role Phone Consuelo Cramer MD Primary Care Provider [phone] Allergies Active Allergy Reactions Criticality Noted Date [...] Date Failure to thrive in adult 04/18/2024 Assessment & Plan (04/23/2024 6:00 AM EDT): - nutritional supplement 3 containers / day Elevated PSA 05/19/2023 Weight loss 07/21/2022 Assessment & Plan (04/23/2024 6:04 AM EDT): -lost > 30 lb in last 1 year -difficulty getting his lab done -ordered CT scan given his abdominal pain (mild and vague); still not done -referred to GI in Jan 2024, but they have not received an appointment yet -prescribed nutritional supplement; check its status Assessment & Plan (01/19/2024 11:20 AM EST): [...] labs Urinary incontinence 03/21/2022 Assessment & Plan (04/23/2024 5:55 AM EDT): - multifactorial - Parkinson's disease and BPH - evaluated by urologist in June 2023, prescribed tamsulosin and finasteride - pt is using briefs / pull-ups / diapers Assessment & Plan (09/15/2023 10:10 AM EDT): [...] disease and BPH - referred to urologist; TOBACCO BLENDER will reschedule appt - pt is using briefs Lewy body dementia 03/20/2022 Assessment & Plan (04/23/2024 5:53 AM EDT): Neurologist: [facility] [place] (Dr. Farmer) last seen August 2023, more recent per caregiver -Because he presented much younger and started [...] worsening tremor -Continue current medications -Continue current TOBACCO BLENDER service, he has a very supportive TOBACCO BLENDER who ensures pt is safe and healthy. -Discussed about a long-term plan. He was in a group home in 2022. Assessment & Plan (01/18/2024 4:05 PM EST): Neurologist: [facility] [place] [place] (Dr. Farmer) last seen [...] worsening tremor -Continue current medications -Continue current TOBACCO BLENDER service, he has a very supportive TOBACCO BLENDER who ensures pt is safe and healthy. -Discussed about a long-term plan. He was in a group home in 2022. Assessment & Plan (09/16/2023 7:20 PM EDT): Neurologist: [facility] [place] (Dr. Farmer) last seen [...] worsening tremor -Continue current medications -Continue current TOBACCO BLENDER service, he has a very supportive TOBACCO BLENDER who ensures pt is safe and healthy. -Discussed about a long-term plan. He was in a group home in 2022. Assessment & Plan (07/28/2022 5:47 PM EDT): Neurologist: [facility] [place] (Dr. Farmer) last seen [...] worsening tremor -Continue current medications -Continue current TOBACCO BLENDER service, she has a very supportive TOBACCO BLENDER who ensures pt is safe and healthy. -Discussed about a long-term plan. Likely need 24/7 care and need group home placement. Both Pt and CG understood and agreed with the plan, but would like to remain in the community. -Pt is capable of understanding his medical conditions at this time and some limitation and risks from his medical conditions. Discussed safety issues and the importance of asking for assistance/help. -Follow-up in 4 months. Assessment & Plan (03/21/2022 12:01 PM EST): Neurologist: [facility] [place] (Dr. Farmer) last seen [...] worsening tremor -Continue current medications -Continue current TOBACCO BLENDER service, she has a very supportive TOBACCO BLENDER who ensures pt is safe and healthy. -Discussed about a long-term plan. Likely need 24/7 care and need group home placement. Both Pt and CG understood and agreed with the plan, but would like to remain in the community. -Will request more TOBACCO BLENDER hrs to support pt's wish. -Pt will need care in which he can receive care punctually, the original arrangement seems to be difficult to arrange on-time. -Pt might be safer with more TOBACCO BLENDER hrs than [facility] -Vice President Education, Leesa Arriaza from [facility] and Dr Farmer recommended a group home placement since pt was found wandering around and appeared confused recently. However, there is no documentation of harm to himself or others. -Pt is capable of understanding his medical conditions at this time and some limitation and risks from his medical conditions. Discussed safety issues and the importance of asking for assistance/help. -Follow-up in 4 months. Benign prostate hyperplasia 03/20/2022 Assessment & Plan (04/23/2024 5:56 AM EDT): -CT Scan showed enlarged prostate -Evaluated by urologist in June 2023, prescribed tamsulosin and finasteride Assessment & Plan (09/15/2023 10:11 AM EDT): -CT Scan showed enlarged prostate -Evaluated by urologist in June 2023, prescribed tamsulosin and finasteride Assessment & Plan (05/26/2023 11:22 AM EDT): -CT Scan showed enlarged prostate -Referred pt to Urologist for BPH -Patient missed appointment while in the group home; refer again Assessment & Plan (07/21/2022 9:49 AM EDT): -CT Scan showed enlarged prostate -Referred pt to Urologist for BPH -TOBACCO BLENDER will reschedule Assessment & Plan (03/21/2022 12:20 PM EST): -CT Scan showed enlarged prostate -Referred pt to Urologist for BPH -TOBACCO BLENDER will reschedule Constipation 03/20/2022 Assessment & Plan (04/23/2024 5:55 AM EDT): -Previously followed by GI, Rx Linzess -Continue Miralax prn -Continue fiber-rich diet Assessment & Plan (01/18/2024 4:06 PM [...] 9:53 AM EST): Previously followed by ANGEL Gibson, will restart medication, however may require Prior Authorization -Inc fiber in diet Mild intermittent asthma 03/20/2022 Assessment & Plan (04/18/2024 2:46 PM EDT): -PFT was completed on 04/23/17 which showed mild restrictive and obstructive airway disease -Last exacerbation on 05/01/2017 and was Tx with prednisone and albuterol at [facility] -Continue albuterol HFA and neb prn Assessment & Plan (05/26/2023 11:20 AM EDT): -PFT was completed on 04/23/17 which showed mild restrictive and obstructive airway disease -Last exacerbation on 05/01/2017 and was Tx with prednisone and albuterol at [facility] -Continue albuterol HFA and neb prn Assessment & Plan (07/28/2022 5:50 PM EDT): -PFT was completed on 04/23/17 which showed mild restrictive and obstructive airway disease -Last exacerbation on 05/01/2017 and was Tx with prednisone and albuterol at [facility] -Continue albuterol HFA and neb prn Assessment & Plan (03/20/2022 10:00 AM EST): -PFT was completed on 04/23/17 which showed mild restrictive and obstructive airway disease -Last exacerbation on 05/01/2017 and was Tx with prednisone and albuterol at [facility] -Continue albuterol HFA and neb prn Chronic headache disorder 05/09/2015 Assessment & Plan (07/28/2022 5:43 PM EDT): - he has not complained about headache very much - continue APAP prn Chronic depression 03/05/2015 Assessment & Plan (05/26/2023 11:30 AM EDT): -Last S provider: Dr. Spencer -Previous S providers: Dr. Fuentes and Corrine Morrison at [facility] He was discharged from [facility] due to multiple no-shows. -Medications: mirtazepine 7.5 [...] Assessment & Plan (07/21/2022 9:51 AM EDT): -[facility] provider: Dr. Spencer -Previous [facility] providers: Dr. Fuentes and Corrine Morrison at [facility] / [facility] He was discharged from [facility] due to multiple no-shows. -Medications: mirtazepine 7.5 mg; quetiapine 100 mg at nighttime; donepezil 5 mg qhs -Previously on clozapine and sertraline, which were discontinued during recent admission Assessment & Plan (03/21/2022 12:04 PM EST): -S provider: Dr. Spencer -Previous [facility] providers: Dr. Reji Morrison at [facility] / [facility] He was discharged from [facility] due to multiple no-shows. 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 Bermudez, last seen on 03/19/20, Dr. Nice prior to 2019 -Current neurologist: [facility] [place] (Dr. Farmer) last seen August 2023 per TOBACCO BLENDER and pt -Brain MRI in Dec 2013 [...] current medications at this time -Continue current TOBACCO BLENDER service -Pt is capable of living in a community with TOBACCO BLENDER service. Discussed safety issues and the importance of asking for assistance/help. Assessment & Plan (05/26/2023 11:19 AM EDT): -Previous neurologists: Dr. Bermudez, last seen on 03/19/20, Dr. Nice prior to 2019 -Current neurologist: [facility] [place] (Dr. Farmer) last seen December 2021, more recent June 2022, per TOBACCO BLENDER and pt -Brain MRI in Dec 2013 [...] current medications at this time -Continue current TOBACCO BLENDER service -Pt is capable of living in a community with TOBACCO BLENDER service. Discussed safety issues and the importance of asking for assistance/help. -Follow-up in 3 months. Assessment & Plan (07/28/2022 5:44 PM EDT): -Previous neurologists: Dr. Bermudez, last seen on 03/19/20, Dr. Nice prior to 2019 -New neurologist: [facility] [place] (Dr. Farmer) last seen December 2021, more recent June 2022, per TOBACCO BLENDER and pt -Brain MRI in Dec 2013 [...] current medications at this time -Continue current TOBACCO BLENDER service -Pt is capable of living in a community with TOBACCO BLENDER service. Discussed safety issues and the importance of asking for assistance/help. -Follow-up in 4 months. Assessment & Plan (03/20/2022 10:13 AM EST): -Previous neurologists: Dr. Bermudez, last seen on 03/19/20, Dr. Nice prior to 2019 -New neurologist: [facility] [place] (Dr. Farmer) last seen [...] current medications at this time -Continue current TOBACCO BLENDER service -Pt is capable of living in a community with TOBACCO BLENDER service. Discussed safety issues and the importance of asking for assistance/help. -Follow-up in 4 months. Primary osteoarthritis of both knees 01/08/2015 Assessment & Plan (07/28/2022 5:52 PM EDT): - continue APAP prn Parkinson's disease 12/18/2014 Assessment & Plan (04/23/2024 5:53 AM EDT): -Pt has been treated as Parkinson's disease, and recently given Dx for LBD -Neurologist: [facility] [place] (Dr. Farmer) last seen August 2023. More recent per caregiver; requesting note -Brain MRI in Dec 2013 showed moderate [...] worsening tremor -Continue current medications -Continue current TOBACCO BLENDER service, she has a very supportive TOBACCO BLENDER who ensures pt is safe and healthy. -Discussed about long-term plan. He may need 24/7 care and need group home placement in the future, but currently pt states he would like to remain in the community. -Continue providing adequate TOBACCO BLENDER services to support pt's wish to live in the community. Pt might be safer with more TOBACCO BLENDER hrs than [facility] -Pt is capable of understanding his medical conditions at this time and some limitation and risks from his medical conditions. Discussed safety issues and the importance of asking for assistance/help. Assessment & Plan (01/18/2024 4:06 PM EST): -Pt has been treated as Parkinson's disease, and recently given Dx for LBD -Neurologist: [facility] [place] (Dr. Farmer) last seen [...] worsening tremor -Continue current medications -Continue current TOBACCO BLENDER service, she has a very supportive TOBACCO BLENDER who ensures pt is safe and healthy. -Discussed about long-term plan. He may need 24/7 care and need group home placement in the future, but currently pt states he would like to remain in the community. -Continue providing adequate TOBACCO BLENDER services to support pt's wish to live in the community. Pt might be safer with more TOBACCO BLENDER hrs than [facility] -Pt is capable of understanding his medical conditions at this time and some limitation and risks from his medical conditions. Discussed safety issues and the importance of asking for assistance/help. Assessment & Plan (09/15/2023 10:09 AM EDT): -Pt has been treated as Parkinson's disease, and recently given Dx for LBD -Neurologist: [facility] [place] (Dr. Farmer) last seen [...] worsening tremor -Continue current medications -Continue current TOBACCO BLENDER service, she has a very supportive TOBACCO BLENDER who ensures pt is safe and healthy. -Discussed about long-term plan. He may need 24/7 care and need group home placement in the future, but currently pt states he would like to remain in the community. -Continue providing adequate TOBACCO BLENDER services to support pt's wish to live in the community. Pt might be safer with more TOBACCO BLENDER hrs than VNA -Pt is capable of understanding his medical conditions at this time and some limitation and risks from his medical conditions. Discussed safety issues and the importance of asking for assistance/help. Assessment & Plan (05/26/2023 11:20 AM EDT): -Pt has been treated as Parkinson's disease, and recently given Dx for LBD -Neurologist: [facility] [place] (Dr. Farmer) last seen [...] worsening tremor -Continue current medications -Continue current TOBACCO BLENDER service, she has a very supportive TOBACCO BLENDER who ensures pt is safe and healthy. -Discussed about long-term plan. He may need 24/7 care and need group home placement in the future, but currently pt states he would like to remain in the community. -Continue providing adequate TOBACCO BLENDER services to support pt's wish to live in the community. Pt might be safer with more TOBACCO BLENDER hrs than VNA -Pt is capable of understanding his medical conditions at this time and some limitation and risks from his medical conditions. Discussed safety issues and the importance of asking for assistance/help. Assessment & Plan (07/28/2022 5:50 PM EDT): -Pt has been treated as Parkinson's disease, and recently given Dx for LBD -Neurologist: [facility] [place] (Dr. Farmer) last seen [...] worsening tremor -Continue current medications -Continue current TOBACCO BLENDER service, she has a very supportive TOBACCO BLENDER who ensures pt is safe and healthy. -Discussed about long-term plan. He may need 24/7 care and need group home placement in the future, but currently pt states he would like to remain in the community. -Continue providing adequate TOBACCO BLENDER services to support pt's wish to live in the community. Pt might be safer with more TOBACCO BLENDER hrs than VNA -Pt is capable of understanding his medical conditions at this time and some limitation and risks from his medical conditions. Discussed safety issues and the importance of asking for assistance/help. Assessment & Plan (03/21/2022 12:01 PM EST): -Pt has been treated as Parkinson's disease, and recently given Dx for LBD -Neurologist: [facility] [place] (Dr. Farmer) last seen [...] worsening tremor -Continue current medications -Continue current TOBACCO BLENDER service, she has a very supportive TOBACCO BLENDER who ensures pt is safe and healthy. -Discussed about long-term plan. He may need 24/7 care and need group home placement in the future, but currently pt states he would like to remain in the community. -At this time, pt appears to be capable of understanding his medical conditions (and some limitations) -Will request more TOBACCO BLENDER hrs to support pt's wish. Pt might be safer with more TOBACCO BLENDER hrs than VNA. -Pt will need care which he can received care punctually, original arrangement sees to be difficult to arrange on-time. -Vice President Education, Leesa Arriaza from [facility] and Dr Farmer recommended a group home placement since pt was found wandering around [...] 3-5 yrs. Dyslipidemia 07/27/2014 Assessment & Plan (04/23/2024 6:00 AM EDT): -Most recent lab: 06/17/21 TC 176; TG 128; HDL 47; LDL 107 -Current medication: atorvastatin 10 mg at QPM -Continue working on lifestyle modification -Continue current medication Assessment & Plan (01/18/2024 4:06 PM EST): [...] (07/28/2022 5:58 PM EDT): - pt and TOBACCO BLENDER state pt has a good appetite and weight loss is intentional (TOBACCO BLENDER is serving healthier meals) Diarrhea 03/19/2022 03/21/2022 Class 1 obesity due to exces s calories without serious comorbidity with body mass index (BMI) of 30.0 to 30.9 in adult 04/10/2014 Assessment & Plan (07/21/2022 9:51 AM EDT): -Continue working on lifestyle modifications Assessment & Plan (03/21/2022 4:41 PM EST): -Continue working on lifestyle modifications Encounters Date Type Department Care Team Description 04/20/[address] [address] Alla Andres RN Results 04/18/2024 1:45 PM EDT Office Visit [address] [place] [address] Consuelo Cramer MD 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) (Primary Dx); Severe Lewy body dementia, unspecified whether behavioral, psychotic, or mood disturbance or anxiety (CMS/HCC); Dementia associated with Parkinson's disease (CMS/HCC); Mild intermittent asthma without complication; Gastroesophageal reflux disease, unspecified whether esophagitis present; Constipation, unspecified constipation type; Weight loss; Failure to thrive in adult; Benign prostatic hyperplasia with urinary frequency; Urinary incontinence, unspecified type; Dyslipidemia; Generalized abdominal pain 04/18/2024 Orders Only [address] [address] Consuelo Cramer MD 04/18/[address] [address] Alla Andres RN [facility] 04/18/2024 Travel 04/14/[address] [address] Consuelo Cramer MD chart prep 02/28/[address] [address] Consuelo Cramer MD Constipation, unspecified constipation type from Last 3 Months Immunizations Name Administration [...] Description 06/20/2024 2:00 PM EDT Clinical Support [facility] [address] [place] [address] 07/15/2024 2:00 PM EDT Office Visit [facility] [address] [place] [address] Ben, Gris, OD [address] [place] [address] Health Maintenance Due Date Last Done Comments CT Colonography 1955 FIT DNA/Cologuard 1955 FIT 1955 FOBT 1955 Sigmoidoscopy 1955 COVID-19 Vaccine ( season) 2023 05/21/2021, 06/11/2020, 05/14/2020 Depression Screening 09/14/2024 09/15/2023, 09/15/19 24 SDOH Screening 09/14/2024 09/15/2023 Alcohol/Substance Use Screening [...] Bilirubin, Total 0.5 0.0 - 1.0 mg/dL [facility] Bilirubin, Direct 0.1 0.0 - 0.5 mg/dL [facility] Aspartate Amino Transferase 18 5 - 37 U/L [facility] Alanine Aminotransferase 11 0 - 40 U/L [facility] Total Protein 7.3 6.5 - 8.0 g/dL [facility] Albumin Level 4.1 3.5 - 5.0 g/dL [facility] Alkaline Phosphatase 97 39 - 117 U/L [facility] 04/18/2024 2:56 PM EDT 04/18/2024 4:07 PM EDT us Consuelo Cramer MD LAB BLOOD ORDERABLES Final Resul t [facility] [address] [place] [phone] * (ABNORMAL) Lipid Panel with Reflex to Direct LDL (07/21/2022 10:22 AM EDT) Cholesterol, Total 165 <200 mg/dL [facility] HDL Cholesterol 55 > OR = 40 mg/dL [facility] Triglycerides 183(H) <150 mg/dL [facility] LDL Cholesterol 82 mg/dL (calc) [facility] Comment: Reference range: <100 Desirable range <100 mg/dL for primary prevention; ?? <70 mg/dL for patients with CHD or diabetic patients with > or = 2 CHD risk factors. LDL-C is now calculated using the Miki calculation, which is a validated novel method providing better accuracy than the Friedewald equation in the estimation of LDL-C. Vignesh MARTINEZ et al. WILFRID. 2013;310(19): 6619-7621 (http://education.InDMusic/faq/ZDX289) Chol/HDLC Ratio 3.0 <5.0 (calc) [facility] Non-HDL Cholesterol 110 <130 mg/dL (calc) [facility] Comment: For patients with diabetes plus 1 major ASCVD risk factor, treating to a non-HDL-C goal of <100 mg/dL (LDL-C of <70 mg/dL) is considered a therapeutic option. 07/21/2022 10:2 2 AM EDT 07/21/2022 10:22 AM EDT Narrative [facility] - 07/22/2022 7:36 AM EDT FASTING:UNKNOWN FASTING: UNKNOWN Consuelo Cramer MD LAB BLOOD ORDERABLES Final Resul t [facility] [address], [place] [address] [facility] [address] [place] [address] * (ABNORMAL) Colonoscopy (10/30/2020) Colonoscopy Abnormal( A) Normal Comment:3 polyps, all tubula r adenoma, Dr. Medina 10/30/2020 Marky Provider HEALTH MAINTENANCE Final Result * HEPATITIS C ANTIBODY RFLX (01/31/2019 11:25 AM EST) HEPATITIS C ANTIBODY NONREACTIVE NONREACTIVE [facility] Comment: Antibodies to HCV not detected; does not exclude early acute HCV infection. 01/31/2019 11:2 5 AM EST Consuelo Cramer MD HISTORICAL/NON ORDERABLE LABS Fi nal Result [facility] [address] from Last 3 Months or Most Recently Relevant to Health Maintenance Insurance [facility] [facility] Care Teams Solar Field Installation Crew Member Relationship Specialty Start Date End Date Consuelo Cramer MD [address] [place] [phone] PCP - General Family Medicine 12/10/11
--- OUTSIDE RECORDS SUMMARY | 2024-04-25 14:19 | XMS_ITS | Encounter Summary ---
Author Organization [facility] Address [address] [place] [address] Care Team Providers Care Mathematical Engineering Technician Name Role Phone Consuelo Cramer MD Primary Care Provider [phone] Encounter Details Date Type Department Care Team [...] Description 06/20/2024 2:00 PM EDT Clinical Support [facility] [address] [place] [address] 07/15/2024 2:00 PM EDT Office Visit [facility] [address] [place] [address] Ben, Gris, OD [address] [place] [address] documented as of this encounter Visit Diagnoses Not on filedocumented in this encounter Care Teams Mathematical Engineering Technician Relationship Specialty Start Date End Date Consuelo Cramer MD [address] [place] [address] PCP - General Family Medicine 12/10/11 documented as of this encounter
--- OUTSIDE RECORDS SUMMARY | 2024-04-25 14:19 | XMS_ITS | Encounter Summary ---
Author Organization [email or web address] [facility] Address [address] 7t [place] [address] Care Team Providers Care Director Of Recreation Therapy Name Role Phone Consuelo Cramer MD Primary Care Provider [phone] Reason for Visit * Reason Onset Date Comments CCA 04/18/2024 Encounter Details Date Type Department Care Team ([facility] st Contact Info) Description 04/18/2024 Telephone [facility] [address] [place], [place] [phone] Alla Andres RN CCA Social History Tobacco [...] direct message will be sent to pt critical care nurse Floridalma Mcintosh to assist the pt with having the ordered CT scan and labs done. Floridalma will call back our number as callback number given with any future questions or concerns. ----- Message from Consuelo Cramer MD sent at 04/18/2024 1:53 PM EDT ----- Please contact patient's critical care nurse and inform that patient has not done [...] 2:00 PM EDT Clinical Support [facility] [address] [place] [address] 07/15/2024 2:00 PM EDT Office Visit [facility] [address] [place] [address] Gris Contreras, COSTA [address] [place] [address] documented as of this encounter Visit Diagnoses Not on filedocumented in this encounter Care Teams Director Of Recreation Therapy Relationship Specialty Start Date End Date Consuelo Cramer MD [address] [place] [address] PCP - General Family Medicine 12/10/11 documented as of this encounter
--- OUTSIDE RECORDS SUMMARY | 2024-04-25 14:19 | XMS_ITS | Encounter Summary ---
Author Organization [facility] Address [address] [place] [address] 7t [place] [address] Care Team Providers Care Charge Auditor Name Role Phone Consuelo Cramer MD Primary Care Provider [phone] Encounter Details Date Type Department Care Team (Late st Contact Info) Description 02/04/2022 Orders Only [facility] [address] [place], [place] [phone] Shannon Moreno LPN Social History Tobacco Use [...] Description 06/20/2024 2:00 PM EDT Clinical Support [facility] [address] [place] [address] 07/15/2024 2:00 PM EDT Office Visit [facility] [address] [place] [address] BenGris maldonado, OD [address] [place] [address] documented as of this encounter Visit Diagnoses Not on filedocumented in this encounter Care Teams Charge Auditor Relationship Specialty Start Date End Date Consuelo Cramer MD [address] [place] [address] PCP - General Family Medicine 12/10/11 documented as of this encounter
--- OUTSIDE RECORDS SUMMARY | 2024-04-25 14:19 | XMS_ITS | Encounter Summary ---
Author Organization [facility] Address [address] 7t [place] [address] Care Team Providers Care Clerical Manager Name Role Phone Consuelo Cramer MD Primary Care Provider [phone] Reason for Visit * Reason Onset Date Comments chart prep 04/14/2024 Encounter Details Date Type Department Care Team ([facility] st Contact Info) Description 04/14/2024 Telephone [facility] [address] [place], [place] [phone] Consuelo Cramer MD [address] [place], [place] [phone] chart prep Social History Tobacco Use Types [...] Description 06/20/2024 2:00 PM EDT Clinical Support [facility] [address] [place] [address] 07/15/2024 2:00 PM EDT Office Visit [facility] OPT[facility] [address] [place] [address] Ben, Grsi, OD [address] [place] [address] documented as of this encounter Visit Diagnoses Not on filedocumented in this encounter Care Teams Clerical Manager Relationship Specialty Start Date End Date Consuelo Cramer MD [address] [place] [address] PCP - General Family Medicine 12/10/11 documented as of this encounter
--- OUTSIDE RECORDS SUMMARY | 2024-04-25 14:19 | XMS_ITS | Encounter Summary ---
Author Organization [employer] [facility] Address [address] [place] [address] 7t [place] [address] Care Team Providers Care Diet Supervisor Name Role Phone Consuelo Cramer MD Primary Care Provider [phone] Reason for Referral * Consultation (Routine) - Authorized Specialty Diagnoses / Procedures Referred By Fitz t Referred To Contact Pharmacy Diagnoses 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) Gastroesophageal reflux disease, unspecified whether esophagitis present Dyslipidemia Consuelo Cramer MD [address] [place] [address] Phone: tel: fax: Referral ID Status Reason Start Date Expiration Date Visits Requested Visits Authorized [id number] Authorized Continuity of Care 12/22/2023 12/21/2024 6 6 Encounter Details Date Type Department Care Team (Late st Contact Info) Description 12/22/2023 Orders Only [facility] [address] [place] [address] [phone] Consuelo Cramer MD [address] [place], [place] [phone] Parkinson's disease with dyskinesia and fluctuating manifestations [...] Description 06/20/2024 2:00 PM EDT Clinical Support [facility] [address] [place] [address] 07/15/2024 2:00 PM EDT Office Visit [facility] [address] [place] [address] Ben, Gris, OD [address] [place] [address] Scheduled Referrals Name Type Priority Associated Diagnoses [...] hyperlipidemia documented in this encounter Care Teams Diet Supervisor Relationship Specialty Start Date End Date Consuelo Cramer MD [address] [place] [address] PCP - General Family Medicine 12/10/11 documented as of this encounter
--- OUTSIDE RECORDS SUMMARY | 2024-04-25 14:19 | XMS_ITS | Encounter Summary ---
Author Organization [employer] [facility] Address [address] [place] [address] 7t [place] [address] Care Team Providers Care Lamp Assembler Name Role Phone Consuelo Craemr MD Primary Care Provider [phone] Reason for Referral * Consultation (Routine) - Authorized Specialty Diagnoses / Procedures Referred By Contac t Referred To Contact Gastroenterology Diagnoses Gastroesophageal reflux disease, unspecified whether esophagitis present Constipation, unspecified constipation type Weight loss Generalized abdominal pain Consuelo Cramer MD [address] [place] [address] Phone: tel: fax: [facility] [address] [place], [place] Phone: tel: fax: Referral ID Status Reason Start Date Expiration Date Visits Requested Visits Authorized [id number] Authorized Specialty Services Required 04/23/2024 04/23/2025 1 1 Encounter Details Date Type Department Care Team (Latest Contact Info) Description 04/18/2024 1:45 PM EDT Office Visit [facility] MEDICINE [address] [place] [address] [phone] Consuelo Cramer MD [address] [place], [place] [phone] Parkinson's disease with dyskinesia and fluctuating manifestations [...] incontinence, unspecified type; Dyslipidemia; Generalized abdominal pain Social History Tobacco Use Types Packs/Day Years [...] 2:13 PM EDT documented in this encounter Progress Notes * Consuelo Cramer MD - 04/18/2024 1:45 PM EDT Subjective [place] Nicole is a 68 y.o. male who has Parkinson's disease and dementia, and patient presents for follow up of chronic conditions. Background: Our last encounter was 01/18/2024. Patient reported intermitted abdominal pain. Patient had been losing weight. CT scan was ordered. Reminded about lab. Interval history: Missed appointment with [facility] Eye care in Mar 2024, rescheduled to 07/15/24. CT scan has not been done yet. Lab is not done. Today: Pt???s primary health care nurse states she took him to the hospital on two separate occasions to get his bloodwork done but they could not find his vein to collect a sample. She is aware that without the labs theycan???t do the CT scan, but she adds no one has called to schedule the CT scan either. The primary health care nurse states the pt eats plenty of food, likes steak, rice, and beans, so she isn???t surewhy he???s losing weight. The caregiver makes sure that he eats fiber-rich diet for constipation. She shows me a picture of a big bowl of oatmeal, before and after his breakfast this morning. Pt denies having any constipation, nausea, diarrhea, or blood in his stool. Pt was drinking a nutritional supplement, but has not been receiving lately. He has been drinking Vanilla, and would like to try different flavors as well. Pt???s primary health care nurse confirms he has an appointment with his neurologist. Pt agrees to get his bloodwork done today. Review of Systems Constitutional: Negative for activity change, appetite change and fever. Respiratory: Negative for shortness of breath. Cardiovascular: Negative for chest pain. Objective Vitals: 04/18/24 1413 BP: 103/68 BP Location: Left arm Patient Position: Sitting BP Cuff Size: Adult Pulse: 94 Resp: 19 Temp: 97.1 ??F (36.2 ??C) TempSrc: Temporal SpO2: 99% Weight: 134 lb (60.8 kg) Height: 5' 5 (1.651 m) Physical Exam Constitutional: General: He is not in acute distress. Appearance: Normal appearance. He is not ill-appearing. HENT: Head: Normocephalic and atraumatic. Mouth/Throat: Mouth: Mucous membranes are moist. Eyes: Extraocular Movements: Extraocular movements intact. Pupils: Pupils are equal, round, and reactive to light. Cardiovascular: Rate and Rhythm: Normal rate and regular rhythm. Heart sounds: No murmur heard. Pulmonary: Effort: Pulmonary effort is normal. No respiratory distress. Breath sounds: Normal breath sounds. No wheezing or rhonchi. Skin: General: Skin is warm. Neurological: Mental Status: He is alert. Mental status is at baseline. Psychiatric: Mood and Affect: Mood normal. Results: Lab Results Component Value Date NA 139 07/21/2022 K 4.1 07/21/2022 CL 99 07/21/2022 CO2 28 07/21/2022 BUN 13 07/21/2022 CREATININE 0.82 07/21/2022 CRCLCALCPH 83.7 11/09/2021 CRCLCALCPH 83.7 11/09/2021 EGFR 96 07/21/2022 GLUCOSE 82 07/21/2022 TOTALBILIRUB 0.5 04/18/2024 AST 18 04/18/2024 ALT 11 04/18/2024 TOTPROTEIN 7.3 04/18/2024 ALB 4.1 04/18/2024 ALP 97 04/18/2024 Lab Results Component Value Date TRIG 183 (H) 07/21/2022 Lab Results Component Value Date HGBA1C 5.3 07/21/2022 Lab Results Component Value Date WBC 7.4 07/21/2022 HGB 12.9 (L) 07/21/2022 MCV 89.7 07/21/2022 The 10-year ASCVD risk score (Bonita ULLOA, et al., 2019) is: 9.4% Values used to calculate the score: Age: 68 years Sex: Male Is Non- : No Diabetic: No Tobacco smoker: No Systolic Blood Pressure: 103 mmHg Is BP treated: No HDL Cholesterol: 55 mg/dL Total Cholesterol: 165 mg/dL Assessment/Plan Problem List Items Addressed This Visit Dementia associated with Parkinson's disease (CMS/HCC) -Previous neurologists: Dr. Bermudez, last seen on 03/19/20, Dr. Nice prior to 2019 -Current neurologist: [facility] (Dr. Farmer) last seen August 2023 per FACILITY DESIGNER and pt -Brain MRI in Dec 2013 [...] current medications at this time -Continue current FACILITY DESIGNER service -Pt is capable of living in a community with FACILITY DESIGNER service. Discussed safety issues and the importance of asking for assistance/help. Dyslipidemia -Most recent lab: 06/17/21 TC 176; TG 128; HDL 47; LDL 107 -Current medication: atorvastatin 10 mg at QPM -Continue working on lifestyle modification -Continue current medication Gastroesophageal reflux disease Continue Pantoprazole 40mg qhs Relevant Orders Referral to Gastroenterology Parkinson's disease ([facility]) - Primary -Pt has been treated as Parkinson's disease, and recently given Dx for LBD -Neurologist: [facility] (Dr. Farmer) last seen August 2023. More [...] worsening tremor -Continue current medications -Continue current FACILITY DESIGNER service, she has a very supportive FACILITY DESIGNER who ensures pt is safe and healthy. -Discussed about long-term plan. He may need 24/7 care and need shelter placement in the future, but currently pt states he would like to remain in the community. -Continue providing adequate FACILITY DESIGNER services to support pt's wish to live in the community. Pt might be safer with more FACILITY DESIGNER hrs than [facility] -Pt is capable of understanding his medical conditions at this time and some limitation and risks from his medical conditions. Discussed safety issues and the importance of asking for assistance/help. Lewy body dementia ([facility]) Neurologist: [facility] (Dr. Farmer) last seen August 2023, more [...] worsening tremor -Continue current medications -Continue current FACILITY DESIGNER service, he has a very supportive FACILITY DESIGNER who ensures pt is safe and healthy. -Discussed about a long-term plan. He was in a shelter in 2022. Benign prostate hyperplasia -CT Scan showed enlarged prostate -Evaluated by urologist in June 2023, prescribed tamsulosin and finasteride Constipation -Previously followed by GI, Rx Linzess -Continue Miralax prn -Continue fiber-rich diet Relevant Orders Referral to Gastroenterology Mild intermittent asthma -PFT was completed on 04/23/17 which showed mild restrictive and obstructive airway disease -Last exacerbation on 05/01/2017 and was Tx with prednisone and albuterol at [facility] -Continue albuterol HFA and neb prn Urinary incontinence - multifactorial - Parkinson's disease and BPH - evaluated by urologist in June 2023, prescribed tamsulosin and finasteride - pt is using briefs / pull-ups / diapers Weight loss -lost > 30 lb in last 1 year -difficulty getting his lab done -ordered CT scan given his abdominal pain (mild and vague); still not done -referred to GI in Jan 2024, but they have not received an appointment yet -prescribed nutritional supplement; check its status Relevant Orders Referral to Gastroenterology Failure to thrive in adult - nutritional supplement 3 containers / day Other Visit Diagnoses Generalized abdominal pain Relevant Orders Referral to Gastroenterology Allergies Allergen Reactions Trihexyphenidyl Hallucinations Current Outpatient Medications Medication Instructions albuterol 108 (90 Base) MCG/ACT inhaler 2 puffs, Inhalation, Every 4 hours PRN, Maximum 8 puffs perday atorvastatin (LIPITOR) 10 mg, Oral, Nightly carbidopa-levodopa (Sinemet) 25-100 MG tablet 1 tablet, 4 times daily cholecalciferol (VITAMIN D-3) 25 mcg, Oral, Every morning cyanocobalamin (VITAMIN B-12) 1,000 mcg, Oral, Every morning docusate sodium (COLACE) 100 mg, Oral, 2 times daily donepezil (ARICEPT) 10 mg, Nightly finasteride (PROSCAR) 5 mg, Oral, Daily memantine (Namenda) 5 MG tablet TAKE 1 TABLET BY MOUTH TWICE DAILY IN THE MORNING AND AT BEDTIME mirtazapine (Remeron) 7.5 MG tablet TAKE 1 TABLET BY MOUTH AT BEDTIME DIRECTED Multiple Vitamins-Minerals (CertaVite/Antioxidants) tablet TAKE 1 TABLET BY MOUTH EVERYDAY AT NOON WITH FOOD pantoprazole (PROTONIX) 40 mg, Oral, Every morning polyethylene glycol, PEG, 3350 (HealthyLax) 17 g packet Mix 1 packet in 8 ounces of water, juice, coffee or tea and drink once a day NEEDED FOR CONSTIPATION QUEtiapine (SEROquel) 25 MG tablet TAKE 1 TABLET BY MOUTH TWICE DAILY IN THE MORNING AND IN THE EVENING and TAKE 2 TABLETS BY MOUTH ONCE DAILY AT NOON QUEtiapine (SEROQUEL) 100 mg, Nightly senna (Senokot) 8.6 MG tablet TAKE 2 TABLETS BY MOUTH ONCE DAILY NEEDED FOR CONSTIPATION sertraline (Zoloft) 100 MG tablet TAKE 1.5 TABLETS BY MOUTH ONCE DAILY IN THE MORNING tamsulosin (FLOMAX) 0.4 mg, Oral, Daily Follow-up: 2 months or sooner if any problem arises. Scribe Attestation: Shannon Hoffman, am serving as a scribe to document services personally performed by Consuelo Cramer MD, based on the patient's response to questions by provider and provides statements to me. documented in this encounter Miscellaneous Notes * Assessment & Plan Note - Consuelo Cramer MD - 04/23/2024 6:00 AM EDTAssociated Problem(s): Dyslipidemia -Most recent lab: 06/17/21 TC 176; TG 128; HDL 47; LDL 107 -Current medication: atorvastatin 10 mg at QPM -Continue working on lifestyle modification -Continue current medication * Assessment & Plan Note - Consuelo Cramer MD - 04/23/2024 6:00 AM EDTAssociated Problem(s): Failure to thrive in adult - nutritional supplement 3 containers / day * Assessment & Plan Note - Consuelo Cramer MD - 04/23/2024 5:59 AM EDTAssociated Problem(s): Weight loss -lost > 30 lb in last 1 year -difficulty getting his lab done -ordered CT scan given his abdominal pain (mild and vague); still not done -referred to GI in Jan 2024, but they have not received an appointment yet -prescribed nutritional supplement; check its status * Assessment & Plan Note - Consuelo Cramer MD - 04/23/2024 5:56 AM EDTAssociated Problem(s): Benign prostate hyperplasia -CT Scan showed enlarged prostate -Evaluated by urologist in June 2023, prescribed tamsulosin and finasteride * Assessment & Plan Note - Consuelo Cramer MD - 04/23/2024 5:55 AM EDTAssociated Problem(s): Urinary incontinence - multifactorial - Parkinson's disease and BPH - evaluated by urologist in June 2023, prescribed tamsulosin and finasteride - pt is using briefs / pull-ups / diapers * Assessment & Plan Note - Consuelo Cramer MD - 04/23/2024 5:54 AM EDTAssociated Problem(s): Dementia associated with Parkinson's disease (CMS/HCC) -Previous neurologists: Dr. Bermudez, last seen on 03/19/20, Dr. Nice prior to 2019 -Current neurologist: [facility] (Dr. Farmer) last seen August 2023 per FACILITY DESIGNER and pt -Brain MRI in Dec 2013 [...] current medications at this time -Continue current FACILITY DESIGNER service -Pt is capable of living in a community with FACILITY DESIGNER service. Discussed safety issues and the importance of asking for assistance/help. * Assessment & Plan Note - Shannon Varma MA - 04/18/2024 2:47 PM EDTAssociated Problem(s): Constipation -Previously followed by GI, Rx Linzess -Continue Miralax prn -Continue fiber-rich diet * Assessment & Plan Note - [...] was Tx with prednisone and albuterol at [facility] -Continue albuterol HFA and neb prn * Assessment & Plan Note - Shannon Varma MA - 04/18/2024 2:46 PM EDTAssociated Problem(s): Lewy body dementia (CMS/HCC) Neurologist: [facility] (Dr. Farmer) last seen August 2023, more [...] worsening tremor -Continue current medications -Continue current FACILITY DESIGNER service, he has a very supportive FACILITY DESIGNER who ensures pt is safe and healthy. -Discussed about a long-term plan. He was in a shelter in 2022. * Assessment & Plan Note - Shannon Varma MA - 04/18/2024 2:46 PM EDTAssociated Problem(s): Parkinson's disease ([facility]) -Pt has been treated as Parkinson's disease, and recently given Dx for LBD -Neurologist: [facility] (Dr. Farmer) last seen August 2023. More [...] worsening tremor -Continue current medications -Continue current FACILITY DESIGNER service, she has a very supportive FACILITY DESIGNER who ensures pt is safe and healthy. -Discussed about long-term plan. He may need 24/7 care and need shelter placement in the future, but currently pt states he would like to remain in the community. -Continue providing adequate FACILITY DESIGNER services to support pt's wish to live in the community. Pt might be safer with more FACILITY DESIGNER hrs than [facility] -Pt is capable of understanding his medical conditions at this time and some limitation and risks from his medical conditions. Discussed safety issues and the importance of asking for assistance/help. documented in this encounter Plan of Treatment Upcoming Encounters Date Type Department Care Team (Late st Contact Info) Description 06/20/2024 2:00 PM EDT Clinical Support [facility] MEDICINE [address] [place] [address] 07/15/2024 2:00 PM EDT Office Visit [facility] OPTOMETRY [address] [place] [address] Ben, Gris, OD [address] [place] [address] Scheduled Referrals Name Type Priority Associated Diagnoses Order Schedule Referral to Gastroenterology Outpatient Referral Routine Gastroesophageal reflux disease, unspecified whether esophagitis present Constipation, unspecified constipation type Weight loss Generalized abdominal pain Expected: 04/23/2024 (Approximate), Expires: 04/23/2025 documented as of this encounter Visit Diagnoses [...] thrive in adult Adult failure to thrive Benign prostatic hyperplasia with urinary frequency Urinary incontinence, unspecified type Dyslipidemia Other and unspecified hyperlipidemia Generalized abdominal pain Abdominal pain, generalized documented in this encounter Care Teams Lamp Assembler Relationship Specialty Start Date End Date Consuelo Cramer MD [address] [place] [address] PCP - General Family Medicine 12/10/11 documented as of this encounter
== END 2024-04-25 13:09 | disposition home or self-care (01) ==
LOC: HO.HUSH 12:04
PROVIDERS: PCP Family Medicine; Visit Provider Nurse Practitioner Family
DX: R97.20 Elevated prostate specific antigen [PSA] (principal)
CPT/HCPCS: 99213; G2211

== ENCOUNTER → 2024-04-25 12:04 | Outpatient (BNVA) | payer OTHER, SELFPAY | PROVIDERS: PCP Family Medicine; Visit Provider Nurse Practitioner Family ==

== ENCOUNTER 2024-04-28 08:48 | Outpatient (REF) | payer OTHER, SELFPAY | END 2024-04-28 08:49 | disposition home or self-care (01) | LOC: HO.HHCL 08:48 | PROVIDERS: Visit Provider Family Medicine | DX: K59.00 Constipation, unspecified (principal) | CPT/HCPCS: 36415 ==

== ENCOUNTER 2024-05-02 14:21 | Outpatient (REF) | payer OTHER, SELFPAY ==
[2024-05-02 14:49] LABS: MANUAL DIFF FLAG NO
[2024-05-02 15:24] LABS: Basophils Percent Auto 0.4 % (0-2); Eosinophils Absolute Auto 0.1 X10*3/uL (0.0-0.4); Eosinophils Percent Auto 1.8 % (0-4); Hematocrit 36.6 % (42.0-52.0); Imm Gran Abs Auto 0.02 X10*3/uL (0.00-0.03); Imm Gran Pct Auto 0.3 % (0.0-0.4); Lymphocytes Absolute Auto 1.3 X10*3/uL (1.2-4.9); Lymphocytes Percent Auto 18.4 % (20-40); Mean Corpuscular HGB Conc 32.8 g/dl (31.0-36.0); Mean Corpuscular Hemoglobin 30.7 pg (27.0-33.0); Mean Corpuscular Volume 93.6 fL (80.0-98.0); Mean Platelet Volume 9.7 fL (9.4-12.4); Monocytes Absolute Auto 0.4 X10*3/uL (0.1-1.2); Monocytes Percent Auto 5.5 % (2-11); Neutrophils Absolute Auto 5.4 x10*3/uL (2.0-8.3); Neutrophils Percent Auto 73.6 % (45-73); Platelet Count 238 X10*3/uL (160-400); Red Blood Count 3.91 X10*6/uL (4.60-5.80); Red Cell Distribution Width 13.9 % (11.0-16.0); White Blood Count 7.3 X10*3/uL (4.8-10.8)
[2024-05-02 15:33] LABS: Estimated Average Glucose 103 mg/dL; Hemoglobin A1c % 5.2 % (<6.0)
[2024-05-02 16:15] LABS: TSH reflex Free T4 1.52 uIU/mL (0.32-4.0); Vitamin D 25-OH Total 40.2 ng/mL (>30)
[2024-05-02 16:20] LABS: PSA,Total (Free>4and<10) 4.02 ng/mL (0.00-4.00)
[2024-05-03 10:47] LABS: Percent Free Prostate Spec Ag 27 % (calc) (>25); Prostate Specific Ag Total 3.7 ng/mL (< OR = 4.0)
== END 2024-05-02 14:22 | disposition home or self-care (01) ==
LOC: HO.LAB 14:21
PROVIDERS: PCP Family Medicine; Visit Provider Family Medicine
DX: R63.4 Abnormal weight loss (principal); E55.9 Vitamin D deficiency, unspecified; Z12.5 Encounter for screening for malignant neoplasm of prostate; Z13.1 Encounter for screening for diabetes mellitus
CPT/HCPCS: 36415; 82306; 83036; 84153; 84154; 84443; 85025

== ENCOUNTER 2024-12-28 11:10 | Outpatient (REF) | payer OTHER, SELFPAY ==
[2024-12-28 15:46] LABS: Anion Gap 11 (12-20); Blood Urea Nitrogen 20 mg/dL (9-16); Calcium 9.2 mg/dL (8.4-10.2); Carbon Dioxide 28 mmol/L (22-29); Chloride 108 mmol/L (96-108); Cholesterol 134 mg/dL (<200); Estimated Glomerular Filt Rate > 60; HDL Cholesterol 42 mg/dL (>40); Potassium 3.5 mmol/L (3.3-5.1); Sodium 143 mmol/L (135-145); Triglycerides 133 mg/dL (<150)
[2024-12-28 15:57] LABS: PSA,Total (Free>4and<10) 2.90 ng/mL (0.00-4.00)
[2024-12-28 17:15] LABS: Reflex LDLD? No
== END 2024-12-28 11:11 | disposition home or self-care (01) ==
LOC: HO.LAB 11:10
PROVIDERS: Absent Provider Family Medicine; PCP Family Medicine; Visit Provider Nurse Practitioner Family
DX: G21.8 Other secondary parkinsonism (principal); R97.20 Elevated prostate specific antigen [PSA]; R63.4 Abnormal weight loss; R62.7 Adult failure to thrive; E78.5 Hyperlipidemia, unspecified; F03.90 Unspecified dementia, unspecified severity, without behavioral disturbance, psychotic disturbance, mood disturbance, and anxiety; Z12.5 Encounter for screening for malignant neoplasm of prostate
CPT/HCPCS: 36415; 80048; 80061; 83615; 84153; 99212

== ENCOUNTER 2024-12-28 11:10 | Outpatient (AMB) | payer OTHER, MEDICAID, SELFPAY ==
--- NOTE | 2024-12-28 12:11 | A.OFFVIS_ITS ---
Intake Visit Reasons: 6M LBD Allergies trihexyphenidyl Adverse Reaction (Severe, Verified 09/06/24 17:04) Hallucinations HPI Comments Details: 69 years old man with history of alcohol use disorder in admission to a psychiatric hospital in 2012 was initially seen for hand tremor. Over the years his cognitive and behavioral issues I have suggested multifactorial dementia probably of alcoholic/dementia with Lewy body type. He is living with a [employer]. He is presenting for follow-up for medication management and refills. According to the caregiver, the patient is unable to perform activities of daily living on his own, though he has attempted to brush his own teeth. He uses the bathroom independently but requires diapers, and managing the diapers is difficult. A hand tremor is noted when he attempts to adjust his diaper. His speech clarity is variable. The patient's current medication regimen includes donepezil once daily, carbidopa four times daily, and mirtazapine 7.5 mg at night. He also takes quetiapine on a complex schedule totaling four 25 mg tablets and one 100 mg tablet daily, sertraline 100 mg (two tablets) in the morning, and memantine 5 mg twice a day. [facility] Medical History (Updated 12/28/24 @ 12:15 by Gauri Farmer MD) Osteoarthritis Depression Elevated cholesterol GERD (gastroesophageal reflux disease) Arthritis Chronic pain Dementia Parkinson disease Surgical History (Updated 09/06/24 @ 16:58 by ELIUD Dwyer) H/O esophagogastroduodenoscopy Hx of hand surgery Hx of colonoscopy Social History Household Members: None Household Members Other:: per [facility] assessment, lives independently Housing: Apartment Do you presently have visiting nurse or other home services: Yes ([employer]) Alcohol intake: unknown Comment: PATIENT ASLEEP Patient Tobacco Use Status: Former Tobacco user Second Hand Smoke Exposure: No Advance Directives Date on File: 12/13/21 service: No Sexual orientation: Straight/Heterosexual Review of Systems Narrative - Neurologic: Reports hand tremor with activity. - Genitourinary: Reports incontinence requiring diapers. - Constitutional: Reports inability to perform activities of daily living independently. Physical Exam Neuro Other: Mental Status: He is alert and awake but not talking. He was following commands. Cranial Nerves: CN II: Visual matthew full to confrontation, visual acuity intact. CN III, IV, : Pupils equal, round, reactive to light and accommodation. Extraocular movements are normal. CN V: Facial sensation is normal. CN VII: Facial movements symmetrical. CN VIII: Hearing intact to bedside conversation is normal. CN IX, X: Palate elevates symmetrically. CN XI: Shoulder shrug and head turn symmetrical. CN XII: Tongue midline without atrophy or fasciculations. Motor: Walking in his slow base slightly unsteady gait with a walker. Extrapyramidal: Full facial expressions and blinking. No rigidity. Movements are appropriate with no tremor or abnormality. Speech: Normal; no dysarthria or tremor. Assessment & Plan Assessment & Plan (1) Multifactorial dementia: Comment: CT brain WO at [facility] in 2021: Mild diff atrophy. 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 requiring 24/7 care Rec: a: Donepezil 10mg one a day b: Memantine 10mg bid c: Carbidopa/levodopa 25/100 qid d: Mirtazapine 7.5mg one at night e: Quetiapine 25mg, 1 in am, 2 at noontime, and 1 in afternoon f: Quetiapine 100mg one at bedtime g: Sertraline 100mg, 2 in am Medications: New quetiapine 100 mg PO BEDTIME 90 tabs 1RF Changed From sertraline 2 tabs PO DAILY To sertraline 200 mg (2 x 100 mg) PO DAILY 180 tabs 1RF From memantine 1 tab PO BID To memantine 5 mg PO BID 180 tabs 1RF From quetiapine 25 mg PO BID@0800,1700 To quetiapine 25 mg PO QID 360 tabs 1RF From mirtazapine 7.5 mg PO BEDTIME 30 days 30 tabs 0RF To mirtazapine 7.5 mg PO BEDTIME 90 tabs 1RF 90 days From donepezil 1 tab PO BEDTIME To donepezil 10 mg PO BEDTIME 90 tabs 1RF Coding Level of Care Code Est Pt Level 4 (92375) Diagnoses Multifactorial dementia F03.90 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
--- OUTSIDE RECORDS SUMMARY | 2024-12-28 22:00 | XMS_ITS | Encounter Summary ---
Author Organization [employer] Address [address] [facility] [address] [place] [address] Care Team Providers Care Paperboard Box Maker Name Role Phone Consuelo Cramer MD Primary Care Provider [phone] Encounter Details Date Type Department Care Team ([facility] st Contact Info) Description 02/20/2022 Orders Only [facility] MEDICINE [address] [place], [place] [phone] Ban Bedolla LPN Social History Tobacco Use Types Packs/Day Years Used Date Smoking Tobacco: Never Assessed Sex and Gender Information Value Date Recorded Sex Assigned at Male 12/09/2021 10:14 AM EDT Legal Sex Male 10:14 AM EDT Gender Identity Male 12/09/2021 10:14 AM EDT Sexual Orientation Straight 12/09/2021 10 :14 AM EDT documented as of this encounter Plan of Treatment Not on file documented as of this encounter Visit Diagnoses Not on filedocumented in this encounter Care Teams Paperboard Box Maker Relationship Specialty Start Date End Date Consuelo Cramer MD [address] [place] [address] PCP - General Family Medicine 12/10/11 documented as of this encounter
--- OUTSIDE RECORDS SUMMARY | 2024-12-28 22:00 | XMS_ITS | Encounter Summary ---
Author Organization [employer] Address [address] [facility] 7t [place] [address] Care Team Providers Care Avionics Engineer Name Role Phone Consuelo Cramer MD Primary Care Provider [phone] Reason for Visit * Reason Onset Date Comments Hospital Follow-up 04/30/2023 Encounter Details Date Type Department Care Team ([facility] st Contact Info) Description 04/30/2023 Telephone [facility] MEDICINE [address] [place], [place] [phone] Consuelo Cramer MD [address] [place], [place] [phone] Hospital Follow-up Social History Tobacco Use Types [...] from pt requesting a HDF appt. Hospital: [facility] Date of admission: 10/2022 Discharge date: 05/05/23 Please contact [facility] at [phone] documented in this encounter Plan of Treatment Not on file documented as of this encounter Visit Diagnoses Not on filedocumented in this encounter Care Teams Avionics Engineer Relationship Specialty Start Date End Date Consuelo Cramer MD [address] [place] [phone] PCP - General Family Medicine 12/10/11 documented as of this encounter
--- OUTSIDE RECORDS SUMMARY | 2024-12-28 22:00 | XMS_ITS | Encounter Summary ---
Author Organization [employer] Address [address] [facility] 7[address] [place] [address] Care Team Providers Care Java Xml Developer Name Role Phone Consuelo Cramer MD Primary Care Provider [phone] Encounter Details Date Type Department Care Team ([facility] st Contact Info) Description 12/28/2024 Orders Only [facility] MEDICINE [address] [place], [place] [phone] Consuelo Cramer MD [address] [place], [place] [phone] Social History Tobacco Use Types Packs/Day Years [...] on file documented as of this encounter Procedures Procedure Name Priority Date/Time Associated Diagnosis Comments PSA, TOTAL WITH REFLEX TO PSA, FREE Routine 12/28/2024 1:10 PM EST LIPID PANEL WITH REFLEX TO DIRECT LDL Routine 12/28/2024 1:10 PM EST LD Routine 12/28/2024 1:10 PM EST BASIC METABOLIC PANEL Routine 12/28/2024 1:10 PM EST documented in this encounter Results * Lactate Dehydrogenase (LD) (12/28/2024 1:10 PM EST) Lactate Dehydrogenase 145 118 - 273 U/L [facility] 12/28/2024 1:10 PM EST 12/28/2024 1:10 PM EST us Consuelo Cramer MD LAB BLOOD ORDERABLES Final Resul t [facility] [address] [place] [phone] * PSA, Total With Reflex to PSA, Free (12/28/2024 1:10 PM EST) PSA,Total (Free>4and<10) 2.90 0.00 - 4.00 ng/mL [facility] Comment:A Free PSA was not p erformed: The percentage of Free PSA can be used to enhance the differentiation of prostate cancer from benign prostatic disease in subjects whose PSA levels are between 4.0 and 10.0 ng/mL. For subjects whose PSA levels are below 4.0 or above 10.0 ng/mL, the risk of prostate cancer is determined on the basis of the PSA alone. Therefore the % Free PSA is recommended only for those subjects whose PSA levels are between 4.0 and 10.0 ng/mL.PSA methodology: Cross Alinity i ChemiluminescentMicroparticle Immunoassay (CMIA) 12/28/2024 1:10 PM EST 12/28/2024 1:10 PM EST us Generic External Data Provider LAB BLOOD ORDERAB LES Final Result [facility] [address] [place] [phone] * Lipid Panel with Reflex to Direct LDL (12/28/2024 1:10 PM EST) Triglycerides 133 <150 mg/dL [facility] Comment:Desirable Triglyceri de: less than 150 mg/dLBorderline High Triglyceride 150-199 mg/dLHigh Triglyceride: 200-499 mg/dLVery High Triglyceride: greater than or equal to 5OO mg/dL Cholesterol 134 <200 mg/dL [facility] Comment:Desirable Cholestero l: less than 200 mg/dLBorderline High Cholesterol: 200-239 mg/dLHigh Cholesterol: greater than 239 mg/dL LDL Cholesterol Calculated 66 <100 mg/dL [facility] Comment:Desirable LDL: less than 100 mg/dLNear Optimal/Above Optimal LDL: 110- 129 mg/dLBorderline High LDL: 130-159 mg/dLHigh LDL: 160-189 mg/dLVery High LDL: greater than or equal to 190 mg/dL HDL Cholesterol 42 >40 mg/dL [facility] Comment:Desirable HDL: great er than 40 mg/dL Note: This HDL assay may give artificially low results in patients with liver disease. 12/28/2024 1:10 PM EST 12/28/2024 1:10 PM EST us Consuelo Cramer MD LAB BLOOD ORDERABLES Final Resul t Performing Organization Address [facility] Co de Phone Number [facility] [address] [place] [phone] * (ABNORMAL) Basic Metabolic Panel (12/28/2024 1:10 PM EST) Sodium 143 135 - 145 mmol/L [facility] Potassium 3.5 3.3 - 5.1 mmol/L [facility] Chloride 108 96 - 108 mmol/L [facility] Carbon Dioxide 28 22 - 29 mmol/L [facility] Anion Gap 11(L) 12 - 20 [facility] Urea Nitrogen (BUN) 20(H) 9 - 16 mg/dL [facility] Creatinine, Serum 0.77 0.5 - 1.4 mg/dL [facility] Estimated Glomerular Filt Rate >60 [facility] Comment:Chronic Kidney Disea se: Estimated GFR < 60 mL/min/1.90u4Tgdshj Kidney Disease: Estimated GFR < 15 mL/min/1.73m2 Glucose 90 60 - 115 mg/dL [facility] Calcium 9.2 8.4 - 10.2 mg/dL [facility] 12/28/2024 1:10 PM EST 12/28/2024 1:10 PM EST us Consuelo Cramer MD LAB BLOOD ORDERABLES Final Resul t Performing Organization Address [facility] Co de Phone Number [facility] [address] [place] [phone] documented in this encounter Visit Diagnoses Not on filedocumented in this encounter Care Teams Java Xml Developer Relationship Specialty Start Date End Date Consuelo Cramer MD [address] [place] [phone] PCP - General Family Medicine 12/10/11 documented as of this encounter
--- OUTSIDE RECORDS SUMMARY | 2024-12-28 22:00 | XMS_ITS | Encounter Summary ---
Author Organization [employer] Address [address] [facility] [address] [place] [address] Care Team Providers Care Relish Maker Name Role Phone Consuelo Cramer MD Primary Care Provider [phone] Reason for Visit * Reason Onset Date Comments Letter for School/Work 01/20/2023 Encounter Details Date Type Department Care Team ([facility] Contact Info) Description 01/20/2023 Telephone [facility] MEDICINE [address] [place], [place] [phone] Consuelo Cramer MD [address] [place], [place] [phone] Letter for School/Work Social History Tobacco Use [...] - 01/27/2023 10:20 AM EST Leesa from [facility] stated that the issue is [...] have was able to talk with housing. [facility] is advocating for patient to stay at [facility] until HCP is able to talk with housing to be able to move in to take care of patient. Patient has invoked power of copper plate printer and HCP. Leesa stated that patient can have 3 leather cleaner to stay most of the day and only 2 hours at night in a rotating schedule. [facility] wants PCP to be aware of situation. * Telephone Encounter - Denise Hodgson - 01/21/2023 9:41 AM EST Tc from [place] [facility] requesting a letter with PCP recommendation/approval stating if pt is eligible tohave 24 hour care due to pt currently being admitted at [facility] pt health care proxy has been trying to discharge pt from facility however due to safety concerns they are having difficulty with discharging pt. Please contact at [phone] * Telephone Encounter - Elda Cardenas - 01/20/2023 1:07 PM EST Tc from [employer] requesting a letter for pt stating provider recommends someone can stay with pt at night at his apartment for care. Please clarify. Please contact zoey at [phone] documented in this encounter Plan of Treatment Not on file documented as of this encounter Visit Diagnoses Not on filedocumented in this encounter Care Teams Relish Maker Relationship Specialty Start Date End Date Consuelo Cramer MD [address] [place] [address] PCP - General Family Medicine 12/10/11 documented as of this encounter
--- OUTSIDE RECORDS SUMMARY | 2024-12-28 22:00 | XMS_ITS | Encounter Summary ---
Author Organization [employer] Address [address] [facility] [address] [place] [address] Care Team Providers Care Activities Counselor Name Role Phone Consuelo Cramer MD Primary Care Provider [phone] Encounter Details Date Type Department Care Team (Late st Contact Info) Description 03/17/2022 Orders Only [facility] MEDICINE [address] [place], [place] [phone] Ban Bedolla LPN Social History Tobacco Use [...] AM EST documented as of this encounter Functional Status * Over the past 2 weeks, how often have you been bothered by any of the following problems? Question Answer Date of Assessment Author Little interest or pleasure in doing things Not at all 03/20/2022 9:35 AM Rosario Burch [place] Feeling down, depressed, or hopeless Not at all 03/20/2022 9:35 AM Rosario Burch MA Patient Health Questionnaire-2 Score 0 03/20/2022 9:35 AM Nicolas Burch MA documented as of this encounter Plan of Treatment Not on file documented as of this encounter Visit Diagnoses Not on filedocumented in this encounter Care Teams Activities Counselor Relationship Specialty Start Date End Date Consuelo Cramer MD [address] [place] [address] PCP - General Family Medicine 12/10/11 documented as of this encounter
--- OUTSIDE RECORDS SUMMARY | 2024-12-28 22:01 | XMS_ITS | Clinical Summary ---
Author Organization [employer] Address [address] [place] [address] Care Team Providers Care Concaver Name Role Phone Consuelo Cramer MD Primary Care Provider [phone] Allergies Active Allergy Reactions Criticality Noted Date Comments Trihexyphenidyl Hallucinations High 10/14/2017 Medications * This document contains information received from the source organization and may not represent a complete record from that organization. carbidopa-levod opa (Sinemet) 25-100 MG tablet Take 1 tablet by mouth 4 times daily. 02/28/19 23 Active donepezil (Aricept) 10 MG tablet Take 10 mg by mouth at bedtime. 02/28/19 23 Active memantine (Namenda) 5 MG tablet TAKE 1 TABLET BY MOUTH TWICE DAILY IN THE MORNING AND AT BEDTIME 02/28/19 23 Active mirtazapine (Remeron) 7.5 MG tablet TAKE 1 TABLET BY MOUTH AT BEDTIME DIRECTED 02/27/19 23 Active QUEtiapine (SEROquel) 25 MG tablet TAKE 1 TABLET BY MOUTH TWICE DAILY IN THE MORNING AND IN THE EVENING and TAKE 2 TABLETS BY MOUTH ONCE DAILY AT NOON 02/27/19 23 Active QUEtiapine (SEROquel) 100 MG tablet Take 100 mg by mouth at bedtime. 02/27/19 23 Active albuterol 108 (90 Base) MCG/ACT inhaler Inhale 2 puffs every 4 (four) hours if needed for wheezing or shortness of breath. Maximum 8 puffs per day 18 g 3 07/22/19 23 Active sertraline (Zoloft) 100 MG tablet TAKE 1.5 TABLETS BY MOUTH ONCE DAILY IN THE MORNING 135 tablet 3 05/26/19 24 Active finasteride (Proscar) 5 MG tablet Take 5 mg by mouth Once per day. 06/19/19 24 Active tamsulosin (Flomax) 0.4 MG 24 hr capsule Take 0.4 mg by mouth Once per day. 06/19/19 24 Active cholecalciferol (Vitamin D-3) 25 MCG tabletIndicatio ns:Vitamin D deficiency Take 1 tablet (25 mcg) by mouth in the morning. 90 tablet 3 04/30/19 25 Active atorvastatin (Lipitor) 10 MG tablet TAKE 1 TABLET BY MOUTH AT BEDTIME 90 tablet 3 08/30/19 25 Active Multiple Vitamins-Minera ls (CertaVite/Anti oxidants) tabletIndicatio ns:Vitamin deficiency TAKE 1 TABLET BY MOUTH EVERYDAY AT NOON 90 tablet 3 08/30/19 25 Active pantoprazole (ProtoNix) 40 MG EC tablet TAKE 1 TABLET BY MOUTH EVERY MORNING 90 tablet 3 08/30/19 25 Active cyanocobalamin (Vitamin B-12) 1000 MCG tabletIndicatio ns:Vitamin deficiency TAKE 1 TABLET BY MOUTH EVERY MORNING 90 tablet 3 08/30/19 25 Active polyethylene glycol, PEG, 3350 (HealthyLax) 17 g packetIndicatio ns:Constipation , unspecified constipation type Mix 1 packet in 8 ounces of water, juice, coffee or tea and drink once a day NEEDED FOR CONSTIPATION 30 packet 2 10/01/19 25 Active docusate sodium (Colace) 100 MG capsuleIndicati ons:Constipatio n, unspecified constipation type TAKE 1 CAPSULE BY MOUTH TWICE DAILY 180 capsule 3 12/01/19 25 Active senna (Senokot) 8.6 MG tabletIndicatio ns:Constipation , unspecified constipation type TAKE 2 TABLETS BY MOUTH EVERY DAY AT BEDTIME NEEDED FOR CONSTIPATION 180 tablet 3 12/01/19 25 Active docusate sodium (Colace) 100 MG capsuleIndicati ons:Constipatio n, unspecified constipation type Take 1 capsule (100 mg) by mouth 2 times daily. 180 capsule 3 10/20/19 24 2024 Discontinued senna (Senokot) 8.6 MG tabletIndicatio ns:Constipation , unspecified constipation type TAKE 2 TABLETS BY MOUTH ONCE DAILY NEEDED FOR CONSTIPATION 180 tablet 3 10/20/19 24 2024 Discontinued Active Problems Problem Noted Date Diagnosed Date Vitamin D deficiency 04/29/2024 Failure to thrive in adult 04/18/2024 Assessment [...] disease and BPH - referred to urologist; [employer] will reschedule appt - pt is using briefs Lewy body dementia 03/20/2022 Assessment & Plan (04/23/2024 5:53 AM EDT): Neurologist: [facility] (Dr. Farmer) last seen August 2023, more [...] worsening tremor -Continue current medications -Continue current [employer] service, he has a very supportive [employer] who ensures pt is safe and healthy. -Discussed about a long-term plan. He was in a fdc in 2022. Assessment & Plan (01/18/2024 4:05 PM EST): Neurologist: [facility] (Dr. Farmer) last seen June 2022, per [...] worsening tremor -Continue current medications -Continue current [employer] service, he has a very supportive [employer] who ensures pt is safe and healthy. -Discussed about a long-term plan. He was in a fdc in 2022. Assessment & Plan (09/16/2023 7:20 PM EDT): Neurologist: [facility] (Dr. Farmer) last seen June 2022, per [...] worsening tremor -Continue current medications -Continue current [employer] service, he has a very supportive [employer] who ensures pt is safe and healthy. -Discussed about a long-term plan. He was in a fdc in 2022. Assessment & Plan (07/28/2022 5:47 PM EDT): Neurologist: [facility] (Dr. Farmer) last seen June 2022 -Because [...] worsening tremor -Continue current medications -Continue current [employer] service, she has a very supportive [employer] who ensures pt is safe and healthy. -Discussed about a long-term plan. Likely need 24/7 care and need fdc placement. Both Pt and CG understood and agreed with the plan, but would like to remain in the community. -Pt is capable of understanding his medical conditions at this time and some limitation and risks from his medical conditions. Discussed safety issues and the importance of asking for assistance/help. -Follow-up in 4 months. Assessment & Plan (03/21/2022 12:01 PM EST): Neurologist: [facility] (Dr. Farmer) last seen 03/13/21; Telephone visit [...] worsening tremor -Continue current medications -Continue current [employer] service, she has a very supportive [employer] who ensures pt is safe and healthy. -Discussed about a long-term plan. Likely need 24/7 care and need fdc placement. Both Pt and CG understood and agreed with the plan, but would like to remain in the community. -Will request more [employer] hrs to support pt's wish. -Pt will need care in which he can receive care punctually, the original arrangement seems to be difficult to arrange on-time. -Pt might be safer with more [employer] hrs than [facility] -[employer], Leesa Arriaza from [facility] and Dr Farmer recommended a fdc placement since pt was found wandering around and appeared confused recently. However, there is no documentation of harm to himself or others. -Pt is capable of understanding his medical conditions at this time and some limitation and risks from his medical conditions. Discussed safety issues and the importance of asking for assistance/help. -Follow-up in 4 months. Benign prostate hyperplasia 03/20/2022 Assessment & Plan (04/29/2024 3:29 PM EDT): -CT Scan showed enlarged prostate -Evaluated by urologist in June 2023, prescribed tamsulosin and finasteride Assessment & Plan (04/23/2024 5:56 AM EDT): [...] BPH -Patient missed appointment while in the fdc; refer again Assessment & Plan (07/21/2022 9:49 AM EDT): -CT Scan showed enlarged prostate -Referred pt to Urologist for BPH -[employer] will reschedule Assessment & Plan (03/21/2022 12:20 PM EST): -CT Scan showed enlarged prostate -Referred pt to Urologist for BPH -[employer] will reschedule Constipation 03/20/2022 Assessment & Plan [...] was T[place] with [place] [facility] [place]Continue albuterol HFA and neb prn Assessment & Plan (05/26/2023 11:20 AM EDT): -PFT was completed on 04/23/17 which showed mild restrictive and obstructive airway disease -Last exacerbation on 05/01/2017 and was Tx with prednisone and [place]but[place]ol [place] [facility] [place]Continue albuterol HFA and neb prn Assessment & Plan (07/28/2022 5:50 PM EDT): -PFT was completed on 04/23/17 which showed mild restrictive and obstructive airway disease -Last exacerbation on 05/01/2017 and was Tx with prednisone and albuterol [place] [facility] [place]Continue albuterol HFA and neb prn Assessment & Plan (03/20/2022 10:00 AM EST): -PFT was completed on 04/23/17 which showed mild restrictive and obstructive airway disease -Last exacerbation on 05/01/2017 and was Tx with prednisone and [place]but[place]ol [place] [facility] [place]Continue albuterol HFA and neb prn Chronic headache disorder 05/09/2015 Assessment & Plan (07/28/2022 5:43 PM EDT): - he has not complained about headache very much - continue APAP prn Chronic depression 03/05/2015 Assessment & Plan (05/26/2023 11:30 AM EDT): -Last [facility] provider: Dr. Spencer -Previous [facility] providers: Dr. Reji Morrison at [facility] He was discharged from [facility] due to multiple no-shows. -Medications: mirtazepine [...] AM EDT): -S provider: Dr. Spencer -Previous [facility] providers: Dr. Reji Morrison at [facility] / [facility] He was discharged from [facility] due to multiple no-shows. -Medications: mirtazepine 7.5 mg; quetiapine 100 mg at nighttime; donepezil 5 mg qhs -Previously on clozapine and sertraline, which were discontinued during recent admission Assessment & Plan (03/21/2022 12:04 PM EST): -S provider: Dr. Spencer -Previous [facility] providers: Dr. Reji Morrison at [facility] / [facility] He was discharged from [facility] due to multiple no-shows. 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 Bermudez, last seen on 03/19/20, Dr. Nice prior to 2019 -Current neurologist: [facility] (Dr. Farmer) last seen August 2023 per [employer] and pt -Brain MRI in Dec 2013 [...] current medications at this time -Continue current [employer] service -Pt is capable of living in a community with [employer] service. Discussed safety issues and the importance of asking for assistance/help. Assessment & Plan (05/26/2023 11:19 AM EDT): -Previous neurologists: Dr. Bermudez, last seen on 03/19/20, Dr. Nice prior to 2019 -Current neurologist: [facility] (Dr. Farmer) last seen December 2021, more recent June 2022, per [employer] and pt -Brain MRI in Dec 2013 [...] current medications at this time -Continue current [employer] service -Pt is capable of living in a community with [employer] service. Discussed safety issues and the importance of asking for assistance/help. -Follow-up in 3 months. Assessment & Plan (07/28/2022 5:44 PM EDT): -Previous neurologists: Dr. Bermudez, last seen on 03/19/20, Dr. Nice prior to 2019 -New neurologist: [facility] (Dr. Farmer) last seen December 2021, more recent June 2022, per [employer] and pt -Brain MRI in Dec 2013 [...] current medications at this time -Continue current [employer] service -Pt is capable of living in a community with [employer] service. Discussed safety issues and the importance of asking for assistance/help. -Follow-up in 4 months. Assessment & Plan (03/20/2022 10:13 AM EST): -Previous neurologists: Dr. Bermudez, last seen on 03/19/20, Dr. Nice prior to 2019 -New neurologist: [facility] (Dr. Farmer) last seen December 2021 -Brain [...] current medications at this time -Continue current [employer] service -Pt is capable of living in a community with [employer] service. Discussed safety issues and the importance of asking for assistance/help. -Follow-up in 4 months. Primary osteoarthritis of both knees 01/08/2015 Assessment & Plan (07/28/2022 5:52 PM EDT): - continue APAP prn Parkinson's disease (CMS/HCC) 12/18/2014 Assessment & Plan (04/23/2024 5:53 AM EDT): -Pt has been treated as Parkinson's disease, and recently given Dx for LBD -Neurologist: [facility] (Dr. Farmer) last seen August 2023. More [...] worsening tremor -Continue current medications -Continue current [employer] service, she has a very supportive [employer] who ensures pt is safe and healthy. -Discussed about long-term plan. He may need 24/7 care and need fdc placement in the future, but currently pt states he would like to remain in the community. -Continue providing adequate [employer] services to support pt's wish to live in the community. Pt might be safer with more [employer] hrs than [facility] -Pt is capable of understanding his medical conditions at this time and some limitation and risks from his medical conditions. Discussed safety issues and the importance of asking for assistance/help. Assessment & Plan (01/18/2024 4:06 PM EST): -Pt has been treated as Parkinson's disease, and recently given Dx for LBD -Neurologist: [facility] (Dr. Farmer) last seen August 2023. -Brain [...] worsening tremor -Continue current medications -Continue current [employer] service, she has a very supportive [employer] who ensures pt is safe and healthy. -Discussed about long-term plan. He may need 24/7 care and need fdc placement in the future, but currently pt states he would like to remain in the community. -Continue providing adequate [employer] services to support pt's wish to live in the community. Pt might be safer with more [employer] hrs than [facility] -Pt is capable of understanding his medical conditions at this time and some limitation and risks from his medical conditions. Discussed safety issues and the importance of asking for assistance/help. Assessment & Plan (09/15/2023 10:09 AM EDT): -Pt has been treated as Parkinson's disease, and recently given Dx for LBD -Neurologist: [facility] (Dr. Farmer) last seen August 2023. -Brain [...] worsening tremor -Continue current medications -Continue current [employer] service, she has a very supportive [employer] who ensures pt is safe and healthy. -Discussed about long-term plan. He may need 24/7 care and need fdc placement in the future, but currently pt states he would like to remain in the community. -Continue providing adequate [employer] services to support pt's wish to live in the community. Pt might be safer with more [employer] hrs than [facility] -Pt is capable of understanding his medical conditions at this time and some limitation and risks from his medical conditions. Discussed safety issues and the importance of asking for assistance/help. Assessment & Plan (05/26/2023 11:20 AM EDT): -Pt has been treated as Parkinson's disease, and recently given Dx for LBD -Neurologist: [facility] (Dr. Farmer) last seen June 2022. -Brain [...] worsening tremor -Continue current medications -Continue current [employer] service, she has a very supportive [employer] who ensures pt is safe and healthy. -Discussed about long-term plan. He may need 24/7 care and need fdc placement in the future, but currently pt states he would like to remain in the community. -Continue providing adequate [employer] services to support pt's wish to live in the community. Pt might be safer with more [employer] hrs than [facility] -Pt is capable of understanding his medical conditions at this time and some limitation and risks from his medical conditions. Discussed safety issues and the importance of asking for assistance/help. Assessment & Plan (07/28/2022 5:50 PM EDT): -Pt has been treated as Parkinson's disease, and recently given Dx for LBD -Neurologist: [facility] (Dr. Farmer) last seen June 2022. -Brain [...] worsening tremor -Continue current medications -Continue current [employer] service, she has a very supportive [employer] who ensures pt is safe and healthy. -Discussed about long-term plan. He may need 24/7 care and need fdc placement in the future, but currently pt states he would like to remain in the community. -Continue providing adequate [employer] services to support pt's wish to live in the community. Pt might be safer with more [employer] hrs than [facility] -Pt is capable of understanding his medical conditions at this time and some limitation and risks from his medical conditions. Discussed safety issues and the importance of asking for assistance/help. Assessment & Plan (03/21/2022 12:01 PM EST): -Pt has been treated as Parkinson's disease, and recently given Dx for LBD -Neurologist: [facility] (Dr. Farmer) last seen 03/13/21. -Brain MRI [...] worsening tremor -Continue current medications -Continue current [employer] service, she has a very supportive [employer] who ensures pt is safe and healthy. -Discussed about long-term plan. He may need 24/7 care and need fdc placement in the future, but currently pt states he would like to remain in the community. -At this time, pt appears to be capable of understanding his medical conditions (and some limitations) -Will request more [employer] hrs to support pt's wish. Pt might be safer with more [employer] hrs than [facility]. -Pt will need care which he can received care punctually, original arrangement sees to be difficult to arrange on-time. -Supervisor [employer], Leesa Arriaza from [facility] and Dr aFrmer recommended a fdc placement since pt was found wandering around [...] (07/28/2022 5:58 PM EDT): - pt and [employer] state pt has a good appetite and weight loss is intentional ([employer] is serving healthier meals) Diarrhea 03/19/2022 03/21/2022 Class 1 obesity due to exces s calories without serious comorbidity with body mass index (BMI) of 30.0 to 30.9 in adult 04/10/2014 Assessment & Plan (07/21/2022 9:51 AM EDT): -Continue working on lifestyle modifications Assessment & Plan (03/21/2022 4:41 PM EST): -Continue working on lifestyle modifications Encounters Date Type Department Care Team Description 12/28/2024 Orders Only [facility] [address] [place] [address] Consuelo Cramer MD 11/29/2024 Refill [facility] [address] [place] [address] Consuelo Cramer MD Constipation, unspecified constipation type 11/18/2024 Telephone [facility] [address] [place] [address] Consuelo Cramer MD 11/18/2024 Telephone [facility] [address] [place] [address] Consuelo Cramer MD 09/30/2024 Refill [facility] [address] [place] [address] Anabella Cantrell ANP Constipation, unspecified constipation type from Last 3 Months Immunizations Immunization Administration Dates Next Due DTaP 10/07/2002 Influenza [...] 94 04/18/2024 2:13 PM EDT Temperature 36.2 C (97.1 F) 04/18/2024 2:13 PM EDT Respiratory Rate 19 04/18/2024 2:13 PM EDT Oxygen Saturation 99% 04/18/2024 2:13 PM EDT Inhaled Oxygen Concentration - - Weight 60.8 kg (134 lb) 04/18/2024 2:13 PM EDT Height 165.1 cm (5' 5 ) 04/18/2024 2:13 PM EDT Body Mass Index 22.3 04/18/2024 2:13 PM EDT Plan of Treatment Health Maintenance Due Date Last Done Comments CT Colonography 1955 FIT DNA/Cologuard 1955 FIT 1955 FOBT 1955 Sigmoidoscopy 1955 Depression Screening 09/14/2024 09/15/2023, 09/15/19 24 SDOH Screening 09/14/2024 09/15/2023 COVID-19 Vaccine ( season) 2024 05/21/2021, 06/11/2020, 05/14/2020 Influenza Vaccine (#1) 2024 , 11/21/2022, 12/10/2021, Additional history exists Alcohol/Substance Use Screening 01/17/2025 01/18/2024 Tobacco Screening 04/18/2025 04/18/2024 Colonoscopy 10/30/2025 10/30/2020 Colorectal Cancer Screening 10/30/2025 Lipid Panel 12/28/2029 12/28/2024, 0603/2022, 06/17/2021, Additional history exists DTaP/Tdap/Td Vaccines (5 - Td or Tdap) 03/20/2032 03/20/2022, 03/08/2012, 10/07/2002, Additional history exists Hepatitis C Screening Completed 01/31/2019 Zoster Vaccines Completed 02/07/2019, 11/10, 09/12/2016 Pneumococcal Vaccine: 50+ Years Completed 12/10/2021, 03/15/2010 RSV Patients and Patients Aged 60 years [...] patient's age to complete this topic Meningococcal B Vaccine Aged Out No l onger eligible based on patient's age to complete [...] Procedure Name Priority Date/Time Associated Diagnosis Comments LD Routine 12/28/2024 1:10 PM EST PSA, TOTAL WITH REFLEX TO PSA, FREE Routine 12/28/2024 1:10 PM EST LIPID PANEL WITH REFLEX TO DIRECT LDL Routine 12/28/2024 1:10 PM EST BASIC METABOLIC PANEL Routine 12/28/2024 1:10 PM EST HM COLONOSCOPY Routine 10/30/2020 ZZZ HISTORICAL HEPATITIS C ANTIBODY RFLX Routine 01/31/2019 11:25 AM EST from Last 3 Months or Most Recently Relevant to Health Maintenance Results * PSA, Total With Reflex to PSA, Free (12/28/2024 1:10 PM EST) PSA,Total (Free>4and<10) 2.90 0.00 - 4.00 ng/mL [facility] Comment:A Free PSA was not p [...] are between 4.0 and 10.0 ng/mL.PSA methodology: [employer] Alinity i ChemiluminescentMicroparticle Immunoassay (CMIA) 12/28/2024 1:10 PM EST 12/28/2024 1:10 PM EST us Generic External Data Provider LAB BLOOD ORDERAB LES Final Result Performing Organization Address City/State/[facility] Co de Phone Number [facility] [address] [place] [phone] * Lipid Panel with Reflex to Direct LDL (12/28/2024 1:10 PM EST) Triglycerides 133 <150 mg/dL [facility] Comment:Desirable Triglyceri de: less than 150 mg/dLBorderline High Triglyceride 150-199 mg/dLHigh Triglyceride: 200-499 mg/dLVery High Triglyceride: greater than or equal to 5OO mg/dL Cholesterol 134 <200 mg/dL [facility] Comment:Desirable Cholestero l: less than 200 mg/dLBorderline High Cholesterol: 200-239 mg/dLHigh Cholesterol: greater than 239 mg/dL LDL Cholesterol Calculated 66 <100 mg/dL [facility] Comment:Desirable LDL: less than 100 mg/dLNear Optimal/Above Optimal LDL: 110- 129 mg/dLBorderline High LDL: 130-159 mg/dLHigh LDL: 160-189 mg/dLVery High LDL: greater than or equal to 190 mg/dL HDL Cholesterol 42 >40 mg/dL [facility] Comment:Desirable HDL: great er than 40 mg/dL Note: This HDL assay may give artificially low results in patients with liver disease. 12/28/2024 1:10 PM EST 12/28/2024 1:10 PM EST Consuelo Cramer MD LAB BLOOD ORDERABLES Final Resul t Performing Organization Address [facility] Co de Phone Number [facility] [address] [place] [phone] * Lactate Dehydrogenase (LD) (12/28/2024 1:10 PM EST) Lactate Dehydrogenase 145 118 - 273 U/L [facility] 12/28/2024 1:10 PM EST 12/28/2024 1:10 PM EST Consuelo Cramer MD LAB BLOOD ORDERABLES Final Resul t Performing Organization Address [facility] de Phone Number [facility] [address] [place] [phone] * (ABNORMAL) Basic Metabolic Panel (12/28/2024 1:10 PM EST) Sodium 143 135 - 145 mmol/L [facility] Potassium 3.5 3.3 - 5.1 mmol/L [facility] Chloride 108 96 - 108 mmol/L [facility] Carbon Dioxide 28 22 - 29 mmol/L [facility] Anion Gap 11(L) 12 - 20 [facility] Urea Nitrogen (BUN) 20(H) 9 - 16 mg/dL [facility] Creatinine, Serum 0.77 0.5 - 1.4 mg/dL [facility] Estimated Glomerular Filt Rate >60 [facility] Comment:Chronic Kidney Disea se: Estimated GFR < 60 mL/min/[id number] Kidney Disease: Estimated GFR < 15 mL/min/1.73m2 Glucose 90 60 - 115 mg/dL [facility] Calcium 9.2 8.4 - 10.2 mg/dL [facility] 12/28/2024 1:10 PM EST 12/28/2024 1:10 PM EST us Consuelo Cramer MD LAB BLOOD ORDERABLES Final Resul t [facility] [address] [place] [address] [phone] * (ABNORMAL) Colonoscopy (10/30/2020) Colonoscopy Abnormal( A) Normal Comment:3 polyps, all tubula r adenoma, Dr. Medina 10/30/2020 us Historical Provider MD HEALTH MAINTENANCE Final Result * HEPATITIS C ANTIBODY RFLX (01/31/2019 11:25 AM EST) HEPATITIS C ANTIBODY NONREACTIVE NONREACTIVE [facility] Comment: Antibodies to HCV not detected; does not exclude early acute HCV infection. 01/31/2019 11:2 5 AM EST us Consuelo Cramer MD HISTORICAL/NON ORDERABLE LABS Fi nal Result Performing Organization Address City/[facility]/ZIP Co de Phone Number [facility] [address] from Last 3 Months or Most Recently Relevant to Health Maintenance Insurance [facility] OPTIONS (O D-SNP) [place] [id number] Care Teams Concaver Relationship Specialty Start Date End Date Consuelo Cramer MD [address] [place] [phone] PCP - General Family Medicine 12/10/11
--- OUTSIDE RECORDS SUMMARY | 2024-12-28 22:01 | XMS_ITS | Encounter Summary ---
Author Organization [employer] Address [address] [facility] 7t [place] [address] Care Team Providers Care Art Psychotherapist Name Role Phone Consuelo Cramer MD Primary Care Provider [phone] Encounter Details Date Type Department Care Team ([facility] st Contact Info) Description 11/18/2024 Telephone [facility] MEDICINE [address] [place], [place] [phone] Consuelo Cramer MD [address] [place], [place] [phone] Social History Tobacco Use Types Packs/Day Years [...] on filedocumented in this encounter Care Teams Art Psychotherapist Relationship Specialty Start Date End Date Consuelo Cramer MD [address] [place] [phone] PCP - General Family Medicine 12/10/11 documented as of this encounter
--- OUTSIDE RECORDS SUMMARY | 2024-12-28 22:01 | XMS_ITS | Encounter Summary ---
Author Organization [employer] Address [address] [facility] 7t [place] [address] Care Team Providers Care Wafer Fabricator Name Role Phone Consuelo Cramer MD Primary Care Provider [phone] Encounter Details Date Type Department Care Team (Late st Contact Info) Description 02/04/2022 Orders Only [facility] MED & PEDS [address] [place] [address] Shannon Moreno LPN Social History Tobacco Use [...] on filedocumented in this encounter Care Teams Wafer Fabricator Relationship Specialty Start Date End Date Consuelo Cramer MD [address] [place] [phone] PCP - General Family Medicine 12/10/11 documented as of this encounter
--- OUTSIDE RECORDS SUMMARY | 2024-12-28 22:01 | XMS_ITS | Encounter Summary ---
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) Gastroesophageal reflux disease, unspecified whether esophagitis present Dyslipidemia Consuelo Cramer MD [address] [place] [address] Phone: tel: fax: Referral ID Status Reason Start Date Expiration Date V isits Requested Visits Authorized [id number] Closed Continuity of Care 12/22/2023 12/21/2024 6 6 Encounter Details Date Type Department Care Team (Late st Contact Info) Description 12/22/2023 Orders Only [facility] MEDICINE [address] [place], [place] [phone] Consuelo Cramer MD [address] [place], [place] [phone] Parkinson's disease with dyskinesia and fluctuating manifestations [...] as of this encounter Plan of Treatment Scheduled Referrals Name Type Priority Associated Diagnoses Orde r Schedule Referral to Pharmacy MT Outpatient Referral Routine 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) Gastroesophageal reflux disease, unspecified whether esophagitis present Dyslipidemia Ordered: 12/22/2023 documented as of this encounter Visit Diagnoses Diagnosis 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
--- OUTSIDE RECORDS SUMMARY | 2024-12-28 22:01 | XMS_ITS | Encounter Summary ---
Author Organization [employer] Address 75 [facility] 7t [place] [address] Care Team Providers Care Business Lawyer Name Role Phone Consuelo Cramer MD Primary Care Provider [phone] Reason for Visit * Reason Comments Med Refill Encounter Details Date Type Department Care Team (Late st Contact Info) Description 04/21/2022 Refill [facility] MEDICINE [address] [place], [place] [phone] Consuelo Cramer MD [address] [place], [place] [phone] Social History Tobacco Use Types Packs/Day Years [...] on filedocumented in this encounter Care Teams Business Lawyer Relationship Specialty Start Date End Date Consuelo Cramer MD [address] [place], [place] [phone] PCP - General Family Medicine 12/10/11 documented as of this encounter
--- OUTSIDE RECORDS SUMMARY | 2024-12-28 22:01 | XMS_ITS | Encounter Summary ---
Author Organization [employer] Address 75 [facility] 7t [place] [address] Care Team Providers Care Barrel Loader Name Role Phone Consuelo Cramer MD Primary Care Provider [phone] Encounter Details Date Type Department Care Team (Late st Contact Info) Description 04/29/2024 Orders Only [facility] MEDICINE [address] [place], [place] [phone] Consuelo Cramer MD [address] [place], [place] [phone] 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) (Primary Dx); Weight loss; Failure to thrive in adult; Benign prostatic hyperplasia with urinary frequency; Urinary incontinence, unspecified type; Dyslipidemia; Elevated PSA; Vitamin D deficiency; Vitamin deficiency Social History Tobacco Use Types Packs/Day Years [...] as of this encounter Miscellaneous Notes * Assessment & Plan Note - Consuelo Cramer MD - 04/29/2024 3:29 PM EDTAssociated Problem(s): Benign prostate hyperplasia -CT Scan showed enlarged prostate -Evaluated by urologist in June 2023, prescribed tamsulosin and finasteride documented in this encounter Plan of Treatment Scheduled Orders Name Type Priority Associated Diagnoses Orde r Schedule Basic Metabolic Panel Lab Routine Weight loss Expected: 04/29/2024 (Approximate), Expires: 04/29/2025 Lipid Panel with Reflex to Direct LDL Lab Routine Dyslipidemia Expected: 04/29/2024 (Approximate), Expires: 04/29/2025 Lactate Dehydrogenase (LD) Lab Routine Weight loss Failure to thrive in adult Expected: 04/29/2024 (Approximate), Expires: 04/29/2025 documented as of this encounter Procedures Procedure Name Priority Date/Time Associated Diagnosis Comments VITAMIN D,25-OH,TOTAL,IA Routine 05/02/2024 2:48 PM EDT Vitamin D deficiency TSH W/REFLEX TO FT4 Routine 05/02/2024 2 :48 PM EDT Weight loss CBC WITH AUTO DIFFERENTIAL Routine 05/02/2024 2:48 PM EDT Weight loss documented in this encounter Results * Vitamin D, 25-Hydroxy, Total, Immunoassay (05/02/2024 2:48 PM EDT) Vitamin D 25-OH Total 40.2 >30 ng/mL [facility] Comment: Health Based Reference Values*< 20 ng/mL [id number] ng/mL Insufficient> 30 ng/mL Sufficient*Tana DONALDSON. N Engl J Med. 2007;357:266-280There is no well-established upper level of normal vitamin Dlevels. Some laboratories use 50 ng/mL as an upper limit ofnormal. However, toxicity is patient-dependent and may occurat any level. Careful correlation with the patient'spresentation is necessary and, if there is concern forvitamin D toxicity, treatment should be consideredirrespective of the serum level.Care must be taken in interpreting Vitamin D results fromdifferent laboratories and methodologies. Published datademonstrated that results from patients undergoinghemodialysis may show a negative bias when tested withvarious automated 25-OH vitamin D assays when compared toLC-MS/MS.When testing samples from patients whose predominant form ofVitamin D is Vitamin D2, such as patients receiving VitaminD2 supplementation, results that are subtherapeutic shouldbe confirmed with another method such as LC-MS/MS. Blood Venous blood specimen / Unknown 05/02/2024 2:48 PM EDT 05/02/2024 2:48 PM EDT Consuelo Cramer MD LAB BLOOD ORDERABLES Final Resul t [facility] [address] [place] [phone] * TSH with Reflex to Free T4 (05/02/2024 2:48 PM EDT) TSH reflex Free T4 1.52 0.32 - 4.0 uIU/mL [facility] Blood 05/02/2024 2:48 PM EDT 05/02/2024 2:48 PM EDT us Consuelo Cramer MD LAB BLOOD ORDERABLES Final Resul t [facility] [address] [place], [place] [phone] * (ABNORMAL) CBC auto differential (05/02/2024 2:48 PM EDT) White Blood Count 7.3 4.8 - 10.8 X10*3/uL [facility] Red Blood Count 3.91(L) 4.60 - 5.80 X10*6/uL [facility] Hemoglobin 12.0(L) 14.0 - 18.0 g/dl [facility] Hematocrit 36.6(L) 42.0 - 52.0 % [facility] Mean Corpuscular Volume 93.6 80.0 - 98.0 fL [facility] Mean Corpuscular Hemoglobin 30.7 27.0 - 33.0 pg [facility] Mean Corpuscular HGB Conc 32.8 31.0 - 36.0 g/dl [facility] Red Cell Distribution Width 13.9 11.0 - 16.0 % [facility] Platelet Count 238 160 - 400 X10*3/uL [facility] Mean Platelet Volume 9.7 9.4 - 12.4 fL [facility] Neutrophils Percent Auto 73.6(H) 45 - 73 % [facility] Imm Gran Pct Auto 0.3 0.0 - 0.4 % [facility] Lymphocytes Percent Auto 18.4(L) 20 - 40 % [facility] Monocytes Percent Auto 5.5 2 - 11 % [facility] Eosinophils Percent Auto 1.8 0 - 4 % [facility] Basophils Percent Auto 0.4 0 - 2 % [facility] NRBC Pct Auto 0.0 0.0 - 0.2 /100WBC [facility] Neutrophils Absolute Auto 5.4 2.0 - 8.3 x10*3/uL [facility] Imm Gran Abs Auto 0.02 0.00 - 0.03 X10*3/uL [facility] Lymphocytes Absolute Auto 1.3 1.2 - 4.9 X10*3/uL [facility] Monocytes Absolute Auto 0.4 0.1 - 1.2 X10*3/uL [facility] Eosinophils Absolute Auto 0.1 0.0 - 0.4 X10*3/uL [facility] Basophils Absolute Auto 0.0 0.0 - 0.2 X10*3/uL [facility] NRBC Abs Auto 0.000 0.0 - 0.012 X10*3/uL [facility] Blood Venous blood specimen / Unknown 05/02/2024 2:48 PM EDT 05/02/2024 2:48 PM EDT Consuelo Cramer MD LAB BLOOD ORDERABLES Final Resul t [facility] [address] [place] [phone] [phone] documented in this encounter Visit Diagnoses Diagnosis 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
== END 2024-12-28 12:24 | disposition home or self-care (01) ==
LOC: HO.HSM 11:10
PROVIDERS: PCP Family Medicine; Referring Provider Family Medicine; Visit Provider Psychiatry & Neurology Neurology
DX: F03.90 Unspecified dementia, unspecified severity, without behavioral disturbance, psychotic disturbance, mood disturbance, and anxiety (principal); G21.8 Other secondary parkinsonism
CPT/HCPCS: 99214